=== PATIENT | female | born 1940 | race Caucasian/White ===

== ENCOUNTER → 2018-05-17 02:34 | Outpatient (CLI) | payer MEDICARE, SELFPAY ==
[2018-05-17 11:01] LABS: INR 2.2 (1.0-3.5)
== END ==
PROVIDERS: PCP Family Medicine; Visit Provider Family Medicine
DX: I48.91 Unspecified atrial fibrillation (principal); Z79.01 Long term (current) use of anticoagulants
CPT/HCPCS: 36415; 85610

== ENCOUNTER 2018-06-20 01:27 | Outpatient (CLI) | payer MEDICARE, SELFPAY ==
[2018-06-20 11:01] LABS: Prothrombin Time 44.8 sec (9.3-10.8)
[2018-06-20 11:32] LABS: INR 4.9 (1.0-3.5)
== END 2018-06-20 01:47 ==
PROVIDERS: PCP Family Medicine; Visit Provider Family Medicine
DX: I48.91 Unspecified atrial fibrillation (principal); Z79.01 Long term (current) use of anticoagulants
CPT/HCPCS: 36415; 85610

== ENCOUNTER 2018-06-27 01:03 | Outpatient (CLI) | payer MEDICARE, SELFPAY ==
[2018-06-27 10:54] LABS: INR 2.1 (1.0-3.5)
== END 2018-06-27 01:23 ==
PROVIDERS: PCP Family Medicine; Visit Provider Family Medicine
DX: I48.91 Unspecified atrial fibrillation (principal); Z79.01 Long term (current) use of anticoagulants
CPT/HCPCS: 36415; 85610

== ENCOUNTER 2018-07-04 02:22 | Outpatient (CLI) | payer MEDICARE, SELFPAY ==
[2018-07-04 11:02] LABS: INR 2.4 (1.0-3.5); Prothrombin Time 22.4 sec (9.3-10.8)
== END 2018-07-04 02:42 ==
PROVIDERS: PCP Family Medicine; Visit Provider Family Medicine
DX: I48.91 Unspecified atrial fibrillation (principal); Z79.01 Long term (current) use of anticoagulants
CPT/HCPCS: 36415; 85610

== ENCOUNTER 2018-07-18 01:39 | Outpatient (CLI) | payer MEDICARE, SELFPAY | END 2018-07-18 01:59 | PROVIDERS: PCP Family Medicine; Visit Provider Family Medicine | DX: I48.91 Unspecified atrial fibrillation (principal); Z79.01 Long term (current) use of anticoagulants | CPT/HCPCS: 36415; 85610 ==

== ENCOUNTER 2018-09-01 02:19 | Outpatient (CLI) | payer MEDICARE, SELFPAY ==
[2018-09-01 11:45] LABS: INR 2.7 (1.0-3.5); Prothrombin Time 25.4 sec (9.3-10.8)
== END 2018-09-01 02:39 ==
PROVIDERS: PCP Family Medicine; Visit Provider Family Medicine
DX: I48.91 Unspecified atrial fibrillation (principal); Z79.01 Long term (current) use of anticoagulants
CPT/HCPCS: 36415; 85610

== ENCOUNTER 2018-09-16 02:14 | Outpatient (CLI) | payer MEDICARE, SELFPAY ==
[2018-09-16 11:49] LABS: Anion Gap 7.9 mmol/L (3-11); BUN 15 mg/dL (7-18); CO2 28.1 mmol/L (21.0-32.0); CREATININE 1.13 mg/dL (0.55-1.02); Calcium 8.7 mg/dL (8.5-10.1); Chloride 107 mmol/L (98-107); Cholesterol 217 mg/dL (50-200); Estimated GFR 46.33 (mL/min/1.73m2); Glucose 99 mg/dL (70-100); HDL Cholesterol 81 mg/dL (40-60); LDL CHOLESTEROL 114 mg/dL (<100); Potassium 4.4 mmol/L (3.5-5.1); Sodium 143 mmol/L (136-145); TSH 3.07 uIU/mL (0.358-3.74); Triglyceride 107 mg/dL (30-150)
== END 2018-09-16 02:34 ==
PROVIDERS: PCP Family Medicine; Visit Provider Family Medicine
DX: E89.0 Postprocedural hypothyroidism (principal); I10 Essential (primary) hypertension; K58.9 Irritable bowel syndrome, unspecified
CPT/HCPCS: 36415; 80048; 80061; 83721; 84443

== ENCOUNTER 2018-09-21 00:40 | Outpatient (CLI) | payer MEDICARE, SELFPAY ==
--- NOTE | 2018-09-21 10:56 | DI.MAMMO_ITS ---
SYMPTOM/DIAGNOSIS: SCREENING FOR BREAST CANCER Z12.31 BILATERAL SCREENING MAMMOGRAMS: Mammograms were interpreted according to the usual protocol including computer analysis with CAD system, tomosynthesis and C view imaging. Comparison is made with exams from 2012 through 2016. The breasts are composed of scattered fibroglandular densities, breast density Category B. No suspicious masses or suspicious microcalcifications are seen. There has been no significant change. IMPRESSION: Category 1-B, negative mammogram. Yearly screening mammography is recommended. [facility] ASSESSMENT OF FINDINGS: Negative. Category 1. Patient will receive a letter notifying them of these results. BI-RADS category B. There are scattered areas of fibroglandular density.
== END 2018-09-21 01:00 ==
PROVIDERS: PCP Family Medicine; Visit Provider Family Medicine
DX: Z12.31 Encounter for screening mammogram for malignant neoplasm of breast (principal)
CPT/HCPCS: 77063; 77067

== ENCOUNTER 2018-10-03 02:16 | Outpatient (CLI) | payer MEDICARE, SELFPAY ==
[2018-10-03 13:25] LABS: INR 2.4 (1.0-3.5); Prothrombin Time 24.6 sec (9.3-11.0)
== END 2018-10-03 02:36 ==
PROVIDERS: PCP Family Medicine; Visit Provider Family Medicine
DX: I48.91 Unspecified atrial fibrillation (principal); Z79.01 Long term (current) use of anticoagulants
CPT/HCPCS: 36415; 85610

== ENCOUNTER 2018-11-07 02:20 | Outpatient (CLI) | payer MEDICARE, SELFPAY ==
[2018-11-07 11:22] LABS: INR 3.2 (0.9-1.1)
== END 2018-11-07 02:40 ==
PROVIDERS: PCP Family Medicine; Visit Provider Family Medicine
DX: I48.91 Unspecified atrial fibrillation (principal); Z79.01 Long term (current) use of anticoagulants
CPT/HCPCS: 36415; 85610

== ENCOUNTER 2018-12-07 02:48 | Outpatient (CLI) | payer MEDICARE, SELFPAY ==
[2018-12-07 12:58] LABS: INR 1.7 (0.9-1.1); Prothrombin Time 17.2 sec (9.3-11.0)
== END 2018-12-07 03:08 ==
PROVIDERS: PCP Family Medicine; Visit Provider Family Medicine
DX: I48.91 Unspecified atrial fibrillation (principal); Z79.01 Long term (current) use of anticoagulants
CPT/HCPCS: 36415; 85610

== ENCOUNTER 2018-12-21 02:40 | Outpatient (CLI) | payer MEDICARE, SELFPAY ==
[2018-12-21 11:14] LABS: INR 2.3 (0.9-1.1); Prothrombin Time 22.9 sec (9.3-11.0)
== END 2018-12-21 03:00 ==
PROVIDERS: PCP Family Medicine; Visit Provider Family Medicine
DX: I48.91 Unspecified atrial fibrillation (principal); Z79.01 Long term (current) use of anticoagulants
CPT/HCPCS: 36415; 85610

== ENCOUNTER 2019-01-06 02:55 | Outpatient (CLI) | payer MEDICARE, SELFPAY ==
[2019-01-06 13:10] LABS: INR 1.9 (0.9-1.1); Prothrombin Time 18.9 sec (9.3-11.0)
== END 2019-01-06 03:15 ==
PROVIDERS: PCP Family Medicine; Visit Provider Family Medicine
DX: I48.91 Unspecified atrial fibrillation (principal); Z79.01 Long term (current) use of anticoagulants
CPT/HCPCS: 36415; 85610

== ENCOUNTER 2019-02-02 01:31 | Outpatient (CLI) | payer MEDICARE, SELFPAY ==
[2019-02-02 11:18] LABS: Prothrombin Time 25.7 sec (9.3-11.0)
[2019-02-02 11:26] LABS: INR 2.5 (0.9-1.1)
== END 2019-02-02 01:51 ==
PROVIDERS: PCP Family Medicine; Visit Provider Family Medicine
DX: I48.91 Unspecified atrial fibrillation (principal); Z79.01 Long term (current) use of anticoagulants
CPT/HCPCS: 36415; 85610

== ENCOUNTER 2019-02-14 22:31 | Inpatient (IN) | payer MEDICARE, SELFPAY ==
[2019-02-14] VITALS (9 sets, daily range): BP systolic 183–192; BP diastolic 72–90; PULSE 69–77; RESP 12–20; TEMP 36.7; O2SAT 93–96
--- NOTE | 2019-02-14 22:39 | DI.RAD_ITS ---
SYMPTOM/DIAGNOSIS: CHEST PAIN PA AND LATERAL CHEST: The heart is normal in size. The lungs are clear. The mediastinal structures and pleura appear intact. CONCLUSION: Normal chest.
--- NOTE | 2019-02-14 22:53 | ED.GENADUL_ITS ---
Discharge Plan Disposition Patient Disposition: [facility] INPATIENT Condition: Improving Discharge Details Chief Complaint: Abd Prob Clinical Impression: Abdominal pain, Inflammation of small intestine Admit Date/Time: 02/15/19 00:59 Admit Provider: Phillip Cummins Attending Provider: Phillip Cummins Primary Care Provider: Alex Woods ED Provider: Sma Garcia Hospital Course Hospital Course: Juli Lindquist is an 78 year old female with a past medical history significant for atrial fibrillation anticoagulated with coumadin, CHF, previous history of diverticulitis, s/p appendectomy and hysterectomy who presented to the ED on 02/14/19 with reports of abdominal pain with nausea and diarrhea. She described the pain as coming in waves or spasms, in her epigastric region and periumbilical area. She had a CT abdomen in the ED which showed Findings suggestive of enteritis. No evidence of perforation. The initial read suggested possible small bowel obstruction vs enteritis. She had a normal chest x-ray. Her labs were significant for a slightly supratherapeutic INR at 3.2, Creatinine was mildly elevated at 1.05 in the setting of CKD (baseline cr around 1.3-1.4). She had no leukocytosis. She was admitted to the med/surg floor for further evaluation and monitoring. She was initially kept NPO and given IV fluids. The morning after her admission, she had an abdominal x-ray which showed her bowel gas pattern within normal limits except for a few mildly dilated loops of small bowel in the mid abdomen. Moderate amount of fecal material and gas in the colon. Her abdominal spasms resolved. She was able to tolerate advancement of her diet. Her INR normalized to 2.3, her magnesium was low on the day of discharge at 1.5, she received IV magnesium. Her creatinine was 1.15, which is below baseline for her. She had a normal bowel movement the evening prior to her discharge. She is no longer nauseated, no vomiting, and afebrile. She reports that her abdomen is sore but markedly better than when she presented to the hospital. She was monitored on telemetry and remained in NSR and sinus jackie in the 50- 60s. She is discharged home in improved condition. She will follow up with her PCP next week. She is advised to return to her usual diet slowly, as tolerated. She will take omeprazole for GERD after discharge. Follow up INR in 2 days. Discharge Instructions Instructions: Enteritis (DC) Additional Instructions: Resume your normal diet slowly. Resume your usual coumadin dose. INR in 2 days. Omeprazole daily for GERD/abdominal pain. Follow up with your PCP as scheduled. Take care! Forms: Nursing Discharge Form Referrals: Alex Woods MD [Primary Care Provider] - 02/21/19 4:00 pm Discharge Data Discharge Date/Time-TO BE ENTERED AT DEPARTURE: 02/15/19 01:47 Medical Decision Making <SHASHANK Beltran - Last Filed: 02/16/19 16:00> Patient is 78-year-old female, brought in by her , chief complaint of abdominal pain that began this afternoon after eating lunch. Reports the pain got worse throughout the course the day, particularly after eating dinner. She reports that for dinner she had mashed potatoes, spaghetti and squash. She denies any nausea vomiting. Is not had pain like this historically. Pain is primarily in epigastric and right upper quadrant with radiation up into the chest and neck. Denies any right shoulder pain. Denies any pain in her back or flank. No pain lower in the abdomen. States that the pain can come in spasms. Does not easily reproducible. Patient does have history of diverticulitis but reports typically this pain is in the left lower quadrant. No pain in this area today. Denies any fevers or chills. On exam, she appears uncomfortable. Abdomen is slightly distended tympanitic. Hypoactive bowel sounds. Patient is primarily tender in the epigastric and right upper quadrant with a positive Koenig sign. Cardiac exam is normal, lungs are clear. No reproducible pain with palpation of the chest. Considered possible ACS, cholecystitis, atypical presentation of her diverticulitis, pancreatitis versus other cardiac pulmonary or abdominal etiology. Plan obtain labs, EKG, chest x- ray and CT of abdomen. EKG was reviewed by Dr. Garcia. Patient does have T wave abnormalities but this is consistent compared to previous. We attempted to ultrasound the patient to look for gallbladder disease, secondary to bowel gas or having difficulty visualizing the Labs significant for INR 3.2, patient has not taken her coumadin today. Creatinine 1.05. No leukocytosis. At the end of my shift, imaging pending. Care transitioned to Dr. Garcia. <Sam Garcia MD - Last Filed: 02/15/19 00:35> 00:34 -- Care signed out by SHASHANK Romero - please see her documentation regarding initial presentation and course. Plan at signout was to follow-up CT and reassess patient. CT interpreted by radiology: IMPRESSION: Changes to some of the small bowel loops in the right lower quadrant could be early evidence of small bowel obstruction or enteritis. Colonic diverticulosis. Labs reviewed and nondiagnostic. Patient reassessed: initial morphine helped and then recurrent severe pain, receiving second dose of morphine. Abd soft and nondistended, focal TTP right mid and lower quadrant. Patient denies nausea/vomiting. Had loose stool earlier today. I called and spoke with Dr. Cummins who will admit the patient. Care transitioned to Dr. Cummins. HPI <SHASHANK Beltran - Last Filed: 02/16/19 16:00> General Mode of arrival: ambulatory . Date/Time Provider Initiated Documentation: 02/14/19 22:35 . Limitations to Documentation: no limitations . Information obtained by: patient, family (Accompanied by ) and RN notes reviewed . HPI Narrative: Patient is an 78 year old female presenting today with c/c of abdominal cramping that began this afternoon. Pain radiates into chest and up to neck. Denies SOB. Has history of HTN, diverticulitis, CHF, a fib. Patient anticoagulated on coumadin. Patient s/p appendectomy, cardiac ablation, hysterectomy. She reports that pain is similar to when she has had diverticulitis historically but more centrally located with pain that radiates upward. Denies nausea or vomiting. Has had loose stools today, no blood in stool. Related Data Home Medications Medication Instructions Recorded Confirmed calcium carbonate-vitamin D3 1 tab PO DAILY 01/31/13 02/15/19 [Caltrate with Vitamin D3] lisinopril 1 tab PO DAILY #90 tab 02/01/18 02/15/19 levothyroxine 88 mcg tablet 88 mcg PO DAILY@0730 #90 tab 08/10/18 02/15/19 gabapentin 600 mg tablet 300 mg PO BID #90 tab 09/15/18 02/15/19 metoprolol succinate ER 100 mg 100 mg PO QAM #90 tab 10/31/18 02/15/19 tablet,extended release 24 hr warfarin 5 mg tablet 5 mg PO DAILY 12/21/18 02/15/19 omeprazole 20 mg PO DAILY #14 cap 02/16/19 Previous Rx's Medication Instructions Recorded lisinopril 1 tab PO DAILY #90 tab 02/01/18 levothyroxine 88 mcg tablet 88 mcg PO DAILY@0730 #90 tab 08/10/18 gabapentin 600 mg tablet 300 mg PO BID #90 tab 09/15/18 metoprolol succinate ER 100 mg 100 mg PO QAM #90 tab 10/31/18 tablet,extended release 24 hr omeprazole 20 mg PO DAILY #14 cap 02/16/19 Allergies Allergy/AdvReac Type Severity Reaction Status Date / Time amoxicillin AdvReac Severe nausea/hot Verified 02/15/19 00:31 feeling sertraline AdvReac Intermediate TREMOR, Verified 02/15/19 00:31 DIAPHORESIS codeine phosphate AdvReac GI Verified 02/15/19 00:31 [From Tylenol-Codeine] General Stated Complaint: Abd Prob MATT: 3 Review of Systems <SHASHANK Beltran - Last Filed: 02/16/19 16:00> Constitutional Reports as per HPI, Denies chills, Denies fatigue, Denies fever(s), Denies headache(s), Denies lethargy and Reports poor appetite (diminished this evening) ENT Denies headache(s) Cardiovascular Reports as per HPI, Reports chest pain (radiates upward from abdomen with irregular spasms), Denies chest pain at rest, Denies chest pain with activity, Denies rapid heart rate, Denies irregular heart rhythm (hx of afib, s/p ablation), Denies leg edema, Reports radiating jaw, neck or arm pain (pain into neck), Denies dyspnea and Denies dyspnea on exertion Respiratory Reports as per HPI, Denies cough, Denies dyspnea, Denies dyspnea on exertion and Denies wheezing Gastrointestinal Reports as per HPI, Reports abdominal pain, Denies belching, Denies melena, Reports bloating, Denies change in stool character, Denies nausea and Denies vo miting Genitourinary Denies dysuria and Denies flank pain Musculoskeletal Reports as per HPI and Denies back pain Integumentary/Breasts Reports as per HPI and Denies rash Neurologic Reports as per HPI and Denies headache(s) Endocrine Denies fatigue Allergic/Immunologic Denies wheezing PFSH <SHASHANK Beltran - Last Filed: 02/16/19 16:00> Medical History Arthritis Atrial fibrillation Diverticula of colon Hypertension Hypothyroid Irritable colon Ovarian cysts remote history Raynaud phenomenon Surgical History Abdominal hysterectomy (~1967) Appendectomy Cardiac ablations Colonoscopy - IV Sedation EGD - MAC (10/16/14) Oophrectomy, Both Partial thyroidectomy Family History Mother Rheumatoid arthritis Osteoporosis Father Stroke Grandfather Neoplasm Grandfather Stroke Grandmother Stroke Grandmother No problems noted. Son No problems noted. Daughter No problems noted. Social History Smoking/Tobacco Use Status: Former Tobacco Use Drug use: Never Substance use type: does not use Do you feel safe at home: Yes Do you feel safe in your relationship?: Yes Exam <SHASHANK Beltran - Last Filed: 02/16/19 16:00> Const General: cooperative, healthy appearing, comfortable, well developed and acute distress mild (appears uncomfortable) Nutritional Appearance: average body habitus and well nourished Orientation: alert and awake HENIL Head: normal to inspection Mouth: moist mucous membranes Chest Chest: normal inspection of the chest and no localized rib tenderness Resp Effort & Inspection: normal respiratory effort, able to speak in complete sentences and no respiratory distress Auscultation: clear to auscultation bilaterally, no rales, no rhonchi and no wheezes Cardio Rate: regular rate Rhythm: regular rhythm Heart Sounds: S1 normal and S2 normal GI Inspection: no edema, distended, incision (well healed lower incision), no large pannus, no visible herniation and no visible pulsation Palpation: soft, no hepatosplenomegaly, not firm, guarding in the RUQ, no hepatosplenomegaly, no hernias, no masses, no pulsatile masses, not rigid, tender in the epigastrum, in the RUQ and Koenig's sign positive; not at McBurney's point, obturator sign negative and with no rebound tenderness and No ascites Percussion: tympanic to percussion Auscultation: hypoactive bowel sounds Back/Spine/Pelvis Back: no CVA tenderness Skin General skin exam: no rashes or lesions noted Trauma: no lacerations or abrasions Neuro General: alert and awake Cognition: normal cognition Speech: speech normal Gait: normal gait Extrem General: normal to inspection, normal capillary refill, no pedal edema, no calf tenderness and normal gait Psych Appearance: grossly normal and well kempt Mental Status: mental status grossly normal Speech and Movement: speech and movement normal Course <SHASHANK Beltran - Last Filed: 02/16/19 16:00> Vital Signs Temperature 36.7 C 02/14/19 22:36 Pulse 76 02/14/19 22:36 Respiratory Rate 20 02/14/19 22:36 Blood Pressure 192/90 H 02/14/19 22:36 Pulse Oximetry 95 02/14/19 22:36 Temperature 36.7 C 02/14/19 22:36 Temperature Source Tympanic 02/14/19 22:36 Pulse 76 02/14/19 22:36 Respiratory Rate 20 02/14/19 22:36 Blood Pressure 192/90 H 02/14/19 22:36 Blood Pressure Position Supine 02/14/19 22:36 Pulse Oximetry 95 02/14/19 22:36 Oxygen Delivery Method Room Air 02/14/19 22:36 Oxygen Flow Rate 0 02/14/19 22:36 Pain Level 7 02/14/19 22:36 Sign Out <SHASHANK Beltran - Last Filed: 02/16/19 16:00> Sign Out Data: Sign Out Comment: Care transitioned to Dr. Garcia with imaging pending. Last updated by Corine Romero PA at 02/15/19 00:19
[2019-02-14 23:08] LABS: Abs Immature Grans 0.02 k/cumm (0.0-0.09); Absolute Basophil Count 0.02 k/cumm (0.0-0.2); Absolute Eosinophil Count 0.16 k/cumm (0.0-0.7); Absolute Lymphocyte Count 1.31 k/cumm (1.2-3.4); Absolute Monocyte Count 0.53 k/cumm (0.11-0.7); Absolute Neutrophil Count 8.59 k/cumm (1.2-6.7); Basophils % 0.2; Eosinophils % 1.5; HCT 46.6 % (36.0-46.0); HGB 15.3 g/dL (12.0-15.5); Immature Grans % 0.2; Lymphocytes % 12.3; Mean Corp. HGB Concentration 32.8 g/dL (32.0-36.0); Mean Corpuscular Volume 85.3 fL (80-95); Neutrophils % 80.8; Platelet Count 194 x1000/uL (130-400); RBC 5.46 m/cumm (4.00-5.20); RBC Distribution Width 13.3 % (11.7-14.6); White Blood Cell Count 10.63 k/cumm (4.4-10.8)
[2019-02-14] MEDS: Normal Saline 1,000 ML 125 ML IV (23:09)
--- NOTE | 2019-02-14 23:16 | DI.CT_ITS ---
SYMPTOM/DIAGNOSIS: RUQ AND EPIGASTRIC PAIN ABDOMEN AND PELVIC CT: CT examination of the abdomen and pelvis was performed with a bolus infusion of 100 cc's of Omnipaque 350. Images obtained through the lung bases are unremarkable. Liver, spleen and pancreas appear normal. Gallbladder and bile ducts are CT normal. Adrenals and kidneys appear normal. Abdominal aorta is of normal diameter and no major vascular abnormality is seen. No significant abdominal wall hernia is seen. No significant abdominal or pelvic adenopathy is seen. There is a small quantity of free pelvic fluid. There is marked colonic diverticulosis without diverticulitis. Appendix is not specifically visualized but there is no evidence of appendicitis. Note is made of multiple loops of moderately dilated fluid filled small bowel with associated mesenteric edema at multiple sites. The findings are suggestive of enteritis. CONCLUSION: Findings suggestive of enteritis. No evidence of perforation.
[2019-02-14 23:28] LABS: ALT 19 U/L (12-78); AST 14 U/L (15-37); Albumin 3.6 g/dL (3.4-5.0); Alkaline Phosphatase 96 U/L (46-116); Anion Gap 9.4 mmol/L (3-11); BUN 13 mg/dL (7-18); Bilirubin, Total 0.4 mg/dL (0.2-1.0); CO2 27.6 mmol/L (21.0-32.0); CREATININE 1.05 mg/dL (0.55-1.02); Calcium 9.2 mg/dL (8.5-10.1); Chloride 104 mmol/L (98-107); Estimated GFR 50.43 (mL/min/1.73m2); Glucose 102 mg/dL (70-100); Lipase 144 U/L (73-393); Magnesium 1.9 mg/dL (1.8-2.4); NT-proBNP 620 pg/mL; Potassium 3.8 mmol/L (3.5-5.1); Sodium 141 mmol/L (136-145); Total Protein 7.5 g/dL (6.4-8.2); Troponin I 0.02 ng/mL (0.00-0.06)
[2019-02-14 23:45] LABS: INR 3.2 (0.9-1.1); Prothrombin Time 32.7 sec (9.3-11.0)
[2019-02-14] MEDS: Omnipaque 350 MG/ML 100 ML BTL IV (23:55)
[2019-02-15] VITALS (30 sets, daily range): BP systolic 137–189; BP diastolic 62–97; PULSE 54–74; RESP 13–25; TEMP 36.3–36.8; O2SAT 93–97
--- NOTE | 2019-02-15 00:10 | DI.VRAD_ITS ---
EXAM: XR Chest, 2 Views EXAM DATE/TIME: 02/14/2019 10:40 PM CLINICAL HISTORY: 78 years old, female; Signs and symptoms; Other: Cp; Prior surgery; Surgery date: 6+ months; Surgery type: Ablation TECHNIQUE: Imaging protocol: XR of the chest, 2 views. COMPARISON: No relevant prior studies available. FINDINGS: Lungs: Unremarkable. No consolidation. Pleural space: Unremarkable. No evidence of pneumothorax. Heart/Mediastinum: Unremarkable. Heart size within normal limits for technique. Bones/joints: Unremarkable. IMPRESSION: No acute findings. Dictated and Authenticated by: Jose Ribeiro MD. Ordering:STEFANY Pool MD
--- NOTE | 2019-02-15 00:13 | DI.VRAD_ITS ---
EXAM: CT Abdomen and Pelvis With Contrast EXAM DATE/TIME: 02/14/2019 11:17 PM CLINICAL HISTORY: 78 years old, female; Signs and symptoms; Other: Ruq and epigastric pain; Prior surgery; Surgery date: 6+ months; Surgery type: Appendectomy , hysterectomy TECHNIQUE: Imaging protocol: Axial computed tomography images of the abdomen and pelvis with intravenous contrast. Coronal and sagittal reformatted images were created and reviewed. Radiation optimization: All CT scans at this facility use at least one of these dose optimization techniques: automated exposure control; mA and/or kV adjustment per patient size (includes targeted exams where dose is matched to clinical indication); or iterative reconstruction. Contrast material: OMNIPAQUE 350; Contrast volume: 100 ml; Contrast route: IV; COMPARISON: CT ABD PELVIS WITH CONTRAST 10/19/2014 8:36 AM FINDINGS: ABDOMEN: Liver: No suspicious lesions. Gallbladder and bile ducts: No acute or concerning findings. Pancreas: Unremarkable. No ductal dilation. Spleen: No suspicious lesions. Adrenals: Unremarkalbe. No suspicious mass. Kidneys and ureters: Unremarkable. No hydro. No suspicious lesions. Stomach and bowel: Colonic diverticulosis. Right lower quadrant has some fluid filled small bowel loops which are normal in caliber and have no wall thickening but there is some adjacent mesenteric edema. Appendix: History of appendectomy. PELVIS: Bladder: Unremarkable as visualized. Reproductive: Unremarkable as visualized. ABDOMEN and PELVIS: Intraperitoneal space: No free air. No significant fluid collection. Bones/joints: No acute fracture. No dislocation. Soft tissues: Unremarkable. Vasculature: Unremarkable. No acute findings Lymph nodes: Unremarkable. IMPRESSION: Changes to some of the small bowel loops in the right lower quadrant could be early evidence of small bowel obstruction or enteritis. Colonic diverticulosis. Dictated and Authenticated by: Jose Ribeiro MD. Ordering:STEFANY Pool MD
[2019-02-15] MEDS: Normal Saline Flush 10 ML SYR IVP ×5 (00:14→17:29)
--- NOTE | 2019-02-15 00:58 | HPE_ITS ---
Date of service: 02/15/19 Time of Service: 00:47 Assessment and Plan (1) Abdominal pain: Current visit: Yes Status: Acute Abd pain, early obstruction versus enteritis. Will place NPO, IVF and repeat film in AM. Prn analgesics and anti-emetics. Slight supratherapeutic INR noted, will hold Coumadin and follow INR. Usual meds otherwise.. History of Present Illness Narrative: 78 year old female s/p appy and hysterectomy, prior diverticulitis, comes in with one day of intermittent RLQ/periumbilical pain. Non-radiating, comes in waves or spasms, some nausea. Had 5-6 bouts of loose stool earlier today, none since here in ER. CT demonstrates fluid filled loops small bowel in RLQ. Given MS 3 mg x2 with fairly good relief of pain. Admitted for further management. Denies travel or change in water source; no similar illness in fami ly. Review of Systems Review of Systems All systems reviewed & are unremarkable except as noted in HPI and below PFSH Medical History Arthritis Atrial fibrillation Diverticula of colon Hypertension Hypothyroid Irritable colon Ovarian cysts remote history Raynaud phenomenon Surgical History Abdominal hysterectomy (~1967) Appendectomy Cardiac ablations Colonoscopy - IV Sedation EGD - MAC (10/16/14) Oophrectomy, Both Partial thyroidectomy Family History Mother Rheumatoid arthritis Osteoporosis Father Stroke Grandfather Neoplasm Grandfather Stroke Grandmother Stroke Grandmother No problems noted. Son No problems noted. Daughter No problems noted. Social History Smoking/Tobacco Use Status: Former Tobacco Use Drug use: Never Substance use type: does not use Do you feel safe at home: Yes Do you feel safe in your relationship?: Yes Meds Home Medications Medication Instructions Recorded Confirmed Type calcium carbonate-vitamin D3 1 tab PO DAILY 01/31/13 02/15/19 History [Caltrate 600 + D Tablet] lisinopril 1 tab PO DAILY #90 tab 02/01/18 02/15/19 Rx levothyroxine 88 mcg tablet 88 mcg PO DAILY@0730 #90 tab 08/10/18 02/15/19 Rx gabapentin 600 mg tablet 300 mg PO BID #90 tab 09/15/18 02/15/19 Rx metoprolol succinate ER 100 mg 100 mg PO QAM #90 tab 10/31/18 02/15/19 Rx tablet,extended release 24 hr warfarin 5 mg tablet 5 mg PO DAILY 12/21/18 02/15/19 History Allergies Allergy/AdvReac Type Severity Reaction Status Date / Time amoxicillin AdvReac Severe nausea/hot Verified 02/15/19 00:31 feeling sertraline AdvReac Intermediate TREMOR, Verified 02/15/19 00:31 DIAPHORESIS codeine phosphate AdvReac GI Verified 02/15/19 00:31 [From Tylenol-Codeine] Exam Narrative Exam Narrative: 153/73, 68, 18, 36.3. HEENT unremarrkable. Neck ssupple; lungs clear; heart RRR w/o m/r/g; abdomen +BS, moderate RLQ tenderness with rebound, mild to moderate perriumbilical tenderness; extr no edema; neuro alert, non- focal Results CT as above: fluid filled loops small bowel, no free air, no AFL Labs : 02/14/19 22:55 02/14/19 22:55 Laboratory Results - last 24 hr 02/14/19 02/14/19 02/14/19 22:55 22:55 22:55 WBC 10.63 RBC 5.46 H Hgb 15.3 Hct 46.6 H MCV 85.3 MCH 28.0 MCHC 32.8 RDW 13.3 Plt Count 194 MPV 10.0 Immature Gran % 0.2 Neutrophils % 80.8 Lymphocytes % 12.3 Monocytes % 5.0 Eosinophils % 1.5 Basophils % 0.2 Absolute Neutrophils 8.59 H Absolute Lymphocytes 1.31 Absolute Monocytes 0.53 Absolute Eosinophils 0.16 Absolute Basophils 0.02 PT 32.7 H INR 3.2 H APTT 42.0 H Sodium 141 Potassium 3.8 Chloride 104 Carbon Dioxide 27.6 Anion Gap 9.4 BUN 13 Creatinine 1.05 H Estimated GFR/1.73 m2 50.43 Glucose 102 H Calcium 9.2 Magnesium 1.9 Total Bilirubin 0.4 AST 14 L ALT 19 Alkaline Phosphatase 96 Troponin I 0.02 NT-Pro-B Natriuret Pep 620 H Total Protein 7.5 Albumin 3.6 Lipase 144 Last Vital Signs Temp 36.3 C L 02/15/19 00:11 Pulse 69 02/15/19 00:15 Resp 17 02/15/19 00:20 BP 153/73 H 02/15/19 00:15 Pulse Ox 94 L 02/15/19 00:10
[2019-02-15] MEDS: Lactated Ringers 1,000 ML 150 ML IV (02:07)
--- NOTE | 2019-02-15 07:00 | DI.RAD_ITS ---
SYMPTOM/DIAGNOSIS: SMALL BOWEL OBSTRUCTION VERSUS ENTERITIS ABDOMEN AND UPRIGHT: Two views were obtained and show contrast material in the urinary tract post contrast enhanced CT. The bowel gas pattern is within normal limits except for a few mildly dilated loops of small bowel in the mid abdomen. Moderate amount of fecal material and gas in the colon. CONCLUSION: No evidence of acute process.
[2019-02-15 07:32] LABS: Prothrombin Time 30.2 sec (9.3-11.0)
[2019-02-15] MEDS: Ondansetron 4 MG/2 ML VIAL IVP ×2 (07:33→17:29)
--- NOTE | 2019-02-15 08:15 | PDOC.CMIN ---
- If Service Date Differs Date of service: 02/15/19 Time of Service: 08:16 Care Management Initial Assess REASON FOR HOSPITALIZATION:: Abdominal Pain PAST MEDICAL HISTORY/PAST SURGICAL HISTORY:: Medical History: Arthritis, Atrial fibrillation, Diverticula of colon, Hypertension, Hypothyroid. Irritable colon, Ovarian cysts remote history, Raynaud phenomenon. Surgical History: Abdominal hysterectomy (~1967). Appendectomy. Cardiac ablations. Colonoscopy - IV Sedation. EGD - MAC (10/16/14). Oophrectomy, Both. Partial thyroidectomy PREVIOUS FUNCTIONAL STATUS/SOCIAL/FAMILY SUPPORTS:: Juli lives with her Neda in a single family home in [facility]. They have 2 adult children and several grandchildren, all living out of state. Both Juli and her are retired. She is independent with all ADLs and continues to drive. CURRENT FUNCTIONAL STATUS:: Juli was sitting up in bed during CM visit stating she is very thirsty. She is currently NPO because of a possible SBO. She states that her abdominal pain and cramping were a 10/10 but after 4 doses of morphine, it is down to a 2/10. Juli was very open and engaged in the conversation. She hopes to be discharged today or tomorrow. ADVANCE DIRECTIVES:: On file at [facility]. DANIELLA Lindquist. [phone] Has patient been provided with information about the portal?: Yes Did the patient sign up for the portal?: Yes (previously) CODE STATUS:: Full Code INSURANCE COVERAGE / FINANCIAL ISSUES:: Medicare. [facility] CURRENT HOME/COMMUNITY SERVICES/EQUIPMENT:: none PRIMARY CARE PHYSICIAN:: Alex Woods POTENTIAL DISCHARGE NEEDS:: none identified PATIENT/FAMILY EDUCATION NEEDS:: Discharge plan, limitations, follow up plan of care, Ask Me Three. ANTICIPATED BARRIERS TO DISCHARGE:: none identified TRANSPORTATION:: Via private automobile with at time of discharge. PLAN:: Juli is receiving IV fluids and undergoing testing to determine the cause of her abdominal pain. Anticipate she will return home without services when ready. CM will continue to provide support to patient, family, care team and discharge plan of care.
[2019-02-15] MEDS: Metoprolol CR 100 MG TABCR PO (08:37)
[2019-02-15] MEDS: Gabapentin 600 MG TAB 300 MG PO ×2 (08:37→19:55)
[2019-02-15] MEDS: Levothyroxine 88 MCG TAB PO (08:37)
[2019-02-15] MEDS: Lisinopril 20 MG TAB 40 MG PO (08:37)
--- NOTE | 2019-02-15 09:23 | INITIAL_ITS ---
- If Service Date Differs Date of service: 02/15/19 Time of Service: 08:16 Care Management Initial Assess REASON FOR HOSPITALIZATION:: Abdominal Pain PAST MEDICAL HISTORY/PAST SURGICAL HISTORY:: Medical History: Arthritis, Atrial fibrillation, Diverticula of colon, Hypertension, Hypothyroid. Irritable colon, Ovarian cysts remote history, Raynaud phenomenon. Surgical History: Abdominal hysterectomy (~1967). Appendectomy. Cardiac ablations. Colonoscopy - IV Sedation. EGD - MAC (10/16/14). Oophrectomy, Both. Partial thyroidectomy PREVIOUS FUNCTIONAL STATUS/SOCIAL/FAMILY SUPPORTS:: Juli lives with her Neda in a single family home in [facility]. They have 2 adult children and several grandchildren, all living out of state. Both Juli and her are retired. She is independent with all ADLs and continues to drive. CURRENT FUNCTIONAL STATUS:: Juli was sitting up in bed during CM visit stating she is very thirsty. She is currently NPO because of a possible SBO. She states that her abdominal pain and cramping were a 10/10 but after 4 doses of morphine, it is down to a 2/10. Juli was very open and engaged in the conversation. She hopes to be discharged today or tomorrow. ADVANCE DIRECTIVES:: On file at [facility]. DANIELLA Lindquist. [phone] Has patient been provided with information about the portal?: Yes Did the patient sign up for the portal?: Yes (previously) CODE STATUS:: Full Code INSURANCE COVERAGE / FINANCIAL ISSUES:: Medicare. [facility] CURRENT HOME/COMMUNITY SERVICES/EQUIPMENT:: none PRIMARY CARE PHYSICIAN:: Alex Woods POTENTIAL DISCHARGE NEEDS:: none identified PATIENT/FAMILY EDUCATION NEEDS:: Discharge plan, limitations, follow up plan of care, Ask Me Three. ANTICIPATED BARRIERS TO DISCHARGE:: none identified TRANSPORTATION:: Via private automobile with at time of discharge. PLAN:: Juli is receiving IV fluids and undergoing testing to determine the cause of her abdominal pain. Anticipate she will return home without services when ready. CM will continue to provide support to patient, family, care team and discharge plan of care.
[2019-02-15] MEDS: Normal Saline 1,000 ML 75 ML IV ×2 (10:28→20:02)
--- NOTE | 2019-02-15 11:02 | PHARADMIT ---
Admission Pharmacy Clinical Review ABDOMINAL PAIN Code Status Full Code Current Weight 78.1 kg Renally Cleared and Narrow Therapeutic Index Meds CRCL ~38ML/MIN QTc Value / Action Taken 465 BP Control, Fever 189/72 AFEBRILE Electrolytes reviewed OK DVT Prophylaxis WARFARIN ON HOLD Opiate Usage / Scheduled Bowel Regimen Ordered PRN/NPO Plt/SCr for Heparin / Enoxaparin 194/1.05 INR for Warfarin 3.0 H/H stable, WBC/Bands 15.3/46.6 WBC 10.63 Antibiotic appropriateness NA Cultures and Sensitivities NA Surgical ABX d/c within 24 hr NA DM control / Insulin Dosing NA Heart Failure (Check EF%) (GIL's, B-Block, Diuretics) NO IV to PO Switch NPO Home Meds Reviewed OK Home Meds Not Ordered warfarin 5 mg tablet 5 mg PO DAILY Comments SBO VS ENTERITIS
[2019-02-15 11:39] LABS: Abs Immature Grans 0.01 k/cumm (0.0-0.09); Absolute Basophil Count 0.01 k/cumm (0.0-0.2); Absolute Eosinophil Count 0.04 k/cumm (0.0-0.7); Absolute Lymphocyte Count 1.18 k/cumm (1.2-3.4); Absolute Monocyte Count 0.37 k/cumm (0.11-0.7); Absolute Neutrophil Count 6.11 k/cumm (1.2-6.7); Basophils % 0.1; Eosinophils % 0.5; HCT 43.3 % (36.0-46.0); Immature Grans % 0.1; Lymphocytes % 15.3; Mean Corp. HGB Concentration 32.3 g/dL (32.0-36.0); Mean Corpuscular Hemoglobin 28.2 pg (27.0-33.0); Mean Corpuscular Volume 87.1 fL (80-95); Mean Platelet Volume 10.6 fL (8.0-11.0); Monocytes % 4.8; Neutrophils % 79.2; Platelet Count 170 x1000/uL (130-400); RBC 4.97 m/cumm (4.00-5.20); RBC Distribution Width 13.5 % (11.7-14.6); White Blood Cell Count 7.72 k/cumm (4.4-10.8)
[2019-02-15 11:52] LABS: Anion Gap 7.4 mmol/L (3-11); BUN 12 mg/dL (7-18); CO2 28.6 mmol/L (21.0-32.0); CREATININE 0.97 mg/dL (0.55-1.02); Chloride 105 mmol/L (98-107); Estimated GFR 55.26 (mL/min/1.73m2); Glucose 90 mg/dL (70-100); Potassium 4.6 mmol/L (3.5-5.1); Sodium 141 mmol/L (136-145)
--- NOTE | 2019-02-15 14:48 | CHAPLAIN ---
Juli told me that she was having pains, like having a baby yesterday and is waiting for tests results and to speak with the hospitalist about what's going on. She expects her to be in later to visit. Juli is a member of the [employer] and gave me permission to let her library attendant, Rev. Joseph Mcnamara, know she is here. 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
[2019-02-15] MEDS: Warfarin 5 MG TAB PO (19:55)
[2019-02-16 07:00] VITALS: PULSE 58
[2019-02-16 07:16] LABS: Absolute Basophil Count 0.01 k/cumm (0.0-0.2); Absolute Eosinophil Count 0.17 k/cumm (0.0-0.7); Absolute Lymphocyte Count 1.41 k/cumm (1.2-3.4); Absolute Monocyte Count 0.39 k/cumm (0.11-0.7); Absolute Neutrophil Count 2.98 k/cumm (1.2-6.7); Basophils % 0.2; Eosinophils % 3.4; HCT 40.1 % (36.0-46.0); HGB 12.7 g/dL (12.0-15.5); Lymphocytes % 28.4; Mean Corp. HGB Concentration 31.7 g/dL (32.0-36.0); Mean Corpuscular Hemoglobin 27.9 pg (27.0-33.0); Mean Corpuscular Volume 88.1 fL (80-95); Mean Platelet Volume 10.2 fL (8.0-11.0); Monocytes % 7.9; Neutrophils % 60.1; Platelet Count 160 x1000/uL (130-400); RBC 4.55 m/cumm (4.00-5.20); RBC Distribution Width 13.6 % (11.7-14.6); White Blood Cell Count 4.96 k/cumm (4.4-10.8)
[2019-02-16 07:37] LABS: INR 2.3 (0.9-1.1); Prothrombin Time 22.7 sec (9.3-11.0)
[2019-02-16 07:57] LABS: Anion Gap 5.8 mmol/L (3-11); BUN 7 mg/dL (7-18); CO2 28.2 mmol/L (21.0-32.0); CREATININE 1.15 mg/dL (0.55-1.02); Calcium 8.1 mg/dL (8.5-10.1); Chloride 108 mmol/L (98-107); Glucose 80 mg/dL (70-100); Magnesium 1.5 mg/dL (1.8-2.4); Potassium 3.9 mmol/L (3.5-5.1); Sodium 142 mmol/L (136-145)
[2019-02-16 08:21] VITALS: BP 137/70; PULSE 63; RESP 12; TEMP 36.8; O2SAT 96
[2019-02-16] MEDS: Gabapentin 600 MG TAB 300 MG PO (08:34)
[2019-02-16] MEDS: Metoprolol CR 100 MG TABCR PO (08:36)
[2019-02-16] MEDS: Levothyroxine 88 MCG TAB PO (08:37)
[2019-02-16] MEDS: MAGNESIUM SULFATE 2 GM/50 ML BAG IVPB (08:37)
[2019-02-16] MEDS: Lisinopril 20 MG TAB 40 MG PO (08:45)
[2019-02-16 08:47] VITALS: PULSE 65
[2019-02-16] MEDS: Normal Saline 1,000 ML 75 ML IV (08:48)
[2019-02-16] MEDS: Potassium Chloride 10 MEQ TABCR PO (11:10)
--- NOTE | 2019-02-16 11:55 | DSE_ITS ---
Date of service: 02/16/19 Time of Service: 11:50 DS: Diagnosis Discharge Diagnosis (1) Abdominal pain: Status: Acute Discharge Plan Disposition Patient Disposition: HOME Condition: Improving Discharge Details Reason For Visit: ABDOMINAL PAIN Admit Date/Time: 02/15/19 00:59 Admit Provider: Phillip Cummins Attending Provider: Phillip Cummins Primary Care Provider: Alex Woods Hospital Course Hospital Course: Juli Lindquist is an 78 year old female with a past medical history significant for atrial fibrillation anticoagulated with coumadin, CHF, previous history of diverticulitis, s/p appendectomy and hysterectomy who presented to the ED on 02/14/19 with reports of abdominal pain with nausea and diarrhea. She described the pain as coming in waves or spasms, in her epigastric region and periumbilical area. She had a CT abdomen in the ED which showed Findings suggestive of enteritis. No evidence of perforation. The initial read suggested possible small bowel obstruction vs enteritis. She had a normal chest x-ray. Her labs were significant for a slightly supratherapeutic INR at 3.2, Creatinine was mildly elevated at 1.05 in the setting of CKD (baseline cr around 1.3-1.4). She had no leukocytosis. She was admitted to the med/surg floor for further evaluation and monitoring. She was initially kept NPO and given IV fluids. The morning after her admission, she had an abdominal x-ray which showed her bowel gas pattern within normal limits except for a few mildly dilated loops of small bowel in the mid abdomen. Moderate amount of fecal material and gas in the colon. Her abdominal spasms resolved. She was able to tolerate advancement of her diet. Her INR normalized to 2.3, her magnesium was low on the day of discharge at 1.5, she received IV magnesium. Her creatinine was 1.15, which is below baseline for her. She had a normal bowel movement the evening prior to her discharge. She is no longer nauseated, no vomiting, and afebrile. She reports that her abdomen is sore but markedly better than when she presented to the hospital. She was monitored on telemetry and remained in NSR and sinus jackie in the 50- 60s. She is discharged home in improved condition. She will follow up with her PCP next week. She is advised to return to her usual diet slowly, as tolerated. She will take omeprazole for GERD after discharge. Follow up INR in 2 days. Home Meds and New Rx's Prescriptions: New omeprazole 20 mg capsule,delayed release(DR/EC) 20 mg PO DAILY Qty: 14 RF: 0 Continued gabapentin 600 mg tablet 300 mg PO BID Qty: 90 RF: 5 calcium carbonate-vitamin D3 [Caltrate with Vitamin D3] 1 EACH tablet 1 tab PO DAILY RF: 0 lisinopril 40 MG tablet 1 tab PO DAILY Qty: 90 RF: 4 levothyroxine [Synthroid] 88 mcg tablet 88 mcg PO DAILY@0730 Qty: 90 RF: 4 metoprolol succinate 100 mg tablet extended release 24 hr 100 mg PO QAM Qty: 90 RF: 4 warfarin 5 mg tablet 5 mg PO DAILY RF: 0 Discharge Instructions Instructions: Enteritis (DC) Additional Instructions: Resume your normal diet slowly. Resume your usual coumadin dose. INR in 2 days. Omeprazole daily for GERD/abdominal pain. Follow up with your PCP as scheduled. Take care! Stand Alone Forms: Nursing Discharge Form Referrals: Alex Woods MD [Primary Care Provider] - 02/21/19 4:00 pm Activity:: Activity as Tolerated Equipment/Supplies:: No Equipment Needed Diet:: As Tolerated Discharge Orders Discharge Orders: Discharge Order (Routine); Ordered 02/16/19 Ordered By: Monika Kat Exam Narrative Exam Narrative: General: awake and alert, pleasant and cooperative, sitting up in bed in NAD. HEENT: Nose with healing surgical wound s/p mohs procedure for basal cell carcinoma. Pupils equal and round, EOMI, mucous membranes moist. Neck: supple, no JVD. Respiratory: respirations even and unlabored, lung sounds clear bilaterally. Cardiovascular: heart has regular rate and rhythm, no murmur appreciated. GI: abdomen mildly tender on palpation diffusely, normoactive bowel sounds x4 quadrants, nondistended. Extremities: no clubbing, cyanosis or edema. DS: Data Vitals/I&O Vitals and I&O: Vital Signs Temperature 36.8 C 02/16/19 08:21 Temperature Source Tympanic 02/16/19 08:21 Pulse 65 02/16/19 08:47 Pulse Rhythm Regular 02/15/19 19:50 Pulse 60 02/15/19 01:20 Respiratory Rate 12 02/16/19 08:21 Respiratory Effort Non-Labored 02/15/19 19:50 Respiratory Depth Normal 02/15/19 19:50 Respiratory Pattern Normal 02/15/19 19:50 Blood Pressure 137/70 02/16/19 08:21 Blood Pressure Mean 83 02/15/19 01:16 Blood Pressure Position Supine 02/14/19 22:36 Pulse Oximetry 96 02/16/19 08:21 Oxygen Delivery Method Room Air 02/16/19 08:21 Oxygen Flow Rate 0 02/16/19 08:21 Pain Level 4 02/15/19 04:45 Intake & Output 02/15/19 02/15/19 02/16/19 11:59 23:59 11:59 Intake Total 1080 / 3587.5 2507.5 / 3587.5 1317.5 / 1317.5 Output Total 950 / 1150 200 / 1150 Balance 130 / 2437.5 2307.5 / 2437.5 1317.5 / 1317.5 Weight 78.1 kg Intake: IV 1000 / 2727.5 1727.5 / 2727.5 957.5 / 957.5 Oral 80 / 860 780 / 860 360 / 360 Output: Urine 950 / 1150 200 / 1150 Other: Urine Color Light Pina Yellow Urine Appearance Clear Clear Urine Odor Normal Normal Stool Size Moderate Stool Characteristics Soft Brown Voiding Methods Toilet Completed studies during hospitalization [Text1]: 02/14/19: PA AND LATERAL CHEST: The heart is normal in size. The lungs are clear. The mediastinal structures a nd pleura appear intact. CONCLUSION: Normal chest. EXAM: XR Chest, 2 Views EXAM DATE/TIME: 02/14/2019 10:40 PM CLINICAL HISTORY: 78 years old, female; Signs and symptoms; Other: Cp; Prior surgery; Surgery date: 6+ months; Surgery type: Ablation TECHNIQUE: Imaging protocol: XR of the chest, 2 views. COMPARISON: No relevant prior studies available. FINDINGS: Lungs: Unremarkable. No consolidation. Pleural space: Unremarkable. No evidence of pneumothorax. Heart/Mediastinum: Unremarkable. Heart size within normal limits for technique. Bones/joints: Unremarkable. IMPRESSION: No acute findings. ABDOMEN AND PELVIC CT: CT examination of the abdomen and pelvis was performed with a bolus infusion of 100 cc's of Omnipaque 350. Images obtained through the lung bases are unremarkable. Liver, spleen and pancreas appear normal. Gallbladder and bile ducts are CT normal. Adrenals and kidneys appear normal. Abdominal aorta is of normal diameter and no major vascular abnormality is seen. No significant abdominal wall hernia is seen. No significant abdominal or pelvic adenopathy is seen. There is a small quantity of free pelvic fluid. There is marked colonic diverticulosis without diverticulitis. Appendix is not specifically visualized but there is no evidence of appendicitis. Note is made of multiple loops of moderately dilated fluid filled small bowel with associated mesenteric edema at multiple sites. The findings are suggestive of enteritis. CONCLUSION: Findings suggestive of enteritis. No evidence of perforation. EXAM: CT Abdomen and Pelvis With Contrast EXAM DATE/TIME: 02/14/2019 11:17 PM CLINICAL HISTORY: 78 years old, female; Signs and symptoms; Other: Ruq and epigastric pain; Prior surgery; Surgery date: 6+ months; Surgery type: Appendectomy , hysterectomy TECHNIQUE: Imaging protocol: Axial computed tomography images of the abdomen and pelvis with intravenous contrast. Coronal and sagittal reformatted images were created and reviewed. Radiation optimization: All CT scans at this facility use at least one of these dose optimization techniques: automated exposure control; mA and/or kV adjustment per patient size (includes targeted exams where dose is matched to clinical indication); or iterative reconstruction. Contrast material: OMNIPAQUE 350; Contrast volume: 100 ml; Contrast route: IV; COMPARISON: CT ABD PELVIS WITH CONTRAST 10/19/2014 8:36 AM FINDINGS: ABDOMEN: Liver: No suspicious lesions. Gallbladder and bile ducts: No acute or concerning findings. Pancreas: Unremarkable. No ductal dilation. Spleen: No suspicious lesions. Adrenals: Unremarkalbe. No suspicious mass. Kidneys and ureters: Unremarkable. No hydro. No suspicious lesions. Stomach and bowel: Colonic diverticulosis. Right lower quadrant has some fluid filled small bowel loops which are normal in caliber and have no wall thickening but there is some adjacent mesenteric edema. Appendix: History of appendectomy. PELVIS: Bladder: Unremarkable as visualized. Reproductive: Unremarkable as visualized. ABDOMEN and PELVIS: Intraperitoneal space: No free air. No significant fluid collection. Bones/joints: No acute fracture. No dislocation. Soft tissues: Unremarkable. Vasculature: Unremarkable. No acute findings Lymph nodes: Unremarkable. IMPRESSION: Changes to some of the small bowel loops in the right lower quadrant could be early evidence of small bowel obstruction or enteritis. Colonic diverticulosis. 02/15/19: Exam(s) a RAD:XR abdomen flat & upright SYMPTOM/DIAGNOSIS: SMALL BOWEL OBSTRUCTION VERSUS ENTERITIS ABDOMEN AND UPRIGHT: Two views were obtained and show contrast material in the urinary tract post contrast enhanced CT. The bowel gas pattern is within normal limits except for a few mildly dilated loops of small bowel in the mid abdomen. Moderate amount of fecal material and gas in the colon. CONCLUSION: No evidence of acute process. Labs on day of discharge: Labs from last 24 hours 02/16/19 02/16/19 02/16/19 06:30 06:30 06:30 WBC 4.96 D RBC 4.55 Hgb 12.7 Hct 40.1 MCV 88.1 MCH 27.9 MCHC 31.7 L RDW 13.6 Plt Count 160 MPV 10.2 Immature Gran % 0.0 Neutrophils % 60.1 Lymphocytes % 28.4 Monocytes % 7.9 Eosinophils % 3.4 Basophils % 0.2 Absolute Neutrophils 2.98 Absolute Lymphocytes 1.41 Absolute Monocytes 0.39 Absolute Eosinophils 0.17 Absolute Basophils 0.01 PT 22.7 H D INR 2.3 H D Sodium 142 Potassium 3.9 Chloride 108 H Carbon Dioxide 28.2 Anion Gap 5.8 BUN 7 Creatinine 1.15 H Estimated GFR/1.73 m2 45.40 Glucose 80 Calcium 8.1 L Magnesium 1.5 L TSH 0.80 02/15/19 06:25 WBC RBC Hgb Hct MCV MCH MCHC RDW Plt Count MPV Immature Gran % Neutrophils % Lymphocytes % Monocytes % Eosinophils % Basophils % Absolute Neutrophils Absolute Lymphocytes Absolute Monocytes Absolute Eosinophils Absolute Basophils PT INR Sodium 141 Potassium 4.6 D Chloride 105 Carbon Dioxide 28.6 Anion Gap 7.4 BUN 12 Creatinine 0.97 Estimated GFR/1.73 m2 55.26 Glucose 90 Calcium 9.0 Magnesium 2.0 TSH [facility] Medical History Arthritis Atrial fibrillation Diverticula of colon Hypertension Hypothyroid Irritable colon Ovarian cysts remote history Raynaud phenomenon Surgical History Abdominal hysterectomy (~1967) Appendectomy Cardiac ablations Colonoscopy - IV Sedation EGD - MAC (10/16/14) Oophrectomy, Both Partial thyroidectomy Family History Mother Rheumatoid arthritis Osteoporosis Father Stroke Grandfather Neoplasm Grandfather Stroke Grandmother Stroke Grandmother No problems noted. Son No problems noted. Daughter No problems noted. Social History Smoking/Tobacco Use Status: Former Tobacco Use Drug use: Never Substance use type: does not use Do you feel safe at home: Yes Do you feel safe in your relationship?: Yes
--- NOTE | 2019-02-16 13:37 | PDOC.CMDIS ---
- If Service Date Differs Date of service: 02/16/19 Time of Service: 13:37 LACE Index Scoring Tool - Questions: Length of Stay (in days): 2 Acuity (Admit via E.D.?): Yes E.D. Visits: 1 - Answers: Total Score: 6 Risk of Readmission: Low Risk Care Management Discharge Reason for Hospitalization: Abdominal Pain Discharge Plan: Juli will return home without services this afternoon. Her will transport her via private automobile. Juli is to follow up with her PCP and plan of care as prescribed. She states she feels much better and looks forward to being home. Patient/Family Education Needs: Discharge plan, limitations, follow up plan of care, Ask Me Three
--- NOTE | 2019-02-16 16:33 | CHAPLAIN ---
I visited with Juli and her while she was waiting to be discharged. She told me about her outpaitient surgery on her nose take care of some skin cancer. Skin was removed from her cheek to use on her nose. She was impressed with how this was all done as an outpatient. 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 Her hand woven carpet and rug mender, Rev. Joseph Mcnamara visited her yesterday.
== END 2019-02-16 14:06 | disposition home or self-care (01) | DRG 392 ==
LOC: ER 02-15 01:11 → MS 02-15 01:49
PROVIDERS: Physician Assistant; Admitting Provider General Practice; Emergency Provider Student in an Organized Health Care Education/Training Program; PCP Family Medicine; Visit Provider Internal Medicine
DX: R10.823 Right lower quadrant rebound abdominal tenderness (principal); R11.2 Nausea with vomiting, unspecified; R19.7 Diarrhea, unspecified; K52.9 Noninfective gastroenteritis and colitis, unspecified; R00.1 Bradycardia, unspecified; R79.1 Abnormal coagulation profile; T45.515A Adverse effect of anticoagulants, initial encounter; E83.42 Hypomagnesemia; I48.91 Unspecified atrial fibrillation; Z79.01 Long term (current) use of anticoagulants; I50.9 Heart failure, unspecified; N18.9 Chronic kidney disease, unspecified
CPT/HCPCS: 36415; 80048; 80053; 83690; 93005; 96361; 96374; 96376; 99222; 99239; 99285; 71046; 74019; 74177; 83735; 83880; 84443; 84484; 85025; 85610; 85730; 93010; J2405; J3490

== ENCOUNTER 2019-03-07 02:01 | Outpatient (CLI) | payer MEDICARE, SELFPAY ==
[2019-03-07 11:16] LABS: Prothrombin Time 42.9 sec (9.3-11.0)
[2019-03-07 12:04] LABS: INR 4.2 (0.9-1.1)
== END 2019-03-07 02:21 ==
PROVIDERS: PCP Family Medicine; Visit Provider Family Medicine
DX: I48.91 Unspecified atrial fibrillation (principal); Z79.01 Long term (current) use of anticoagulants
CPT/HCPCS: 36415; 85610

== ENCOUNTER 2019-03-14 02:02 | Outpatient (CLI) | payer MEDICARE, SELFPAY ==
[2019-03-14 11:14] LABS: INR 3.2 (0.9-1.1); Prothrombin Time 32.7 sec (9.3-11.0)
== END 2019-03-14 02:22 ==
PROVIDERS: PCP Family Medicine; Visit Provider Family Medicine
DX: I48.91 Unspecified atrial fibrillation (principal); Z79.01 Long term (current) use of anticoagulants
CPT/HCPCS: 36415; 85610

== ENCOUNTER 2019-03-21 02:01 | Outpatient (CLI) | payer MEDICARE, SELFPAY ==
[2019-03-21 11:39] LABS: Prothrombin Time 20.1 sec (9.3-11.0)
== END 2019-03-21 02:21 ==
PROVIDERS: PCP Family Medicine; Visit Provider Family Medicine
DX: I48.91 Unspecified atrial fibrillation (principal); Z79.01 Long term (current) use of anticoagulants
CPT/HCPCS: 36415; 85610

== ENCOUNTER 2019-03-28 01:47 | Outpatient (CLI) | payer MEDICARE, SELFPAY ==
[2019-03-28 11:14] LABS: INR 1.5 (0.9-1.1); Prothrombin Time 15.5 sec (9.3-11.0)
== END 2019-03-28 02:07 ==
PROVIDERS: PCP Family Medicine; Visit Provider Family Medicine
DX: I48.91 Unspecified atrial fibrillation (principal); Z79.01 Long term (current) use of anticoagulants
CPT/HCPCS: 36415; 85610

== ENCOUNTER 2019-03-31 01:30 | Outpatient (CLI) | payer MEDICARE, SELFPAY ==
--- NOTE | 2019-03-31 08:55 | DI.RAD_ITS ---
SYMPTOM/DIAGNOSIS: RIGHT HIP PAIN M25.551 RIGHT HIP: 03/31 Two views were obtained. There is mild to moderate narrowing of the cartilaginous joint spaces of both hips superiorly. Mild acetabular spurring noted bilaterally. Mild to moderate femoral head marginal osteophyte formation noted on the right, left femoral head unremarkable in appearance. CONCLUSION: Bilateral hip DJD, right greater than left.
== END 2019-03-31 01:50 ==
PROVIDERS: PCP Family Medicine; Visit Provider Family Medicine
DX: M25.551 Pain in right hip (principal); M16.0 Bilateral primary osteoarthritis of hip
CPT/HCPCS: 73502

== ENCOUNTER 2019-04-05 01:22 | Outpatient (CLI) | payer MEDICARE, SELFPAY ==
[2019-04-05 12:12] LABS: INR 1.5 (0.9-1.1); Prothrombin Time 15.5 sec (9.3-11.0)
== END 2019-04-05 01:42 ==
PROVIDERS: PCP Family Medicine; Visit Provider Family Medicine
DX: I48.91 Unspecified atrial fibrillation (principal); Z79.01 Long term (current) use of anticoagulants
CPT/HCPCS: 36415; 85610

== ENCOUNTER 2019-04-12 01:48 | Outpatient (CLI) | payer MEDICARE, SELFPAY ==
[2019-04-12 13:46] LABS: INR 1.9 (0.9-1.1); Prothrombin Time 18.7 sec (9.3-11.0)
== END 2019-04-12 02:08 ==
PROVIDERS: PCP Family Medicine; Visit Provider Family Medicine
DX: I48.91 Unspecified atrial fibrillation (principal); Z79.01 Long term (current) use of anticoagulants
CPT/HCPCS: 36415; 85610

== ENCOUNTER 2019-04-26 01:43 | Outpatient (CLI) | payer MEDICARE, SELFPAY ==
[2019-04-26 11:25] LABS: INR 2.4 (0.9-1.1); Prothrombin Time 24.3 sec (9.3-11.0)
== END 2019-04-26 02:03 ==
PROVIDERS: PCP Family Medicine; Visit Provider Family Medicine
DX: I48.91 Unspecified atrial fibrillation (principal); Z79.01 Long term (current) use of anticoagulants
CPT/HCPCS: 36415; 85610

== ENCOUNTER 2019-05-11 02:19 | Outpatient (CLI) | payer MEDICARE, SELFPAY ==
[2019-05-11 10:43] LABS: INR 2.9 (0.9-1.1); Prothrombin Time 29.7 sec (9.3-11.0)
== END 2019-05-11 02:39 ==
PROVIDERS: PCP Family Medicine; Visit Provider Family Medicine
DX: I48.91 Unspecified atrial fibrillation (principal); Z79.01 Long term (current) use of anticoagulants
CPT/HCPCS: 36415; 85610

== ENCOUNTER 2019-05-19 09:34 | Emergency (ER) | payer MEDICARE, SELFPAY ==
[2019-05-19 09:41] VITALS: BP 143/80; PULSE 90; RESP 18; TEMP 36.8
--- NOTE | 2019-05-19 09:53 | W.ED.GENAD ---
Discharge Plan Disposition Patient Disposition: HOME Condition: Stable Discharge Details Chief Complaint: Abd Prob Clinical Impression: Ileitis Primary Care Provider: Alex Woods ED Provider: Aubrey Pinzon Home Meds and New Rx's Prescriptions: New levofloxacin 500 mg tablet 500 mg PO DAILY Qty: 5 RF: 0 oxycodone 5 mg tablet 5 mg PO Q6H PRN (Reason: pain) Qty: 12 RF: 0 prednisone 50 mg tablet 50 mg PO DAILY Qty: 5 RF: 0 Continued gabapentin 600 mg tablet 300 mg PO BID Qty: 90 RF: 5 calcium carbonate-vitamin D3 [Caltrate with Vitamin D3] 1 EACH tablet 1 tab PO DAILY RF: 0 levothyroxine [Synthroid] 88 mcg tablet 88 mcg PO DAILY@0730 Qty: 90 RF: 4 metoprolol succinate 100 mg tablet extended release 24 hr 100 mg PO QAM Qty: 90 RF: 4 warfarin 5 mg tablet 5 mg PO DAILY RF: 0 lisinopril 40 mg tablet 40 mg PO DAILY Qty: 90 RF: 4 omeprazole 20 mg capsule,delayed release(DR/EC) 20 mg PO DAILY Qty: 14 RF: 0 Discharge Instructions Instructions: Enteritis (ED) Additional Instructions: follow up with your primary care provider within 1 week and discuss if you should see a sap data analyst if you have severe worsening pain, feel more ill or have high fevers return to the emergency department Medical Decision Making 78 yo female with hx of htn, chf, afib on warfarin, who comes in with cc of abdominal spasms. she states since yesterday has intermittent periods of lower abdominal cramping and pain similar to when she was here in February. At that time her ct showed evidence of inflammation and possible early ileus/sbo. She was tx'd with bowel rest and morphine and improved over a day and d/c'd home, no abx. She states this feels exactly as it did during that time and that morphine helped significantly. She has had diarrhea, no vomit, no fevers. Has rlq pain without guarding or rebound. I suspect she has recurrent symptoms, she is interested in trying to go home if negative imaging/labs today so will see if po pain medications can control her symptoms and obtain ct imaging to eval for possible appendicitis vs sbo and other abnormalities. labs show wbc of 16, ct shows significant inflammation of terminal ileum. She states she has been tested for crohn's in the past. Her pain is controlled now and she feels comfortable with going home. Mild rlq pain without guarding on exam. Will start steroids, abx and also have her f/u with her pcp with return precautions Differential Diagnosis colitis, sbo, gastroenteritis Medical Records Medical records reviewed: Yes I reviewed the patient's medical records. Imaging Data Radiologic Study: Attestation: I personally reviewed and interpreted this imaging study as follows: Imaging: CT Scan Radiologist's impression: CONCLUSION: Findings consistent with enteritis involving the distal small bowel including the terminal ileum, the findings are nonspecific but the pattern of involvement would raise the possibility of Crohn's disease. Other inflammatory or infectious etiologies not excluded. Lab Data Lab results reviewed: Yes I reviewed the patient's lab results. HPI General Mode of arrival: ambulatory. Date/Time Provider Initiated Documentation: 05/19/19 09:38. Limitations to Documentation: no limitations. Information obtained by: patient. History of Present Illness 78 year old F presents to the emergency department with the chief complaint of abdominal pain, described as moderate, Quality is described as aching, Patient started experiencing this day(s) (1) and it has been intermittent. No relieving factors improve symptom(s), No exacerbating factors reported . Patient did receive the following treatments prior to arrival, none Related Data Home Medications Medication Instructions Recorded Confirmed calcium carbonate-vitamin D3 1 tab PO DAILY 01/31/13 05/19/19 [Caltrate with Vitamin D3] levothyroxine 88 mcg tablet 88 mcg PO DAILY@0730 #90 tab 08/10/18 05/19/19 gabapentin 600 mg tablet 300 mg PO BID #90 tab 09/15/18 05/19/19 metoprolol succinate 100 mg 100 mg PO QAM #90 tab 10/31/18 05/19/19 tablet,extended release 24 hr warfarin 5 mg tablet 5 mg PO DAILY 12/21/18 05/19/19 omeprazole 20 mg PO DAILY #14 cap 02/16/19 05/19/19 lisinopril 40 mg tablet 40 mg PO DAILY #90 tab 02/17/19 05/19/19 levofloxacin 500 mg PO DAILY #5 tab 05/19/19 oxycodone 5 mg PO Q6H PRN #12 tab 05/19/19 prednisone 50 mg PO DAILY #5 tab 05/19/19 Previous Rx's Medication Instructions Recorded levothyroxine 88 mcg tablet 88 mcg PO DAILY@0730 #90 tab 08/10/18 gabapentin 600 mg tablet 300 mg PO BID #90 tab 09/15/18 metoprolol succinate 100 mg 100 mg PO QAM #90 tab 10/31/18 tablet,extended release 24 hr omeprazole 20 mg PO DAILY #14 cap 02/16/19 lisinopril 40 mg tablet 40 mg PO DAILY #90 tab 02/17/19 levofloxacin 500 mg PO DAILY #5 tab 05/19/19 oxycodone 5 mg PO Q6H PRN #12 tab 05/19/19 prednisone 50 mg PO DAILY #5 tab 05/19/19 Allergies Allergy/AdvReac Type Severity Reaction Status Date / Time amoxicillin AdvReac Severe nausea/hot Verified 02/21/19 13:20 feeling sertraline AdvReac Intermediate TREMOR, Verified 02/21/19 13:20 DIAPHORESIS codeine phosphate AdvReac GI Verified 02/21/19 13:20 [From Tylenol-Codeine] General Stated Complaint: Abd Prob MATT: 3 Review of Systems Review of Systems All systems reviewed & are unremarkable except as noted in HPI and below Constitutional Denies chills, Denies fever(s) and Denies weakness Cardiovascular Denies chest pain and Denies dyspnea Respiratory Denies cough and Denies dyspnea Gastrointestinal Denies nausea and Denies vomiting Genitourinary Denies dysuria Musculoskeletal Denies joint swelling Integumentary/Breasts Denies rash Neurologic Denies weakness Endocrine Denies heat intolerance [facility] Medical History (Updated 03/30/19 @ 12:52 by Alex Woods MD) Arthritis Atrial fibrillation Cyst of breast (Resolved) Cyst of ovary (Resolved) Diverticula of colon History of tobacco use (Resolved) Hypertension Hypothyroid Irritable colon Ovarian cysts remote history Raynaud phenomenon Surgical History (Updated 03/30/19 @ 12:52 by Alex Woods MD) Abdominal hysterectomy (~1967) Appendectomy Cardiac ablations Colonoscopy - IV Sedation EGD - MAC (10/16/14) History of appendectomy (Resolved) History of bilateral oophorectomy (Resolved) History of esophagogastroduodenoscopy (Resolved) History of partial thyroidectomy (Resolved) Oophrectomy, Both Partial thyroidectomy Status post abdominal hysterectomy (Resolved) Social History Smoking/Tobacco Use Status: Former Tobacco Use Drug use: Never Substance use type: does not use Do you feel safe at home: Yes Do you feel safe in your relationship?: Yes Exam Const General: no acute distress Orientation: alert HENMT Head: normal to inspection Ears: external ears normal General nose exam: external nose normal Mouth: moist mucous membranes Eyes General: appearance normal, both eyes and all related structures Neck Neck: normal visual inspection Resp Effort & Inspection: normal respiratory effort and able to speak in complete sentences Cardio Rate: regular rate GI Palpation: soft Skin General skin exam: no rashes or lesions noted Neuro General: alert and oriented x3 Extrem General: normal to inspection Psych Mental Status: mental status grossly normal Course Vital Signs Temperature 36.8 C 05/19/19 09:41 Pulse 90 05/19/19 09:41 Respiratory Rate 18 05/19/19 09:41 Blood Pressure 143/80 H 05/19/19 09:41 Temperature 36.8 C 05/19/19 09:41 Temperature Source Temporal Artery Scan 05/19/19 09:41 Pulse 90 05/19/19 09:41 Respiratory Rate 18 05/19/19 09:41 Blood Pressure 143/80 H 05/19/19 09:41 Blood Pressure Position Sitting 05/19/19 09:41 Oxygen Delivery Method Room Air 05/19/19 09:41 Oxygen Flow Rate 0 05/19/19 09:41
--- NOTE | 2019-05-19 09:56 | DI.CT_ITS ---
SYMPTOM/DIAGNOSIS: RIGHT LOWER ABDOMINAL PAIN ABDOMINAL AND PELVIC CT: 05/19 CT examination of the abdomen and pelvis was performed with a bolus infusion of 100 cc Omnipaque 350 and ingestion of dilute Barium. Images obtained through the lung bases are unremarkable. Liver and spleen appear normal. Gallbladder and bile ducts are CT normal. Pancreas appears normal. Adrenals and kidneys are unremarkable. No urinary tract calcification or obstruction. No significant abdominal wall hernia. No abdominal or pelvic adenopathy. Abdominal aorta is of normal diameter. There is atheromatous narrowing of the celiac trunk at its origin but no other vascular lesion is seen. There is marked wall thickening of mid to distal ileum with very marked wall thickening of the terminal ileum and mild associated cecal wall thickening. There is colonic diverticulosis without direct evidence of diverticulitis. No evidence of obstruction. Examination is compared to previous examination of 02/14/19 and the pattern of small bowel abnormality has changed since the previous examination, being more severe and more distal in extent than on the current examination. CONCLUSION: Findings consistent with enteritis involving the distal small bowel including the terminal ileum, the findings are nonspecific but the pattern of involvement would raise the possibility of Crohn's disease. Other inflammatory or infectious etiologies not excluded. Ischemic process not excluded.
[2019-05-19] MEDS: oxyCODONE 10 MG TAB PO (10:00)
[2019-05-19] MEDS: Normal Saline 1,000 ML 1000 ML IV (10:00)
[2019-05-19 10:15] LABS: Abs Immature Grans 0.03 k/cumm (0.0-0.09); Absolute Basophil Count 0.01 k/cumm (0.0-0.2); Absolute Eosinophil Count 0.05 k/cumm (0.0-0.7); Absolute Lymphocyte Count 0.67 k/cumm (1.2-3.4); Absolute Monocyte Count 0.54 k/cumm (0.11-0.7); Absolute Neutrophil Count 11.58 k/cumm (1.2-6.7); Basophils % 0.1; Eosinophils % 0.4; HCT 52.7 % (36.0-46.0); HGB 16.9 g/dL (12.0-15.5); Immature Grans % 0.2; Lymphocytes % 5.2; Mean Corp. HGB Concentration 32.1 g/dL (32.0-36.0); Mean Corpuscular Hemoglobin 27.4 pg (27.0-33.0); Mean Corpuscular Volume 85.6 fL (80-95); Mean Platelet Volume 10.5 fL (8.0-11.0); Monocytes % 4.2; Neutrophils % 89.9; Platelet Count 213 x1000/uL (130-400); RBC 6.16 m/cumm (4.00-5.20); RBC Distribution Width 13.3 % (11.7-14.6); White Blood Cell Count 12.88 k/cumm (4.4-10.8)
[2019-05-19 10:32] LABS: INR 3.2 (0.9-1.1); PTT Activated 41.4 sec (21.0-31.4); Prothrombin Time 32.8 sec (9.3-11.0)
[2019-05-19 10:33] LABS: ALT 12 U/L (12-78); AST 11 U/L (15-37); Albumin 3.7 g/dL (3.4-5.0); Alkaline Phosphatase 99 U/L (46-116); Anion Gap 10.2 mmol/L (3-11); BUN 13 mg/dL (7-18); Bilirubin, Total 0.7 mg/dL (0.2-1.0); CO2 26.8 mmol/L (21.0-32.0); CREATININE 1.26 mg/dL (0.55-1.02); Calcium 9.3 mg/dL (8.5-10.1); Chloride 105 mmol/L (98-107); Estimated GFR 40.86 (mL/min/1.73m2); Glucose 122 mg/dL (70-100); Lipase 78 U/L (73-393); Magnesium 1.8 mg/dL (1.8-2.4); Sodium 142 mmol/L (136-145); Total Protein 7.9 g/dL (6.4-8.2)
--- NOTE | 2019-05-19 10:41 | NUR.NOTE ---
pt to ct Nursing Note:
[2019-05-19] MEDS: Omnipaque 350 MG/ML 100 ML BTL IJ (10:43)
--- NOTE | 2019-05-19 10:51 | NUR.NOTE ---
pt back from ultrasound Nursing Note:
[2019-05-19] MEDS: Ondansetron 4 MG/2 ML VIAL (11:00)
[2019-05-19 11:09] LABS: Bilirubin Negative (Negative); Blood Trace-lysed (Negative); Clarity Clear (Clear); Glucose Negative (Negative); Ketones Negative (Negative); Leukocyte Esterase Moderate (Negative); Nitrite Negative (Negative); Specific Gravity <= 1.005 (1.005-1.025); Urobilinogen 0.2 EU/dL (Up TO 0.2); pH 5.5 (5-8)
[2019-05-19 11:21] LABS: Bacteria Few HPF (Negative); Crystals Negative HPF (Negative); Epithelial Cells Many HPF (Negative); Mucus Trace (Negative); RBC Negative (0-2)
[2019-05-19 11:22] LABS: C & S Indicated? No/Sq. Contamination; Casts 0-2 Fine Granular LPF (Negative)
[2019-05-19] MEDS: methylPREDNISolone SUCC 125 MG VIAL (11:50)
--- NOTE | 2019-05-19 11:51 | NUR.NOTE ---
iv removed Nursing Note:
--- NOTE | 2019-05-19 11:53 | NUR.NOTE ---
Referral faxed to [facility] Dr. Woods.Nursing Note:
[2019-05-19 12:01] VITALS: BP 136/74; PULSE 85; RESP 16; TEMP 36.8; O2SAT 98
== END 2019-05-19 12:02 | disposition home or self-care (01) ==
PROVIDERS: Emergency Provider Emergency Medicine; PCP Family Medicine
DX: K52.9 Noninfective gastroenteritis and colitis, unspecified (principal); R10.31 Right lower quadrant pain; I10 Essential (primary) hypertension
CPT/HCPCS: 36415; 80053; 83690; 96361; 96374; 96375; 99285; 74177; 81003; 81015; 83735; 85025; 85610; 85730; J2405; J2930; J3490

== ENCOUNTER 2019-06-08 03:32 | Outpatient (CLI) | payer MEDICARE, SELFPAY ==
[2019-06-08 11:32] LABS: INR 2.8 (0.9-1.1); Prothrombin Time 28.4 sec (9.3-11.0)
== END 2019-06-08 03:52 ==
PROVIDERS: PCP Family Medicine; Visit Provider Family Medicine
DX: I48.91 Unspecified atrial fibrillation (principal); Z79.01 Long term (current) use of anticoagulants
CPT/HCPCS: 36415; 85610

== ENCOUNTER → 2019-07-05 12:55 | Outpatient (BNVA) | payer MEDICARE, SELFPAY | PROVIDERS: PCP Family Medicine; Referring Provider Family Medicine; Visit Provider Student in an Organized Health Care Education/Training Program | DX: M70.61 Trochanteric bursitis, right hip (principal); M16.11 Unilateral primary osteoarthritis, right hip | CPT/HCPCS: 20610; 99204; 99215; J1030 ==

== ENCOUNTER 2019-07-24 02:13 | Outpatient (CLI) | payer MEDICARE, SELFPAY ==
[2019-07-24 11:09] LABS: Prothrombin Time 23.1 sec (9.3-11.0)
[2019-07-24 11:13] LABS: INR 2.3 (0.9-1.1)
== END 2019-07-24 02:33 ==
PROVIDERS: PCP Family Medicine; Visit Provider Family Medicine
DX: I48.91 Unspecified atrial fibrillation (principal); Z79.01 Long term (current) use of anticoagulants
CPT/HCPCS: 36415; 85610

== ENCOUNTER 2019-08-21 02:06 | Outpatient (CLI) | payer MEDICARE, SELFPAY ==
[2019-08-21 13:00] LABS: INR 1.7 (0.9-1.1); Prothrombin Time 16.6 sec (9.3-11.0)
== END 2019-08-21 02:26 ==
PROVIDERS: PCP Family Medicine; Visit Provider Family Medicine
DX: I48.91 Unspecified atrial fibrillation (principal); Z79.01 Long term (current) use of anticoagulants
CPT/HCPCS: 36415; 85610

== ENCOUNTER 2019-08-28 03:17 | Outpatient (CLI) | payer MEDICARE, SELFPAY ==
[2019-08-28 13:33] LABS: Prothrombin Time 20.1 sec (9.3-11.0)
== END 2019-08-28 03:37 ==
PROVIDERS: PCP Family Medicine; Visit Provider Family Medicine
DX: I48.91 Unspecified atrial fibrillation (principal); Z79.01 Long term (current) use of anticoagulants
CPT/HCPCS: 36415; 85610

== ENCOUNTER → 2019-08-30 09:53 | Outpatient (BNVA) | payer MEDICARE, SELFPAY | PROVIDERS: PCP Family Medicine; Referring Provider Family Medicine; Visit Provider Student in an Organized Health Care Education/Training Program | DX: M70.61 Trochanteric bursitis, right hip (principal); M16.11 Unilateral primary osteoarthritis, right hip; Z98.890 Other specified postprocedural states; I10 Essential (primary) hypertension | CPT/HCPCS: 20610; 99214; J1040 ==

== ENCOUNTER 2019-09-25 01:36 | Outpatient (CLI) | payer MEDICARE, SELFPAY ==
[2019-09-25 12:18] LABS: INR 2.4 (0.9-1.1); Prothrombin Time 23.4 sec (9.3-11.0)
[2019-09-25 12:51] LABS: Anion Gap 5.4 mmol/L (3-11); BUN 12 mg/dL (7-18); CO2 31.6 mmol/L (21.0-32.0); CREATININE 0.96 mg/dL (0.55-1.02); Calcium 8.8 mg/dL (8.5-10.1); Chloride 108 mmol/L (98-107); Estimated GFR 55.78 (mL/min/1.73m2); Glucose 92 mg/dL (74-106); Potassium 4.1 mmol/L (3.5-5.1); Sodium 145 mmol/L (136-145)
== END 2019-09-25 01:56 ==
PROVIDERS: PCP Family Medicine; Visit Provider Family Medicine
DX: I10 Essential (primary) hypertension (principal); I48.91 Unspecified atrial fibrillation; Z79.01 Long term (current) use of anticoagulants
CPT/HCPCS: 36415; 80048; 85610

== ENCOUNTER 2019-10-09 03:06 | Outpatient (CLI) | payer MEDICARE, SELFPAY ==
[2019-10-09 13:02] LABS: INR 2.1 (0.9-1.1); Prothrombin Time 20.5 sec (9.3-11.0)
== END 2019-10-09 03:26 ==
PROVIDERS: PCP Family Medicine; Visit Provider Family Medicine
DX: I48.91 Unspecified atrial fibrillation (principal); Z79.01 Long term (current) use of anticoagulants
CPT/HCPCS: 36415; 85610

== ENCOUNTER → 2019-10-23 08:53 | Outpatient (BNVA) | payer MEDICARE, SELFPAY | PROVIDERS: PCP Family Medicine; Referring Provider Family Medicine; Visit Provider Student in an Organized Health Care Education/Training Program | DX: M70.61 Trochanteric bursitis, right hip (principal); M16.11 Unilateral primary osteoarthritis, right hip | CPT/HCPCS: 99213 ==

== ENCOUNTER 2019-10-25 01:29 | Outpatient (CLI) | payer MEDICARE, SELFPAY ==
--- NOTE | 2019-10-25 10:50 | DI.MAMMO_ITS ---
EXAM: MG MAMMO SCREENING CLINICAL HISTORY: SCREENING, Z12.39. TECHNIQUE: Bilateral full field digital CC and MLO mammographic images were obtained with 3D tomosyn thesis and utilizing computer aided detection (CAD). COMPARISON: Available for comparison. FINDINGS: Masses/Architectural Distortion: None seen. Microcalcifications: No suspicious pleomorphic-type are seen. Skin Thickening/Nipple Retraction: None. IMPRESSION: 1. No significant interval change with no specific features of malignancy noted. 2. Unless there is more urgent need, screening mammography is recommended, as per [employer] guidelines. ACR BI-RAD Category- 1 Negative Breast Density - Category B - Scattered areas of fibroglandular density A negative radiographic report should not delay biopsy if a dominant or clinically suspicious mass is present. Up to ten percent of cancers are not identified on mammography. A negative report may reinforce clinical impression. Adenosis and dense breasts may obscure an underlying neoplasm. False positive reports average 6 to 10%. Patient will receive a letter notifying them of these results.
== END 2019-10-25 01:49 ==
PROVIDERS: PCP Family Medicine; Visit Provider Family Medicine
DX: Z12.31 Encounter for screening mammogram for malignant neoplasm of breast (principal)
CPT/HCPCS: 77063; 77067

== ENCOUNTER 2019-10-25 23:13 | Inpatient (IN) | payer MEDICARE, SELFPAY ==
--- NOTE | 2019-10-25 00:26 | DI.RAD_ITS ---
EXAM: XR CHEST 2V PA LATERAL INDICATION: chest pain. COMPARISON: XR CHEST 2V PA LATERAL from 02/14/2019 TECHNIQUE: 2D digital imaging was performed. FINDINGS: Heart size and pulmonary vasculature are within normal limits. Incidental note is made of an azygos lobe. The lungs show no focal consolidating infiltrates. There is unchanged scarring in the left matteo ng base. No effusion or pneumothorax is identified. The bones are intact. IMPRESSION: No acute pulmonary process.
[2019-10-25 23:15] VITALS: BP 197/97; PULSE 91; RESP 15; TEMP 36.7; O2SAT 98
--- NOTE | 2019-10-25 23:24 | ED.GENADUL_ITS ---
Discharge Plan Disposition Patient Disposition: [facility] INPATIENT Condition: Good Discharge Details Chief Complaint: Chest Pain Clinical Impression: Chest pain Primary Care Provider: Alex Woods ED Provider: Mack Orantes Home Meds and New Rx's Prescriptions: No Action gabapentin 600 mg tablet 300 mg PO BID Qty: 90 RF: 5 levothyroxine [Synthroid] 88 mcg tablet 88 mcg PO DAILY@0730 Qty: 90 RF: 4 calcium carbonate-vitamin D3 [Caltrate with Vitamin D3] 1 EACH tablet 1 tab PO DAILY RF: 0 metoprolol succinate 100 mg tablet extended release 24 hr 100 mg PO QAM Qty: 90 RF: 4 lisinopril 40 mg tablet 40 mg PO DAILY Qty: 90 RF: 4 dicyclomine 10 mg capsule 10 mg PO QID PRN (Reason: abdominal pain) Qty: 120 RF: 4 warfarin 5 mg tablet 5 mg PO DAILY Qty: 90 RF: 8 famotidine 20 mg tablet 20 mg PO BID PRNRF: 0 Medical Decision Making Patient is not in A. fib currently. There are nonspecific ST changes on her EKG which are not new. There is no ischemic changes. She is maintained on Coumadin because of her history of atrial fibrillation. She is not describing pleuritic type pain. She is describing pressure, shortness of breath, lightheadedness/weakness. She is in no distress but does appear to be anxious. Do not suspect dissection or PE. Will give aspirin and 1 nitroglycerin to see if any change in her chest pressure. Chest x-ray and laboratory studies ordered. Will calculate a HEART score going forward. 00:40 - Patient's initial work up is fine. Laboratory studies are unremarkable. INR is a little low at 1.7. Initial troponin is negative. BNP is 796. Chest x-ray without acute disease. Nitroglycerin did not help her pressure. Ativan seemed to help her tremors and anxiety but did not really relieve her pressure. Her HEART score is a 4. Case discussed with hospitalist for observation admit and further evaluation and management in the morning. Medical Records Medical records reviewed: Yes I reviewed the patient's medical records. Lab Data Lab results reviewed: Yes I reviewed the patient's lab results. ECG Data Attestation: I personally reviewed and interpreted this ECG (s) as follows: Prior ECG tracings: available for review Interpretation: Sinus rhythm at 87. Normal axis and intervals. Nonspecific ST changes which are unchanged from EKG done in 2019. No acute ST elevation or depression. HPI General Mode of arrival: ambulatory . Date/Time Provider Initiated Documentation: 10/25/19 23:13 . Limitations to Documentation: no limitations . Information obtained by: patient, RN notes reviewed and old records reviewed . HPI Narrative: Patient presents to ED with complaint of chest pressure, shortness of breath, lightheadedness, weakness onset about 7:30 PM. She has a history of atrial fibrillation and congestive heart failure. She does not have a known history of coronary artery disease. She had ablation for her A. fib. She is maintained on metoprolol and Coumadin. She has not had issues for quite some time. Symptoms have persisted and she has become more and more anxious so she has come in for evaluation. She has not been ill. There is no radiation of the chest pressure. She will not describe it as pain. She has no nausea or GI symptoms other than her chronic irritable bowel symptoms. Related Data Home Medications Medication Instructions Recorded Confirmed calcium carbonate-vitamin D3 1 tab PO DAILY 01/31/13 10/25/19 [Caltrate with Vitamin D3] metoprolol succinate 100 mg 100 mg PO QAM #90 tab 10/31/18 10/25/19 tablet,extended release 24 hr lisinopril 40 mg tablet 40 mg PO DAILY #90 tab 02/17/19 10/25/19 levothyroxine 88 mcg tablet 88 mcg PO DAILY@0730 #90 tab 07/20/19 10/25/19 dicyclomine 10 mg capsule 10 mg PO QID PRN #120 cap 09/18/19 10/25/19 gabapentin 600 mg tablet 300 mg PO BID #90 tab 09/21/19 10/25/19 warfarin 5 mg tablet 5 mg PO DAILY #90 tab 09/26/19 10/25/19 famotidine 20 mg PO BID PRN 10/25/19 10/25/19 Previous Rx's Medication Instructions Recorded metoprolol succinate 100 mg 100 mg PO QAM #90 tab 10/31/18 tablet,extended release 24 hr lisinopril 40 mg tablet 40 mg PO DAILY #90 tab 02/17/19 levothyroxine 88 mcg tablet 88 mcg PO DAILY@0730 #90 tab 07/20/19 dicyclomine 10 mg capsule 10 mg PO QID PRN #120 cap 09/18/19 gabapentin 600 mg tablet 300 mg PO BID #90 tab 09/21/19 warfarin 5 mg tablet 5 mg PO DAILY #90 tab 09/26/19 Allergies Allergy/AdvReac Type Severity Reaction Status Date / Time amoxicillin AdvReac Severe nausea/hot Verified 10/25/19 23:24 feeling sertraline AdvReac Intermediate TREMOR, Verified 10/25/19 23:24 DIAPHORESIS codeine phosphate AdvReac GI Verified 10/25/19 23:24 [From Tylenol-Codeine] General Stated Complaint: Chest Pain MATT: 2 Review of Systems Narrative: 07/17 Review of Systems completed and is negative except as stated above in HPI (Systems reviewed: Const, Eyes, ENT, Resp, CV, GI, , MSK, Skin, Neuro) [facility] Medical History (Updated 10/25/19 @ 23:28 by Mack Orantes MD) Anticoagulated on warfarin (Chronic) A-fib INR goal 2-3 Arthritis Atrial fibrillation (Chronic) Essential hypertension (Chronic 09/18/13) History of tobacco use (Resolved) Irritable colon Postherpetic trigeminal neuralgia (Chronic) Raynauds disease (Chronic) Surgical History Cardiac ablations x 2 2011 History of appendectomy (Resolved) History of bilateral oophorectomy (Resolved) History of esophagogastroduodenoscopy (Resolved) History of partial thyroidectomy (Resolved) Status post abdominal hysterectomy (Resolved) Social History Smoking/Tobacco Use Status: Former Tobacco Use Second Hand Exposure: Yes Alcohol Intake: current Alcohol Intake frequency: holidays/special occasions only Alcohol type: wine Drug use: Never Substance use type: does not use Counseling given: No Counseling provided: none Caregiver/Support person: No Household members: spouse Housing: house Communication Needs: None Do you need help understanding health information?: Never Pets and animals: Yes Pets and animals: cat(s) Sexually active: No Current gender identity: female What is your relationship status?: How often do you talk on the phone with friends or family?: once per week How often do you get together with friends or relatives?: once per week How often do you attend gnosticism or latter-day services?: 4 or more times per year Do you belong to any clubs or organized social groups?: yes Panel score (0-1 are the most socially isolated patients): 3 Frequency: 3-4 times per week Ciara/Episcopal: No preference Special ciara needs: No Seatbelt use: always Drive intox or ride 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 Slightly elevated heart rate along with elevated blood pressure. Normal room air pulse oximetry. Const: WDWN female in NAD. HEENT: NC/AT. Normal facial exam. Eyes: Normal conjunctiva and sclera. Neck: Supple. Trachea midline. Lungs: Normal respiratory effort. Lungs are clear. Cor: RRR without murmur/gallop. Good radial pulses. GI: Soft. NT/ND. No guarding or rebound. Neuro: A+O x 3. Normal speech, gait, mentation. No gross motor or sensory deficits. Ext: No C/C/E. No calf tenderness. Skin: Warm and dry without rash. Course Vital Signs Vital signs: Vital Signs Temperature 98.1 F 10/25/19 23:15 Pulse 91 H 10/25/19 23:15 Respiratory Rate 15 10/25/19 23:15 Blood Pressure 197/97 H 10/25/19 23:15 Pulse Oximetry 98 10/25/19 23:15 Temperature 98.1 F 10/25/19 23:15 Temperature Source Skin 10/25/19 23:15 Pulse 91 H 10/25/19 23:15 Respiratory Rate 15 10/25/19 23:15 Respiratory Effort Non-Labored 10/25/19 23:21 Respiratory Depth Normal 10/25/19 23:21 Respiratory Pattern Normal 10/25/19 23:21 Blood Pressure 197/97 H 10/25/19 23:15 Blood Pressure Position Sitting 10/25/19 23:15 Pulse Oximetry 98 10/25/19 23:15 Oxygen Delivery Method Room Air 10/25/19 23:15 Oxygen Flow Rate 0 10/25/19 23:15 Pain Level 6 10/25/19 23:15
[2019-10-25] MEDS: Aspirin 81 MG CHEW 324 MG CH (23:46)
[2019-10-25 23:57] LABS: Abs Immature Grans 0.01 k/cumm (0.0-0.09); Absolute Basophil Count 0.03 k/cumm (0.0-0.2); Absolute Eosinophil Count 0.16 k/cumm (0.0-0.7); Absolute Lymphocyte Count 1.75 k/cumm (1.2-3.4); Absolute Monocyte Count 0.45 k/cumm (0.11-0.7); Absolute Neutrophil Count 3.93 k/cumm (1.2-6.7); Basophils % 0.5; Eosinophils % 2.5; HCT 47.2 % (36.0-46.0); HGB 15.2 g/dL (12.0-15.5); Immature Grans % 0.2 %; Lymphocytes % 27.6; Mean Corp. HGB Concentration 32.2 g/dL (32.0-36.0); Mean Corpuscular Volume 86.9 fL (80-95); Mean Platelet Volume 10.2 fL (8.0-11.0); Monocytes % 7.1; Neutrophils % 62.1; Platelet Count 189 x1000/uL (130-400); RBC 5.43 m/cumm (4.00-5.20); RBC Distribution Width 13.3 % (11.7-14.6); White Blood Cell Count 6.33 k/cumm (4.4-10.8)
[2019-10-26] VITALS (79 sets, daily range): BP systolic 103–168; BP diastolic 60–113; PULSE 50–73; RESP 10–24; TEMP 36.5–36.8; O2SAT 91–98
[2019-10-26] MEDS: LORazepam 2 MG/ML VIAL 0.5 MG IVP ×2 (00:04→01:42)
[2019-10-26 00:06] LABS: INR 1.7 (0.9-1.1)
[2019-10-26 00:16] LABS: ALT 15 U/L (14-59); AST 17 U/L (15-37); Albumin 3.5 g/dL (3.4-5.0); Alkaline Phosphatase 104 U/L (46-116); BUN 11 mg/dL (7-18); Bilirubin, Total 0.4 mg/dL (0.2-1.0); CREATININE 1.04 mg/dL (0.55-1.02); Calcium 8.4 mg/dL (8.5-10.1); Chloride 105 mmol/L (98-107); Estimated GFR 50.86 (mL/min/1.73m2); Glucose 102 mg/dL (74-106); Magnesium 1.8 mg/dL (1.8-2.4); NT-proBNP 796 pg/mL (<300); Potassium 3.5 mmol/L (3.5-5.1); Sodium 142 mmol/L (136-145); Total Protein 7.4 g/dL (6.4-8.2)
[2019-10-26 00:17] LABS: Troponin I < 0.05 ng/Ml (<0.06)
--- NOTE | 2019-10-26 00:28 | DI.VRAD_ITS ---
PROCEDURE INFORMATION: Exam: XR Chest, 2 Views Exam date and time: 10/25/2019 12:16 AM Age: 79 years old Clinical indication: Chest pain; Type not specified TECHNIQUE: Imaging protocol: XR of the chest Views: 2 views. COMPARISON: CR XR CHEST 2V PA LATERAL 02/14/2019 11:46 PM FINDINGS: Lungs: Chronic interstitial prominence is grossly stable. No consolidation. Pleural space: No pleural effusion. No pneumothorax. Heart/Mediastinum: Grossly stable Bones/joints: Grossly stable IMPRESSION: No acute findings. Dictated and Authenticated by: David Ward MD. Ordering:TIARA Giron MD
--- NOTE | 2019-10-26 00:59 | W.PM.HP.N ---
Date of service: 10/26/19 Time of Service: 00:59 Assessment and Plan Assessment and plan (1) Chest pain: Status: Acute Assessment and plan: CP, doubt ACS. I think anxiety is most likely diagnosis at this point, perhaps precipitated by paroxsym of AF? At any rate no evidence ACS at present, nor other specific etiology. Would trend troponins, and give GI cocktail and repeat Ativan. usual meds as is for now otherwise. Reviewed Advance Directives, requests DNR. History of Present Illness History of Present Illness Chief Complaint: CP Narrative: 79 female with h/o PAF, sudden onset heart pounding this evening, associated with tightness inn chest, SOB and shaking. In ER troponin 1 negative and EKG w/o change from prior. No help with NTG, but Ativan did help some. She states that she thinks t might be anxiety as she is worried about 's upcoming medical issues. Review of Systems All systems reviewed & are unremarkable except as noted in HPI and below PFSH Medical History Anticoagulated on warfarin (Chronic) A-fib INR goal 2-3 Arthritis Atrial fibrillation (Chronic) Essential hypertension (Chronic 09/18/13) History of tobacco use (Resolved) Irritable colon Postherpetic trigeminal neuralgia (Chronic) Raynauds disease (Chronic) Surgical History Cardiac ablations x 2 2011 History of appendectomy (Resolved) History of bilateral oophorectomy (Resolved) History of esophagogastroduodenoscopy (Resolved) History of partial thyroidectomy (Resolved) Status post abdominal hysterectomy (Resolved) Family History Mother , age 68 Rheumatoid arthritis Osteoporosis Father , age 83 Stroke Maternal Grandfather , age 53 Cancer Paternal Grandfather , in his 70s Stroke Maternal Grandmother , age 93 Stroke Paternal Grandmother No problems noted. Son Asthma Daughter No problems noted. Social History Smoking/Tobacco Use Status: Former Tobacco Use Second Hand Exposure: Yes Alcohol Intake: current Alcohol Intake frequency: holidays/special occasions only Alcohol type: wine Drug use: Never Substance use type: does not use Counseling given: No Counseling provided: none Caregiver/Support person: No Household members: spouse Housing: house Communication Needs: None Do you need help understanding health information?: Never Pets and animals: Yes Pets and animals: cat(s) Sexually active: No Current gender identity: female What is your relationship status?: How often do you talk on the phone with friends or family?: once per week How often do you get together with friends or relatives?: once per week How often do you attend muslim or congregation services?: 4 or more times per year Do you belong to any clubs or organized social groups?: yes Panel score (0-1 are the most socially isolated patients): 3 Frequency: 3-4 times per week Ciara/Cheondoism: No preference Special ciara needs: No Seatbelt use: always Drive intox or ride w/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 Do you feel safe at home: Yes Do you feel safe in your relationship?: Yes Meds Home Medications and Allergies Home Medications Medication Instructions Recorded Confirmed Type calcium carbonate-vitamin D3 1 tab PO DAILY 01/31/13 10/25/19 History [Caltrate with Vitamin D3] metoprolol succinate 100 mg 100 mg PO QAM #90 tab 10/31/18 10/25/19 Rx tablet,extended release 24 hr lisinopril 40 mg tablet 40 mg PO DAILY #90 tab 02/17/19 10/25/19 Rx levothyroxine 88 mcg tablet 88 mcg PO DAILY@0730 #90 tab 07/20/19 10/25/19 Rx dicyclomine 10 mg capsule 10 mg PO QID PRN #120 cap 09/18/19 10/25/19 Rx gabapentin 600 mg tablet 300 mg PO BID #90 tab 09/21/19 10/25/19 Rx warfarin 5 mg tablet 5 mg PO DAILY #90 tab 09/26/19 10/25/19 Rx famotidine 20 mg PO BID PRN 10/25/19 10/25/19 History Allergies Allergy/AdvReac Type Severity Reaction Status Date / Time amoxicillin AdvReac Severe nausea/hot Verified 10/25/19 23:24 feeling sertraline AdvReac Intermediate TREMOR, Verified 10/25/19 23:24 DIAPHORESIS codeine phosphate AdvReac GI Verified 10/25/19 23:24 [From Tylenol-Codeine] Exam Narrative Exam Narrative: 144/88, 69, 18, 36.7. HEENT unremarkable; neck supple w/o JVD; lungs clear; heart RRR w/o MRG; abdomen soft and NT; extremities w/o edema, pulses 2+/=; neuro Ox3, moves all 4s Results Labs Result diagrams: 10/25/19 23:28 10/25/19 23:28 Labs: Laboratory Results - last 24 hr 10/25/19 10/25/19 10/25/19 23:28 23:28 23:28 WBC 6.33 RBC 5.43 H Hgb 15.2 Hct 47.2 H MCV 86.9 MCH 28.0 MCHC 32.2 RDW 13.3 Plt Count 189 MPV 10.2 Immature Gran % 0.2 Neutrophils % 62.1 Lymphocytes % 27.6 Monocytes % 7.1 Eosinophils % 2.5 Basophils % 0.5 Absolute Neutrophils 3.93 Absolute Lymphocytes 1.75 Absolute Monocytes 0.45 Absolute Eosinophils 0.16 Absolute Basophils 0.03 PT 17.0 H INR 1.7 H Sodium 142 Potassium 3.5 Chloride 105 Carbon Dioxide 29.0 Anion Gap 8.0 BUN 11 Creatinine 1.04 H Estimated GFR/1.73 m2 50.86 Glucose 102 Calcium 8.4 L Magnesium 1.8 Total Bilirubin 0.4 AST 17 ALT 15 Alkaline Phosphatase 104 Troponin I < 0.05 NT-Pro-B Natriuret Pep 796 H Total Protein 7.4 Albumin 3.5 Last Vital Signs Temp 36.7 C 10/25/19 23:15 Pulse 69 10/26/19 00:27 Resp 18 10/26/19 00:27 BP 144/88 H 10/26/19 00:27 Pulse Ox 96 10/26/19 00:27
[2019-10-26] MEDS: Pantoprazole 40 MG VIAL IVP (01:39)
[2019-10-26] MEDS: Levothyroxine 88 MCG TAB PO (06:41)
[2019-10-26 06:49] LABS: INR 1.7 (0.9-1.1); Prothrombin Time 17.3 sec (9.3-11.0)
[2019-10-26 07:10] LABS: Troponin I 0.39 ng/Ml (<0.06)
[2019-10-26 07:59] LABS: Anion Gap 6.1 mmol/L (3-11); CO2 29.9 mmol/L (21.0-32.0); CREATININE 1.06 mg/dL (0.55-1.02); Calcium 8.4 mg/dL (8.5-10.1); Chloride 107 mmol/L (98-107); Estimated GFR 49.75 (mL/min/1.73m2); Glucose 104 mg/dL (74-106); Magnesium 1.9 mg/dL (1.8-2.4); Potassium 4.4 mmol/L (3.5-5.1); Sodium 143 mmol/L (136-145)
[2019-10-26] MEDS: Aspirin E.C. 81 MG TABEC PO (08:29)
[2019-10-26] MEDS: Lisinopril 20 MG TAB 40 MG PO (08:29)
[2019-10-26] MEDS: Gabapentin 600 MG TAB 300 MG PO (08:29)
[2019-10-26 08:30] LABS: BUN 10 mg/dL (7-18)
--- NOTE | 2019-10-26 08:47 | CCONE_ITS ---
Date of service: 10/26/19 Time of Service: 08:47 Assessment and Plan Assessment and plan (1) Chest pain: Status: Acute Assessment and plan: 1. Chest pain: The patient is ongoing chest pressure and a rising troponin. She also has deeper T wave inversions in her anterior leads and now extending out to V5 and V6 which is new for her. Given this I think this is likely a true non-STEMI and she should be treated as such. ?Loaded with Plavix and aspirin. ?Patient is on warfarin for atrial fibrillation. In ACS setting her INR should be 2-3. She should be started on heparin as her last INR was 1.7. ?Continue to trend troponins. ?Recommend transfer to [facility] for catheterization. ?Echocardiogram if possible prior to catheterization but if not they can complete that at [facility]. ?Please begin a high intensity statin as it does not appear she is on one. 2. Paroxysmal atrial fibrillation. ?Continue beta-janet ?Hold warfarin as patient will be on heparin. 3. Hypertension: ?Continue lisinopril and metoprolol. ?Would be cautious not to allow patient to become too hypertensive during this ACS episode. Please call cardiology with any future questions. History of Present Illness History of Present Illness Chief Complaint: chest pain Narrative: Ms. Lindquist is an 79-year-old female with past medical history significant for paroxysmal atrial fibrillation, hypertension who was admitted for chest tightness and shortness of breath. She states that last night she developed shakiness and a chest pressure. She felt like her heart was racing which was similar to previous episodes of anxiety. This time however she had a little bit of neck tightness and some left arm pain. She went to the emergency room where she received Ativan that calmed her down a little bit. Her chest pressure resolved somewhat but never went away entirely. Her initial troponin was negative but cardiology was consulted after her repeat troponin turned posit riana. Initial troponin showed baseline T wave inversions in V1 through V4. These T wave inversions became more pronounced on repeat EKG. the patient continues to feel chest pressure. She denies lightheadedness dizziness or significant shortness of breath. Review of Systems All systems reviewed & are unremarkable except as noted in HPI and below PFSH Medical History Anticoagulated on warfarin (Chronic) A-fib INR goal 2-3 Arthritis Atrial fibrillation (Chronic) Essential hypertension (Chronic 09/18/13) History of tobacco use (Resolved) Irritable colon Postherpetic trigeminal neuralgia (Chronic) Raynauds disease (Chronic) Surgical History Cardiac ablations x 2 2012 History of appendectomy (Resolved) History of bilateral oophorectomy (Resolved) History of esophagogastroduodenoscopy (Resolved) History of partial thyroidectomy (Resolved) Status post abdominal hysterectomy (Resolved) Family History Mother , age 68 Rheumatoid arthritis Osteoporosis Father , age 83 Stroke Maternal Grandfather , age 53 Cancer Paternal Grandfather , in his 70s Stroke Maternal Grandmother , age 93 Stroke Paternal Grandmother No problems noted. Son Asthma Daughter No problems noted. Social History Smoking/Tobacco Use Status: Former Tobacco Use Second Hand Exposure: Yes Alcohol Intake: current Alcohol Intake frequency: holidays/special occasions only Alcohol type: wine Drug use: Never Substance use type: does not use Counseling given: No Counseling provided: none Caregiver/Support person: No Household members: spouse Housing: house Communication Needs: None Do you need help understanding health information?: Never Pets and animals: Yes Pets and animals: cat(s) Sexually active: No Current gender identity: female What is your relationship status?: How often do you talk on the phone with friends or family?: once per week How often do you get together with friends or relatives?: once per week How often do you attend rastafarian or yazidi services?: 4 or more times per year Do you belong to any clubs or organized social groups?: yes Panel score (0-1 are the most socially isolated patients): 3 Frequency: 3-4 times per week Ciara/Roman Catholic: No preference Special ciara needs: No Seatbelt use: always Drive intox or ride w/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: No Do you feel safe at home: Yes Do you feel safe in your relationship?: Yes Exam Const General: comfortable and no acute distress HENMT Head: normocephalic and atraumatic Eyes General: appearance normal, both eyes and all related structures Resp Effort & Inspection: normal respiratory effort Auscultation: clear to auscultation bilaterally Cardio Jugular venous pressure: no JVD Palpation: normal PMI Rate: regular rate Rhythm: regular rhythm Heart Sounds: S1 normal and S2 normal (No Murmurs, Rubs or Gallops) GI Palpation: soft Auscultation: normoactive bowel sounds Skin General skin exam: no rashes or lesions noted Extrem General: normal to inspection and no clubbing, cyanosis or edema Psych Appearance: grossly normal Results Last Vital Signs Temp 36.7 C 10/26/19 07:14 Pulse 57 L 10/26/19 07:22 Resp 17 10/26/19 07:14 BP 134/75 10/26/19 07:14 Pulse Ox 97 10/26/19 07:14 Labs Result diagrams: 10/25/19 23:28 10/26/19 06:10 Labs: Laboratory Results - last 24 hr 10/25/19 10/25/19 10/25/19 23:28 23:28 23:28 WBC 6.33 RBC 5.43 H Hgb 15.2 Hct 47.2 H MCV 86.9 MCH 28.0 MCHC 32.2 RDW 13.3 Plt Count 189 MPV 10.2 Immature Gran % 0.2 Neutrophils % 62.1 Lymphocytes % 27.6 Monocytes % 7.1 Eosinophils % 2.5 Basophils % 0.5 Absolute Neutrophils 3.93 Absolute Lymphocytes 1.75 Absolute Monocytes 0.45 Absolute Eosinophils 0.16 Absolute Basophils 0.03 PT 17.0 H INR 1.7 H Sodium 142 Potassium 3.5 Chloride 105 Carbon Dioxide 29.0 Anion Gap 8.0 BUN 11 Creatinine 1.04 H Estimated GFR/1.73 m2 50.86 Glucose 102 Calcium 8.4 L Magnesium 1.8 Total Bilirubin 0.4 AST 17 ALT 15 Alkaline Phosphatase 104 Troponin I < 0.05 NT-Pro-B Natriuret Pep 796 H Total Protein 7.4 Albumin 3.5 10/26/19 10/26/19 10/26/19 02:40 06:10 06:10 WBC RBC Hgb Hct MCV MCH MCHC RDW Plt Count MPV Immature Gran % Neutrophils % Lymphocytes % Monocytes % Eosinophils % Basophils % Absolute Neutrophils Absolute Lymphocytes Absolute Monocytes Absolute Eosinophils Absolute Basophils PT 17.3 H INR 1.7 H Sodium 143 Potassium 4.4 D Chloride 107 Carbon Dioxide 29.9 Anion Gap 6.1 BUN 10 Creatinine 1.06 H Estimated GFR/1.73 m2 49.75 Glucose 104 Calcium 8.4 L Magnesium 1.9 Total Bilirubin AST ALT Alkaline Phosphatase Troponin I Cancelled 0.39 H* NT-Pro-B Natriuret Pep Total Protein Albumin
--- NOTE | 2019-10-26 09:00 | DI.US_ITS ---
APPROVED REPORT EXAM: Comprehensive 2D, Doppler, and color-flow Echocardiogram Patient Location: In-Patient Dental Mechanic: Sonam Moralez RDCS (AE) Rhythm: PAWEL NSR Indications: suspected NSTEMI/ACS Conclusion Left Ventricle : The left ventricle is normal size. Asymmetric septal thickening is noted. Left vent ricular systolic function is normal. The left ventricular diastolic function is normal. The basal in feroseptal wall is mildly hypokinetic. The basal inferior wall is mildly hypokinetic. The mid inferoseptal wall is mildly hypokinetic. The mid inferior wall is mildly hypokinetic. LVEF is estimated to be 55-60%. Right Ventricle : The right ventricle is normal size. The right ventricular systolic function appears normal. Atria : The left atrium size is normal. The right atrium size is normal. Aortic Valve : Aortic valve is trileaflet. Mild aortic regurgitation. There is no aortic valvular fco nosis. Mitral Valve : The mitral valve is normal in structure. Mild Mitral regurgitation No evidence of mitr al valve stenosis. Tricuspid Valve : The tricuspid valve is not well visualized. Mild to moderate tricuspid regurgitatio n. Great Vessels : IVC is normal in size and collapses >50% with inspiration. Estimated RVSP is 44-47 m mHg. There is no prior echocardiogram available for comparison. Wall motion Left Ventricle The left ventricle is normal size. Left ventricular systolic function is normal. Asymmetric septal th ickening is noted. The basal inferoseptal wall is mildly hypokinetic. The basal inferior wall is mild ly hypokinetic. The mid inferoseptal wall is mildly hypokinetic. The mid inferior wall is mildly hypo kinetic. The left ventricular diastolic function is normal. LVEF is estimated to be 55-60%. Right Ventricle The right ventricle is normal size. The right ventricular systolic function appears normal. Atria The left atrium size is normal. The right atrium size is normal. Aortic Valve Aortic valve is trileaflet. There is no aortic valvular stenosis. Mild aortic regurgitation. Mitral Valve The mitral valve is normal in structure. No evidence of mitral valve stenosis. Mild Mitral regurgitat ion Tricuspid Valve The tricuspid valve is not well visualized. Mild to moderate tricuspid regurgitation. Pulmonic Valve Mild pulmonic regurgitation. Great Vessels The aortic root is normal in size. The aortic root size is dilated. The ascending aorta size is dilat ed. IVC is normal in size and collapses >50% with inspiration. Estimated RVSP is 44-47 mmHg Pericardium There is no pericardial effusion. 2D Dimensions IVSd 1.40 cm F: 0.6-1.0 LV EDV A2C 57.1 mL PWd 0.75 cm F: 0.6 - 1.0 LV EDV A4C 32.8 mL LVDd 4.15 cm F: 3.8 - 5.2 LA Volume Index Biplane 26.1 mL/m2 LVDs 3.10 cm F: 2.2 - 3.5 LA Area A4C 17.58 cm2 Aortic Root 3.35 cm F: 2.7 - 3.3 LA Area A2C 16.58 cm2 RA Area A4C 10.65 cm2 EF AP4 61.0 % LVOT 1.85 cm (M/F) 1.5-2.5 EF AP2 56.6 % Ascending Aorta 3.30 cm F: 2.3 - 3.1 EF BP 60.9 % LVEF (Teich) 48.7 % IVC 1.49 cm LVEF (Salazar's) 60.94 % F: 54 - 74 TAPSE 1.93 cm (M/F) <1.7 LV Volume 36.43 mL F: 46 - 106 LV Volume Index 20.81 mL/m2 F: 29 - 61 FS 24.25 % LV Diastology MV E' medial 0.057 (>0.07 m/s) E/A Ratio 1.9 LV E/e MED 11.35 (<14) TR Peak Velocity 3.34 m/s MV E' lateral 0.078 (>0.1 m/s) LV E/e LAT 8.30 (<14) LA vol/ BSA A2C s A-L 21.6 mL/m2 LA vol/ BSA A4C s A-L 27.7 mL/m2 Aortic Valve LVOT Area 2.75 cm2 AoV Area Vmax 2.18 cm2 LVOT Vmax 0.86 m/s AoV Area/ BSA (Vmax) 1.25 cm2/m2 LVOT Mean Andrew. 0.61 m/s ELIANA Mean Andrew. 2.01 cm2 LVOT Peak Gr. 3.0 mmHg ELIANA Mean Andrew. Index 1.15 cm2/m2 LVOT Mean Gr. 1.7 mmHg LVOT VTI 0.219 m AoV Vmax 1.09 (0.5-1.3 m/s) AoV Mean Andrew. 0.84 m/s AoV Peak Grad 4.7 mmHg LVOT SV 60.34 mL AoV Mean Grad 3.0 (<5 mmHg) AoV VTI 0.270 (0.18-0.25 m) AoV Area VTI 2.24 (2.5-4.5 cm2) AoV Area/ BSA (VTI) 1.28 cm/m2 Mitral Valve MV E Max Andrew. 0.65 (0.4-1.3 m/s) MVA VTI 5.12 (4.0-6.0 cm2) MV A Velocity 0.35 (0.4-1.3 m/s) RVOT Peak Gr. 0.47 mmHg E/A Ratio 1.81 RVOT Mean Gr. 0.30 mmHg MV Decel. Time 435 (160-240 msec) MV PHT 126 msec MVA PHT 1.70 cm2 RVOT Peak Andrew. 0.34 m/s RVOT VTI 0.067 m Tricuspid Valve TR P. Gradient 44.6 mmHg TV Regurg Vmax 3.34 m/s RAP Estimate 3.00 mmHg RVSP 47.6 mmHg
[2019-10-26 09:43] LABS: Troponin I 0.46 ng/Ml (<0.06)
--- NOTE | 2019-10-26 09:56 | PHARADMIT ---
Admission Pharmacy Clinical Review CHEST PAIN Code Status Full Code Current Weight Wgt-68 kg Renally Cleared and Narrow Therapeutic Index Meds CrCl~ 37.4 mL/min Meds-OK QTc Value / Action Taken QTc-473 (Pepcid, BP Control, Fever BP- 134/75 Tmax- 36.7C Electrolytes reviewed Na-143 k+4.4 Mag-1.9 DVT Prophylaxis Heparin Drip, ASAec,Plavix Opiate Usage / Scheduled Bowel Regimen Ordered No No Plt/SCr for Heparin / Enoxaparin Plts- 189 SCr-1.06 INR for Warfarin INR-1.7 H/H stable, WBC/Bands H&H-15.2/47.2 WBC- 6.33 Antibiotic appropriateness none Cultures and Sensitivities none Surgical ABX d/c within 24 hr NA DM control / Insulin Dosing BG-104 Heart Failure (Check EF%) (GIL's, B-Block, Diuretics) Lisinopril, Toprol-XL, NTG IV to PO Switch No Home Meds Reviewed Yes Home Meds Not Ordered Imipramine, Warfarin Comments Troponins- 0.05 ^ 0.39 ^ 0.46
[2019-10-26] MEDS: Acetaminophen 325 MG TAB 650 MG PO ×2 (10:17→14:33)
[2019-10-26] MEDS: Clopidogrel 300 MG TAB PO (10:41)
--- NOTE | 2019-10-26 12:21 | W.PM.DS.N ---
Date of service: 10/26/19 Time of Service: 12:21 DS: Diagnosis Discharge Diagnosis (1) NSTEMI (non-ST elevated myocardial infarction): Status: Acute (2) Atrial fibrillation: Status: Chronic (3) Essential hypertension: Status: Chronic Discharge Plan Disposition Patient Disposition: [facility] Condition: Serious Discharge Details Chief Complaint: Chest Pain Clinical Impression: Chest pain Reason For Visit: CP Admit Date/Time: 10/26/19 10:30 Admit Provider: Phillip Cummins Attending Provider: Phillip Cummins Primary Care Provider: Alex Woods ED Provider: Mack Orantes [facility] Hospital Course: Ms Lindquist is an 79 year old female with PMHx of paroxysmal Afib, s/p ablation x2, on coumadin, hypertension, Raynaud's disease, who was admitted to [facility] hospitalist service on 10/26/2019 with chest pressure with rising troponins and lateral EKG changes, consistent with NSTEMI. Her troponin went from negative to 0.39 to 0.46. Her chest discomfort was finally relieved with nitroglycerin gtt upon transfer to the ICU. She was also initiated on aspirin, plavix, and heparin gtt. She was accepted in transfer to [facility] cardiology service by Dr Lovelace for an anticipated cardiac catheterization. No beds were available at [facility] until 48 hours from now. Echocardiogram was done, but results are still pending at the time of writing this discharge summary. The patient is medically stable for transfer, and benefits of transfer outweigh risks. Care for patient as well as arrangement of her transfer and completion of discharge summary took 1 hour and 30 minutes. Home Meds and New Rx's Prescriptions: New acetaminophen [Tylenol] 325 mg Tablet 650 mg PO Q4H PRN PRNQty: 0 RF: 0 clopidogrel [Plavix] 75 mg Tablet 75 mg PO DAILY Qty: 0 RF: 0 aspirin 81 mg Tablet,Delayed Release (Dr/Ec) 81 mg PO DAILY Qty: 0 RF: 0 nitroglycerin in 5 % dextrose 50 mg/250 mL (200 mcg/mL) Solution 50 mg IV INFUSION Qty: 0 RF: 0 heparin (porcine) in 5 % dex 25,000 unit/250 mL(100 unit/mL) Parenteral Solution 25,000 units IV INFUSION Qty: 0 RF: 0 Continued gabapentin 600 mg tablet 300 mg PO BID Qty: 90 RF: 5 levothyroxine [Synthroid] 88 mcg tablet 88 mcg PO DAILY@0730 Qty: 90 RF: 4 calcium carbonate-vitamin D3 [Caltrate with Vitamin D3] 1 EACH tablet 1 tab PO DAILY RF: 0 metoprolol succinate 100 mg tablet extended release 24 hr 100 mg PO QAM Qty: 90 RF: 4 lisinopril 40 mg tablet 40 mg PO DAILY Qty: 90 RF: 4 dicyclomine 10 mg capsule 10 mg PO QID PRN (Reason: abdominal pain) Qty: 120 RF: 4 famotidine 20 mg tablet 20 mg PO BID PRNRF: 0 Discontinued warfarin 5 mg tablet 5 mg PO DAILY Qty: 90 RF: 8 Discharge Instructions Activity:: bedrest with commode Equipment/Supplies:: No Equipment Needed Diet:: NPO Discharge Orders Discharge Orders: Discharge Order (Routine); Ordered 10/26/19 Ordered By: Isela Ashley DS: Summary Status at Discharge Functional status at discharge: independent ambulation Overall status at discharge: patient is not back to baseline Mental Status: mental status grossly normal Speech and Movement: speech and movement normal Mood: congruent mood Affect: normal affect Exam Narrative Exam Narrative: General: pleasant elderly female, looks younger than her stated age, comfortable in bed, A&Ox3 HEENT: EOMI, MMM Heart: RRR, no m/r/g0 Lungs: CTAB Abdomen: soft, nontender, nondistended Extremities: no e/c/c BLE's Psych Mental Status: mental status grossly normal Speech and Movement: speech and movement normal Mood: congruent mood Affect: normal affect DS: Data Vitals/I&O Vitals and I&O: Vital Signs Temperature 36.5 C 10/26/19 11:07 Temperature Source Temporal Artery Scan 10/26/19 11:07 Pulse 55 L 10/26/19 11:07 Pulse Rhythm Regular 10/26/19 07:25 Respiratory Rate 12 10/26/19 11:07 Respiratory Effort 10/26/19 11:07 Respiratory Depth Normal 10/26/19 11:07 Respiratory Pattern Normal 10/26/19 11:07 Blood Pressure 147/64 H 10/26/19 11:07 Blood Pressure Mean 91 10/26/19 11:07 Blood Pressure Position Sitting 10/25/19 23:15 Pulse Oximetry 97 10/26/19 11:07 Oxygen Delivery Method Room Air 10/26/19 11:07 Oxygen Flow Rate 0 10/26/19 11:07 Pain Level 3 10/26/19 11:07 Intake & Output 10/25/19 10/26/19 10/26/19 23:59 11:59 23:59 Intake Total 6.4 / 6.4 Output Total 650 / 650 Balance -643.6 / -643.6 Weight 68.039 kg 68.039 kg Intake: IV 6.4 / 6.4 Output: Urine 650 / 650 Other: Urine Color Yellow Urine Appearance Clear Urine Odor None Voiding Methods Toilet Data Completed and Pending Completed studies during hospitalization [Text1]: CXR: No acute pulmonary process. Pending studies at discharge: echo read Labs on day of discharge: Labs from last 24 hours 10/26/19 10/26/19 10/26/19 13:00 10:00 09:05 WBC RBC Hgb Hct MCV MCH MCHC RDW Plt Count MPV Immature Gran % Neutrophils % Lymphocytes % Monocytes % Eosinophils % Basophils % Absolute Neutrophils Absolute Lymphocytes Absolute Monocytes Absolute Eosinophils Absolute Basophils PT INR APTT Sodium Potassium Chloride Carbon Dioxide Anion Gap BUN Creatinine Estimated GFR/1.73 m2 Glucose Calcium Magnesium Total Bilirubin AST ALT Alkaline Phosphatase Troponin I Pending Cancelled 0.46 H* NT-Pro-B Natriuret Pep Total Protein Albumin 10/26/19 10/26/19 10/26/19 09:05 06:10 06:10 WBC RBC Hgb Hct MCV MCH MCHC RDW Plt Count MPV Immature Gran % Neutrophils % Lymphocytes % Monocytes % Eosinophils % Basophils % Absolute Neutrophils Absolute Lymphocytes Absolute Monocytes Absolute Eosinophils Absolute Basophils PT 17.3 H INR 1.7 H APTT 33.0 H Sodium 143 Potassium 4.4 D Chloride 107 Carbon Dioxide 29.9 Anion Gap 6.1 BUN 10 Creatinine 1.06 H Estimated GFR/1.73 m2 49.75 Glucose 104 Calcium 8.4 L Magnesium 1.9 Total Bilirubin AST ALT Alkaline Phosphatase Troponin I 0.39 H* NT-Pro-B Natriuret Pep Total Protein Albumin 10/26/19 10/25/19 10/25/19 02:40 23:28 23:28 WBC 6.33 RBC 5.43 H Hgb 15.2 Hct 47.2 H MCV 86.9 MCH 28.0 MCHC 32.2 RDW 13.3 Plt Count 189 MPV 10.2 Immature Gran % 0.2 Neutrophils % 62.1 Lymphocytes % 27.6 Monocytes % 7.1 Eosinophils % 2.5 Basophils % 0.5 Absolute Neutrophils 3.93 Absolute Lymphocytes 1.75 Absolute Monocytes 0.45 Absolute Eosinophils 0.16 Absolute Basophils 0.03 PT 17.0 H INR 1.7 H APTT Sodium Potassium Chloride Carbon Dioxide Anion Gap BUN Creatinine Estimated GFR/1.73 m2 Glucose Calcium Magnesium Total Bilirubin AST ALT Alkaline Phosphatase Troponin I Cancelled NT-Pro-B Natriuret Pep Total Protein Albumin 10/25/19 23:28 WBC RBC Hgb Hct MCV MCH MCHC RDW Plt Count MPV Immature Gran % Neutrophils % Lymphocytes % Monocytes % Eosinophils % Basophils % Absolute Neutrophils Absolute Lymphocytes Absolute Monocytes Absolute Eosinophils Absolute Basophils PT INR APTT Sodium 142 Potassium 3.5 Chloride 105 Carbon Dioxide 29.0 Anion Gap 8.0 BUN 11 Creatinine 1.04 H Estimated GFR/1.73 m2 50.86 Glucose 102 Calcium 8.4 L Magnesium 1.8 Total Bilirubin 0.4 AST 17 ALT 15 Alkaline Phosphatase 104 Troponin I < 0.05 NT-Pro-B Natriuret Pep 796 H Total Protein 7.4 Albumin 3.5 PFSH Medical History Anticoagulated on warfarin (Chronic) A-fib INR goal 2-3 Arthritis Atrial fibrillation (Chronic) Essential hypertension (Chronic 09/18/13) History of tobacco use (Resolved) Irritable colon Postherpetic trigeminal neuralgia (Chronic) Raynauds disease (Chronic) Surgical History Cardiac ablations x 2 2011 History of appendectomy (Resolved) History of bilateral oophorectomy (Resolved) History of esophagogastroduodenoscopy (Resolved) History of partial thyroidectomy (Resolved) Status post abdominal hysterectomy (Resolved) Family History Mother , age 68 Rheumatoid arthritis Osteoporosis Father , age 83 Stroke Maternal Grandfather , age 53 Cancer Paternal Grandfather , in his 70s Stroke Maternal Grandmother , age 93 Stroke Paternal Grandmother No problems noted. Son Asthma Daughter No problems noted. Social History Smoking/Tobacco Use Status: Former Tobacco Use Second Hand Exposure: Yes Alcohol Intake: current Alcohol Intake frequency: holidays/special occasions only Alcohol type: wine Drug use: Never Substance use type: does not use Counseling given: No Counseling provided: none Caregiver/Support person: No Household members: spouse Housing: house Communication Needs: None Do you need help understanding health information?: Never Pets and animals: Yes Pets and animals: cat(s) Sexually active: No Current gender identity: female What is your relationship status?: How often do you talk on the phone with friends or family?: once per week How often do you get together with friends or relatives?: once per week How often do you attend latter-day or lutheran services?: 4 or more times per year Do you belong to any clubs or organized social groups?: yes Panel score (0-1 are the most socially isolated patients): 3 Frequency: 3-4 times per week Ciara/Mormonism: No preference Special ciara needs: No Seatbelt use: always Drive intox or ride w/intox shag truck driver: No Do you feel safe at home: Yes Do you feel safe in your relationship?: Yes
--- NOTE | 2019-10-26 13:31 | CHAPLAIN ---
Juli asked if I would contact her mapping editor, Rev. Joseph Kate of the [facility]. Juli is being transferred to [facility] and her , Neda, is currently having a stress test at [facility] and is not aware that Juli was transferred to the ICU from Med/Surg. Juli is concerned about how Neda, who has his own health issues, will deal with the news that that she needs to go to [facility] for a possible cardiac procedure and was seeking the support of her mapping editor. I was able to reach Joseph and he came to [facility] to be with Juli and Neda. Before Rev. Kate arrived, I gave Juli a prayer shawl and prayed with her. Although she voiced concern primarily for her , she was also nervous about possibly needing a stent.
[2019-10-26 14:08] LABS: Troponin I 0.33 ng/Ml (<0.06)
[2019-10-26 17:11] LABS: PTT Activated > 155.0 sec (21.0-31.4)
== END 2019-10-26 16:12 | DRG 282 ==
LOC: ER 10-26 01:24 → MS 10-26 01:51 → ICU 10-26 10:10
PROVIDERS: Internal Medicine Cardiovascular Disease; Admitting Provider General Practice; Emergency Provider Emergency Medicine; PCP Family Medicine; Visit Provider Internal Medicine
DX: I21.4 Non-ST elevation (NSTEMI) myocardial infarction (principal); I10 Essential (primary) hypertension; I48.0 Paroxysmal atrial fibrillation; E03.9 Hypothyroidism, unspecified; Z79.01 Long term (current) use of anticoagulants; Z12.31 Encounter for screening mammogram for malignant neoplasm of breast
CPT/HCPCS: 36415; 77063; 77067; 80048; 80053; 93005; 93306; 96374; 99222; 99223; 99239; 99254; 99285; 71046; 83735; 83880; 84484; 85025; 85610; 85730; 93010; 99236; J2060

== ENCOUNTER 2019-11-06 02:39 | Outpatient (CLI) | payer MEDICARE, SELFPAY ==
[2019-11-06 13:06] LABS: INR 1.8 (0.9-1.1); Prothrombin Time 17.8 sec (9.3-11.0)
== END 2019-11-06 02:59 ==
PROVIDERS: PCP Family Medicine; Visit Provider Family Medicine
DX: I48.91 Unspecified atrial fibrillation (principal); Z79.01 Long term (current) use of anticoagulants
CPT/HCPCS: 36415; 85610

== ENCOUNTER 2019-11-09 02:41 | Outpatient (CLI) | payer MEDICARE, SELFPAY ==
[2019-11-09 11:57] LABS: INR 1.9 (0.9-1.1)
== END 2019-11-09 03:01 ==
PROVIDERS: PCP Family Medicine; Visit Provider Family Medicine
DX: I48.91 Unspecified atrial fibrillation (principal); Z79.01 Long term (current) use of anticoagulants
CPT/HCPCS: 36415; 85610

== ENCOUNTER 2019-11-16 03:14 | Outpatient (CLI) | payer MEDICARE, SELFPAY ==
[2019-11-16 11:58] LABS: INR 2.3 (0.9-1.1)
== END 2019-11-16 03:34 ==
PROVIDERS: PCP Family Medicine; Visit Provider Family Medicine
DX: I48.91 Unspecified atrial fibrillation (principal); Z79.01 Long term (current) use of anticoagulants
CPT/HCPCS: 36415; 85610

== ENCOUNTER 2019-11-23 19:31 | Inpatient (IN) | payer MEDICARE, SELFPAY ==
[2019-11-23] VITALS (48 sets, daily range): BP systolic 105–193; BP diastolic 51–95; PULSE 61–88; RESP 11–38; TEMP 36.8–37.1; O2SAT 91–98
[2019-11-23 19:59] LABS: INR 2.2 (0.9-1.1); Prothrombin Time 21.7 sec (9.3-11.0)
[2019-11-23 20:01] LABS: Abs Immature Grans 0.01 k/cumm (0.0-0.09); Absolute Basophil Count 0.02 k/cumm (0.0-0.2); Absolute Eosinophil Count 0.11 k/cumm (0.0-0.7); Absolute Lymphocyte Count 0.96 k/cumm (1.2-3.4); Absolute Monocyte Count 0.48 k/cumm (0.11-0.7); Absolute Neutrophil Count 5.32 k/cumm (1.2-6.7); Basophils % 0.3; Eosinophils % 1.6; HCT 42.3 % (36.0-46.0); HGB 13.8 g/dL (12.0-15.5); Immature Grans % 0.1 %; Lymphocytes % 13.9; Mean Corp. HGB Concentration 32.6 g/dL (32.0-36.0); Mean Platelet Volume 9.9 fL (8.0-11.0); Neutrophils % 77.1; Platelet Count 169 x1000/uL (130-400); RBC 4.92 m/cumm (4.00-5.20)
[2019-11-23] MEDS: LORazepam 2 MG/ML VIAL 0.5 MG IVP (20:04)
[2019-11-23 20:08] LABS: ALT 16 U/L (14-59); AST 17 U/L (15-37); Albumin 3.5 g/dL (3.4-5.0); Alkaline Phosphatase 106 U/L (46-116); BUN 12 mg/dL (7-18); Bilirubin, Total 0.5 mg/dL (0.2-1.0); CREATININE 1.04 mg/dL (0.55-1.02); Calcium 8.5 mg/dL (8.5-10.1); Chloride 107 mmol/L (98-107); Estimated GFR 50.86 (mL/min/1.73m2); Glucose 105 mg/dL (74-106); Magnesium 1.7 mg/dL (1.8-2.4); Potassium 3.7 mmol/L (3.5-5.1); Sodium 143 mmol/L (136-145); Total Protein 7.1 g/dL (6.4-8.2)
[2019-11-23 20:10] LABS: Troponin I 0.08 ng/Ml (<0.06)
[2019-11-23 20:11] LABS: NT-proBNP 810 pg/mL (<300)
--- NOTE | 2019-11-23 20:19 | W.ED.GENAD ---
Discharge Plan Discharge Details Chief Complaint: Chest Pain Admit Date/Time: 11/23/19 20:44 Admit Provider: Jose Boyer Attending Provider: Jose Boyer Primary Care Provider: Alex Woods ED Provider: Janette Garcia Medical Decision Making Juli Lindquist is an 79-year-old woman with a history of hyperlipidemia, hypertension, CHF, A. fib on Coumadin, recent and STEMI who presented to the emergency department with chest pressure, palpitations, diaphoresis beginning at approximately noon today. On exam patient is hypertensive SBP 190. She is very well and nontoxic-appearing. She does not appear to be in discomfort. Benign cardiopulmonary exam. Concern for ACS versus other. Exam/history is not consistent with pulmonary embolism, acute aortic process, sepsis at this time. Plan for EKG, chest x-ray, screening labs, nitroglycerin drip. Patient received sublingual nitroglycerin 0.4, 324 mg aspirin en route from EMS. EKG shows no STEMI. Troponin 0 0.08. I discussed patient presentation results with Dr. Wells of cardiology at [facility] who accepts patient for urgent transfer. No beds available at this time, they requested patient be admitted here with plan for transfer likely early tomorrow morning. Cardiology requests that no heparin be given as she is currently anticoagulated on Plavix, aspirin, Coumadin, requests nitroglycerin drip with goal SBP 120. No other recommendations at this time. Plan for admission. Clinical impression: NSTEMI Disposition: [facility] inpatient Medical Records Medical records reviewed: Yes I reviewed the patient's medical records. Imaging Data Radiologic Study: Attestation: I personally reviewed and interpreted this imaging study as follows: Radiologist's impression: Exam: XR Chest, 1 View Exam date and time: 11/23/2019 8:22 PM Age: 79 years old Clinical indication: Chest pain; Type not specified; Prior surgery; Surgery date: 1-6 months; Surgery type: Stents placed x1 month ago TECHNIQUE: Imaging protocol: XR of the chest Views: 1 view. COMPARISON: CR XR CHEST 2V PA LATERAL 10/26/2019 12:14 AM FINDINGS: Lungs: Lungs are hyperinflated with persistent chronic interstitial thickening. No focal consolidation or pulmonary edema. Linear opacity within the left lung base is consistent with chronic subsegmental atelectasis and/or scarring. Accessory azygos fissure again seen. Pleural space: No pneumothorax. No pleural effusion. Heart/Mediastinum: Cardiomediastinal contours within normal limits. Vasculature: Vascular calcifications of the aortic arch with mild tortuosity of the descending thoracic aorta. Bones/joints: No acute osseous finding. Soft tissues: No focal soft tissue abnormailty. IMPRESSION: No acute finding. Hyperinflation. Lab Data Lab results reviewed: Yes I reviewed the patient's lab results. ECG Data Attestation: I personally reviewed and interpreted this ECG (s) as follows: Interpretation: EKG shows sinus rhythm at 73, normal axis, nonspecific ST changes, no STEMI, nondiagnostic EKG HPI General Mode of arrival: EMS. Date/Time Provider Initiated Documentation: 11/23/19 19:43. Limitations to Documentation: no limitations. Information obtained by: patient, RN notes reviewed and old records reviewed. HPI Narrative: Juli Lindquist is an 79-year-old woman with a history of A. fib on Coumadin, CHF, hypothyroidism, hypertension, NSTEMI 1 month ago presenting to the emergency department with chest pressure. Patient reports that 1 month ago she presented to this emergency department with chest pressure, was admitted here, and then transferred to [facility] for NSTEMI where she had 3 stents placed. Patient reports that since discharge from [facility] she has been taking her Coumadin and Plavix daily as prescribed. Patient reports that she has been feeling well since discharge until today at noon. Patient reports that she was at rest when she developed a sensation of her heart racing, chest pressure, and sweating. Patient reports that chest pressure is less than what she experienced at her prior visit for N STEMI. She reports that pain seems worse with rest and better while walking. She reports that she continues to have sensation that her heart is racing intermittently, and feels as if she cannot quite catch her breath. She denies any other pain, I when asked to rate her pain on a scale of 1-10 she states I do not have any pain, just pressure. She reports pressure is mild, right chest, nonradiating. She denies fever, cough, vomiting, diarrhea, numbness, weakness, rash. Related Data Home Medications Medication Instructions Recorded Confirmed calcium carbonate-vitamin D3 1 tab PO DAILY 01/31/13 11/23/19 [Caltrate with Vitamin D3] metoprolol succinate 100 mg 100 mg PO QA #90 tab 10/31/18 11/23/19 tablet,extended release 24 hr lisinopril 40 mg tablet 40 mg PO DAILY #90 tab 02/17/19 11/23/19 levothyroxine 88 mcg tablet 88 mcg PO DAILY@0730 #90 tab 07/20/19 11/23/19 dicyclomine 10 mg capsule 10 mg PO QID PRN #120 cap 09/18/19 11/23/19 gabapentin 600 mg tablet 300 mg PO BID #90 tab 09/21/19 11/23/19 famotidine 20 mg PO BID PRN 10/25/19 11/23/19 acetaminophen [Tylenol] 650 mg PO Q4H PRN PRN #0 tab 10/26/19 clopidogrel [Plavix] 75 mg PO DAILY #0 tab 10/26/19 11/23/19 atorvastatin 40 mg tablet 40 mg PO DAILY 11/06/19 11/23/19 warfarin 5 mg tablet 5 mg PO DAILY 11/06/19 11/23/19 warfarin See Rx Instructions .ROUTE .COMPLEX 11/23/19 11/23/19 Previous Rx's Medication Instructions Recorded metoprolol succinate 100 mg 100 mg PO QAM #90 tab 10/31/18 tablet,extended release 24 hr lisinopril 40 mg tablet 40 mg PO DAILY #90 tab 02/17/19 levothyroxine 88 mcg tablet 88 mcg PO DAILY@0730 #90 tab 07/20/19 dicyclomine 10 mg capsule 10 mg PO QID PRN #120 cap 09/18/19 gabapentin 600 mg tablet 300 mg PO BID #90 tab 09/21/19 acetaminophen [Tylenol] 650 mg PO Q4H PRN PRN #0 tab 10/26/19 clopidogrel [Plavix] 75 mg PO DAILY #0 tab 10/26/19 Allergies Allergy/AdvReac Type Severity Reaction Status Date / Time amoxicillin AdvReac Severe nausea/hot Verified 11/23/19 20:33 feeling sertraline AdvReac Intermediate TREMOR, Verified 11/23/19 20:33 DIAPHORESIS codeine phosphate AdvReac GI Verified 11/23/19 20:33 [From Tylenol-Codeine] General Stated Complaint: Chest Pain MATT: 2 Review of Systems Narrative: Constitutional: denies fevers Eyes: denies eye pain ENT: denies ear pain, dental pain, sore throat Cardiovascular: denies chest pain, edema, reports chest pressure, palpitations Respiratory: denies cough, reports mild shortness of breath GI: denies abdominal pain, vomiting, diarrhea : denies flank pain MSK: denies back pain, neck pain, arthralgias, myalgias Skin: denies rash Neuro: denies headaches, numbness, weakness PFSH Medical History Anticoagulated on warfarin (Chronic) A-fib INR goal 2-3 Arthritis Atrial fibrillation (Chronic) Essential hypertension (Chronic 09/18/13) History of tobacco use (Resolved) Irritable colon Postherpetic trigeminal neuralgia (Chronic) Raynauds disease (Chronic) Social History Smoking/Tobacco Use Status: Former Tobacco Use Second Hand Exposure: Yes Alcohol Intake: current Alcohol Intake frequency: holidays/special occasions only Alcohol type: wine Drug use: Never Substance use type: does not use Counseling given: No Counseling provided: none Caregiver/Support person: No Household members: spouse Housing: house Communication Needs: None Do you need help understanding health information?: Never Pets and animals: Yes Pets and animals: cat(s) Sexually active: No Current gender identity: female What is your relationship status?: How often do you talk on the phone with friends or family?: once per week How often do you get together with friends or relatives?: once per week How often do you attend presybeterian or yazidi services?: 4 or more times per year Do you belong to any clubs or organized social groups?: yes Panel score (0-1 are the most socially isolated patients): 3 Frequency: 3-4 times per week Ciara/Mormonism: No preference Special ciara needs: No Seatbelt use: always 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 Do you feel safe at home: Yes Do you feel safe in your relationship?: Yes Exam Narrative Exam Narrative: Constitutional: well and [id number], pleasant, conversing normally HENT: head atraumatic/normocephalic/normal inspection, mucous membranes moist Eyes: conjunctiva normal, sclera normal, pupils 3mm b/l Neck: no stridor, normal ROM, trachea midline Chest: normal inspection Resp: normal work of breathing, LCTAB Cardio: normal rate, normal rhythm, no murmur appreciated GI: abdomen soft, non-tender, non-distended Back: normal inspection, no rash Skin: warm, dry, normal color, no rash Neuro: alert, not altered, grossly non-focal, normal tone Ext: no edema, no posterior calf tenderness to palpation Psych: normal mood, normal affect, normal behavior Course Vital Signs Vital signs: Vital Signs Temperature 37.1 C 11/23/19 19:31 Pulse 75 11/23/19 19:31 Respiratory Rate 12 11/23/19 19:31 Blood Pressure 193/95 H 11/23/19 19:31 Pulse Oximetry 97 11/23/19 19:31 Temperature 37.1 C 11/23/19 19:31 Temperature Source Skin 11/23/19 19:31 Pulse 72 11/23/19 20:08 Respiratory Rate 12 11/23/19 19:31 Respiratory Effort Non-Labored 11/23/19 19:50 Respiratory Depth Normal 11/23/19 19:50 Respiratory Pattern Normal 11/23/19 19:50 Blood Pressure 147/84 H 11/23/19 20:08 Pulse Oximetry 97 11/23/19 19:31 Oxygen Delivery Method Room Air 11/23/19 19:31 Oxygen Flow Rate 0 11/23/19 19:31 Pain Level 5 11/23/19 20:08 Lab/Test Results Lab/Test Results: Laboratory Tests Range/Units 11/23/19 11/23/19 11/23/19 19:40 19:40 19:40 WBC (4.4-10.8) k/cumm RBC (4.00-5.20) m/cumm Hgb (12.0-15.5) g/dL Hct (36.0-46.0) % MCV (80-95) fL MCH (27.0-33.0) pg MCHC (32.0-36.0) g/dL RDW (11.7-14.6) % Plt Count (130-400) x1000/uL MPV (8.0-11.0) fL Immature Gran % % Neutrophils % Lymphocytes % Monocytes % Eosinophils % Basophils % Absolute Neutrophils (1.2-6.7) k/cumm Absolute Lymphocytes (1.2-3.4) k/cumm Absolute Monocytes (0.11-0.7) k/cumm Absolute Eosinophils (0.0-0.7) k/cumm Absolute Basophils (0.0-0.2) k/cumm PT (9.3-11.0) sec 21.7 H INR (0.9-1.1) 2.2 H Sodium (136-145) mmol/L 143 Potassium (3.5-5.1) mmol/L 3.7 Chloride (98-107) mmol/L 107 Carbon Dioxide (21.0-32.0) mmol/L 28.0 Anion Gap (3-11) mmol/L 8.0 BUN (7-18) mg/dL 12 Creatinine (0.55-1.02) mg/dL 1.04 H Estimated GFR/1.73 m2 (mL/min/1.73m2) 50.86 Glucose (74-106) mg/dL 105 Calcium (8.5-10.1) mg/dL 8.5 Magnesium (1.8-2.4) mg/dL 1.7 L Total Bilirubin (0.2-1.0) mg/dL 0.5 AST (15-37) U/L 17 ALT (14-59) U/L 16 Alkaline Phosphatase (46-116) U/L 106 Troponin I (<0.06) ng/Ml 0.08 H* NT-Pro-B Natriuret Pep (<300) pg/mL 810 H Total Protein (6.4-8.2) g/dL 7.1 Albumin (3.4-5.0) g/dL 3.5 Range/Units 11/23/19 19:40 WBC (4.4-10.8) k/cumm 6.90 RBC (4.00-5.20) m/cumm 4.92 Hgb (12.0-15.5) g/dL 13.8 Hct (36.0-46.0) % 42.3 MCV (80-95) fL 86.0 MCH (27.0-33.0) pg 28.0 MCHC (32.0-36.0) g/dL 32.6 RDW (11.7-14.6) % 13.0 Plt Count (130-400) x1000/uL 169 MPV (8.0-11.0) fL 9.9 Immature Gran % % 0.1 Neutrophils % 77.1 Lymphocytes % 13.9 Monocytes % 7.0 Eosinophils % 1.6 Basophils % 0.3 Absolute Neutrophils (1.2-6.7) k/cumm 5.32 Absolute Lymphocytes (1.2-3.4) k/cumm 0.96 L Absolute Monocytes (0.11-0.7) k/cumm 0.48 Absolute Eosinophils (0.0-0.7) k/cumm 0.11 Absolute Basophils (0.0-0.2) k/cumm 0.02 PT (9.3-11.0) sec INR (0.9-1.1) Sodium (136-145) mmol/L Potassium (3.5-5.1) mmol/L Chloride (98-107) mmol/L Carbon Dioxide (21.0-32.0) mmol/L Anion Gap (3-11) mmol/L BUN (7-18) mg/dL Creatinine (0.55-1.02) mg/dL Estimated GFR/1.73 m2 (mL/min/1.73m2) Glucose (74-106) mg/dL Calcium (8.5-10.1) mg/dL Magnesium (1.8-2.4) mg/dL Total Bilirubin (0.2-1.0) mg/dL AST (15-37) U/L ALT (14-59) U/L Alkaline Phosphatase (46-116) U/L Troponin I (<0.06) ng/Ml NT-Pro-B Natriuret Pep (<300) pg/mL Total Protein (6.4-8.2) g/dL Albumin (3.4-5.0) g/dL
--- NOTE | 2019-11-23 20:30 | DI.RAD_ITS ---
EXAM: XR PORTABLE CHEST AP INDICATION: chest pain. COMPARISON: XR CHEST 2V PA LATERAL from 10/26/2019 TECHNIQUE: 2D digital imaging was performed. FINDINGS: Heart size is within normal limits. The aorta is tortuous, unchanged. Leads overlie the chest. The re are mild chronic interstitial changes. No superimposed acute infiltrate, effusion or pulmonary ed ge is seen. IMPRESSION: No acute abnormality. DATA REPOSITORY: RADIATION DOSE DELIVERED:
--- NOTE | 2019-11-23 20:51 | DI.VRAD_ITS ---
PROCEDURE INFORMATION: Exam: XR Chest, 1 View Exam date and time: 11/23/2019 8:22 PM Age: 79 years old Clinical indication: Chest pain; Type not specified; Prior surgery; Surgery date: 1-6 months; Surgery type: Stents placed x1 month ago TECHNIQUE: Imaging protocol: XR of the chest Views: 1 view. COMPARISON: CR XR CHEST 2V PA LATERAL 10/26/2019 12:14 AM FINDINGS: Lungs: Lungs are hyperinflated with persistent chronic interstitial thickening. No focal consolidation or pulmonary edema. Linear opacity within the left lung base is consistent with chronic subsegmental atelectasis and/or scarring. Accessory azygos fissure again seen. Pleural space: No pneumothorax. No pleural effusion. Heart/Mediastinum: Cardiomediastinal contours within normal limits. Vasculature: Vascular calcifications of the aortic arch with mild tortuosity of the descending thoracic aorta. Bones/joints: No acute osseous finding. Soft tissues: No focal soft tissue abnormailty. IMPRESSION: No acute finding. Hyperinflation. Dictated and Authenticated by: John Galvan MD. Ordering:CARLOS Savage MD
--- NOTE | 2019-11-23 21:34 | NUR.NOTE ---
attending admitting physican in to assess pt for past 20 mins, pt alert and speaking with physician
--- NOTE | 2019-11-23 21:49 | W.PM.HP.N ---
Date of service: 11/23/19 Time of Service: 21:49 Assessment and Plan Assessment and plan (1) Elevated troponin: Status: Acute Assessment and plan: Indeterminate troponin at this time. Symptoms certainly suggestive of angina. Unclear if she has sustained infarct at this time. We do not have a new baseline troponin for her following her non-ST elevation AZ from last month but I am presuming this is an acute coronary syndrome, the extent remains to be determined. It is possible she has an early in-stent restenosis. She has been accepted for transfer to [facility] for tomorrow. For tonight we will cycle troponins. Continue on nitroglycerin drip. Continue beta-janet and GIL inhibitor at current dosages. Try to clarify with pharmacy whether she is taking 40 or 80 mg of atorvastatin. Continue clopidogrel. I am holding warfarin tonight given her therapeutic INR and likely angiography tomorrow. If transfer is going to be delayed, consider repeat echocardiogram to assess for regional wall motion abnormalities, none of which were present on her echocardiogram from 1 month ago. (2) Coronary artery disease: Status: Chronic Assessment and plan: History of drug-eluting stents to the LAD and 2 to the RCA with preserved LV function on echocardiogram. Management as above. (3) Atrial fibrillation: Status: Chronic Assessment and plan: Presently in sinus rhythm. Monitor rhythm on telemetry. Warfarin will be held this evening. INR currently therapeutic. (4) Postherpetic trigeminal neuralgia: Status: Chronic Assessment and plan: Chronic pain of the face and forehead. Continue gabapentin at outpatient dose. (5) Essential hypertension: Status: Chronic Assessment and plan: Blood pressure elevated on presentation but much improved with IV nitroglycerin and lorazepam. Follow on outpatient meds and nitroglycerin drip. (6) Hypothyroidism: Status: Chronic Assessment and plan: She has been consistent in taking her thyroid replacement (in the morning with other medications). TSH has not been checked since last spring. Will do so with routine labs in the morning. History of Present Illness History of Present Illness Chief Complaint: Chest pressure Narrative: 79-year-old woman who had a non-ST elevation AZ a few days shy of 1 month ago, presenting here with somewhat atypical chest complaints, rising troponins with echocardiogram showing normal LV function and no regional wall motion abnormalities. She was transferred to [facility] for coronary angiography which showed two-vessel disease. She had drug-eluting stents placed to the LAD and 2 to the RCA and was discharged on aspirin and clopidogrel for 1 week overlap then clopidogrel alone in addition to her chronic warfarin for A. fib and atorvastatin. She was already on metoprolol and lisinopril for blood pressure management. She was doing well with no complications until the beginning of this week when stress level went up and dealing with her 's illness?hernia repair. 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 About midmorning today began to notice a heaviness in her chest that steadily progressed into the early evening and became associated with some shortness of breath, not necessarily nausea but a definite drop in appetite. She is also more aware of pounding and somewhat irregular heartbeats. Because of these symptoms and her 's inability to drive she called for an ambulance which transported her to the emergency room. On arrival she was hypertensive and a sinus rhythm with no acute changes on EKG. She was started on IV nitroglycerin. Her initial troponin was indeterminate at 0.08. [facility] was consulted, no bed available this evening. Due to her history and symptoms she is being admitted to assess for acute coronary syndrome, stabilize symptoms and plan for transfer to [facility] tomorrow for repeat coronary angiography. At the time of my interview with her, nitroglycerin is running at 30 mcg/min. She reports a definite improvement but not complete resolution of the pressure sensation in her chest, denies any trouble breathing or diaphoresis or lightheadedness. She has not missed any doses of her medications. She was tremulous in the emergency room and received 0.5 mg of lorazepam which further helped reduce her symptoms. Review of Systems Narrative: She has been feeling more fatigued this week with increased demands related to caring for her . No recent fevers. No vomiting or diarrhea. No bleeding. No bruising. No wheeze. No orthopnea or PND. No ankle swelling. She has chronic irritable bowel syndrome with no recent changes in the pattern of her bowel movement and no melanotic stool. She has some mild stress, less so urge urinary incontinence. She has chronic pain of the right face from postherpetic neuralgia. She has some chronic dyspepsia and is unconvinced that famotidine makes much difference but continues to take it. [facility] Medical History Anticoagulated on warfarin (Chronic) A-fib INR goal 2-3 Arthritis Atrial fibrillation (Chronic) Essential hypertension (Chronic 09/18/13) History of tobacco use (Resolved) Irritable colon Postherpetic trigeminal neuralgia (Chronic) Raynauds disease (Chronic) Social History Smoking/Tobacco Use Status: Former Tobacco Use Second Hand Exposure: Yes Alcohol Intake: current Alcohol Intake frequency: holidays/special occasions only Alcohol type: wine Drug use: Never Substance use type: does not use Counseling given: No Counseling provided: none Caregiver/Support person: No Household members: spouse Housing: house Communication Needs: None Do you need help understanding health information?: Never Pets and animals: Yes Pets and animals: cat(s) Sexually active: No Current gender identity: female What is your relationship status?: How often do you talk on the phone with friends or family?: once per week How often do you get together with friends or relatives?: once per week How often do you attend episcopal or rastafari services?: 4 or more times per year Do you belong to any clubs or organized social groups?: yes Panel score (0-1 are the most socially isolated patients): 3 Frequency: 3-4 times per week Ciara/Confucianism: No preference Special ciara needs: No Seatbelt use: always Drive intox or ride w/intox cmv driver: No Do you feel safe at home: Yes Do you feel safe in your relationship?: Yes Meds Home Medications and Allergies Home Medications Medication Instructions Recorded Confirmed Type calcium carbonate-vitamin D3 1 tab PO DAILY 01/31/13 11/23/19 History [Caltrate with Vitamin D3] metoprolol succinate 100 mg 100 mg PO QAM #90 tab 10/31/18 11/23/19 Rx tablet,extended release 24 hr lisinopril 40 mg tablet 40 mg PO DAILY #90 tab 02/17/19 11/23/19 Rx levothyroxine 88 mcg tablet 88 mcg PO DAILY@0730 #90 tab 07/20/19 11/23/19 Rx dicyclomine 10 mg capsule 10 mg PO QID PRN #120 cap 09/18/19 11/23/19 Rx gabapentin 600 mg tablet 300 mg PO BID #90 tab 09/21/19 11/23/19 Rx famotidine 20 mg PO BID PRN 10/25/19 11/23/19 History acetaminophen [Tylenol] 650 mg PO Q4H PRN PRN #0 tab 10/26/19 Rx clopidogrel [Plavix] 75 mg PO DAILY #0 tab 10/26/19 11/23/19 Rx atorvastatin 40 mg tablet 40 mg PO DAILY 11/06/19 11/23/19 History warfarin 5 mg tablet 5 mg PO DAILY 11/06/19 11/23/19 History warfarin See Rx Instructions .ROUTE .COMPLEX 11/23/19 11/23/19 History Allergies Allergy/AdvReac Type Severity Reaction Status Date / Time amoxicillin AdvReac Severe nausea/hot Verified 11/23/19 20:33 feeling sertraline AdvReac Intermediate TREMOR, Verified 11/23/19 20:33 DIAPHORESIS codeine phosphate AdvReac GI Verified 11/23/19 20:33 [From Tylenol-Codeine] Exam Narrative Exam Narrative: Loquacious woman appearing younger than her chronologic age no distress. Sinus rhythm on telemetry, blood pressure now 120s to 130s systolic. Pulse rate is in the 70s. SaO2 93% on room air. No facial asymmetry. Sclera clear. No obvious pigmented hypo-or hyper on forehead or face. Tongue midline. No JVD. Lungs clear. Regular heart rhythm with no S3-S4 or murmur. Abdomen with active bowel sounds nontender in the upper quadrants, some mild inconsistent discomfort to palpation in the lower quadrants left and right. No mass guarding or rebound. Extremities warm without edema. No petechiae or bruises on the lower extremities. Good distal pulses. Symmetric movement of all extremities. Antigravity power present throughout. Sits up unassisted. There is an occasional twitching of muscles on her upper chest. No rest tremor. Oriented x4. Results EKG sinus rhythm with nonspecific mid precordial ST-T changes. The T wave inversions noted on ECGs from last month have resolved. Chest x-ray without effusion or cardiomegaly, there are what appear to be chronic increased interstitial markings right lung field a bit more than left. Labs Result diagrams: 11/23/19 19:40 11/23/19 19:40 Labs: Laboratory Results - last 24 hr 11/23/19 11/23/1911/23/20 19:40 19:40 19:40 WBC RBC Hgb Hct MCV MCH MCHC RDW Plt Count MPV Immature Gran % Neutrophils % Lymphocytes % Monocytes % Eosinophils % Basophils % Absolute Neutrophils Absolute Lymphocytes Absolute Monocytes Absolute Eosinophils Absolute Basophils PT 21.7 H INR 2.2 H Sodium 143 Potassium 3.7 Chloride 107 Carbon Dioxide 28.0 Anion Gap 8.0 BUN 12 Creatinine 1.04 H Estimated GFR/1.73 m2 50.86 Glucose 105 Calcium 8.5 Magnesium 1.7 L Total Bilirubin 0.5 AST 17 ALT 16 Alkaline Phosphatase 106 Troponin I 0.08 H* NT-Pro-B Natriuret Pep 810 H Total Protein 7.1 Albumin 3.5 11/23/19 19:40 WBC 6.90 RBC 4.92 Hgb 13.8 Hct 42.3 MCV 86.0 MCH 28.0 MCHC 32.6 RDW 13.0 Plt Count 169 MPV 9.9 Immature Gran % 0.1 Neutrophils % 77.1 Lymphocytes % 13.9 Monocytes % 7.0 Eosinophils % 1.6 Basophils % 0.3 Absolute Neutrophils 5.32 Absolute Lymphocytes 0.96 L Absolute Monocytes 0.48 Absolute Eosinophils 0.11 Absolute Basophils 0.02 PT INR Sodium Potassium Chloride Carbon Dioxide Anion Gap BUN Creatinine Estimated GFR/1.73 m2 Glucose Calcium Magnesium Total Bilirubin AST ALT Alkaline Phosphatase Troponin I NT-Pro-B Natriuret Pep Total Protein Albumin Last Vital Signs Temp 37.1 C 11/23/19 19:31 Pulse 72 11/23/19 21:33 Resp 16 11/23/19 21:05 BP 124/72 11/23/19 21:33 Pulse Ox 93 L 11/23/19 21:05
[2019-11-23] MEDS: Acetaminophen 325 MG TAB 650 MG PO (22:41)
[2019-11-23 22:48] LABS: Troponin I 0.13 ng/Ml (<0.06)
[2019-11-24] VITALS (54 sets, daily range): BP systolic 76–145; BP diastolic 35–88; PULSE 54–77; RESP 11–22; TEMP 36.2–36.8; O2SAT 87–97
[2019-11-24] MEDS: LORazepam 0.5 MG TAB PO (01:24)
[2019-11-24 03:45] LABS: Troponin I 0.13 ng/Ml (<0.06)
[2019-11-24 06:44] LABS: INR 2.1 (0.9-1.1); Prothrombin Time 20.8 sec (9.3-11.0)
[2019-11-24 06:51] LABS: Anion Gap 9.2 mmol/L (3-11); BUN 11 mg/dL (7-18); CO2 28.8 mmol/L (21.0-32.0); CREATININE 1.07 mg/dL (0.55-1.02); Calcium 8.6 mg/dL (8.5-10.1); Chloride 109 mmol/L (98-107); Estimated GFR 49.22 (mL/min/1.73m2); Glucose 98 mg/dL (74-106); Potassium 3.8 mmol/L (3.5-5.1); Sodium 147 mmol/L (136-145)
[2019-11-24 06:57] LABS: TSH 1.24 uIU/mL (0.36-3.74)
--- NOTE | 2019-11-24 07:53 | PHARADMIT ---
Admission Pharmacy Clinical Review CHEST PAIN,INDETERMINANT TROPONIN Code Status Full Code Current Weight Wgt-71.6 kg Renally Cleared and Narrow Therapeutic Index Meds CrCl~37.1 mL/min Meds-OK QTc Value / Action Taken QTc-375 BP Control, Fever BP- 102 Electrolytes reviewed Na-147 K+3.8 Mag-1.7 DVT Prophylaxis Warfarin, Plavix Opiate Usage / Scheduled Bowel Regimen Ordered No Yes Plt/SCr for Heparin / Enoxaparin Pls-169 SCr-1.07 INR for Warfarin INR-2.1 H/H stable, WBC/Bands H&H- 13.8/42.8 WBC-6.90 Antibiotic appropriateness none Cultures and Sensitivities none Surgical ABX d/c within 24 hr na DM control / Insulin Dosing BG-98 Heart Failure (Check EF%) (GIL's, B-Block, Diuretics) Lisinopril, Toprol-XL NTG IV to PO Switch No Home Meds Reviewed Yes Home Meds Not Ordered Dicyclomine, Imipramine, Comments Troponin- 0.08 ^ 0.13 ^ 0.13
[2019-11-24] MEDS: Gabapentin 600 MG TAB 300 MG PO (08:36)
[2019-11-24] MEDS: Clopidogrel 75 MG TAB PO (08:36)
[2019-11-24] MEDS: Calcium 600mg/Vit D 200U TAB 1 TAB PO (08:36)
[2019-11-24] MEDS: Metoprolol CR 100 MG TABCR PO (08:37)
[2019-11-24] MEDS: Lisinopril 20 MG TAB 40 MG PO (08:37)
[2019-11-24] MEDS: Acetaminophen 325 MG TAB 650 MG PO ×2 (08:44→16:22)
[2019-11-24 08:50] LABS: Magnesium 1.9 mg/dL (1.8-2.4)
--- NOTE | 2019-11-24 09:41 | PDOC.CMIN ---
- If Service Date Differs Date of service: 11/24/19 Time of Service: 09:41 Care Management Initial Assess REASON FOR HOSPITALIZATION:: Chest pain and elevated troponin PAST MEDICAL HISTORY/PAST SURGICAL HISTORY:: Medical History . Anticoagulated on warfarin (Chronic). A-fib INR goal 2-3. Arthritis. Atrial fibrillation (Chronic). Essential hypertension (Chronic 09/18/13). History of tobacco use (Resolved). Irritable colon. Postherpetic trigeminal neuralgia (Chronic). Raynauds disease (Chronic) PREVIOUS FUNCTIONAL STATUS/SOCIAL/FAMILY SUPPORTS:: Juli lives in a single family home in [place] [facility] with her of 60 years. She has 2 adult children, a son in [place], [place] and a daughter in [place]. She also has several grandchildren. 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 Juli is independent at baseline and continues to drive and care for her . CURRENT FUNCTIONAL STATUS:: Juli was sitting up in a chair when CM met with her. She engaged readily in conversation, smiling and laughing often, sharing stories of her life and experiences. She is awaiting a bed at [facility]. Juli recently had cardiac stents placed at [facility] and is experiencing symptoms similar to those that brought her to the hospitaal last month. She hopes to be transferred later today otr tomorrow. Unfortunately her had hernia surgery earlier this week so timing is really poor she stated. ADVANCE DIRECTIVES:: On file. Marisa Lindquist [facility] Has patient been provided with information about the portal?: No Did the patient sign up for the portal?: No CODE STATUS:: Full Code INSURANCE COVERAGE / FINANCIAL ISSUES:: Medicare. AARP CURRENT HOME/COMMUNITY SERVICES/EQUIPMENT:: none PRIMARY CARE PHYSICIAN:: Alex Woods POTENTIAL DISCHARGE NEEDS:: Juli ill be transferred to [facility] when bed available PATIENT/FAMILY EDUCATION NEEDS:: Discharge plan, transfer date/time, follow up as determined by [facility] ANTICIPATED BARRIERS TO DISCHARGE:: bed availability TRANSPORTATION:: via ambulance coordinated through Nursing quality control microbiology supervisor PLAN:: Juli will be transferred to [facility] as soon as a bed becomes available. She remains in the ICU but is in stable condition. She will transport via ambulance arranged bu nursing supervision.
[2019-11-24] MEDS: Levothyroxine 88 MCG TAB PO (10:30)
[2019-11-24 12:34] LABS: Troponin I 0.13 ng/Ml (<0.06)
--- NOTE | 2019-11-24 12:52 | W.PM.DS.N ---
Date of service: 11/24/19 Time of Service: 12:52 DS: Diagnosis Discharge Diagnosis (1) NSTEMI (non-ST elevated myocardial infarction): Status: Acute (2) Coronary artery disease: Status: Chronic (3) Atrial fibrillation: Status: Chronic (4) Postherpetic trigeminal neuralgia: Status: Chronic (5) Essential hypertension: Status: Chronic (6) Hypothyroidism: Status: Chronic (7) Hypertensive urgency: Status: Resolved Discharge Plan Disposition Patient Disposition: [facility] Condition: Serious Discharge Details Chief Complaint: Chest Pain Reason For Visit: CHEST PAIN, INDETERMINANT TROPONIN Admit Date/Time: 11/23/19 20:44 Admit Provider: Jose Boyer Attending Provider: Jose Boeyr Primary Care Provider: Alex Woods ED Provider: Janette Garcia [facility] Course Hospital Course: Ms Lindquist is an 79 year old female with PMHx of CAD s/p recent NSTEMI/3 stents at [facility] (10/26/2019), who has been on plavix and coumadin since, as well as h/o paroxysmal Afib s/p 2 ablations, as well as both essential and pulmonary hypertension who was admitted to [facility] ICU under the hospitalist service while awaiting a bed at [facility] after presenting with chest pain and hypertensive crisis and ruling in for an NSTEMI. She was initiated on nitroglycerin gtt for symptom control and at this point remains on it, still being titrated up. The trend of her troponin I has been 0.08 -> 0.13 ->0.13->0.13. She was accepted in transfer by Dr Wells of cardiology at [facility] for an evaluation for a possible repeat cardiac catheterization. She remains hemodynamically stable and her chest pain is controlled with nitroglycerin infusion. She is maintained on her atorvastatin, metoprolol, lisinopril. The patient is agreeable to transfer. Care for patient as well as completion of her discharge summary took 40 minutes on day of transfer. Home Meds and New Rx's Prescriptions: No Action gabapentin 600 mg tablet 300 mg PO BID Qty: 90 RF: 5 levothyroxine [Synthroid] 88 mcg tablet 88 mcg PO DAILY@0730 Qty: 90 RF: 4 calcium carbonate-vitamin D3 [Caltrate with Vitamin D3] 1 EACH tablet 1 tab PO DAILY RF: 0 metoprolol succinate 100 mg tablet extended release 24 hr 100 mg PO QAM Qty: 90 RF: 4 lisinopril 40 mg tablet 40 mg PO DAILY Qty: 90 RF: 4 dicyclomine 10 mg capsule 10 mg PO QID PRN (Reason: abdominal pain) Qty: 120 RF: 4 atorvastatin 40 mg tablet 40 mg PO DAILY RF: 0 warfarin 5 mg tablet 5 mg PO DAILY RF: 0 famotidine 20 mg tablet 20 mg PO BID PRNRF: 0 acetaminophen [Tylenol] 325 mg Tablet 650 mg PO Q4H PRN PRNQty: 0 RF: 0 clopidogrel [Plavix] 75 mg Tablet 75 mg PO DAILY Qty: 0 RF: 0 warfarin 7.5 mg Tablet See Rx Instructions .ROUTE .COMPLEX RF: 0 Discharge Instructions Instructions: Myocardial Infarction (DC) Activity:: OOB to chair Equipment/Supplies:: No Equipment Needed Diet:: NPO Discharge Orders Discharge Orders: Discharge Order (Routine); Ordered 11/24/19 Ordered By: Isela Ashley DS: Summary Status at Discharge Functional status at discharge: independent ambulation Overall status at discharge: patient is not back to baseline Mental Status: mental status grossly normal Speech and Movement: speech and movement normal Mood: congruent mood Affect: anxious affect Exam Narrative Exam Narrative: General: Very pleasant elderly female who looks much younger than her stated age, A&Ox3, talkative, does not appear to be in acute distress HEENT: EOMI, MMM Heart: RRR, no m/r/g Lungs: CTAB Abdomen: soft, nontender, nondistended Extremities: no e/c/c BLE's Psych Mental Status: mental status grossly normal Speech and Movement: speech and movement normal Mood: congruent mood Affect: anxious affect DS: Data Vitals/I&O Vitals and I&O: Vital Signs Temperature 36.2 C L 11/24/19 08:17 Temperature Source Temporal Artery Scan 11/24/19 08:17 Pulse 54 L 11/24/19 11:01 Pulse 54 L 11/24/19 11:01 Respiratory Rate 18 11/24/19 11:01 Respiratory Effort Non-Labored 11/24/19 08:17 Respiratory Depth Normal 11/24/19 08:17 Respiratory Pattern Normal 11/24/19 08:17 Blood Pressure 121/54 L 11/24/19 11:01 Blood Pressure Mean 70 11/24/19 11:01 Blood Pressure Position Supine 11/24/19 08:17 Pulse Oximetry 97 11/24/19 08:17 Oxygen Delivery Method Room Air 11/24/19 08:17 Oxygen Flow Rate 0 11/24/19 08:17 Pain Level 2 11/24/19 09:44 Comment 11/23/19 21:05 Intake & Output 11/23/19 11/24/19 11/24/19 23:59 11:59 23:59 Intake Total 11.35 / 11.35 676.219 / 676.219 Output Total 100 / 100 50 / 50 Balance -88.65 / -88.65 626.219 / 626.219 Weight 77.6 kg 71.6 kg Intake: IV 11.35 / 11.35 76.219 / 76.219 Oral 600 / 600 Output: Urine 100 / 100 50 / 50 Other: Urine Color Yellow Dark Pina Urine Appearance Clear Urine Odor Normal Comment mixed with stool Voiding to commode. Stool Occult Blood Negative Stool Characteristics Soft Formed Voiding Methods Bedside Commode Data Completed and Pending Completed studies during hospitalization [Text1]: CXR: No acute abnormality. Labs on day of discharge: Labs from last 24 hours 11/24/19 11/24/19 11/24/19 12:00 06:05 06:05 WBC RBC Hgb Hct MCV MCH MCHC RDW Plt Count MPV Immature Gran % Neutrophils % Lymphocytes % Monocytes % Eosinophils % Basophils % Absolute Neutrophils Absolute Lymphocytes Absolute Monocytes Absolute Eosinophils Absolute Basophils PT INR Sodium 147 H Potassium 3.8 Chloride 109 H Carbon Dioxide 28.8 Anion Gap 9.2 BUN 11 Creatinine 1.07 H Estimated GFR/1.73 m2 49.22 Glucose 98 Calcium 8.6 Magnesium 1.9 Total Bilirubin AST ALT Alkaline Phosphatase Troponin I 0.13 H* NT-Pro-B Natriuret Pep Total Protein Albumin TSH 1.24 11/24/19 11/24/19 11/23/19 06:05 03:00 22:20 WBC RBC Hgb Hct MCV MCH MCHC RDW Plt Count MPV Immature Gran % Neutrophils % Lymphocytes % Monocytes % Eosinophils % Basophils % Absolute Neutrophils Absolute Lymphocytes Absolute Monocytes Absolute Eosinophils Absolute Basophils PT 20.8 H INR 2.1 H Sodium Potassium Chloride Carbon Dioxide Anion Gap BUN Creatinine Estimated GFR/1.73 m2 Glucose Calcium Magnesium Total Bilirubin AST ALT Alkaline Phosphatase Troponin I 0.13 H* 0.13 H* NT-Pro-B Natriuret Pep Total Protein Albumin TSH 11/23/19 11/23/19 11/23/19 19:40 19:40 19:40 WBC 6.90 RBC 4.92 Hgb 13.8 Hct 42.3 MCV 86.0 MCH 28.0 MCHC 32.6 RDW 13.0 Plt Count 169 MPV 9.9 Immature Gran % 0.1 Neutrophils % 77.1 Lymphocytes % 13.9 Monocytes % 7.0 Eosinophils % 1.6 Basophils % 0.3 Absolute Neutrophils 5.32 Absolute Lymphocytes 0.96 L Absolute Monocytes 0.48 Absolute Eosinophils 0.11 Absolute Basophils 0.02 PT 21.7 H INR 2.2 H Sodium 143 Potassium 3.7 Chloride 107 Carbon Dioxide 28.0 Anion Gap 8.0 BUN 12 Creatinine 1.04 H Estimated GFR/1.73 m2 50.86 Glucose 105 Calcium 8.5 Magnesium 1.7 L Total Bilirubin 0.5 AST 17 ALT 16 Alkaline Phosphatase 106 Troponin I 0.08 H* NT-Pro-B Natriuret Pep Total Protein 7.1 Albumin 3.5 TSH 11/23/19 19:40 WBC RBC Hgb Hct MCV MCH MCHC RDW Plt Count MPV Immature Gran % Neutrophils % Lymphocytes % Monocytes % Eosinophils % Basophils % Absolute Neutrophils Absolute Lymphocytes Absolute Monocytes Absolute Eosinophils Absolute Basophils PT INR Sodium Potassium Chloride Carbon Dioxide Anion Gap BUN Creatinine Estimated GFR/1.73 m2 Glucose Calcium Magnesium Total Bilirubin AST ALT Alkaline Phosphatase Troponin I NT-Pro-B Natriuret Pep 810 H Total Protein Albumin TSH [facility] Medical History Anticoagulated on warfarin (Chronic) A-fib INR goal 2-3 Arthritis Atrial fibrillation (Chronic) Essential hypertension (Chronic 09/18/13) History of tobacco use (Resolved) Irritable colon Postherpetic trigeminal neuralgia (Chronic) Raynauds disease (Chronic) Social History Smoking/Tobacco Use Status: Former Tobacco Use Second Hand Exposure: Yes Alcohol Intake: current Alcohol Intake frequency: holidays/special occasions only Alcohol type: wine Drug use: Never Substance use type: does not use Counseling given: No Counseling provided: none Caregiver/Support person: No Household members: spouse Housing: house Communication Needs: None Do you need help understanding health information?: Never Pets and animals: Yes Pets and animals: cat(s) Sexually active: No Current gender identity: female What is your relationship status?: How often do you talk on the phone with friends or family?: once per week How often do you get together with friends or relatives?: once per week How often do you attend congregation or mosque services?: 4 or more times per year Do you belong to any clubs or organized social groups?: yes Panel score (0-1 are the most socially isolated patients): 3 Frequency: 3-4 times per week Ciara/Denominational: No preference Special ciara needs: No Seatbelt use: always Drive intox or ride w/intox route driver coin machines: No Do you feel safe at home: Yes Do you feel safe in your relationship?: Yes
--- NOTE | 2019-11-24 13:37 | W.NUTCONSULT ---
Date of service: 11/24/19 Time of Service: 13:37 Nutritional Consult ASSESSMENT: 79 year old female admitted with elevated troponin. PMH: CAD, HTN. Following Heart Healthy Diet with adequate intake. BMI wnl for age. Serum sodium elevated but current fluid intake meeting needs at this time. Not considered at nutritional risk. MONITORING AND EVALUATION: weight, po intake, labs Time Spent in Nutritional Counseling and Treatment: 0 time spent face to face
== END 2019-11-24 17:10 | DRG 281 ==
LOC: ER 20:59 → ICU 21:16
PROVIDERS: Admitting Provider Internal Medicine; Emergency Provider Student in an Organized Health Care Education/Training Program; PCP Family Medicine; Visit Provider Internal Medicine
DX: I22.2 Subsequent non-ST elevation (NSTEMI) myocardial infarction; B02.29 Other postherpetic nervous system involvement; I21.4 Non-ST elevation (NSTEMI) myocardial infarction; I16.0 Hypertensive urgency; I25.10 Atherosclerotic heart disease of native coronary artery without angina pectoris; I48.91 Unspecified atrial fibrillation; I10 Essential (primary) hypertension; E03.9 Hypothyroidism, unspecified; I25.2 Old myocardial infarction; Z79.01 Long term (current) use of anticoagulants; Z79.02 Long term (current) use of antithrombotics/antiplatelets; I27.20 Pulmonary hypertension, unspecified
CPT/HCPCS: 36415; 80048; 80053; 93005; 96365; 96375; 99223; 99239; 99291; 71045; 83735; 83880; 84443; 84484; 85025; 85610; 93010; 93306; J2060

== ENCOUNTER 2019-11-24 11:50 | Outpatient (RCR) | payer MEDICARE, SELFPAY | END 2019-12-02 23:59 | disposition home or self-care (01) | LOC: CR 11:50 | PROVIDERS: PCP Family Medicine; Visit Provider Family Medicine | DX: Z51.89 Encounter for other specified aftercare (principal) ==

== ENCOUNTER 2019-12-01 01:59 | Outpatient (CLI) | payer MEDICARE, SELFPAY ==
[2019-12-01 12:41] LABS: INR 1.4 (0.9-1.1); Prothrombin Time 13.9 sec (9.3-11.0)
== END 2019-12-01 02:19 ==
PROVIDERS: PCP Family Medicine; Visit Provider Family Medicine
DX: I48.91 Unspecified atrial fibrillation (principal); Z79.01 Long term (current) use of anticoagulants
CPT/HCPCS: 36415; 85610

== ENCOUNTER 2019-12-11 10:37 | Outpatient (CLI) | payer MEDICARE, SELFPAY ==
[2019-12-11 13:32] LABS: INR 2.2 (0.9-1.1); Prothrombin Time 22.1 sec (9.3-11.0)
== END 2019-12-11 10:57 ==
PROVIDERS: PCP Family Medicine; Visit Provider Family Medicine
DX: I48.91 Unspecified atrial fibrillation (principal); Z79.01 Long term (current) use of anticoagulants
CPT/HCPCS: 36415; 85610

== ENCOUNTER 2019-12-12 10:56 | Outpatient (RCR) | payer MEDICARE, SELFPAY | END 2020-01-02 23:59 | disposition home or self-care (01) | LOC: CR 10:56 | PROVIDERS: PCP Family Medicine; Visit Provider Family Medicine | DX: Z51.89 Encounter for other specified aftercare (principal) ==

== ENCOUNTER 2020-01-29 00:48 | Outpatient (CLI) | payer MEDICARE, SELFPAY ==
[2020-01-29 11:56] LABS: INR 1.8 (0.9-1.1); Prothrombin Time 17.8 sec (9.3-11.0)
== END 2020-01-29 01:08 ==
PROVIDERS: PCP Family Medicine; Visit Provider Family Medicine
DX: I48.91 Unspecified atrial fibrillation (principal); Z79.01 Long term (current) use of anticoagulants
CPT/HCPCS: 36415; 85610

== ENCOUNTER 2020-03-14 10:30 | Outpatient (CLI) | payer MEDICARE, SELFPAY | END 2020-03-14 10:50 | PROVIDERS: PCP Family Medicine; Visit Provider Student in an Organized Health Care Education/Training Program | DX: M70.61 Trochanteric bursitis, right hip (principal); I10 Essential (primary) hypertension; Z98.890 Other specified postprocedural states | CPT/HCPCS: 20610; 99213; J1040 ==

== ENCOUNTER 2020-04-09 08:49 | Outpatient (CLI) | payer MEDICARE, SELFPAY ==
[2020-04-10 12:22] LABS: COVID-19 RT-PCR UVMMC Result Negative (Negative)
== END 2020-04-09 09:09 ==
PROVIDERS: PCP Family Medicine; Visit Provider Family Medicine
DX: Z03.818 Encounter for observation for suspected exposure to other biological agents ruled out (principal)
CPT/HCPCS: U0003

== ENCOUNTER 2020-04-10 08:01 | Outpatient (RCR) | payer MEDICARE, SELFPAY | END 2020-05-03 23:59 | disposition home or self-care (01) | LOC: CR 08:01 | PROVIDERS: PCP Family Medicine; Visit Provider Family Medicine | DX: R69 Illness, unspecified (principal) ==

== ENCOUNTER 2020-04-17 16:22 | Inpatient (IN) | payer MEDICARE, SELFPAY ==
[2020-04-17] VITALS (38 sets, daily range): BP systolic 106–200; BP diastolic 65–108; PULSE 51–91; RESP 12–23; TEMP 36.4–36.6; O2SAT 91–98
--- NOTE | 2020-04-17 16:25 | ED.GENADUL_ITS ---
Discharge Plan Disposition Patient Disposition: [facility] INPATIENT Condition: Poor Discharge Details Chief Complaint: GI Bleed Clinical Impression: Anticoagulated on warfarin, LGI bleed Admit Date/Time: 04/17/20 20:41 Admit Provider: Phillip Cummins Attending Provider: Phillip Cummins Primary Care Provider: Alex Woods ED Provider: Corine Romero Discharge Data Discharge Date/Time-TO BE ENTERED AT DEPARTURE: 04/17/20 21:50 Medical Decision Making Patient is a pleasant 79-year-old female with past medical history of CAD, and STEMI, rainouts, hypertension, atrial fibrillation, diverticulosis, hypothyroidism, CHF. She presents today with chief complaint of bright red blood per rectum. She states that she also has a history of IBS and frequently waffles between constipation and diarrhea. States that she has had fairly liquidy bowel movements for the past 2 days. States that yesterday she had 6 bowel movements. States that this was within her realm of normal. However, this afternoon she began noting bright red blood per rectum and reports to very bloody bowel movements prior to arrival. She denies any weakness. No fevers or chills. Denies any recent travel. No camping. No recent biotics. Patient is anticoagulated for atrial fibrillation and recent stent placement with warfarin and Plavix. She denies easy bleeding, no hematuria, bleeding when she brushes her teeth. She does report easy bruising but associates this with medication usage. She endorses some lower abdominal discomfort but states that this is fairly minimal. Past surgical history pertinent for appendectomy, hysterectomy On exam, patient is resting comfortably. She appears nontoxic. She is hypertensive with a blood pressure of 200/91. Heart rate is normal, afebrile. Lungs are clear, normal cardiac exam. Abdomen is significant for left lower quadrant pain. No CVA tenderness. Normal exam of bilateral lower extremities. Plan for laboratory evaluation and CT. I am concerned she may have developed diverticulitis in the setting of her chronic diverticulosis as well as her bleed. Patient had to 300 cc blood bowel movement. She continues to be hemodynamically stable, patient is actually hypertensive. Labs reviewed. H&H is stable. Potassium slightly elevated at 5.6. She has INR 2.6. Troponin stable. No other acute abnormalities noted. Will send patient for CT of abdomen pelvis. I am concerned for potential diverticulitis as patient is having pain with palpation of the left lower quadrant. CT reviewed by radiologist: FINDINGS: Liver: No mass. Gallbladder and bile ducts: No calcified stones. No ductal dilation. Pancreas: No ductal dilation. No masses. Spleen: No splenomegaly or focal lesions. Adrenals: No mass. Kidneys and ureters: No hydronephrosis. No renal masses. Stomach and bowel: Pancolonic diverticulosis is severe in the mid to sigmoid colon. No diverticulitis is seen. No focal pathology in the small bowel. No significant diverticular inflammation is seen. No colitis or obstruction. Appendix: No evidence of appendicitis. Intraperitoneal space: No free air. No significant fluid collection. Vasculature: No abdominal aortic aneurysm. Lymph nodes: No significantly enlarged lymph nodes. Bladder: Unremarkable as visualized. Reproductive: Hysterectomy. 2 cm cystic structure in the left pelvis probably associated with the adnexa, stable. Given stability probably benign however consider follow-up with ultrasound given postmenopausal age, or other institutional protocol. Bones/joints: Degenerative changes in the hips and spine. No acute fracture or subluxation. A mild degenerative appearing anterolisthesis L4 over L5. Soft tissues: Small fat-containing umbilical hernia. IMPRESSION: 1. Pancolonic diverticulosis is severe in the mid to sigmoid colon, a likely source of lower GI bleeding. 2. No diverticulitis is seen. 3. Additional findings as described. Discussed these findings with the patient. She continues to be hemodynamically stable at this time. I will consult with general surgery regarding her GI bleed in the setting of anticoagulation. Follow-up with Dr. Blum. At this point, she did advise a watch and wait approach. Do not feel the patient needed to be immediately reversed. Again, INR is within normal limits and H&H is stable. Patient is not hypotensive. Labs reviewed with general surgery and determined we do not have bed capacity for this patient. [facility]. Consulted with Dr. Uribe at [facility]. [facility] can be reached [phone] if patients status acutely changes. They advised giving patient FFP at this time but did not have bed availability. He states taht they would give FFP and monitor. Bed is not available at our institution. Consulted with hospitalist. He did agree with FFP and will order such. Patient continues to be stable. Has had one further bloody bowel movement. Is resting comfortably. I did give her IV acetaminophen to help with her abdominal discomfort. Discussed plan of admission with the patient is in agreement. She is on the waiting list at [facility] and will be able to be transferred there if her situation worsens or if she continues to need hospitalization over the next 48 hours. Critical be 48 hours until bed opens up at their institution. HPI General Mode of arrival: ambulatory . Date/Time Provider Initiated Documentation: 04/17/20 16:25 . Limitations to Documentation: no limitations . Information obtained by: patient and RN notes reviewed . History of Present Illness 79 year old F presents to the emergency department with the chief complaint of rectal bleeding, lower abdominal pain, described as moderate, with intensity rated at 5. Quality is described as aching, and is localized to the abdomen. Patient reports no radiation. Patient started experiencing this hour(s) and it has been intermittent. No relieving factors improve symptom(s), No exacerbating factors reported . Patient notes denies chest pain, diaphoresis, fever/chills, headaches, loss of appetite, nausea/vomiting, shortness of breath and weakness. Patient did receive the following treatments prior to arrival, none Related Data Home Medications Medication Instructions Recorded Confirmed calcium carbonate-vitamin D3 1 tab PO DAILY 01/31/13 04/17/20 [Caltrate with Vitamin D3] levothyroxine 88 mcg tablet 88 mcg PO DAILY@0730 #90 tab 07/20/19 04/17/20 dicyclomine 10 mg capsule 10 mg PO QID PRN #120 cap 09/18/19 04/17/20 gabapentin 600 mg tablet 300 mg PO BID #90 tab 09/21/19 04/17/20 famotidine 20 mg PO BID PRN 10/25/19 04/17/20 acetaminophen [Tylenol] 650 mg PO Q4H PRN PRN #0 tab 10/26/19 04/17/20 clopidogrel [Plavix] 75 mg PO DAILY #0 tab 10/26/19 04/17/20 atorvastatin 40 mg tablet 40 mg PO DAILY 11/06/19 04/17/20 warfarin See Rx Instructions .ROUTE .COMPLEX 11/23/19 04/17/20 warfarin 5 mg tablet 5 mg PO DAILY #100 tab 12/12/19 04/17/20 carvedilol 6.25 mg tablet 12.5 mg PO BID tab 12/19/19 04/17/20 lisinopril 40 mg tablet 40 mg PO DAILY #90 tab 02/22/20 04/17/20 furosemide 20 mg tablet 20 mg PO DAILY #7 tab 02/29/20 04/17/20 amlodipine 5 mg tablet 5 mg PO DAILY #90 tab-cap 03/14/20 04/17/20 Previous Rx's Medication Instructions Recorded levothyroxine 88 mcg tablet 88 mcg PO DAILY@0730 #90 tab 07/20/19 dicyclomine 10 mg capsule 10 mg PO QID PRN #120 cap 09/18/19 gabapentin 600 mg tablet 300 mg PO BID #90 tab 09/21/19 acetaminophen [Tylenol] 650 mg PO Q4H PRN PRN #0 tab 10/26/19 clopidogrel [Plavix] 75 mg PO DAILY #0 tab 10/26/19 warfarin 5 mg tablet 5 mg PO DAILY #100 tab 12/12/19 lisinopril 40 mg tablet 40 mg PO DAILY #90 tab 02/22/20 furosemide 20 mg tablet 20 mg PO DAILY #7 tab 02/29/20 amlodipine 5 mg tablet 5 mg PO DAILY #90 tab-cap 03/14/20 Allergies Allergy/AdvReac Type Severity Reaction Status Date / Time amoxicillin AdvReac Severe nausea/hot Verified 04/17/20 16:31 feeling sertraline AdvReac Intermediate TREMOR, Verified 04/17/20 16:31 DIAPHORESIS codeine phosphate AdvReac GI Verified 04/17/20 16:31 [From Tylenol-Codeine] General MATT: 2 Review of Systems Constitutional Constitutional: Reports as per HPI, Denies chills, Denies fatigue, Denies fever(s) and Denies headache(s) ENT Ears, Nose, Mouth, and Throat: Denies headache(s) Cardiovascular Cardiovascular: Reports as per HPI, Denies chest pain and Denies dyspnea Respiratory Respiratory: Reports as per HPI, Denies cough and Denies dyspnea Gastrointestinal Gastrointestinal: Reports as per HPI Musculoskeletal Musculoskeletal: Reports as per HPI and Denies back pain Integumentary/Breasts Skin/Breast: Reports as per HPI and Denies rash Neurologic Neurologic: Reports as per HPI and Denies headache(s) Endocrine Endocrine: Denies fatigue [facility] Medical History Anticoagulated on warfarin (Chronic) A-fib INR goal 2-3 Arthritis Atrial fibrillation (Chronic) Essential hypertension (Chronic 09/18/13) History of tobacco use (Resolved) Irritable colon Postherpetic trigeminal neuralgia (Chronic) Raynauds disease (Chronic) Surgical History Cardiac ablations x 2 2011 History of appendectomy (Resolved) History of bilateral oophorectomy (Resolved) History of esophagogastroduodenoscopy (Resolved) History of partial thyroidectomy (Resolved) Status post abdominal hysterectomy (Resolved) Family History Mother , age 68 Rheumatoid arthritis Osteoporosis Father , age 83 Stroke Maternal Grandfather , age 53 Cancer Paternal Grandfather , in his 70s Stroke Maternal Grandmother , age 93 Stroke Paternal Grandmother No problems noted. Son Asthma Daughter No problems noted. Social History Smoking/Tobacco Use Status: Former Tobacco Use Second Hand Exposure: Yes Alcohol Intake: current Alcohol Intake frequency: holidays/special occasions only Alcohol type: wine Drug use: Never Substance use type: does not use Counseling given: No Counseling provided: none Caregiver/Support person: No Household members: spouse Housing: house Communication Needs: None Do you need help understanding health information?: Never Pets and animals: Yes Pets and animals: cat(s) Sexually active: No Current gender identity: female What is your relationship status?: How often do you talk on the phone with friends or family?: once per week How often do you get together with friends or relatives?: once per week How often do you attend pentecostalism or pentecostal services?: 4 or more times per year Do you belong to any clubs or organized social groups?: yes Panel score (0-1 are the most socially isolated patients): 3 Frequency: 3-4 times per week Ciara/Caodaism: No preference Special ciara needs: No Seatbelt use: always Drive 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 Do you feel safe at home: Yes Do you feel safe in your relationship?: Yes Exam Const General: cooperative, healthy appearing, comfortable, no acute distress and well developed Nutritional Appearance: average body habitus and well nourished Orientation: alert and awake HENMT Head: normal to inspection Mouth: moist mucous membranes Resp Effort & Inspection: normal respiratory effort, able to speak in complete sentences and no respiratory distress Auscultation: clear to auscultation bilaterally, no rales, no rhonchi and no wheezes Cardio Rate: regular rate Rhythm: regular rhythm Heart Sounds: S1 normal and S2 normal GI Inspection: normal to inspection Palpation: soft, no hepatosplenomegaly, no guarding, no hernias, no pulsatile masses, tender in the LLQ; not at McBurney's point and with no rebound tenderness and No ascites Percussion: normal to percussion Auscultation: normal bowel sounds Back/Spine/Pelvis Back: no CVA tenderness Skin General skin exam: no rashes or lesions noted Trauma: no lacerations or abrasions Neuro General: patient alert and patient awake Cognition: normal cognition Speech: speech normal Gait: normal gait Extrem General: normal to inspection, capillary refill normal and normal gait Psych Appearance: grossly normal and well kempt Mental Status: mental status grossly normal Speech and Movement: speech and movement normal
--- NOTE | 2020-04-17 16:30 | RT.EKG_ITS ---
APPROVED REPORT Exam: Resting ECG Patient Location: E HR:57 bpm ECG Measurements Heart Rate 57 AXIS TX 148 P 13 QRSd 101 QRS 18 QT 508 T 126 QTc 487 <Conclusion> Sinus bradycardia...rate< 60 Atrial premature complexes...SV complexes w/ short R-R intvls Repol abnrm suggests ischemia, anterolateral...ST dep, T neg, I aVL V2-V6. Less than 1mm ST depression and T wave inversion in I and aVL. More pronounced T wave inversion in V2-6. No acute ST elevation.
[2020-04-17 16:54] LABS: Abs Immature Grans 0.01 k/cumm (0.0-0.09); Absolute Basophil Count 0.01 k/cumm (0.0-0.2); Absolute Eosinophil Count 0.11 k/cumm (0.0-0.7); Absolute Neutrophil Count 6.59 k/cumm (1.2-6.7); Basophils % 0.1; Eosinophils % 1.4; HCT 42.9 % (36.0-46.0); HGB 13.8 g/dL (12.0-15.5); Immature Grans % 0.1 %; Lymphocytes % 11.2; Mean Corp. HGB Concentration 32.2 g/dL (32.0-36.0); Mean Corpuscular Hemoglobin 27.5 pg (27.0-33.0); Mean Corpuscular Volume 85.5 fL (80-95); Mean Platelet Volume 9.7 fL (8.0-11.0); Neutrophils % 82.2; Platelet Count 167 x1000/uL (130-400); RBC 5.02 m/cumm (4.00-5.20); RBC Distribution Width 13.7 % (11.7-14.6); White Blood Cell Count 8.02 k/cumm (4.4-10.8)
[2020-04-17 17:12] LABS: INR 2.6 (0.9-1.1); Prothrombin Time 25.2 sec (9.3-11.0)
[2020-04-17 17:18] LABS: ALT 29 U/L (14-59); AST 33 U/L (15-37); Albumin 3.6 g/dL (3.4-5.0); Alkaline Phosphatase 138 U/L (46-116); Anion Gap 5.4 mmol/L (3-11); BUN 14 mg/dL (7-18); Bilirubin, Total 0.9 mg/dL (0.2-1.0); CO2 28.6 mmol/L (21.0-32.0); CREATININE 0.87 mg/dL (0.55-1.02); Chloride 106 mmol/L (98-107); Glucose 108 mg/dL (74-106); Magnesium 1.8 mg/dL (1.8-2.4); Sodium 140 mmol/L (136-145); Total Protein 7.5 g/dL (6.4-8.2); Troponin I < 0.05 ng/mL (<0.06)
[2020-04-17 17:19] LABS: Potassium 5.6 mmol/L (3.5-5.1)
[2020-04-17] MEDS: Normal Saline 1,000 ML 125 ML IV (17:33)
[2020-04-17] MEDS: Normal Saline 500 ML IV (17:33)
--- NOTE | 2020-04-17 17:44 | DI.CT_ITS ---
EXAM: CT ABDOMEN PELVIS W CLINICAL HISTORY: BRBPR, ? diverticulitis TECHNIQUE: COMPARISON: CT ABD PELVIS WITH CONTRAST from 02/16/2011 CT ABD PELVIS WITH CONTRAST from 10/19/[address] ABDOMEN PELVIS W from 02/14/[address] ABDOMEN PELVIS W from 05/19/2019 FINDINGS: CT examination of the abdomen pelvis was performed bolus infusion of 100 cc of 350. Images obtained through bases are. Liver and spleen appear normal as does the pancreas. Gallbladder and ducts are C T normal. Adrenals and kidneys are unremarkable except couple tiny left renal cysts. No urinary tra ct calcification or obstruction. Abdominal is of diameter and major visceral branches appear intact. Small fat containing umbilical hernia noted. No other significant abdominal wall hernia. No abdominal pelvic adenopathy. There is severe colonic diverticulosis. No definite focus of diverticulitis identified. No evidence of appendicitis. No bowel obstruction. 3 cm in diameter low-attenuation left pelvic lesion unchanged from May 2019, but increase in size from October 2014, when it measured 19 millimeters in diameter. Pelvic ultrasound correlation reques rosa to document that this is a simple cyst. Neoplastic disease not entirely excluded. IMPRESSION: Marked colonic diverticulosis without evidence of acute diverticulitis. Interval increase in size of low attenuation left adnexal lesion, pelvic ultrasound requested for fur ther evaluation to exclude neoplasm.
[2020-04-17] MEDS: Normal Saline Flush 10 ML SYR IVP (17:45)
[2020-04-17] MEDS: Omnipaque 350 MG/ML 100 ML BTL IV (18:11)
--- NOTE | 2020-04-17 18:52 | DI.VRAD_ITS ---
PROCEDURE INFORMATION: Exam: CT Abdomen And Pelvis With Contrast Exam date and time: 04/17/2020 18:33 Age: 79 years old Clinical indication: Other: Brbpr, ? diverticulitis TECHNIQUE: Imaging protocol: Computed tomography of the abdomen and pelvis with intravenous contrast. Contrast material: OMNIPAQUE 350; Contrast volume: 100 ml; Contrast route: INTRAVENOUS (IV); COMPARISON: CT ABDOMEN PELVIS W 05/19/2019 10:26 FINDINGS: Liver: No mass. Gallbladder and bile ducts: No calcified stones. No ductal dilation. Pancreas: No ductal dilation. No masses. Spleen: No splenomegaly or focal lesions. Adrenals: No mass. Kidneys and ureters: No hydronephrosis. No renal masses. Stomach and bowel: Pancolonic diverticulosis is severe in the mid to sigmoid colon. No diverticulitis is seen. No focal pathology in the small bowel. No significant diverticular inflammation is seen. No colitis or obstruction. Appendix: No evidence of appendicitis. Intraperitoneal space: No free air. No significant fluid collection. Vasculature: No abdominal aortic aneurysm. Lymph nodes: No significantly enlarged lymph nodes. Bladder: Unremarkable as visualized. Reproductive: Hysterectomy. 2 cm cystic structure in the left pelvis probably associated with the adnexa, stable. Given stability probably benign however consider follow-up with ultrasound given postmenopausal age, or other institutional protocol. Bones/joints: Degenerative changes in the hips and spine. No acute fracture or subluxation. A mild degenerative appearing anterolisthesis L4 over L5. Soft tissues: Small fat-containing umbilical hernia. IMPRESSION: 1. Pancolonic diverticulosis is severe in the mid to sigmoid colon, a likely source of lower GI bleeding. 2. No diverticulitis is seen. 3. Additional findings as described. Dictated and Authenticated by: Clarisa Stevens MD. Ordering:STEFANY Pool MD
[2020-04-17 18:56] LABS: Bilirubin Negative (Negative); Blood Moderate (Negative); Clarity Clear (Clear); Glucose Negative (Negative); Ketones Negative (Negative); Leukocyte Esterase Moderate (Negative); Nitrite Negative (Negative); Specific Gravity 1.015 (1.005-1.025); Urobilinogen 0.2 EU/dL (Up TO 0.2)
[2020-04-17 19:08] LABS: Bacteria Few HPF (Negative); C & S Indicated? Yes; Crystals Negative HPF (Negative); Epithelial Cells Few HPF (Negative); Mucus Negative (Negative); RBC 0-2 HPF (0-2)
--- NOTE | 2020-04-17 20:26 | W.PM.HP.N ---
Date of service: 04/17/20 Time of Service: 20:26 Assessment and Plan Assessment and plan (1) LGI bleed: Status: Acute Assessment and plan: LGI bleed, initially painless, diverticular bleed most likely; also consider post diarrheal. Doubt diverticulits. Certainly the pain is not typical for diverticular bleed, but could be secondary or perhaps element of known IBS. At any rate patient is hemodynamically stable. I would concur with FFP given persistent bleeding as well as presence of Plavix. I think this will be sufficient w/o actively reversing the Coumadin, but will hold that option in reserve for now. Will hold Amlodipine until clear that status remains stable, and leave NPO. Reviewed ADs, requests Full Code History of Present Illness History of Present Illness Chief Complaint: LGI bleed Narrative: 79 female with h/o IBS, diverticulosis, and also on Coumadin for PAF and Plavix for CAD. Has had few days of loose stool, more or less typical of her nIBS, but today had 2 episodes painless hematochezia at home. In ER has had two further eipsodes. And since arrival has begun to have some lower abd pain as well. W/U of note for BP 160s/sys, Hct 42, plt 167, INR 2.[address] showing severe diverticulosis but no signs diverticulitis. No fever and no leukocytosis. ER discussed case with both surgery -- observation advised -- and [facility] (suggested add FFP). Patient admitted for further eval and management. Review of Systems All systems reviewed & are unremarkable except as noted in HPI and below PFSH Medical History Anticoagulated on warfarin (Chronic) A-fib INR goal 2-3 Arthritis Atrial fibrillation (Chronic) Essential hypertension (Chronic 09/18/13) History of tobacco use (Resolved) Irritable colon Postherpetic trigeminal neuralgia (Chronic) Raynauds disease (Chronic) Surgical History Cardiac ablations x 2 2011 History of appendectomy (Resolved) History of bilateral oophorectomy (Resolved) History of esophagogastroduodenoscopy (Resolved) History of partial thyroidectomy (Resolved) Status post abdominal hysterectomy (Resolved) Family History Mother , age 68 Rheumatoid arthritis Osteoporosis Father , age 83 Stroke Maternal Grandfather , age 53 Cancer Paternal Grandfather , in his 70s Stroke Maternal Grandmother , age 93 Stroke Paternal Grandmother No problems noted. Son Asthma Daughter No problems noted. Social History Smoking/Tobacco Use Status: Former Tobacco Use Second Hand Exposure: Yes Alcohol Intake: current Alcohol Intake frequency: holidays/special occasions only Alcohol type: wine Drug use: Never Substance use type: does not use Counseling given: No Counseling provided: none Caregiver/Support person: No Household members: spouse Housing: house Communication Needs: None Do you need help understanding health information?: Never Pets and animals: Yes Pets and animals: cat(s) Sexually active: No Current gender identity: female What is your relationship status?: How often do you talk on the phone with friends or family?: once per week How often do you get together with friends or relatives?: once per week How often do you attend mandaeism or pentecostal services?: 4 or more times per year Do you belong to any clubs or organized social groups?: yes Panel score (0-1 are the most socially isolated patients): 3 Frequency: 3-4 times per week Ciara/Adventist: No preference Special ciara needs: No Seatbelt use: always Drive 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 Do you feel safe at home: Yes Do you feel safe in your relationship?: Yes Meds Home Medications and Allergies Home Medications Medication Instructions Recorded Confirmed Type calcium carbonate-vitamin D3 1 tab PO DAILY 01/31/13 04/17/20 History [Caltrate with Vitamin D3] levothyroxine 88 mcg tablet 88 mcg PO DAILY@0730 #90 tab 07/20/19 04/17/20 Rx dicyclomine 10 mg capsule 10 mg PO QID PRN #120 cap 09/18/19 04/17/20 Rx gabapentin 600 mg tablet 300 mg PO BID #90 tab 09/21/19 04/17/20 Rx famotidine 20 mg PO BID PRN 10/25/19 04/17/20 History acetaminophen [Tylenol] 650 mg PO Q4H PRN PRN #0 tab 10/26/19 04/17/20 Rx clopidogrel [Plavix] 75 mg PO DAILY #0 tab 10/26/19 04/17/20 Rx atorvastatin 40 mg tablet 40 mg PO DAILY 11/06/19 04/17/20 History warfarin See Rx Instructions .ROUTE .COMPLEX 11/23/19 04/17/20 History warfarin 5 mg tablet 5 mg PO DAILY #100 tab 12/12/19 04/17/20 Rx carvedilol 6.25 mg tablet 12.5 mg PO BID tab 12/19/19 04/17/20 History lisinopril 40 mg tablet 40 mg PO DAILY #90 tab 02/22/20 04/17/20 Rx furosemide 20 mg tablet 20 mg PO DAILY #7 tab 02/29/20 04/17/20 Rx amlodipine 5 mg tablet 5 mg PO DAILY #90 tab-cap 03/14/20 04/17/20 Rx Allergies Allergy/AdvReac Type Severity Reaction Status Date / Time amoxicillin AdvReac Severe nausea/hot Verified 04/17/20 16:31 feeling sertraline AdvReac Intermediate TREMOR, Verified 04/17/20 16:31 DIAPHORESIS codeine phosphate AdvReac GI Verified 04/17/20 16:31 [From Tylenol-Codeine] Exam Narrative Exam Narrative: 169/69, 55, 36.4, 14, 94% RA. HEENT unremarkable; neck supple; lungs clear; heart occ ectopic, w/o MRG; abdomen +BS, soft, mild LLQ tenderness w/o rebound; rectal deferred; extremities w/o edema; neuro Ox3 nonfocal Results Labs Result diagrams: 04/17/20 16:49 04/17/20 16:49 Labs: Laboratory Results - last 24 hr 04/17/20 04/17/20 04/17/20 16:49 16:49 16:49 WBC 8.02 RBC 5.02 Hgb 13.8 Hct 42.9 MCV 85.5 MCH 27.5 MCHC 32.2 RDW 13.7 Plt Count 167 MPV 9.7 Immature Gran % 0.1 Neutrophils % 82.2 Lymphocytes % 11.2 Monocytes % 5.0 Eosinophils % 1.4 Basophils % 0.1 Absolute Neutrophils 6.59 Absolute Lymphocytes 0.90 L Absolute Monocytes 0.40 Absolute Eosinophils 0.11 Absolute Basophils 0.01 PT 25.2 H INR 2.6 H APTT 33.0 H Sodium 140 Potassium 5.6 H Chloride 106 Carbon Dioxide 28.6 Anion Gap 5.4 BUN 14 Creatinine 0.87 Estimated GFR/1.73 m2 >= 60.00 Glucose 108 H Calcium 9.0 Magnesium 1.8 Total Bilirubin 0.9 AST 33 ALT 29 Alkaline Phosphatase 138 H Troponin I < 0.05 Total Protein 7.5 Albumin 3.6 Urine Color Urine Clarity Urine pH Ur Specific [place] Urine Protein Urine Ketones Urine Blood Urine Nitrite Urine Bilirubin Urine Urobilinogen Ur Leukocyte Esterase Urine RBC Urine WBC Ur Epithelial Cells Urine Crystals Urine Bacteria Urine Mucus Ur Culture Indicated? Urine Glucose Patient ABO/Rh Antibody Screen 04/17/20 04/17/20 17:00 18:25 WBC RBC Hgb Hct MCV MCH MCHC RDW Plt Count MPV Immature Gran % Neutrophils % Lymphocytes % Monocytes % Eosinophils % Basophils % Absolute Neutrophils Absolute Lymphocytes Absolute Monocytes Absolute Eosinophils Absolute Basophils PT INR APTT Sodium Potassium Chloride Carbon Dioxide Anion Gap BUN Creatinine Estimated GFR/1.73 m2 Glucose Calcium Magnesium Total Bilirubin AST ALT Alkaline Phosphatase Troponin I Total Protein Albumin Urine Color Yellow Urine Clarity Clear Urine pH 7.0 Ur Specific [place] 1.015 Urine Protein Negative Urine Ketones Negative Urine Blood Moderate H Urine Nitrite Negative Urine Bilirubin Negative Urine Urobilinogen 0.2 Ur Leukocyte Esterase Moderate H Urine RBC 0-2 Urine WBC 3-5 Ur Epithelial Cells Few Urine Crystals Negative Urine Bacteria Few Urine Mucus Negative Ur Culture Indicated? Yes Urine Glucose Negative Patient ABO/Rh O Positive Antibody Screen Negative Last Vital Signs Temp 36.4 C L 04/17/20 16:27 Pulse 55 L 04/17/20 20:02 Resp 14 04/17/20 20:02 BP 169/69 H 04/17/20 20:02 Pulse Ox 94 L 04/17/20 20:02 COVID-19 Screening Have you,or household,traveled outside [place] in last 14 days?: No Had IN PERSON contact w/suspected or confirmed C-19 person: No
[2020-04-17] MEDS: ACETAMINOPHEN 1,000 MG/100 ML BTL 400 MG IVPB (20:33)
[2020-04-17 21:37] LABS: HCT 37.8 % (36.0-46.0); HGB 12.1 g/dL (12.0-15.5)
[2020-04-17 21:56] LABS: Potassium 4.3 mmol/L (3.5-5.1)
[2020-04-17] MEDS: PHYTONADIONE 10 MG in Normal Saline 50 ML 200 MG IVPB (23:47)
[2020-04-18 01:08] VITALS: BP 130/79; PULSE 68; RESP 16; TEMP 36.7; O2SAT 97
[2020-04-18] MEDS: Dicyclomine 10 MG CAP PO (02:41)
[2020-04-18] MEDS: Levothyroxine 88 MCG TAB PO (05:10)
[2020-04-18] MEDS: Acetaminophen 325 MG TAB 650 MG PO ×2 (05:28→23:35)
[2020-04-18 06:35] LABS: HCT 35.2 % (36.0-46.0); HGB 11.1 g/dL (12.0-15.5)
[2020-04-18 06:48] LABS: Potassium 3.6 mmol/L (3.5-5.1)
[2020-04-18 06:54] LABS: INR 1.5 (0.9-1.1); Prothrombin Time 14.5 sec (9.3-11.0)
[2020-04-18 07:08] VITALS: BP 116/55; PULSE 76; RESP 17; TEMP 36.7; O2SAT 95
[2020-04-18] MEDS: Carvedilol 6.25 MG TAB 12.5 MG PO ×2 (08:55→17:47)
[2020-04-18] MEDS: Famotidine 20 MG TAB PO (08:55)
[2020-04-18] MEDS: Gabapentin 600 MG TAB 300 MG PO (08:55)
[2020-04-18] MEDS: Normal Saline 1,000 ML 100 ML IV ×2 (09:07→19:22)
--- NOTE | 2020-04-18 11:07 | SCONE_ITS ---
Date of service: 04/18/20 Time of Service: 11:08 Assessment and Plan Assessment and plan (1) Anticoagulated on warfarin: Status: Chronic (2) Coronary artery disease: Status: Chronic (3) Diverticula of colon: Status: Acute Assessment and plan: I did review her CT scan and her lab work. Neither of these show any indication of infection. However patient is having pretty significant pain so I am going to elect to treat her with antibiotics as if she does have most slight infection. She is currently off the Coumadin and Plavix she is not having any chest pain or shortness of breath. Her blood pressures well controlled. She is on telemetry. If she starts having any chest pain or PINZON cardiac changes obviously she needs to go see a behavioral health specialist. She is not a candidate for being scoped right now we will continue to follow her if she is bleeding should stop now that the anticoagulation is stopped. If it does not then she should go down for embolization with interventional radiology Clinically she is doing well Continue supportive care. We will continue to monitor for any signs of cardiac problems History of Present Illness Narrative: ED notes reviewed. pt had ROSALBA placed in 10/2019. She is back in the hospital in November 05 chest pain and transferred to [facility] for evaluation.020 They said it was a type II end STEMI secondary to her hypertensive crisis. They treated her hypertension and resumed anticoagulation. pt is currently on coumadin and plavix. She is high risk for PR and CVA. She should be w/ cardiology available. She is not a candidate for a scope at [facility] given her recent PR and CVA and frail cardiac status- I don't think she is a candidate for a scope at all. No ASA/NSAID's I would hold the coumadin and d/w cardiology regarding the plavix. -Patient denies again any trauma prior to the bleeding episode. She denies any pain prior to the episode. She denies any constipation or straining to go to the bathroom. She had gone out to eat. She is never had episodes of bleeding or diverticulitis in the past. She does note that she is been having pretty significant pain in the lower quadrant sometimes in the right side sometimes it is on the left side. She had a dark bloody stool again today. The pain is moderate. She does not seem to have any signs of peritonitis or ischemia. Although given her history this could certainly be a problem for her and we will continue to monitor this. She is not currently having any chest pain or shortness of breath. Her hgb have been trending down from 12-10. Patient Name: Argenis ALVAREZ #: [id number]: MS Ordering Provider: Corine Romero #: [id number]: ADM ASHLI Primary Care Provider: Alex Woods M.D.Date of Exam: 04/17/20ex: F : 8Age: 79 Exam(s) a CT:CT abdomen & pelvis w EXAM: CT ABDOMEN PELVIS W CLINICAL HISTORY: BRBPR, ? diverticulitis TECHNIQUE: COMPARISON: CT ABD PELVIS WITH CONTRAST from 02/16/2011 CT ABD PELVIS WITH CONTRAST from 10/19/[address] ABDOMEN PELVIS W from 02/14/[address] ABDOMEN PELVIS W from 05/19/2019 FINDINGS: CT examination of the abdomen pelvis was performed bolus infusion of 100 cc of 350. Images obtained through bases are. Liver and spleen appear normal as does the pancreas. Gallbladder and ducts are CT normal. Adrenals and kidneys are unremarkable except couple tiny left renal cysts. No urinary tract calcification or obstruction. Abdominal is of diameter and major visceral branches appear intact. Small fat containing umbilical hernia noted. No other significant abdominal wall hernia. No abdominal pelvic adenopathy. There is severe colonic diverticulosis. No definite focus of diverticulitis identified. No evidence of appendicitis. No bowel obstruction. 3 cm in diameter low-attenuation left pelvic lesion unchanged from May 2019, but increase in size from October 2014, when it measured 19 millimeters in diameter. Pelvic ultrasound correlation requested to document that this is a simple cyst. Neoplastic disease not entirely excluded. IMPRESSION: Marked colonic diverticulosis without evidence of acute diverticulitis. Interval increase in size of low attenuation left adnexal lesion, pelvic ultrasound requested for further evaluation to exclude neoplasm. [id number]: Total DLP = 0.00 mGy-cm Ordered By: Corine Romero CC: Dictated By: Dariel Kearney M.D. 04/18/20 0747 <Electronically signed by Dariel Kearney M.D. in OV> 04/18/2047 Consults Consult date: 04/18/20 Requesting physician: Corine Romero Review of Systems All systems reviewed & are unremarkable except as noted in HPI and below PFSH Medical History Anticoagulated on warfarin (Chronic) A-fib INR goal 2-3 Arthritis of right hip (Inactive) Atrial fibrillation (Chronic) Chronic congestive heart failure (Inactive 07/27/11) Diverticula of colon (Acute) Diverticulosis of colon without diverticulitis (Inactive 05/03/09) Elevated troponin (Inactive) Essential hypertension (Chronic 09/18/13) Greater trochanteric bursitis of right hip (Inactive) Depo-Medrol injection: 08/30/2019 (80 mg); 07/05/2019 (40 mg) History of tobacco use (Resolved) Hypertensive urgency (Resolved) Ileitis (Inactive) Irritable colon (Inactive) NSTEMI (non-ST elevated myocardial infarction) (Inactive) Polyp of colon, adenomatous (Inactive) Postherpetic trigeminal neuralgia (Inactive) Raynauds disease (Inactive) Total urinary incontinence (Inactive 07/27/11) Vaginal wall prolapse (Inactive 07/27/11) 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 Son Asthma Daughter No problems noted. Social History Smoking/Tobacco Use Status: Former Tobacco Use Second Hand Exposure: Yes Alcohol Intake: current Alcohol Intake frequency: holidays/special occasions only Alcohol type: wine Drug use: Never Substance use type: does not use Counseling given: No Counseling provided: none Caregiver/Support person: No Household members: spouse Housing: house Communication Needs: None Do you need help understanding health information?: Never Pets and animals: Yes Pets and animals: cat(s) Sexually active: No Current gender identity: female What is your relationship status?: How often do you talk on the phone with friends or family?: once per week How often do you get together with friends or relatives?: once per week How often do you attend congregation or congregational services?: 4 or more times per year Do you belong to any clubs or organized social groups?: yes Panel score (0-1 are the most socially isolated patients): 3 Frequency: 3-4 times per week Ciara/Temple: No preference Special ciara needs: No Seatbelt use: always Drive intox 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 She has never had diverticulitis or diverticular bleed in the past. Results Last Vital Signs Temp 36.7 C 04/18/20 07:08 Pulse 76 04/18/20 07:08 Resp 17 04/18/20 07:08 BP 116/55 L 04/18/20 07:08 Pulse Ox 95 04/18/20 07:08 Labs Result diagrams: 04/18/20 16:05 04/18/20 06:07 Labs: Laboratory Results - last 24 hr 04/17/20 04/17/20 04/17/20 16:49 16:49 16:49 WBC 8.02 RBC 5.02 Hgb 13.8 Hct 42.9 MCV 85.5 MCH 27.5 MCHC 32.2 RDW 13.7 Plt Count 167 MPV 9.7 Immature Gran % 0.1 Neutrophils % 82.2 Lymphocytes % 11.2 Monocytes % 5.0 Eosinophils % 1.4 Basophils % 0.1 Absolute Neutrophils 6.59 Absolute Lymphocytes 0.90 L Absolute Monocytes 0.40 Absolute Eosinophils 0.11 Absolute Basophils 0.01 PT 25.2 H INR 2.6 H APTT 33.0 H Sodium 140 Potassium 5.6 H Chloride 106 Carbon Dioxide 28.6 Anion Gap 5.4 BUN 14 Creatinine 0.87 Estimated GFR/1.73 m2 >= 60.00 Glucose 108 H Calcium 9.0 Magnesium 1.8 Total Bilirubin 0.9 AST 33 ALT 29 Alkaline Phosphatase 138 H Troponin I < 0.05 Total Protein 7.5 Albumin 3.6 Urine Color Urine Clarity Urine pH Ur Specific [place] Urine Protein Urine Ketones Urine Blood Urine Nitrite Urine Bilirubin Urine Urobilinogen Ur Leukocyte Esterase Urine RBC Urine WBC Ur Epithelial Cells Urine Crystals Urine Bacteria Urine Mucus Ur Culture Indicated? Urine Glucose Patient ABO/Rh Antibody Screen Reaction Clerical Check Clerical Work Check Pre-Trans Blood Type Pre-Trans Bld Appearanc Pre-Trans REGINA Post-Trans Blood Type Post-Trans Spec Appear Post-Trans REGINA Reaction Pathol Review 04/17/20 04/17/20 04/17/20 17:00 18:25 21:25 WBC RBC Hgb 12.1 Hct 37.8 MCV MCH MCHC RDW Plt Count MPV Immature Gran % Neutrophils % Lymphocytes % Monocytes % Eosinophils % Basophils % Absolute Neutrophils Absolute Lymphocytes Absolute Monocytes Absolute Eosinophils Absolute Basophils PT INR APTT Sodium Potassium Chloride Carbon Dioxide Anion Gap BUN Creatinine Estimated GFR/1.73 m2 Glucose Calcium Magnesium Total Bilirubin AST ALT Alkaline Phosphatase Troponin I Total Protein Albumin Urine Color Yellow Urine Clarity Clear Urine pH 7.0 Ur Specific [place] 1.015 Urine Protein Negative Urine Ketones Negative Urine Blood Moderate H Urine Nitrite Negative Urine Bilirubin Negative Urine Urobilinogen 0.2 Ur Leukocyte Esterase Moderate H Urine RBC 0-2 Urine WBC 3-5 Ur Epithelial Cells Few Urine Crystals Negative Urine Bacteria Few Urine Mucus Negative Ur Culture Indicated? Yes Urine Glucose Negative Patient ABO/Rh O Positive Antibody Screen Negative Reaction Clerical Check Clerical Work Check Pre-Trans Blood Type Pre-Trans Bld Appearanc Pre-Trans REGINA Post-Trans Blood Type Post-Trans Spec Appear Post-Trans REGINA Reaction Pathol Review 04/17/20 04/17/20 04/18/20 21:40 22:48 00:10 WBC RBC Hgb Hct MCV MCH MCHC RDW Plt Count MPV Immature Gran % Neutrophils % Lymphocytes % Monocytes % Eosinophils % Basophils % Absolute Neutrophils Absolute Lymphocytes Absolute Monocytes Absolute Eosinophils Absolute Basophils PT INR APTT Sodium Potassium 4.3 D Chloride Carbon Dioxide Anion Gap BUN Creatinine Estimated GFR/1.73 m2 Glucose Calcium Magnesium Total Bilirubin AST ALT Alkaline Phosphatase Troponin I Total Protein Albumin Urine Color Urine Clarity Urine pH Ur Specific [place] Urine Protein Urine Ketones Urine Blood Urine Nitrite Urine Bilirubin Urine Urobilinogen Ur Leukocyte Esterase Urine RBC Urine WBC Ur Epithelial Cells Urine Crystals Urine Bacteria Urine Mucus Ur Culture Indicated? Urine Glucose Patient ABO/Rh Antibody Screen Reaction Clerical Check Cancelled No clerical errors Clerical Work Check Cancelled None Pre-Trans Blood Type Cancelled O Positive Pre-Trans Bld Appearanc Cancelled No hemolysis Pre-Trans REGINA Cancelled Negative Post-Trans Blood Type Cancelled O Positive Post-Trans Spec Appear Cancelled No hemolysis Post-Trans REGINA Cancelled Negative Reaction Pathol Review Cancelled Negative-complete 04/18/20 04/18/20 04/18/20 06:07 06:07 06:07 WBC RBC Hgb 11.1 L Hct 35.2 L MCV MCH MCHC RDW Plt Count MPV Immature Gran % Neutrophils % Lymphocytes % Monocytes % Eosinophils % Basophils % Absolute Neutrophils Absolute Lymphocytes Absolute Monocytes Absolute Eosinophils Absolute Basophils PT 14.5 H D INR 1.5 H D APTT Sodium Potassium 3.6 Chloride Carbon Dioxide Anion Gap BUN Creatinine Estimated GFR/1.73 m2 Glucose Calcium Magnesium Total Bilirubin AST ALT Alkaline Phosphatase Troponin I Total Protein Albumin Urine Color Urine Clarity Urine pH Ur Specific [place] Urine Protein Urine Ketones Urine Blood Urine Nitrite Urine Bilirubin Urine Urobilinogen Ur Leukocyte Esterase Urine RBC Urine WBC Ur Epithelial Cells Urine Crystals Urine Bacteria Urine Mucus Ur Culture Indicated? Urine Glucose Patient ABO/Rh Antibody Screen Reaction Clerical Check Clerical Work Check Pre-Trans Blood Type Pre-Trans Bld Appearanc Pre-Trans REGINA Post-Trans Blood Type Post-Trans Spec Appear Post-Trans REGINA Reaction Pathol Review
[2020-04-18] MEDS: MORPHine 2 MG/ML SYR IVP (11:08)
[2020-04-18] MEDS: Normal Saline 50 ML 200 ML (11:09)
[2020-04-18 11:24] VITALS: BP 121/62; PULSE 67; RESP 18; TEMP 36.9; O2SAT 95
--- NOTE | 2020-04-18 11:42 | W.PM.PROGNOT ---
Date of Service Date of service: 04/18/20 Time of Service: 11:42 Assessment and Plan Assessment and plan (1) LGI bleed: Start date: 04/18/20 Start time: 11:59 Status: Acute Assessment and plan: LGI bleed, initially painless, diverticular bleed most likely; also consider post diarrheal. Stool studies pending, surgery consulted. Pt states bleeding improving, less at this time. C/o abd pain, morphine for pain Serial h/h PPI She does not want transfer at this time. She endorse EGD and colonscopy jun 2019, requesting records from [place] INR is 1.5. Will place on telemetry as CCB being held at this time. Will hold Amlodipine until clear that status remains stable, and leave NPO. Reviewed ADs, requests Full Code (2) Abdominal pain: Start date: 04/18/20 Start time: 12:06 Status: Acute Assessment and plan: This does not appear to be typical IBS pain per patient, it feels worse. Will give morphine IV for pain while NPO and monitor for worsening status or pain. (3) Coronary artery disease: Start date: 04/18/20 Start time: 12:02 Status: Chronic Assessment and plan: Hx of [place] with 3 vessel stent placement in Oct 2019, on coumadin for Afib. Held at this time. See above. (4) Atrial fibrillation: Start date: 04/18/20 Start time: 12:03 Status: Chronic Assessment and plan: Controlled rate. Telemetry, continue BB. (5) Anticoagulated on warfarin: Start date: 04/18/20 Start time: 12:05 Status: Chronic Assessment and plan: LGIB on coumadin. Will hold and given vitamin K (6) Hypothyroidism: Start date: 04/18/20 Start time: 12:07 Status: Chronic Assessment and plan: continue levothyroxine (7) Essential hypertension: Start date: 04/18/20 Start time: 12:07 Status: Chronic Assessment and plan: Soft blood pressures, likely from LGIB, will continue to monitor and put hold parameters on BB, hold CCB at this time. (8) DVT prophylaxis: Start date: 04/18/20 Start time: 12:08 Status: Acute Assessment and plan: Teds and SCDs Will likely be discharged home without services when medically stable Above case discussed with Dr. Willams who is in agreement. Subjective Subjective Patient reports: still having pain Interval history since last seen: Per patient rectal bleeding has improved. Less bleeding. Received call from [facility] that patient has been accepted for transfer, patient is refusing transfer at this time, she does not want to be far from her , he has poor health. She also c/o abd pain to periumbilicus and surrounding, not typical IBS pain, as well as lack of sleep. Surgery consulted. She denies CP, SOB, N/V/D. Exam Narrative Exam Narrative: Pleasant elderly female appears younger than stated age does appear pale. AAOx3. LSC, Abd soft with hyperactive bsx4. HR irregularrly irregular, controlled rate. no clubbing, edema, or cyanosis. Objective Objective Clinical Data: Abnormal lab results 04/17/20 04/17/20 04/17/20 Range/Units 16:49 16:49 16:49 Hgb (12.0-15.5) g/dL Hct (36.0-46.0) % Absolute Lymphocytes 0.90 L (1.2-3.4) k/cumm PT 25.2 H (9.3-11.0) sec INR 2.6 H (0.9-1.1) APTT 33.0 H (21.0-31.4) sec Potassium 5.6 H (3.5-5.1) mmol/L Glucose 108 H (74-106) mg/dL Alkaline Phosphatase 138 H (46-116) U/L Urine Blood (Negative) Ur Leukocyte Esterase (Negative) 04/17/20 04/18/20 04/18/20 Range/Units 18:25 06:07 06:07 Hgb 11.1 L (12.0-15.5) g/dL Hct 35.2 L (36.0-46.0) % Absolute Lymphocytes (1.2-3.4) k/cumm PT 14.5 H D (9.3-11.0) sec INR 1.5 H D (0.9-1.1) APTT (21.0-31.4) sec Potassium (3.5-5.1) mmol/L Glucose (74-106) mg/dL Alkaline Phosphatase (46-116) U/L Urine Blood Moderate H (Negative) Ur Leukocyte Esterase Moderate H (Negative) Vital Signs Temperature 36.9 C 04/18/20 11:24 Temperature Source Temporal Artery Scan 04/18/20 11:24 Pulse 67 04/18/20 11:24 Pulse Rhythm Irregular 04/18/20 09:00 Pulse 56 L 04/17/20 21:30 Respiratory Rate 18 04/18/20 11:24 Respiratory Effort Non-Labored 04/18/20 09:00 Respiratory Depth Normal 04/18/20 09:00 Respiratory Pattern Normal 04/18/20 09:00 Blood Pressure 121/62 04/18/20 11:24 Blood Pressure Mean 90 04/17/20 21:59 Blood Pressure Position Sitting 04/17/20 16:27 Pulse Oximetry 95 04/18/20 11:24 Oxygen Delivery Method Room Air 04/18/20 11:24 Oxygen Flow Rate 0 04/18/20 11:24 Pain Level 5 04/18/20 11:24 Intake & Output 04/17/20 04/17/20 04/18/20 11:59 23:59 11:59 Intake Total 617.167 / 617.167 Output Total 300 / 300 400 / 400 Balance 317.167 / 317.167 -400 / -400 Weight 68.039 kg Intake: IV 604.167 / 604.167 Blood Product Frozen Plasma Unit [id number] Output: Urine 400 / 400 Stool 300 / 300 Other: Comment Not measured mixed with GI bleed and stool. Urine mixed with GI bleed. Stool Occult Blood Positive Stool Size Small Stool Characteristics Soft Voiding Methods Toilet Toilet Laboratory Results WBC 8.02 k/cumm (4.4-10.8) 04/17/20 16:49 RBC 5.02 m/cumm (4.00-5.20) 04/17/20 16:49 Hgb 11.1 g/dL (12.0-15.5) L 04/18/20 06:07 Hct 35.2 % (36.0-46.0) L 04/18/20 06:07 MCV 85.5 fL (80-95) 04/17/20 16:49 MCH 27.5 pg (27.0-33.0) 04/17/20 16:49 MCHC 32.2 g/dL (32.0-36.0) 04/17/20 16:49 RDW 13.7 % (11.7-14.6) 04/17/20 16:49 Plt Count 167 x1000/uL (130-400) 04/17/20 16:49 MPV 9.7 fL (8.0-11.0) 04/17/20 16:49 Immature Gran % 0.1 % 04/17/20 16:49 Neutrophils % 82.2 04/17/20 16:49 Lymphocytes % 11.2 04/17/20 16:49 Monocytes % 5.0 04/17/20 16:49 Eosinophils % 1.4 04/17/20 16:49 Basophils % 0.1 04/17/20 16:49 Absolute Neutrophils 6.59 k/cumm (1.2-6.7) 04/17/20 16:49 Absolute Lymphocytes 0.90 k/cumm (1.2-3.4) L 04/17/20 16:49 Absolute Monocytes 0.40 k/cumm (0.11-0.7) 04/17/20 16:49 Absolute Eosinophils 0.11 k/cumm (0.0-0.7) 04/17/20 16:49 Absolute Basophils 0.01 k/cumm (0.0-0.2) 04/17/20 16:49 PT 14.5 sec (9.3-11.0) H D 04/18/20 06:07 INR 1.5 (0.9-1.1) H D 04/18/20 06:07 APTT 33.0 sec (21.0-31.4) H 04/17/20 16:49 Sodium 140 mmol/L (136-145) 04/17/20 16:49 Potassium 3.6 mmol/L (3.5-5.1) 04/18/20 06:07 Chloride 106 mmol/L (98-107) 04/17/20 16:49 Carbon Dioxide 28.6 mmol/L (21.0-32.0) 04/17/20 16:49 Anion Gap 5.4 mmol/L (3-11) 04/17/20 16:49 BUN 14 mg/dL (7-18) 04/17/20 16:49 Creatinine 0.87 mg/dL (0.55-1.02) 04/17/20 16:49 Estimated GFR/1.73 m2 >= 60.00 (mL/min/1.73m2) 04/17/20 16:49 Glucose 108 mg/dL (74-106) H 04/17/20 16:49 Calcium 9.0 mg/dL (8.5-10.1) 04/17/20 16:49 Magnesium 1.8 mg/dL (1.8-2.4) 04/17/20 16:49 Total Bilirubin 0.9 mg/dL (0.2-1.0) 04/17/20 16:49 AST 33 U/L (15-37) 04/17/20 16:49 ALT 29 U/L (14-59) 04/17/20 16:49 Alkaline Phosphatase 138 U/L (46-116) H 04/17/20 16:49 Troponin I < 0.05 ng/mL (<0.06) 04/17/20 16:49 Total Protein 7.5 g/dL (6.4-8.2) 04/17/20 16:49 Albumin 3.6 g/dL (3.4-5.0) 04/17/20 16:49 Urine Color Yellow (Yellow) 04/17/20 18:25 Urine Clarity Clear (Clear) 04/17/20 18:25 Urine pH 7.0 (5-8) 04/17/20 18:25 Ur Specific [place] 1.015 (1.005-1.025) 04/17/20 18:25 Urine Protein Negative mg/dL (Negative) 04/17/20 18:25 Urine Ketones Negative mg/dL (Negative) 04/17/20 18:25 Urine Blood Moderate (Negative) H 04/17/20 18:25 Urine Nitrite Negative (Negative) 04/17/20 18:25 Urine Bilirubin Negative (Negative) 04/17/20 18:25 Urine Urobilinogen 0.2 EU/dL (Up TO 0.2) 04/17/20 18:25 Ur Leukocyte Esterase Moderate (Negative) H 04/17/20 18:25 Urine RBC 0-2 HPF (0-2) 04/17/20 18:25 Urine WBC 3-5 HPF (0-5) 04/17/20 18:25 Ur Epithelial Cells Few HPF (Negative) 04/17/20 18:25 Urine Crystals Negative HPF (Negative) 04/17/20 18:25 Urine Bacteria Few HPF (Negative) 04/17/20 18:25 Urine Mucus Negative (Negative) 04/17/20 18:25 Ur Culture Indicated? Yes 04/17/20 18:25 Urine Glucose Negative mg/dL (Negative) 04/17/20 18:25 Patient ABO/Rh O Positive 04/17/20 17:00 Antibody Screen Negative 04/17/20 17:00 Reaction Clerical Check No clerical errors 04/18/20 00:10 Clerical Work Check None 04/18/20 00:10 Pre-Trans Blood Type O Positive 04/18/20 00:10 Pre-Trans Bld Appearanc No hemolysis 04/18/20 00:10 Pre-Trans REGINA Negative 04/18/20 00:10 Post-Trans Blood Type O Positive 04/18/20 00:10 Post-Trans Spec Appear No hemolysis 04/18/20 00:10 Post-Trans REGINA Negative 04/18/20 00:10 Reaction Pathol Review Negative-complete 04/18/20 00:10
--- NOTE | 2020-04-18 11:50 | INITIAL_ITS ---
- If Service Date Differs Date of service: 04/18/20 Time of Service: 11:50 Care Management Initial Assess REASON FOR HOSPITALIZATION:: Lower GI bleed PAST MEDICAL HISTORY/PAST SURGICAL HISTORY:: [place] status post stent 11/2019, Anticoagulated on warfarin (Chronic). A-fib INR goal 2-3. Arthritis. Atrial fibrillation (Chronic). Essential hypertension (Chronic 09/18/13). History of tobacco use (Resolved). Irritable colon. Postherpetic trigeminal neuralgia (Chronic). Raynauds disease Surgical hx: Cardiac ablations, appendectomy bilateral oophorectomy esophagogastroduodenoscopy, partial thyroidectomy. Status post abdominal hysterectomy PREVIOUS FUNCTIONAL STATUS/SOCIAL/FAMILY SUPPORTS:: Juli lives in a single family home in [facility] with her of 60 years. She has 2 adult children, a son in [place], [place] and a daughter in [place]. She also has several grandchildren. 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 Juli is independent at baseline and continues to drive and care for her . CURRENT FUNCTIONAL STATUS:: Juli, is alert and engaged with CM during assessment. She states that she is having some pain today she just received some pain medication. She was going to start cardiac rehab on Wednesday this week related to her [place] in [facility]. CM will notify of inpatient status. Juli will return home when she she is medically ready anticipate no additional services. She will need to be medically cleared by her provider before starting cardiac rehab. ADVANCE DIRECTIVES:: On file. Marisa Lindquist [facility] Has patient been provided with info about the portal/API?: Yes Did the patient sign up for the portal?: No (already enrolled ) CODE STATUS:: Full Code INSURANCE COVERAGE / FINANCIAL ISSUES:: Medicare. AARP CURRENT HOME/COMMUNITY SERVICES/EQUIPMENT:: No current equipment she does have a referral into cardiac rehab. PRIMARY CARE PHYSICIAN:: POTENTIAL DISCHARGE NEEDS:: Follow up with cirilo as directed. PATIENT/FAMILY EDUCATION NEEDS:: Discharge edcuation, limitations and follow up plan of care inclduing ask me three and self management. ANTICIPATED BARRIERS TO DISCHARGE:: None identified TRANSPORTATION:: Via private car with spouse at time of discharge. PLAN:: Juli was made inpatient today, she is receiving IV Morphine for pain and surgical consult for lower GI bleed. She is on tele and requiring close moniotring of vital signs. CM will continue to assess for discharge needs.
[2020-04-18 13:01] LABS: HCT 31.7 % (36.0-46.0); HGB 10.1 g/dL (12.0-15.5)
[2020-04-18] MEDS: Pantoprazole 40 MG VIAL IVP (13:03)
[2020-04-18] MEDS: Normal Saline Flush 10 ML SYR IVP (13:03)
[2020-04-18 13:56] LABS: COVID-19 RT-PCR UVMMC Result Negative (Negative)
--- NOTE | 2020-04-18 14:18 | CHAPLAIN ---
Juli was resting in bed when I visited. We remembered meeting each other when her had surgery here. Juli had an ID in November, and was transferred to [facility]. She is concerned about this new bleeding and hoping to get some answers today. 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 I attempted to call the jain to let her director of preclinical research, Rev. Joseph Kate know that she is here, but the answering machine was unable to accept any more messages. Juli said she will ask her to call Rev. Kate's cell phone.
[2020-04-18 15:10] VITALS: BP 118/73; PULSE 72; RESP 18; TEMP 36.3; O2SAT 96
[2020-04-18 16:22] LABS: HCT 31.3 % (36.0-46.0)
--- NOTE | 2020-04-18 16:39 | PHA.REVIEW ---
Pharmacy Admission Review - Admission Clinical Review (Last Updated 04/18/20 @ 11:54 by Gisela Lemus NP) DVT prophylaxis (Acute) LGI bleed (Acute) Abdominal pain (Acute) amoxicillin Adverse Reaction (Severe, Verified 04/17/20 16:31) nausea/hot feeling sertraline Adverse Reaction (Intermediate, Verified 04/17/20 16:31) TREMOR, DIAPHORESIS codeine phosphate [From Tylenol-Codeine] Adverse Reaction (Verified 04/17/20 16:31) GI Height 5 ft 5 in Weight 68.039 kg - Renal Dosing Renal Dosing: BUN 14 mg/dL (7-18) 04/17/20 16:49 Creatinine 0.87 mg/dL (0.55-1.02) 04/17/20 16:49 Medications needing adjustments: Reviewed (MEDS OK) - Anticoagulation Anticoagulation: Hgb 10.0 g/dL (12.0-15.5) L 04/18/20 16:05 Hct 31.3 % (36.0-46.0) L 04/18/20 16:05 Plt Count 167 x1000/uL (130-400) 04/17/20 16:49 INR 1.5 (0.9-1.1) H D 04/18/20 06:07 Creatinine 0.87 mg/dL (0.55-1.02) 04/17/20 16:49 DVT Prohphylaxis: N/A Therapeutic Anticoagulation: N/A - Opiate Usage Evaluate Pain Scale/Pains Meds: N/A - Relevant Labs Sodium 140 mmol/L (136-145) 04/17/20 16:49 Potassium 3.6 mmol/L (3.5-5.1) 04/18/20 06:07 Chloride 106 mmol/L (98-107) 04/17/20 16:49 Magnesium 1.8 mg/dL (1.8-2.4) 04/17/20 16:49 Electrolytes, C-Reactive P, ESR: Reviewed - DM Control DM Control: Glucose 108 mg/dL (74-106) H 04/17/20 16:49 Insulin Dosing: N/A - Heart Failure/IN Heart Failure/IN: Troponin I < 0.05 ng/mL (<0.06) 04/17/20 16:49 EF%, GIL's, B-Blockers, Diuretics: Reviewed - BP Control BP Control: Blood Pressure 118/73 Blood Pressure 121/62 Blood Pressure 116/55 If elevated: Reviewed - Qtc Review If Elevated: N/A - IV to PO Switch IV Medications: Reviewed - Home Meds Home Med List reviewed: Reviewed Relevent Home Meds Not ordered & why?: amlodipine, atorvastatin, calc/vitd, clopidogrel, furosemide, lisinopril, warfarin -- all hold in setting of lower GI bleed plus NPO - Current meds Current Medication Order Review: Reviewed - Comments Comments/Follow Ups: Had anaphylactic reaction to FFP, vitamin K was given as alternative
[2020-04-18] MEDS: FAMOTIDINE 20 MG/50 ML BAG 200 MG IVPB (18:52)
[2020-04-18] MEDS: Gabapentin 300 MG CAP PO (19:22)
[2020-04-18 20:15] VITALS: BP 142/101; PULSE 69; RESP 19; TEMP 36; O2SAT 94
[2020-04-18] MEDS: metroNIDAZOLE 1,000 MG/200 ML BAG 200 MG IVPB (20:35)
[2020-04-18] MEDS: CIPROFLOXACIN 400 MG/200 ML BAG 200 MG IVPB (22:24)
[2020-04-18 23:10] VITALS: BP 130/72; PULSE 76; RESP 17; TEMP 37; O2SAT 96
[2020-04-19] VITALS (8 sets, daily range): BP systolic 103–139; BP diastolic 59–71; PULSE 55–65; RESP 17–19; TEMP 35.8–36.8; O2SAT 93–98
[2020-04-19] MEDS: Acetaminophen 325 MG TAB 650 MG PO ×2 (04:24→15:22)
[2020-04-19] MEDS: metroNIDAZOLE 500 MG/100 ML BAG 100 MG IVPB ×3 (04:24→20:46)
[2020-04-19] MEDS: Levothyroxine 88 MCG TAB PO (06:42)
[2020-04-19] MEDS: FAMOTIDINE 20 MG/50 ML BAG 200 MG IVPB ×2 (06:43→17:07)
[2020-04-19 07:26] LABS: Abs Immature Grans 0.01 k/cumm (0.0-0.09); Absolute Basophil Count 0.01 k/cumm (0.0-0.2); Absolute Eosinophil Count 0.15 k/cumm (0.0-0.7); Absolute Lymphocyte Count 0.84 k/cumm (1.2-3.4); Absolute Monocyte Count 0.32 k/cumm (0.11-0.7); Basophils % 0.2; Eosinophils % 2.5; HCT 30.6 % (36.0-46.0); HGB 9.5 g/dL (12.0-15.5); Immature Grans % 0.2 %; Lymphocytes % 13.9; Mean Corpuscular Hemoglobin 27.2 pg (27.0-33.0); Mean Corpuscular Volume 87.7 fL (80-95); Mean Platelet Volume 10.6 fL (8.0-11.0); Monocytes % 5.3; Neutrophils % 77.9; Platelet Count 116 x1000/uL (130-400); RBC 3.49 m/cumm (4.00-5.20); RBC Distribution Width 13.5 % (11.7-14.6); White Blood Cell Count 6.03 k/cumm (4.4-10.8)
[2020-04-19 07:37] LABS: INR 1.1 (0.9-1.1); Prothrombin Time 11.3 sec (9.3-11.0)
[2020-04-19 07:39] LABS: Anion Gap 8.9 mmol/L (3-11); BUN 21 mg/dL (7-18); CO2 24.1 mmol/L (21.0-32.0); Chloride 110 mmol/L (98-107); Estimated GFR 53.21 (mL/min/1.73m2); Glucose 71 mg/dL (74-106); Magnesium 1.5 mg/dL (1.8-2.4); Potassium 3.9 mmol/L (3.5-5.1); Sodium 143 mmol/L (136-145)
[2020-04-19 08:05] LABS: Diff Comment RBC Morph Reviewed; Poikilocytes 1+
[2020-04-19] MEDS: Gabapentin 300 MG CAP PO ×2 (08:18→19:30)
[2020-04-19] MEDS: Carvedilol 6.25 MG TAB 12.5 MG PO ×2 (08:18→17:07)
[2020-04-19] MEDS: Normal Saline 1,000 ML 100 ML IV ×2 (08:19→22:00)
[2020-04-19] MEDS: CIPROFLOXACIN 400 MG/200 ML BAG 200 MG IVPB ×2 (08:19→19:30)
[2020-04-19] MEDS: Normal Saline Flush 10 ML SYR IVP ×4 (08:53→13:36)
[2020-04-19] MEDS: MORPHine 2 MG/ML SYR IVP (08:54)
--- NOTE | 2020-04-19 09:03 | CMPROGNOTE_ITS ---
- If Service Date Differs Date of service: 04/19/20 Time of Service: 09:03 Care Management Progress Note S/O: Juli remains inpatient today. She will be started on Eliquis. CM faxed the prescription and the free trail card to [facility] in [place] to verify coverage. CM will follow up with pharmacy. Juli will not need any additional services at time of discharge. She will need to follow up with primary care. She remains on IV abx for diverticulitis and ongoing surgical consult. Juli requires close monitoring of her HGB and HCT r/t Lower GI bleeding. A:Juli is a 79 year old female admitted with Lower GI bleed on anticoagulation. P:Juli will be discharged home when she is medically ready. Pending pharmacy confirmation that Eliquis is covered. She is on tele and requiring close monitoring of vital signs. CM will continue to assess for discharge needs.
--- NOTE | 2020-04-19 09:51 | PGE_ITS ---
Date of Service Date of service: 04/19/20 Time of Service: 09:53 Assessment and Plan Assessment and plan (1) LGI bleed: Start date: 04/19/20 Start time: 14:50 Status: Acute Assessment and plan: Spoke with [facility] Dr. Molina regarding patient Stent placement, with LGIB and coumadin/plavix recommendations. At this time because it has been 6 months stopping plavix and coumadin is reasonable, due to greater risk for bleeding. Recommends holding anticoagulation until all stools hem neg then starting on 81 mg ASA, if at risk for afib transition to DOAC on discharge, risk for stroke at this time is less than risk for bleeding. D/c telemetry Regular rate and rhythm no ectopic beats or signs of ST elevation Repeat H/H stable up from 9.5 to 9.8, bleeding minimized. Will check heme stools until negative then start on 81 mg asa. Continue current regimen. Started on antbx by surgery, treating like diverticuli bleed. Will hold Amlodipine until clear that status remains stable, and leave NPO. (2) Abdominal pain: Start date: 04/19/20 Start time: 14:52 Status: Acute Assessment and plan: Morphine appears to be helping with pain. NPO at this time. Zofran for nausea. (3) Coronary artery disease: Start date: 04/19/20 Start time: 14:53 Status: Chronic Assessment and plan: Hx of [place] with 3 vessel stent placement in Oct 2019, on coumadin for Afib. Held at this time. See above for Cardiology recommendations (4) Atrial fibrillation: Start date: 04/19/20 Start time: 14:53 Status: Chronic Assessment and plan: Regular rate and rhythm at this time. Continue BB. (5) Anticoagulated on warfarin: Start date: 04/19/20 Start time: 14:53 Status: Chronic Assessment and plan: Discontinued. Cardiology recommends apixaban if at r isk for afib on discharge. (6) Hypothyroidism: Start date: 04/19/20 Start time: 14:54 Status: Chronic Assessment and plan: continue levothyroxine (7) Essential hypertension: Start date: 04/19/20 Start time: 14:54 Status: Chronic Assessment and plan: Soft blood pressures, likely from LGIB, will continue to monitor and put hold parameters on BB, hold CCB at this time. (8) DVT prophylaxis: Start date: 04/19/20 Start time: 14:54 Status: Acute Assessment and plan: Teds and SCDs Will likely be discharged home without services when medically stable Above case discussed with Dr. Willams who is in agreement. Subjective Subjective Patient reports: still having pain Interval history since last seen: Still having pain, improved. Looks better today, sitting up in chair, spirits improved. Does not appear as pale. Denies CP, SOB, N/V/D. Exam Narrative Exam Narrative: Pleasant elderly female appears younger than stated age does appear pale. AAOx3. LSC, Abd soft with hyperactive bsx4. HR irregularrly irregular, controlled rate. no clubbing, edema, or cyanosis. Objective Objective Clinical Data: Abnormal lab results 04/18/20 04/18/20 04/19/20 Range/Units 12:50 16:05 06:15 RBC (4.00-5.20) m/cumm Hgb 10.1 L 10.0 L (12.0-15.5) g/dL Hct 31.7 L 31.3 L (36.0-46.0) % MCHC (32.0-36.0) g/dL Plt Count (130-400) x1000/uL Absolute Lymphocytes (1.2-3.4) k/cumm PT 11.3 H D (9.3-11.0) sec Chloride (98-107) mmol/L BUN (7-18) mg/dL Glucose (74-106) mg/dL Calcium (8.5-10.1) mg/dL Magnesium (1.8-2.4) mg/dL 04/19/20 04/19/20 Range/Units 06:15 06:15 RBC 3.49 L (4.00-5.20) m/cumm Hgb 9.5 L (12.0-15.5) g/dL Hct 30.6 L (36.0-46.0) % MCHC 31.0 L (32.0-36.0) g/dL Plt Count 116 L (130-400) x1000/uL Absolute Lymphocytes 0.84 L (1.2-3.4) k/cumm PT (9.3-11.0) sec Chloride 110 H (98-107) mmol/L BUN 21 H D (7-18) mg/dL Glucose 71 L (74-106) mg/dL Calcium 8.0 L (8.5-10.1) mg/dL Magnesium 1.5 L (1.8-2.4) mg/dL Vital Signs Temperature 36.8 C 04/19/20 07:19 Temperature Source Temporal Artery Scan 04/19/20 07:19 Pulse 63 04/19/20 07:19 Pulse Rhythm Irregular 04/19/20 04:20 Pulse 56 L 04/17/20 21:30 Respiratory Rate 19 04/19/20 07:19 Respiratory Effort 04/19/20 04:20 Respiratory Depth Normal 04/19/20 04:20 Respiratory Pattern Normal 04/19/20 04:20 Blood Pressure 134/71 04/19/20 07:19 Blood Pressure Mean 90 04/17/20 21:59 Blood Pressure Position Sitting 04/17/20 16:27 Pulse Oximetry 96 04/19/20 07:19 Oxygen Delivery Method Room Air 04/19/20 07:19 Oxygen Flow Rate 0 04/19/20 07:19 Pain Level 6 04/19/20 08:54 Intake & Output 04/18/20 04/18/20 04/19/20 11:59 23:59 11:59 Intake Total 1250 / 1250 1110 / 1110 Output Total 650 / 1000 350 / 1000 350 / 350 Balance -650 / 250 900 / 250 760 / 760 Intake: IV 1250 / 1250 1050 / 1050 Oral 60 / 60 Output: Urine 650 / 1000 350 / 1000 350 / 350 Other: Urine Color Brown Urine Appearance Clear Clear Urine Odor Foul Comment Reported to RN Abby Pt has GI bleed. Blood tinged urine. mixed with bm with obvious blood in stool/and urine mixture Stool Size Small Moderate Stool Characteristics Soft Soft Liquid Voiding Methods Bedside Commode Bedside Commode Toilet Laboratory Results WBC 6.03 k/cumm (4.4-10.8) 04/19/20 06:15 RBC 3.49 m/cumm (4.00-5.20) L 04/19/20 06:15 Hgb 9.5 g/dL (12.0-15.5) L 04/19/20 06:15 Hct 30.6 % (36.0-46.0) L 04/19/20 06:15 MCV 87.7 fL (80-95) 04/19/20 06:15 MCH 27.2 pg (27.0-33.0) 04/19/20 06:15 MCHC 31.0 g/dL (32.0-36.0) L 04/19/20 06:15 RDW 13.5 % (11.7-14.6) 04/19/20 06:15 Plt Count 116 x1000/uL (130-400) L 04/19/20 06:15 MPV 10.6 fL (8.0-11.0) 04/19/20 06:15 Immature Gran % 0.2 % 04/19/20 06:15 Neutrophils % 77.9 04/19/20 06:15 Lymphocytes % 13.9 04/19/20 06:15 Monocytes % 5.3 04/19/20 06:15 Eosinophils % 2.5 04/19/20 06:15 Basophils % 0.2 04/19/20 06:15 Absolute Neutrophils 4.70 k/cumm (1.2-6.7) 04/19/20 06:15 Absolute Lymphocytes 0.84 k/cumm (1.2-3.4) L 04/19/20 06:15 Absolute Monocytes 0.32 k/cumm (0.11-0.7) 04/19/20 06:15 Absolute Eosinophils 0.15 k/cumm (0.0-0.7) 04/19/20 06:15 Absolute Basophils 0.01 k/cumm (0.0-0.2) 04/19/20 06:15 Differential Comment Rbc morph reviewed 04/19/20 06:15 RBC Morphology See below 04/19/20 06:15 Poikilocytosis 1+ 04/19/20 06:15 PT 11.3 sec (9.3-11.0) H D 04/19/20 06:15 INR 1.1 (0.9-1.1) 04/19/20 06:15 APTT 33.0 sec (21.0-31.4) H 04/17/20 16:49 Sodium 143 mmol/L (136-145) 04/19/20 06:15 Potassium 3.9 mmol/L (3.5-5.1) 04/19/20 06:15 Chloride 110 mmol/L (98-107) H 04/19/20 06:15 Carbon Dioxide 24.1 mmol/L (21.0-32.0) 04/19/20 06:15 Anion Gap 8.9 mmol/L (3-11) 04/19/20 06:15 BUN 21 mg/dL (7-18) H D 04/19/20 06:15 Creatinine 1.00 mg/dL (0.55-1.02) 04/19/20 06:15 Estimated GFR/1.73 m2 53.21 (mL/min/1.73m2) 04/19/20 06:15 Glucose 71 mg/dL (74-106) L 04/19/20 06:15 Calcium 8.0 mg/dL (8.5-10.1) L 04/19/20 06:15 Magnesium 1.5 mg/dL (1.8-2.4) L 04/19/20 06:15 Total Bilirubin 0.9 mg/dL (0.2-1.0) 04/17/20 16:49 AST 33 U/L (15-37) 04/17/20 16:49 ALT 29 U/L (14-59) 04/17/20 16:49 Alkaline Phosphatase 138 U/L (46-116) H 04/17/20 16:49 Troponin I < 0.05 ng/mL (<0.06) 04/17/20 16:49 Total Protein 7.5 g/dL (6.4-8.2) 04/17/20 16:49 Albumin 3.6 g/dL (3.4-5.0) 04/17/20 16:49 Urine Color Yellow (Yellow) 04/17/20 18:25 Urine Clarity Clear (Clear) 04/17/20 18:25 Urine pH 7.0 (5-8) 04/17/20 18:25 Ur Specific [place] 1.015 (1.005-1.025) 04/17/20 18:25 Urine Protein Negative mg/dL (Negative) 04/17/20 18:25 Urine Ketones Negative mg/dL (Negative) 04/17/20 18:25 Urine Blood Moderate (Negative) H 04/17/20 18:25 Urine Nitrite Negative (Negative) 04/17/20 18:25 Urine Bilirubin Negative (Negative) 04/17/20 18:25 Urine Urobilinogen 0.2 EU/dL (Up TO 0.2) 04/17/20 18:25 Ur Leukocyte Esterase Moderate (Negative) H 04/17/20 18:25 Urine RBC 0-2 HPF (0-2) 04/17/20 18:25 Urine WBC 3-5 HPF (0-5) 04/17/20 18:25 Ur Epithelial Cells Few HPF (Negative) 04/17/20 18:25 Urine Crystals Negative HPF (Negative) 04/17/20 18:25 Urine Bacteria Few HPF (Negative) 04/17/20 18:25 Urine Mucus Negative (Negative) 04/17/20 18:25 Ur Culture Indicated? Yes 04/17/20 18:25 Urine Glucose Negative mg/dL (Negative) 04/17/20 18:25 Stool Calprotectin Cancelled 04/18/20 11:56 COVID-19 PCR Negative (Negative) 04/17/20 21:45 Nasopharyn COVID-19 PCR Not Applicable 04/17/20 21:45 Ref Test Perform Site [facility] lab 04/17/20 21:45 Patient ABO/Rh O Positive 04/17/20 17:00 Antibody Screen Negative 04/17/20 17:00 Reaction Clerical Check No clerical errors 04/18/20 00:10 Clerical Work Check None 04/18/20 00:10 Pre-Trans Blood Type O Positive 04/18/20 00:10 Pre-Trans Bld Appearanc No hemolysis 04/18/20 00:10 Pre-Trans REGINA Negative 04/18/20 00:10 Post-Trans Blood Type O Positive 04/18/20 00:10 Post-Trans Spec Appear No hemolysis 04/18/20 00:10 Post-Trans REGINA Negative 04/18/20 00:10 Reaction Pathol Review Negative-complete 04/18/20 00:10
[2020-04-19] MEDS: Clopidogrel 75 MG TAB PO (09:52)
[2020-04-19] MEDS: MAGNESIUM SULFATE 4 GM/100 ML BAG IVPB (09:52)
[2020-04-19] MEDS: Ondansetron 4 MG/2 ML VIAL IVP ×2 (09:58→20:46)
--- NOTE | 2020-04-19 10:16 | PGE_ITS ---
Date of Service Date of service: 04/19/20 Time of Service: 08:00 Assessment and Plan Assessment and plan (1) Diverticula of colon: Status: Acute (2) Diverticular hemorrhage: Status: Acute Assessment and plan: appears to be slowing down. no signs of cardiac dx cont supportive care ambulate (3) Coronary artery disease: Status: Chronic (4) Hypothyroidism: Status: Chronic (5) Essential hypertension: Status: Chronic (6) Anemia due to blood loss, acute: Status: Acute (7) Atrial fibrillation: Status: Chronic Subjective Subjective Interval history since last seen: pt seen and examined. no headaches. No CP or SOB. no productive cough. no dysuria. no leg pain or swelling. She thinks the pain is imroved. The bleeding is defn doing better. Last 3 hemoglobins are around 10. continue to follow. No sign of peritonitis or need for surgical intervention. D/w Dr. Willams. hosp will follow closely for possible cardiac issues. She is not javeng any s/s of cardiac problems that she had this winter- chest pr essure. Exam Chest Other: no pain or tightness Resp Effort & Inspection: normal respiratory effort and able to speak in complete sentences Auscultation: clear to auscultation bilaterally GI Inspection: normal to inspection Palpation: soft Auscultation: normal bowel sounds Other: no periotnitis. still having some rectal bleeding- but she thinks it is improving. Extrem General: no clubbing, cyanosis or edema Objective Objective Clinical Data: Abnormal lab results 04/18/20 04/18/20 04/19/20 Range/Units 12:50 16:05 06:15 RBC (4.00-5.20) m/cumm Hgb 10.1 L 10.0 L (12.0-15.5) g/dL Hct 31.7 L 31.3 L (36.0-46.0) % MCHC (32.0-36.0) g/dL Plt Count (130-400) x1000/uL Absolute Lymphocytes (1.2-3.4) k/cumm PT 11.3 H D (9.3-11.0) sec Chloride (98-107) mmol/L BUN (7-18) mg/dL Glucose (74-106) mg/dL Calcium (8.5-10.1) mg/dL Magnesium (1.8-2.4) mg/dL 04/19/20 04/19/20 Range/Units 06:15 06:15 RBC 3.49 L (4.00-5.20) m/cumm Hgb 9.5 L (12.0-15.5) g/dL Hct 30.6 L (36.0-46.0) % MCHC 31.0 L (32.0-36.0) g/dL Plt Count 116 L (130-400) x1000/uL Absolute Lymphocytes 0.84 L (1.2-3.4) k/cumm PT (9.3-11.0) sec Chloride 110 H (98-107) mmol/L BUN 21 H D (7-18) mg/dL Glucose 71 L (74-106) mg/dL Calcium 8.0 L (8.5-10.1) mg/dL Magnesium 1.5 L (1.8-2.4) mg/dL Vital Signs Temperature 36.8 C 04/19/20 07:19 Temperature Source Temporal Artery Scan 04/19/20 07:19 Pulse 63 04/19/20 07:19 Pulse Rhythm Irregular 04/19/20 04:20 Pulse 56 L 04/17/20 21:30 Respiratory Rate 19 04/19/20 07:19 Respiratory Effort 04/19/20 04:20 Respiratory Depth Normal 04/19/20 04:20 Respiratory Pattern Normal 04/19/20 04:20 Blood Pressure 134/71 04/19/20 07:19 Blood Pressure Mean 90 04/17/20 21:59 Blood Pressure Position Sitting 04/17/20 16:27 Pulse Oximetry 96 04/19/20 07:19 Oxygen Delivery Method Room Air 04/19/20 07:19 Oxygen Flow Rate 0 04/19/20 07:19 Pain Level 6 04/19/20 09:58 Intake & Output 04/18/20 04/18/20 04/19/20 11:59 23:59 11:59 Intake Total 1250 / 1250 1310 / 1310 Output Total 650 / 1000 350 / 1000 350 / 350 Balance -650 / 250 900 / 250 960 / 960 Intake: IV 1250 / 1250 1250 / 1250 Oral 60 / 60 Output: Urine 650 / 1000 350 / 1000 350 / 350 Other: Urine Color Brown Urine Appearance Clear Clear Urine Odor Foul Comment Reported to RN Abby Pt has GI bleed. Blood tinged urine. mixed with bm with obvious blood in stool/and urine mixture Stool Size Small Moderate Stool Characteristics Soft Soft Liquid Voiding Methods Bedside Commode Bedside Commode Toilet Laboratory Results WBC 6.03 k/cumm (4.4-10.8) 04/19/20 06:15 RBC 3.49 m/cumm (4.00-5.20) L 04/19/20 06:15 Hgb 9.5 g/dL (12.0-15.5) L 04/19/20 06:15 Hct 30.6 % (36.0-46.0) L 04/19/20 06:15 MCV 87.7 fL (80-95) 04/19/20 06:15 MCH 27.2 pg (27.0-33.0) 04/19/20 06:15 MCHC 31.0 g/dL (32.0-36.0) L 04/19/20 06:15 RDW 13.5 % (11.7-14.6) 04/19/20 06:15 Plt Count 116 x1000/uL (130-400) L 04/19/20 06:15 MPV 10.6 fL (8.0-11.0) 04/19/20 06:15 Immature Gran % 0.2 % 04/19/20 06:15 Neutrophils % 77.9 04/19/20 06:15 Lymphocytes % 13.9 04/19/20 06:15 Monocytes % 5.3 04/19/20 06:15 Eosinophils % 2.5 04/19/20 06:15 Basophils % 0.2 04/19/20 06:15 Absolute Neutrophils 4.70 k/cumm (1.2-6.7) 04/19/20 06:15 Absolute Lymphocytes 0.84 k/cumm (1.2-3.4) L 04/19/20 06:15 Absolute Monocytes 0.32 k/cumm (0.11-0.7) 04/19/20 06:15 Absolute Eosinophils 0.15 k/cumm (0.0-0.7) 04/19/20 06:15 Absolute Basophils 0.01 k/cumm (0.0-0.2) 04/19/20 06:15 Differential Comment Rbc morph reviewed 04/19/20 06:15 RBC Morphology See below 04/19/20 06:15 Poikilocytosis 1+ 04/19/20 06:15 PT 11.3 sec (9.3-11.0) H D 04/19/20 06:15 INR 1.1 (0.9-1.1) 04/19/20 06:15 APTT 33.0 sec (21.0-31.4) H 04/17/20 16:49 Sodium 143 mmol/L (136-145) 04/19/20 06:15 Potassium 3.9 mmol/L (3.5-5.1) 04/19/20 06:15 Chloride 110 mmol/L (98-107) H 04/19/20 06:15 Carbon Dioxide 24.1 mmol/L (21.0-32.0) 04/19/20 06:15 Anion Gap 8.9 mmol/L (3-11) 04/19/20 06:15 BUN 21 mg/dL (7-18) H D 04/19/20 06:15 Creatinine 1.00 mg/dL (0.55-1.02) 04/19/20 06:15 Estimated GFR/1.73 m2 53.21 (mL/min/1.73m2) 04/19/20 06:15 Glucose 71 mg/dL (74-106) L 04/19/20 06:15 Calcium 8.0 mg/dL (8.5-10.1) L 04/19/20 06:15 Magnesium 1.5 mg/dL (1.8-2.4) L 04/19/20 06:15 Total Bilirubin 0.9 mg/dL (0.2-1.0) 04/17/20 16:49 AST 33 U/L (15-37) 04/17/20 16:49 ALT 29 U/L (14-59) 04/17/20 16:49 Alkaline Phosphatase 138 U/L (46-116) H 04/17/20 16:49 Troponin I < 0.05 ng/mL (<0.06) 04/17/20 16:49 Total Protein 7.5 g/dL (6.4-8.2) 04/17/20 16:49 Albumin 3.6 g/dL (3.4-5.0) 04/17/20 16:49 Urine Color Yellow (Yellow) 04/17/20 18:25 Urine Clarity Clear (Clear) 04/17/20 18:25 Urine pH 7.0 (5-8) 04/17/20 18:25 Ur Specific [place] 1.015 (1.005-1.025) 04/17/20 18:25 Urine Protein Negative mg/dL (Negative) 04/17/20 18:25 Urine Ketones Negative mg/dL (Negative) 04/17/20 18:25 Urine Blood Moderate (Negative) H 04/17/20 18:25 Urine Nitrite Negative (Negative) 04/17/20 18:25 Urine Bilirubin Negative (Negative) 04/17/20 18:25 Urine Urobilinogen 0.2 EU/dL (Up TO 0.2) 04/17/20 18:25 Ur Leukocyte Esterase Moderate (Negative) H 04/17/20 18:25 Urine RBC 0-2 HPF (0-2) 04/17/20 18:25 Urine WBC 3-5 HPF (0-5) 04/17/20 18:25 Ur Epithelial Cells Few HPF (Negative) 04/17/20 18:25 Urine Crystals Negative HPF (Negative) 04/17/20 18:25 Urine Bacteria Few HPF (Negative) 04/17/20 18:25 Urine Mucus Negative (Negative) 04/17/20 18:25 Ur Culture Indicated? Yes 04/17/20 18:25 Urine Glucose Negative mg/dL (Negative) 04/17/20 18:25 Stool Calprotectin Cancelled 04/18/20 11:56 COVID-19 PCR Negative (Negative) 04/17/20 21:45 Nasopharyn COVID-19 PCR Not Applicable 04/17/20 21:45 Ref Test Perform Site [facility] lab 04/17/20 21:45 Patient ABO/Rh O Positive 04/17/20 17:00 Antibody Screen Negative 04/17/20 17:00 Reaction Clerical Check No clerical errors 04/18/20 00:10 Clerical Work Check None 04/18/20 00:10 Pre-Trans Blood Type O Positive 04/18/20 00:10 Pre-Trans Bld Appearanc No hemolysis 04/18/20 00:10 Pre-Trans REGINA Negative 04/18/20 00:10 Post-Trans Blood Type O Positive 04/18/20 00:10 Post-Trans Spec Appear No hemolysis 04/18/20 00:10 Post-Trans REGINA Negative 04/18/20 00:10 Reaction Pathol Review Negative-complete 04/18/20 00:10
[2020-04-19 11:33] LABS: HCT 30.7 % (36.0-46.0); HGB 9.8 g/dL (12.0-15.5)
[2020-04-19] MEDS: Pantoprazole 40 MG VIAL IVP (12:24)
[2020-04-19] MEDS: IRON SUCROSE COMPLEX 200 MG in Normal Saline 100 ML 400 MG IVPB (12:40)
--- NOTE | 2020-04-19 14:24 | W.NUTCONSULT ---
Date of service: 04/19/20 Time of Service: 14:25 Nutritional Consult ASSESSMENT: 79 year old female admitted with rectal bleeding, refusing transfer to [facility] as her is ill and in area. PMH: diverticula of colon, CAD, HTN. Receiving lactated ringers, iron infusion. NPO day 2. Previously on blood thinners. BMI 25, appears well nourished. Adequate dentition for regular texture diet, skin intact. Reports stable weight and good appetite prior to admission. Estimated Needs: 8087-9997 kcal, 60-70 g protein. Reasonably nourished prior to NPO status. Will have adequate nutrient stores for up to 5 days of being NPO. If NPO > 5 days, will need to consider nutrition support to maintain lean body mass and immune function. NUTRITIONAL DIAGNOSIS: Inadequate oral intake due to NPO status for rectal bleeding INTERVENTION: NPO MONITORING AND EVALUATION: will monitor labs, weight and diet progression and make recommendations as warranted. Time Spent in Nutritional Counseling and Treatment: 10 min face to face
--- NOTE | 2020-04-19 14:46 | CHAPLAIN ---
Juli was resting in bed this morning when we had a long conversation. She is worried about her internal bleeding, but said she trusts the medical staff is taking good care of her. 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 Juli is a member of the [employer] and her television writer, Rev. Joseph Sawyer has been in touch with her. Today Juli talked about her adult children and grandchildren. Her kids live in [place] and [place]. Because of the prevalence of the [place] virus in [place], she is worried about her daughter and granddaughter there.
[2020-04-20] VITALS (7 sets, daily range): BP systolic 114–135; BP diastolic 66–81; PULSE 52–63; RESP 17–18; TEMP 36.1–36.9; O2SAT 95–97
[2020-04-20] MEDS: Melatonin 3 MG TAB 6 MG PO (00:45)
[2020-04-20] MEDS: metroNIDAZOLE 500 MG/100 ML BAG 100 MG IVPB ×3 (04:52→20:06)
[2020-04-20] MEDS: Acetaminophen 325 MG TAB 650 MG PO (05:00)
[2020-04-20] MEDS: Levothyroxine 88 MCG TAB PO (06:26)
[2020-04-20] MEDS: FAMOTIDINE 20 MG/50 ML BAG 200 MG IVPB ×2 (06:26→17:39)
[2020-04-20] MEDS: Normal Saline 1,000 ML 100 ML IV ×2 (06:27→17:33)
[2020-04-20] MEDS: Pantoprazole 40 MG VIAL IVP (07:24)
[2020-04-20] MEDS: Normal Saline Flush 10 ML SYR IVP ×2 (07:24→20:07)
[2020-04-20] MEDS: CIPROFLOXACIN 400 MG/200 ML BAG 200 MG IVPB ×2 (07:24→20:07)
[2020-04-20 07:43] LABS: Abs Immature Grans 0.02 k/cumm (0.0-0.09); Absolute Basophil Count 0.01 k/cumm (0.0-0.2); Absolute Eosinophil Count 0.09 k/cumm (0.0-0.7); Absolute Lymphocyte Count 0.68 k/cumm (1.2-3.4); Absolute Neutrophil Count 4.39 k/cumm (1.2-6.7); Basophils % 0.2; Eosinophils % 1.6; HCT 29.5 % (36.0-46.0); HGB 9.3 g/dL (12.0-15.5); Immature Grans % 0.4 %; Lymphocytes % 12.2; Mean Corp. HGB Concentration 31.5 g/dL (32.0-36.0); Mean Corpuscular Hemoglobin 27.5 pg (27.0-33.0); Mean Corpuscular Volume 87.3 fL (80-95); Mean Platelet Volume 10.5 fL (8.0-11.0); Monocytes % 7.2; Neutrophils % 78.4; Platelet Count 121 x1000/uL (130-400); RBC 3.38 m/cumm (4.00-5.20); RBC Distribution Width 13.4 % (11.7-14.6); White Blood Cell Count 5.59 k/cumm (4.4-10.8)
[2020-04-20 07:53] LABS: Anion Gap 10.1 mmol/L (3-11); BUN 15 mg/dL (7-18); CO2 21.9 mmol/L (21.0-32.0); CREATININE 1.06 mg/dL (0.55-1.02); Calcium 7.9 mg/dL (8.5-10.1); Chloride 110 mmol/L (98-107); Estimated GFR 49.75 (mL/min/1.73m2); Glucose 83 mg/dL (74-106); Sodium 142 mmol/L (136-145)
[2020-04-20 07:58] LABS: INR 1.1 (0.9-1.1); Prothrombin Time 10.7 sec (9.3-11.0)
[2020-04-20] MEDS: Carvedilol 6.25 MG TAB 12.5 MG PO ×2 (08:42→17:39)
[2020-04-20] MEDS: Gabapentin 300 MG CAP PO ×2 (08:42→20:05)
--- NOTE | 2020-04-20 11:00 | PGE_ITS ---
Date of Service Date of service: 04/20/20 Time of Service: 11:01 Assessment and Plan Assessment and plan (1) LGI bleed: Start date: 04/20/20 Start time: 11:08 Status: Acute Assessment and plan: Spoke with [facility] Dr. Molina regarding patient Stent placement, with LGIB and coumadin/plavix recommendations. At this time because it has been 6 months stopping plavix and coumadin is reasonable, due to greater risk for bleeding. Recommends holding anticoagulation until all stools hem neg then starting on 81 mg ASA, if at risk for afib transition to DOAC on discharge, risk for stroke at this time is less than risk for bleeding. D/c telemetry Regular rate and rhythm no ectopic beats or signs of ST elevation Repeat H/H stable up from 9.5 to 9.8, bleeding minimized. Will check heme stools until negative then start on 81 mg asa. Continue current regimen. Continue antbx. Tolerating clears Will hold Amlodipine until clear that status remains stable, and leave NPO. (2) Abdominal pain: Start date: 04/20/20 Start time: 11:21 Status: Acute Assessment and plan: No pain at this time. Continue tylenol (3) Coronary artery disease: Start date: 04/20/20 Start time: 11:21 Status: Chronic Assessment and plan: Hx of NH with 3 vessel stent placement in Oct 2019, on coumadin for Afib. Held at this time. See above for Cardiology recommendations (4) Atrial fibrillation: Start date: 04/20/20 Start time: 11:23 Status: Chronic Assessment and plan: Regular rate and rhythm at this time. Continue BB. (5) Hypothyroidism: Start date: 04/20/20 Start time: 11:23 Status: Chronic Assessment and plan: continue levothyroxine (6) Essential hypertension: Start date: 04/20/20 Start time: 11:23 Status: Chronic Assessment and plan: Soft blood pressures, likely from LGIB, will continue to monitor and put hold parameters on BB, hold CCB at this time. (7) DVT prophylaxis: Start date: 04/20/20 Start time: 11:24 Status: Acute Assessment and plan: Teds and SCDs Will likely be discharged home without services when medically stable Above case discussed with Dr. Ashley who is in agreement. Subjective Subjective Patient reports: no new complaints Interval history since last seen: No pain. Tolerating clears this morning. Bleed ing is now darker in color per nursing, continues to have bleeding however improving. Denies CP, SOB, N/V/D. Plan for asa after negative hematest stools and at this time with cardiology recommendations would not start apixaban unless she has afib. Exam Narrative Exam Narrative: Pleasant elderly female appears younger than stated age does appear pale. AAOx3. LSC, Abd soft with hypoactive bsx4 minimal pain with palpation. HR RRR. no clubbing, edema, or cyanosis. Objective Objective Clinical Data: Abnormal lab results 04/19/20 04/20/20 04/20/20 Range/Units 11:18 07:00 07:00 RBC 3.38 L (4.00-5.20) m/cumm Hgb 9.8 L 9.3 L (12.0-15.5) g/dL Hct 30.7 L 29.5 L (36.0-46.0) % MCHC 31.5 L (32.0-36.0) g/dL Plt Count 121 L (130-400) x1000/uL Absolute Lymphocytes 0.68 L (1.2-3.4) k/cumm Chloride 110 H (98-107) mmol/L Creatinine 1.06 H (0.55-1.02) mg/dL Calcium 7.9 L (8.5-10.1) mg/dL Vital Signs Temperature 36.1 C L 04/20/20 07:29 Temperature Source Temporal Artery Scan 04/20/20 07:29 Pulse 60 04/20/20 07:29 Pulse Rhythm Regular 04/20/20 07:40 Pulse 56 L 04/17/20 21:30 Respiratory Rate 17 04/20/20 07:29 Respiratory Effort Non-Labored 04/20/20 07:40 Respiratory Depth Normal 04/20/20 07:40 Respiratory Pattern Normal 04/20/20 07:40 Blood Pressure 128/72 04/20/20 07:29 Blood Pressure Mean 90 04/17/20 21:59 Blood Pressure Position Sitting 04/17/20 16:27 Pulse Oximetry 96 04/20/20 07:29 Oxygen Delivery Method Room Air 04/20/20 07:29 Oxygen Flow Rate 0 04/20/20 07:29 Pain Level 4 04/20/20 07:29 Comment 04/20/20 04:56 Intake & Output 04/19/20 04/19/20 04/20/20 11:59 23:59 11:59 Intake Total 1410 / 3320 1910 / 3320 1245 / 1245 Output Total 350 / 1450 1100 / 1450 1300 / 1300 Balance 1060 / 1870 810 / 1870 -55 / -55 Intake: IV 1350 / 3010 1660 / 3010 945 / 945 Oral 60 / 310 250 / 310 300 / 300 Output: Urine 350 / 1450 1100 / 1450 1300 / 1300 Other: Urine Color Light Pina Yellow Urine Appearance Cloudy Clear Urine Odor Strong Comment mixed with bm with obvious blood in stool/and urine mixture Stool Size Moderate Smear Stool Characteristics Soft Bloody Liquid Voiding Methods Toilet Bedside Commode Toilet Laboratory Results WBC 5.59 k/cumm (4.4-10.8) 04/20/20 07:00 RBC 3.38 m/cumm (4.00-5.20) L 04/20/20 07:00 Hgb 9.3 g/dL (12.0-15.5) L 04/20/20 07:00 Hct 29.5 % (36.0-46.0) L 04/20/20 07:00 MCV 87.3 fL (80-95) 04/20/20 07:00 MCH 27.5 pg (27.0-33.0) 04/20/20 07:00 MCHC 31.5 g/dL (32.0-36.0) L 04/20/20 07:00 RDW 13.4 % (11.7-14.6) 04/20/20 07:00 Plt Count 121 x1000/uL (130-400) L 04/20/20 07:00 MPV 10.5 fL (8.0-11.0) 04/20/20 07:00 Immature Gran % 0.4 % 04/20/20 07:00 Neutrophils % 78.4 04/20/20 07:00 Lymphocytes % 12.2 04/20/20 07:00 Monocytes % 7.2 04/20/20 07:00 Eosinophils % 1.6 04/20/20 07:00 Basophils % 0.2 04/20/20 07:00 Absolute Neutrophils 4.39 k/cumm (1.2-6.7) 04/20/20 07:00 Absolute Lymphocytes 0.68 k/cumm (1.2-3.4) L 04/20/20 07:00 Absolute Monocytes 0.40 k/cumm (0.11-0.7) 04/20/20 07:00 Absolute Eosinophils 0.09 k/cumm (0.0-0.7) 04/20/20 07:00 Absolute Basophils 0.01 k/cumm (0.0-0.2) 04/20/20 07:00 Differential Comment Rbc morph reviewed 04/19/20 06:15 RBC Morphology See below 04/19/20 06:15 Poikilocytosis 1+ 04/19/20 06:15 PT 10.7 sec (9.3-11.0) 04/20/20 07:00 INR 1.1 (0.9-1.1) 04/20/20 07:00 APTT 33.0 sec (21.0-31.4) H 04/17/20 16:49 Sodium 142 mmol/L (136-145) 04/20/20 07:00 Potassium 4.0 mmol/L (3.5-5.1) 04/20/20 07:00 Chloride 110 mmol/L (98-107) H 04/20/20 07:00 Carbon Dioxide 21.9 mmol/L (21.0-32.0) 04/20/20 07:00 Anion Gap 10.1 mmol/L (3-11) 04/20/20 07:00 BUN 15 mg/dL (7-18) D 04/20/20 07:00 Creatinine 1.06 mg/dL (0.55-1.02) H 04/20/20 07:00 Estimated GFR/1.73 m2 49.75 (mL/min/1.73m2) 04/20/20 07:00 Glucose 83 mg/dL (74-106) 04/20/20 07:00 Calcium 7.9 mg/dL (8.5-10.1) L 04/20/20 07:00 Magnesium 1.5 mg/dL (1.8-2.4) L 04/19/20 06:15 Total Bilirubin 0.9 mg/dL (0.2-1.0) 04/17/20 16:49 AST 33 U/L (15-37) 04/17/20 16:49 ALT 29 U/L (14-59) 04/17/20 16:49 Alkaline Phosphatase 138 U/L (46-116) H 04/17/20 16:49 Troponin I < 0.05 ng/mL (<0.06) 04/17/20 16:49 Total Protein 7.5 g/dL (6.4-8.2) 04/17/20 16:49 Albumin 3.6 g/dL (3.4-5.0) 04/17/20 16:49 Urine Color Yellow (Yellow) 04/17/20 18:25 Urine Clarity Clear (Clear) 04/17/20 18:25 Urine pH 7.0 (5-8) 04/17/20 18:25 Ur Specific [place] 1.015 (1.005-1.025) 04/17/20 18:25 Urine Protein Negative mg/dL (Negative) 04/17/20 18:25 Urine Ketones Negative mg/dL (Negative) 04/17/20 18:25 Urine Blood Moderate (Negative) H 04/17/20 18:25 Urine Nitrite Negative (Negative) 04/17/20 18:25 Urine Bilirubin Negative (Negative) 04/17/20 18:25 Urine Urobilinogen 0.2 EU/dL (Up TO 0.2) 04/17/20 18:25 Ur Leukocyte Esterase Moderate (Negative) H 04/17/20 18:25 Urine RBC 0-2 HPF (0-2) 04/17/20 18:25 Urine WBC 3-5 HPF (0-5) 04/17/20 18:25 Ur Epithelial Cells Few HPF (Negative) 04/17/20 18:25 Urine Crystals Negative HPF (Negative) 04/17/20 18:25 Urine Bacteria Few HPF (Negative) 04/17/20 18:25 Urine Mucus Negative (Negative) 04/17/20 18:25 Ur Culture Indicated? Yes 04/17/20 18:25 Urine Glucose Negative mg/dL (Negative) 04/17/20 18:25 Stool Calprotectin Cancelled 04/18/20 11:56 COVID-19 PCR Negative (Negative) 04/17/20 21:45 Nasopharyn COVID-19 PCR Not Applicable 04/17/20 21:45 Ref Test Perform Site [place] [facility] lab 04/17/20 21:45 Patient ABO/Rh O Positive 04/17/20 17:00 Antibody Screen Negative 04/17/20 17:00 Reaction Clerical Check No clerical errors 04/18/20 00:10 Clerical Work Check None 04/18/20 00:10 Pre-Trans Blood Type O Positive 04/18/20 00:10 Pre-Trans Bld Appearanc No hemolysis 04/18/20 00:10 Pre-Trans REGINA Negative 04/18/20 00:10 Post-Trans Blood Type O Positive 04/18/20 00:10 Post-Trans Spec Appear No hemolysis 04/18/20 00:10 Post-Trans REGINA Negative 04/18/20 00:10 Reaction Pathol Review Negative-complete 04/18/20 00:10
[2020-04-20 11:44] LABS: Iron 171 ug/dL (50-170); Total Iron Binding Capacity 170 ug/dL (250-450); Transferrin Sat 101 % (15-50)
[2020-04-20 12:11] LABS: Ferritin 234 ng/mL (8-252); Folate 15.7 ng/mL (8.6-20.0); Vitamin B12 567 pg/mL (193-986)
[2020-04-20] MEDS: Dicyclomine 10 MG CAP PO ×3 (14:21→20:21)
--- NOTE | 2020-04-20 14:28 | PGE_ITS ---
Date of Service Date of service: 04/20/20 Time of Service: 14:28 Assessment and Plan Assessment and plan (1) Anemia due to blood loss, acute: Status: Acute (2) Diverticular hemorrhage: Status: Acute Assessment and plan: pt is doing better. Bleeding appears to be stopping. cont on clears at this point as she is still having pain adn bleeding. d/c home on baby asa cont to follow hgb no signs of requiring surgical intervention at this time (3) Diverticula of colon: Status: Acute (4) Atrial fibrillation: Status: Chronic (5) Essential hypertension: Status: Chronic (6) Coronary artery disease: Status: Chronic Subjective Subjective Interval history since last seen: pt tolerated clears w/ no n/v. She did have a mult lg liquid BM. They are dark blood. The blood was bright red when it orig started. She is still having some abdom pain. She thinks it is slt better today. I did d/w Gabi- cards said she does not need to be on any anticaogs, other than a baby asa. She has no fever/chills. no n/v. Hgb has overall been stable. She has no peritonitis. The bleeding is slowing done. no headaches. No CP or SOB. no productive cough. no dysuria. no leg pain or swelling. Exam Const General: cooperative, healthy appearing, comfortable, no acute distress, well developed and well groomed Nutritional Appearance: average body habitus and well nourished Orientation: alert, awake and oriented x3 HENMT Head: normal to inspection, normocephalic and atraumatic Ears: hearing grossly normal bilaterally and external ears normal General nose exam: external nose normal Face and sinus: normal facial exam and sinuses nontender Mouth: oral mucosae normal, lip normal, tongue normal and moist mucous membranes Teeth and gingiva: dentition normal Eyes General: appearance normal, both eyes and all related structures Conjunctivae: conjunctivae normal Sclera: sclerae normal Pupils: PERRL Neck Neck: normal visual inspection and full ROM Chest Chest: normal inspection of the chest Resp Effort & Inspection: normal respiratory effort, able to speak in complete sentences, no cough, no nasal flaring, not tachypneic and no use of accessory muscles Auscultation: clear to auscultation bilaterally, no rales, no rhonchi and no wheezes Cardio Jugular venous pressure: no JVD Rate: regular rate Rhythm: regular rhythm GI Inspection: normal to inspection, no edema and distended (minimal) Palpation: soft, no masses, tender (no rebound and guarding) in the LLQ and No ascites Auscultation: normal bowel sounds Skin General skin exam: no rashes or lesions noted Trauma: no lacerations or abrasions Neuro General: patient alert, patient oriented x3, oriented, gait normal, moves all extremities, no focal motor deficits and CN's II-XI intact bilaterally Cognition: normal cognition Speech: speech normal Gait: normal gait Motor: muscle tone normal throughout Extrem General: normal to inspection, full ROM and no clubbing, cyanosis or edema Psych Appearance: grossly normal and well kempt Mental Status: mental status grossly normal Speech and Movement: speech and movement normal Affect: normal affect Objective Objective Clinical Data: Abnormal lab results 04/20/20 04/20/20 04/20/20 Range/Units 07:00 07:00 07:00 RBC 3.38 L (4.00-5.20) m/cumm Hgb 9.3 L (12.0-15.5) g/dL Hct 29.5 L (36.0-46.0) % MCHC 31.5 L (32.0-36.0) g/dL Plt Count 121 L (130-400) x1000/uL Absolute Lymphocytes 0.68 L (1.2-3.4) k/cumm Chloride 110 H (98-107) mmol/L Creatinine 1.06 H (0.55-1.02) mg/dL Calcium 7.9 L (8.5-10.1) mg/dL Iron 171 H (50-170) ug/dL TIBC 170 L (250-450) ug/dL Transferrin % Sat 101 H (15-50) % Vital Signs Temperature 36.5 C 04/20/20 11:46 Temperature Source Tympanic 04/20/20 11:46 Pulse 55 L 04/20/20 11:46 Pulse Rhythm Regular 04/20/20 07:40 Pulse 56 L 04/17/20 21:30 Respiratory Rate 18 04/20/20 11:46 Respiratory Effort Non-Labored 04/20/20 07:40 Respiratory Depth Normal 04/20/20 07:40 Respiratory Pattern Normal 04/20/20 07:40 Blood Pressure 114/66 04/20/20 11:46 Blood Pressure Mean 90 04/17/20 21:59 Blood Pressure Position Sitting 04/17/20 16:27 Pulse Oximetry 95 04/20/20 11:46 Oxygen Delivery Method Room Air 04/20/20 11:46 Oxygen Flow Rate 0 04/20/20 11:46 Pain Level 0 04/20/20 11:46 Comment 04/20/20 04:56 Intake & Output 04/19/20 04/20/20 04/20/20 23:59 11:59 23:59 Intake Total 1910 / 3320 1495 / 1495 Output Total 1100 / 1450 1300 / 1300 Balance 810 / 1870 195 / 195 Intake: IV 1660 / 3010 945 / 945 Oral 250 / 310 550 / 550 Output: Urine 1100 / 1450 1300 / 1300 Other: Urine Color Light Pina Yellow Urine Appearance Cloudy Clear Urine Odor Strong Stool Size Smear Stool Characteristics Bloody Voiding Methods Bedside Commode Toilet Laboratory Results WBC 5.59 k/cumm (4.4-10.8) 04/20/20 07:00 RBC 3.38 m/cumm (4.00-5.20) L 04/20/20 07:00 Hgb 9.3 g/dL (12.0-15.5) L 04/20/20 07:00 Hct 29.5 % (36.0-46.0) L 04/20/20 07:00 MCV 87.3 fL (80-95) 04/20/20 07:00 MCH 27.5 pg (27.0-33.0) 04/20/20 07:00 MCHC 31.5 g/dL (32.0-36.0) L 04/20/20 07:00 RDW 13.4 % (11.7-14.6) 04/20/20 07:00 Plt Count 121 x1000/uL (130-400) L 04/20/20 07:00 MPV 10.5 fL (8.0-11.0) 04/20/20 07:00 Immature Gran % 0.4 % 04/20/20 07:00 Neutrophils % 78.4 04/20/20 07:00 Lymphocytes % 12.2 04/20/20 07:00 Monocytes % 7.2 04/20/20 07:00 Eosinophils % 1.6 04/20/20 07:00 Basophils % 0.2 04/20/20 07:00 Absolute Neutrophils 4.39 k/cumm (1.2-6.7) 04/20/20 07:00 Absolute Lymphocytes 0.68 k/cumm (1.2-3.4) L 04/20/20 07:00 Absolute Monocytes 0.40 k/cumm (0.11-0.7) 04/20/20 07:00 Absolute Eosinophils 0.09 k/cumm (0.0-0.7) 04/20/20 07:00 Absolute Basophils 0.01 k/cumm (0.0-0.2) 04/20/20 07:00 Differential Comment Rbc morph reviewed 04/19/20 06:15 RBC Morphology See below 04/19/20 06:15 Poikilocytosis 1+ 04/19/20 06:15 PT 10.7 sec (9.3-11.0) 04/20/20 07:00 INR 1.1 (0.9-1.1) 04/20/20 07:00 APTT 33.0 sec (21.0-31.4) H 04/17/20 16:49 Sodium 142 mmol/L (136-145) 04/20/20 07:00 Potassium 4.0 mmol/L (3.5-5.1) 04/20/20 07:00 Chloride 110 mmol/L (98-107) H 04/20/20 07:00 Carbon Dioxide 21.9 mmol/L (21.0-32.0) 04/20/20 07:00 Anion Gap 10.1 mmol/L (3-11) 04/20/20 07:00 BUN 15 mg/dL (7-18) D 04/20/20 07:00 Creatinine 1.06 mg/dL (0.55-1.02) H 04/20/20 07:00 Estimated GFR/1.73 m2 49.75 (mL/min/1.73m2) 04/20/20 07:00 Glucose 83 mg/dL (74-106) 04/20/20 07:00 Calcium 7.9 mg/dL (8.5-10.1) L 04/20/20 07:00 Magnesium 1.5 mg/dL (1.8-2.4) L 04/19/20 06:15 Iron 171 ug/dL (50-170) H 04/20/20 07:00 TIBC 170 ug/dL (250-450) L 04/20/20 07:00 Transferrin % Sat 101 % (15-50) H 04/20/20 07:00 Ferritin 234 ng/mL (8-252) 04/20/20 07:00 Total Bilirubin 0.9 mg/dL (0.2-1.0) 04/17/20 16:49 AST 33 U/L (15-37) 04/17/20 16:49 ALT 29 U/L (14-59) 04/17/20 16:49 Alkaline Phosphatase 138 U/L (46-116) H 04/17/20 16:49 Troponin I < 0.05 ng/mL (<0.06) 04/17/20 16:49 Total Protein 7.5 g/dL (6.4-8.2) 04/17/20 16:49 Albumin 3.6 g/dL (3.4-5.0) 04/17/20 16:49 Vitamin B12 567 pg/mL (193-986) 04/20/20 07:00 Folate 15.7 ng/mL (8.6-20.0) 04/20/20 07:00 Urine Color Yellow (Yellow) 04/17/20 18:25 Urine Clarity Clear (Clear) 04/17/20 18:25 Urine pH 7.0 (5-8) 04/17/20 18:25 Ur Specific [place] 1.015 (1.005-1.025) 04/17/20 18:25 Urine Protein Negative mg/dL (Negative) 04/17/20 18:25 Urine Ketones Negative mg/dL (Negative) 04/17/20 18:25 Urine Blood Moderate (Negative) H 04/17/20 18:25 Urine Nitrite Negative (Negative) 04/17/20 18:25 Urine Bilirubin Negative (Negative) 04/17/20 18:25 Urine Urobilinogen 0.2 EU/dL (Up TO 0.2) 04/17/20 18:25 Ur Leukocyte Esterase Moderate (Negative) H 04/17/20 18:25 Urine RBC 0-2 HPF (0-2) 04/17/20 18:25 Urine WBC 3-5 HPF (0-5) 04/17/20 18:25 Ur Epithelial Cells Few HPF (Negative) 04/17/20 18:25 Urine Crystals Negative HPF (Negative) 04/17/20 18:25 Urine Bacteria Few HPF (Negative) 04/17/20 18:25 Urine Mucus Negative (Negative) 04/17/20 18:25 Ur Culture Indicated? Yes 04/17/20 18:25 Urine Glucose Negative mg/dL (Negative) 04/17/20 18:25 Stool Calprotectin Cancelled 04/18/20 11:56 COVID-19 PCR Negative (Negative) 04/17/20 21:45 Nasopharyn COVID-19 PCR Not Applicable 04/17/20 21:45 Ref Test Perform Site [facility] lab 04/17/20 21:45 Patient ABO/Rh O Positive 04/17/20 17:00 Antibody Screen Negative 04/17/20 17:00 Reaction Clerical Check No clerical errors 04/18/20 00:10 Clerical Work Check None 04/18/20 00:10 Pre-Trans Blood Type O Positive 04/18/20 00:10 Pre-Trans Bld Appearanc No hemolysis 04/18/20 00:10 Pre-Trans REGINA Negative 04/18/20 00:10 Post-Trans Blood Type O Positive 04/18/20 00:10 Post-Trans Spec Appear No hemolysis 04/18/20 00:10 Post-Trans REGINA Negative 04/18/20 00:10 Reaction Pathol Review Negative-complete 04/18/20 00:10
[2020-04-20 17:34] LABS: HCT 28.9 % (36.0-46.0); HGB 9.3 g/dL (12.0-15.5)
--- NOTE | 2020-04-20 19:41 | CMPROGNOTE_ITS ---
- If Service Date Differs Date of service: 04/20/20 Time of Service: 19:41 Care Management Progress Note S/O: Juli remains inpatient today. She was sitting up in bed when CM met with her. She engaged readily and chatted about the course of her illness, the many friends who have called her and the concerns her children have about her and his risk of falling. Juli remains on IV abx for diverticulitis. Today she passed several dark bloody stools. After consultation with [facility], her an ticoagulants were discontinued and when her stools become heme negative, she will be started on 81mg ASA. She may start on a DOAC after discharge. A:Juli is a 79 year old female admitted with Lower GI bleed on anticoagulation. P:Juli will be discharged home when she is medically ready. Her Hgb and HCt are being closely monitored, as are her vital signs. CM will continue to assess for discharge needs.
[2020-04-20] MEDS: MORPHine 2 MG/ML SYR IVP (20:20)
[2020-04-20] MEDS: Ondansetron 4 MG/2 ML VIAL IVP (20:20)
[2020-04-21] MEDS: Normal Saline 1,000 ML 100 ML IV ×2 (03:19→23:32)
[2020-04-21] MEDS: metroNIDAZOLE 500 MG/100 ML BAG 100 MG IVPB ×3 (03:19→20:38)
[2020-04-21 03:40] VITALS: BP 120/73; PULSE 67; RESP 17; TEMP 36.6; O2SAT 97
[2020-04-21] MEDS: Acetaminophen 325 MG TAB 650 MG PO ×2 (05:01→16:45)
[2020-04-21] MEDS: Levothyroxine 88 MCG TAB PO (05:21)
[2020-04-21] MEDS: FAMOTIDINE 20 MG/50 ML BAG 200 MG IVPB ×2 (05:21→17:53)
[2020-04-21 07:24] VITALS: BP 154/75; PULSE 60; RESP 15; TEMP 36.6; O2SAT 93
[2020-04-21] MEDS: Normal Saline Flush 10 ML SYR IVP (07:29)
[2020-04-21] MEDS: Carvedilol 6.25 MG TAB 12.5 MG PO ×2 (07:29→16:45)
[2020-04-21] MEDS: Gabapentin 300 MG CAP PO ×2 (07:30→19:16)
[2020-04-21] MEDS: CIPROFLOXACIN 400 MG/200 ML BAG 200 MG IVPB ×2 (07:30→19:16)
[2020-04-21] MEDS: Pantoprazole 40 MG VIAL IVP (07:30)
[2020-04-21 07:41] LABS: Abs Immature Grans 0.04 k/cumm (0.0-0.09); Absolute Basophil Count 0.01 k/cumm (0.0-0.2); Absolute Eosinophil Count 0.13 k/cumm (0.0-0.7); Absolute Lymphocyte Count 0.78 k/cumm (1.2-3.4); Absolute Monocyte Count 0.42 k/cumm (0.11-0.7); Absolute Neutrophil Count 4.41 k/cumm (1.2-6.7); Basophils % 0.2; Eosinophils % 2.2; HGB 9.5 g/dL (12.0-15.5); Immature Grans % 0.7 %; Lymphocytes % 13.5; Mean Corp. HGB Concentration 31.7 g/dL (32.0-36.0); Mean Corpuscular Hemoglobin 27.6 pg (27.0-33.0); Mean Corpuscular Volume 87.2 fL (80-95); Mean Platelet Volume 10.8 fL (8.0-11.0); Monocytes % 7.3; Neutrophils % 76.1; Platelet Count 127 x1000/uL (130-400); RBC 3.44 m/cumm (4.00-5.20); RBC Distribution Width 13.6 % (11.7-14.6); White Blood Cell Count 5.79 k/cumm (4.4-10.8)
[2020-04-21 07:54] LABS: Anion Gap 7.3 mmol/L (3-11); BUN 11 mg/dL (7-18); CO2 24.7 mmol/L (21.0-32.0); CREATININE 1.11 mg/dL (0.55-1.02); Calcium 7.8 mg/dL (8.5-10.1); Chloride 113 mmol/L (98-107); Estimated GFR 47.18 (mL/min/1.73m2); Glucose 103 mg/dL (74-106); Magnesium 1.6 mg/dL (1.8-2.4); Potassium 3.6 mmol/L (3.5-5.1); Sodium 145 mmol/L (136-145)
[2020-04-21] MEDS: Ondansetron 4 MG/2 ML VIAL IVP (09:17)
--- NOTE | 2020-04-21 09:37 | PDOC.CMPRO ---
- If Service Date Differs Date of service: 04/21/20 Time of Service: 09:37 Care Management Progress Note S/O: Juli was seen ambulating in the halls. She was smiling and pleasant and indicated that she is feeling well. Her H&H has stabilized and she is tolerating her diet. No bloody stools today. A:Juli is a 79 year old female admitted with Lower GI bleed on anticoagulation. P:Juli will be discharged home when she is medically ready. Her Hgb and HCt are being closely monitored, as are her vital signs. CM will continue to assess for discharge needs.
[2020-04-21] MEDS: MAGNESIUM SULFATE 4 GM/100 ML BAG IVPB (10:19)
[2020-04-21 11:05] VITALS: BP 137/65; PULSE 56; RESP 16; TEMP 37; O2SAT 96
--- NOTE | 2020-04-21 11:47 | W.PM.PROGNOT ---
Date of Service Date of service: 04/21/20 Time of Service: 11:48 Assessment and Plan Assessment and plan (1) LGI bleed: Start date: 04/21/20 Start time: 11:49 Status: Acute Assessment and plan: Remains stable, states bleeding is gone. will start on 81 mg baby aspirin Increase diet. Possible discharge home tomorrow. (2) Abdominal pain: Start date: 04/21/20 Start time: 11:51 Status: Acute Assessment and plan: Continue tylenol (3) Coronary artery disease: Start date: 04/21/20 Start time: 11:51 Status: Chronic Assessment and plan: Will be discharged home on aspirin. (4) Atrial fibrillation: Start date: 04/21/20 Start time: 11:54 Status: Chronic Assessment and plan: Regular rate and rhythm at this time. Continue BB. (5) Hypothyroidism: Start date: 04/21/20 Start time: 11:55 Status: Chronic Assessment and plan: continue levothyroxine (6) Essential hypertension: Start date: 04/21/20 Start time: 11:55 Status: Chronic Assessment and plan: Soft blood pressures, likely from LGIB, will continue to monitor and put hold parameters on BB, hold CCB at this time. (7) DVT prophylaxis: Start date: 04/21/20 Start time: 11:55 Status: Acute Assessment and plan: Teds and SCDs Will likely be discharged home without services when medically stable Above case discussed with Dr. Ashley who is in agreement. Subjective Subjective Patient reports: no new complaints Interval history since last seen: Sitting up in chair. tolerating diet. Denies CP, SOB, N/V/D. Exam Narrative Exam Narrative: Pleasant elderly female appears younger than stated age color improving. Sitting up in chair. AAOx3. LSC, Abd soft with hypoactive bsx4 minimal pain with palpation. HR RRR. no clubbing, edema, or cyanosis. Objective Objective Clinical Data: Abnormal lab results 04/20/20 04/20/20 04/21/20 Range/Units 07:00 17:24 06:45 RBC (4.00-5.20) m/cumm Hgb 9.3 L (12.0-15.5) g/dL Hct 28.9 L (36.0-46.0) % MCHC (32.0-36.0) g/dL Plt Count (130-400) x1000/uL Absolute Lymphocytes (1.2-3.4) k/cumm Chloride 113 H (98-107) mmol/L Creatinine 1.11 H (0.55-1.02) mg/dL Calcium 7.8 L (8.5-10.1) mg/dL Magnesium 1.6 L (1.8-2.4) mg/dL Iron 171 H (50-170) ug/dL TIBC 170 L (250-450) ug/dL Transferrin % Sat 101 H (15-50) % 04/21/20 Range/Units 06:45 RBC 3.44 L (4.00-5.20) m/cumm Hgb 9.5 L (12.0-15.5) g/dL Hct 30.0 L (36.0-46.0) % MCHC 31.7 L (32.0-36.0) g/dL Plt Count 127 L (130-400) x1000/uL Absolute Lymphocytes 0.78 L (1.2-3.4) k/cumm Chloride (98-107) mmol/L Creatinine (0.55-1.02) mg/dL Calcium (8.5-10.1) mg/dL Magnesium (1.8-2.4) mg/dL Iron (50-170) ug/dL TIBC (250-450) ug/dL Transferrin % Sat (15-50) % Vital Signs Temperature 36.6 C 04/21/20 07:24 Temperature Source Tympanic 04/21/20 07:24 Pulse 60 04/21/20 07:24 Pulse Rhythm Regular 04/21/20 08:09 Pulse 56 L 04/17/20 21:30 Respiratory Rate 15 04/21/20 07:24 Respiratory Effort Non-Labored 04/21/20 08:09 Respiratory Depth Normal 04/21/20 08:09 Respiratory Pattern Normal 04/21/20 08:09 Blood Pressure 154/75 H 04/21/20 07:24 Blood Pressure Mean 90 04/17/20 21:59 Blood Pressure Position Sitting 04/17/20 16:27 Pulse Oximetry 93 L 04/21/20 07:24 Oxygen Delivery Method Room Air 04/21/20 07:24 Oxygen Flow Rate 0 04/21/20 07:24 Pain Level 3 04/21/20 07:24 Comment 04/20/20 04:56 Intake & Output 04/20/20 04/20/20 04/21/20 11:59 23:59 11:59 Intake Total 1745 / 3555 1810 / 3555 1126.667 / 1126.667 Output Total 1300 / 1800 500 / 1800 900 / 900 Balance 445 / 1755 1310 / 1755 226.667 / 226.667 Intake: IV 1195 / 2645 1450 / 2645 1126.667 / 1126.667 Oral 550 / 910 360 / 910 Output: Urine 1300 / 1800 500 / 1800 900 / 900 Other: Urine Color Yellow Yellow Dark Pina Urine Appearance Clear Clear Clear Urine Odor Normal None Stool Occult Blood Positive Stool Size Moderate Stool Characteristics Soft Brown Voiding Methods Toilet Toilet Toilet Laboratory Results WBC 5.79 k/cumm (4.4-10.8) 04/21/20 06:45 RBC 3.44 m/cumm (4.00-5.20) L 04/21/20 06:45 Hgb 9.5 g/dL (12.0-15.5) L 04/21/20 06:45 Hct 30.0 % (36.0-46.0) L 04/21/20 06:45 MCV 87.2 fL (80-95) 04/21/20 06:45 MCH 27.6 pg (27.0-33.0) 04/21/20 06:45 MCHC 31.7 g/dL (32.0-36.0) L 04/21/20 06:45 RDW 13.6 % (11.7-14.6) 04/21/20 06:45 Plt Count 127 x1000/uL (130-400) L 04/21/20 06:45 MPV 10.8 fL (8.0-11.0) 04/21/20 06:45 Immature Gran % 0.7 % 04/21/20 06:45 Neutrophils % 76.1 04/21/20 06:45 Lymphocytes % 13.5 04/21/20 06:45 Monocytes % 7.3 04/21/20 06:45 Eosinophils % 2.2 04/21/20 06:45 Basophils % 0.2 04/21/20 06:45 Absolute Neutrophils 4.41 k/cumm (1.2-6.7) 04/21/20 06:45 Absolute Lymphocytes 0.78 k/cumm (1.2-3.4) L 04/21/20 06:45 Absolute Monocytes 0.42 k/cumm (0.11-0.7) 04/21/20 06:45 Absolute Eosinophils 0.13 k/cumm (0.0-0.7) 04/21/20 06:45 Absolute Basophils 0.01 k/cumm (0.0-0.2) 04/21/20 06:45 Differential Comment Rbc morph reviewed 04/19/20 06:15 RBC Morphology See below 04/19/20 06:15 Poikilocytosis 1+ 04/19/20 06:15 PT 10.7 sec (9.3-11.0) 04/20/20 07:00 INR 1.1 (0.9-1.1) 04/20/20 07:00 APTT 33.0 sec (21.0-31.4) H 04/17/20 16:49 Sodium 145 mmol/L (136-145) 04/21/20 06:45 Potassium 3.6 mmol/L (3.5-5.1) 04/21/20 06:45 Chloride 113 mmol/L (98-107) H 04/21/20 06:45 Carbon Dioxide 24.7 mmol/L (21.0-32.0) 04/21/20 06:45 Anion Gap 7.3 mmol/L (3-11) 04/21/20 06:45 BUN 11 mg/dL (7-18) 04/21/20 06:45 Creatinine 1.11 mg/dL (0.55-1.02) H 04/21/20 06:45 Estimated GFR/1.73 m2 47.18 (mL/min/1.73m2) 04/21/20 06:45 Glucose 103 mg/dL (74-106) 04/21/20 06:45 Calcium 7.8 mg/dL (8.5-10.1) L 04/21/20 06:45 Magnesium 1.6 mg/dL (1.8-2.4) L 04/21/20 06:45 Iron 171 ug/dL (50-170) H 04/20/20 07:00 TIBC 170 ug/dL (250-450) L 04/20/20 07:00 Transferrin % Sat 101 % (15-50) H 04/20/20 07:00 Ferritin 234 ng/mL (8-252) 04/20/20 07:00 Total Bilirubin 0.9 mg/dL (0.2-1.0) 04/17/20 16:49 AST 33 U/L (15-37) 04/17/20 16:49 ALT 29 U/L (14-59) 04/17/20 16:49 Alkaline Phosphatase 138 U/L (46-116) H 04/17/20 16:49 Troponin I < 0.05 ng/mL (<0.06) 04/17/20 16:49 Total Protein 7.5 g/dL (6.4-8.2) 04/17/20 16:49 Albumin 3.6 g/dL (3.4-5.0) 04/17/20 16:49 Vitamin B12 567 pg/mL (193-986) 04/20/20 07:00 Folate 15.7 ng/mL (8.6-20.0) 04/20/20 07:00 Urine Color Yellow (Yellow) 04/17/20 18:25 Urine Clarity Clear (Clear) 04/17/20 18:25 Urine pH 7.0 (5-8) 04/17/20 18:25 Ur Specific [place] 1.015 (1.005-1.025) 04/17/20 18:25 Urine Protein Negative mg/dL (Negative) 04/17/20 18:25 Urine Ketones Negative mg/dL (Negative) 04/17/20 18:25 Urine Blood Moderate (Negative) H 04/17/20 18:25 Urine Nitrite Negative (Negative) 04/17/20 18:25 Urine Bilirubin Negative (Negative) 04/17/20 18:25 Urine Urobilinogen 0.2 EU/dL (Up TO 0.2) 04/17/20 18:25 Ur Leukocyte Esterase Moderate (Negative) H 04/17/20 18:25 Urine RBC 0-2 HPF (0-2) 04/17/20 18:25 Urine WBC 3-5 HPF (0-5) 04/17/20 18:25 Ur Epithelial Cells Few HPF (Negative) 04/17/20 18:25 Urine Crystals Negative HPF (Negative) 04/17/20 18:25 Urine Bacteria Few HPF (Negative) 04/17/20 18:25 Urine Mucus Negative (Negative) 04/17/20 18:25 Ur Culture Indicated? Yes 04/17/20 18:25 Urine Glucose Negative mg/dL (Negative) 04/17/20 18:25 Stool Calprotectin Cancelled 04/18/20 11:56 COVID-19 PCR Negative (Negative) 04/17/20 21:45 Nasopharyn COVID-19 PCR Not Applicable 04/17/20 21:45 Ref Test Perform Site Count includes the [facility] lab 04/17/20 21:45 Patient ABO/Rh O Positive 04/17/20 17:00 Antibody Screen Negative 04/17/20 17:00 Reaction Clerical Check No clerical errors 04/18/20 00:10 Clerical Work Check None 04/18/20 00:10 Pre-Trans Blood Type O Positive 04/18/20 00:10 Pre-Trans Bld Appearanc No hemolysis 04/18/20 00:10 Pre-Trans REGINA Negative 04/18/20 00:10 Post-Trans Blood Type O Positive 04/18/20 00:10 Post-Trans Spec Appear No hemolysis 04/18/20 00:10 Post-Trans REGINA Negative 04/18/20 00:10 Reaction Pathol Review Negative-complete 04/18/20 00:10
--- NOTE | 2020-04-21 12:06 | PGE_ITS ---
Date of Service Date of service: 04/21/20 Time of Service: 12:06 Assessment and Plan Assessment and plan (1) Anemia due to blood loss, acute: Status: Acute (2) Diverticular hemorrhage: Status: Acute Assessment and plan: no bleeding x 24 tolerating clears w/ no n/v. ADAT cont IV. none further after d/c start asa per cards recommendations and see how she does on this. cont supportive care Subjective Subjective Interval history since last seen: pt feeling better. Less pain today and has an appetite. She had a BM and no bleeding no headaches. No CP or SOB. no productive cough. no dysuria. no leg pain or swelling. Exam HENMT Other: no changes Resp Effort & Inspection: normal respiratory effort and able to speak in complete sentences Auscultation: clear to auscultation bilaterally GI Inspection: normal to inspection Palpation: soft Other: non tender no peritonits Extrem General: normal to inspection and no clubbing, cyanosis or edema Objective Objective Clinical Data: Abnormal lab results 04/20/20 04/21/20 04/21/20 Range/Units 17:24 06:45 06:45 RBC 3.44 L (4.00-5.20) m/cumm Hgb 9.3 L 9.5 L (12.0-15.5) g/dL Hct 28.9 L 30.0 L (36.0-46.0) % MCHC 31.7 L (32.0-36.0) g/dL Plt Count 127 L (130-400) x1000/uL Absolute Lymphocytes 0.78 L (1.2-3.4) k/cumm Chloride 113 H (98-107) mmol/L Creatinine 1.11 H (0.55-1.02) mg/dL Calcium 7.8 L (8.5-10.1) mg/dL Magnesium 1.6 L (1.8-2.4) mg/dL Vital Signs Temperature 37 C 04/21/20 11:05 Temperature Source Tympanic 04/21/20 11:05 Pulse 56 L 04/21/20 11:05 Pulse Rhythm Regular 04/21/20 08:09 Pulse 56 L 04/17/20 21:30 Respiratory Rate 16 04/21/20 11:05 Respiratory Effort Non-Labored 04/21/20 08:09 Respiratory Depth Normal 04/21/20 08:09 Respiratory Pattern Normal 04/21/20 08:09 Blood Pressure 137/65 04/21/20 11:05 Blood Pressure Mean 90 04/17/20 21:59 Blood Pressure Position Sitting 04/17/20 16:27 Pulse Oximetry 96 04/21/20 11:05 Oxygen Delivery Method Room Air 04/21/20 11:05 Oxygen Flow Rate 0 04/21/20 11:05 Pain Level 0 04/21/20 11:05 Comment 04/20/20 04:56 Intake & Output 04/20/20 04/21/20 04/21/20 23:59 11:59 23:59 Intake Total 1810 / 3555 1126.667 / 1126.667 Output Total 500 / 1800 900 / 900 Balance 1310 / 1755 226.667 / 226.667 Intake: IV 1450 / 2645 1126.667 / 1126.667 Oral 360 / 910 Output: Urine 500 / 1800 900 / 900 Other: Urine Color Yellow Dark Pina Urine Appearance Clear Clear Urine Odor Normal None Stool Occult Blood Positive Stool Size Moderate Stool Characteristics Soft Brown Voiding Methods Toilet Toilet Laboratory Results WBC 5.79 k/cumm (4.4-10.8) 04/21/20 06:45 RBC 3.44 m/cumm (4.00-5.20) L 04/21/20 06:45 Hgb 9.5 g/dL (12.0-15.5) L 04/21/20 06:45 Hct 30.0 % (36.0-46.0) L 04/21/20 06:45 MCV 87.2 fL (80-95) 04/21/20 06:45 MCH 27.6 pg (27.0-33.0) 04/21/20 06:45 MCHC 31.7 g/dL (32.0-36.0) L 04/21/20 06:45 RDW 13.6 % (11.7-14.6) 04/21/20 06:45 Plt Count 127 x1000/uL (130-400) L 04/21/20 06:45 MPV 10.8 fL (8.0-11.0) 04/21/20 06:45 Immature Gran % 0.7 % 04/21/20 06:45 Neutrophils % 76.1 04/21/20 06:45 Lymphocytes % 13.5 04/21/20 06:45 Monocytes % 7.3 04/21/20 06:45 Eosinophils % 2.2 04/21/20 06:45 Basophils % 0.2 04/21/20 06:45 Absolute Neutrophils 4.41 k/cumm (1.2-6.7) 04/21/20 06:45 Absolute Lymphocytes 0.78 k/cumm (1.2-3.4) L 04/21/20 06:45 Absolute Monocytes 0.42 k/cumm (0.11-0.7) 04/21/20 06:45 Absolute Eosinophils 0.13 k/cumm (0.0-0.7) 04/21/20 06:45 Absolute Basophils 0.01 k/cumm (0.0-0.2) 04/21/20 06:45 Differential Comment Rbc morph reviewed 04/19/20 06:15 RBC Morphology See below 04/19/20 06:15 Poikilocytosis 1+ 04/19/20 06:15 PT 10.7 sec (9.3-11.0) 04/20/20 07:00 INR 1.1 (0.9-1.1) 04/20/20 07:00 APTT 33.0 sec (21.0-31.4) H 04/17/20 16:49 Sodium 145 mmol/L (136-145) 04/21/20 06:45 Potassium 3.6 mmol/L (3.5-5.1) 04/21/20 06:45 Chloride 113 mmol/L (98-107) H 04/21/20 06:45 Carbon Dioxide 24.7 mmol/L (21.0-32.0) 04/21/20 06:45 Anion Gap 7.3 mmol/L (3-11) 04/21/20 06:45 BUN 11 mg/dL (7-18) 04/21/20 06:45 Creatinine 1.11 mg/dL (0.55-1.02) H 04/21/20 06:45 Estimated GFR/1.73 m2 47.18 (mL/min/1.73m2) 04/21/20 06:45 Glucose 103 mg/dL (74-106) 04/21/20 06:45 Calcium 7.8 mg/dL (8.5-10.1) L 04/21/20 06:45 Magnesium 1.6 mg/dL (1.8-2.4) L 04/21/20 06:45 Iron 171 ug/dL (50-170) H 04/20/20 07:00 TIBC 170 ug/dL (250-450) L 04/20/20 07:00 Transferrin % Sat 101 % (15-50) H 04/20/20 07:00 Ferritin 234 ng/mL (8-252) 04/20/20 07:00 Total Bilirubin 0.9 mg/dL (0.2-1.0) 04/17/20 16:49 AST 33 U/L (15-37) 04/17/20 16:49 ALT 29 U/L (14-59) 04/17/20 16:49 Alkaline Phosphatase 138 U/L (46-116) H 04/17/20 16:49 Troponin I < 0.05 ng/mL (<0.06) 04/17/20 16:49 Total Protein 7.5 g/dL (6.4-8.2) 04/17/20 16:49 Albumin 3.6 g/dL (3.4-5.0) 04/17/20 16:49 Vitamin B12 567 pg/mL (193-986) 04/20/20 07:00 Folate 15.7 ng/mL (8.6-20.0) 04/20/20 07:00 Urine Color Yellow (Yellow) 04/17/20 18:25 Urine Clarity Clear (Clear) 04/17/20 18:25 Urine pH 7.0 (5-8) 04/17/20 18:25 Ur Specific [place] 1.015 (1.005-1.025) 04/17/20 18:25 Urine Protein Negative mg/dL (Negative) 04/17/20 18:25 Urine Ketones Negative mg/dL (Negative) 04/17/20 18:25 Urine Blood Moderate (Negative) H 04/17/20 18:25 Urine Nitrite Negative (Negative) 04/17/20 18:25 Urine Bilirubin Negative (Negative) 04/17/20 18:25 Urine Urobilinogen 0.2 EU/dL (Up TO 0.2) 04/17/20 18:25 Ur Leukocyte Esterase Moderate (Negative) H 04/17/20 18:25 Urine RBC 0-2 HPF (0-2) 04/17/20 18:25 Urine WBC 3-5 HPF (0-5) 04/17/20 18:25 Ur Epithelial Cells Few HPF (Negative) 04/17/20 18:25 Urine Crystals Negative HPF (Negative) 04/17/20 18:25 Urine Bacteria Few HPF (Negative) 04/17/20 18:25 Urine Mucus Negative (Negative) 04/17/20 18:25 Ur Culture Indicated? Yes 04/17/20 18:25 Urine Glucose Negative mg/dL (Negative) 04/17/20 18:25 Stool Calprotectin Cancelled 04/18/20 11:56 COVID-19 PCR Negative (Negative) 04/17/20 21:45 Nasopharyn COVID-19 PCR Not Applicable 04/17/20 21:45 Ref Test Perform Site [facility] lab 04/17/20 21:45 Patient ABO/Rh O Positive 04/17/20 17:00 Antibody Screen Negative 04/17/20 17:00 Reaction Clerical Check No clerical errors 04/18/20 00:10 Clerical Work Check None 04/18/20 00:10 Pre-Trans Blood Type O Positive 04/18/20 00:10 Pre-Trans Bld Appearanc No hemolysis 04/18/20 00:10 Pre-Trans REGINA Negative 04/18/20 00:10 Post-Trans Blood Type O Positive 04/18/20 00:10 Post-Trans Spec Appear No hemolysis 04/18/20 00:10 Post-Trans REGINA Negative 04/18/20 00:10 Reaction Pathol Review Negative-complete 04/18/20 00:10
--- NOTE | 2020-04-21 14:56 | PHA.REVIEW ---
Pharmacy Admission Review - Admission Clinical Review (Last Updated 04/19/20 @ 21:38 by Jannet Aviles DO) Anemia due to blood loss, acute (Acute) Diverticular hemorrhage (Acute) Diverticula of colon (Acute) DVT prophylaxis (Acute) LGI bleed (Acute) Abdominal pain (Acute) amoxicillin Adverse Reaction (Severe, Verified 04/17/20 16:31) nausea/hot feeling sertraline Adverse Reaction (Intermediate, Verified 04/17/20 16:31) TREMOR, DIAPHORESIS codeine phosphate [From Tylenol-Codeine] Adverse Reaction (Verified 04/17/20 16:31) GI Height 5 ft 5 in Weight 68.039 kg - Renal Dosing Renal Dosing: BUN 11 mg/dL (7-18) 04/21/20 06:45 Creatinine 1.11 mg/dL (0.55-1.02) H 04/21/20 06:45 - Anticoagulation Anticoagulation: Hgb 9.5 g/dL (12.0-15.5) L 04/21/20 06:45 Hct 30.0 % (36.0-46.0) L 04/21/20 06:45 Plt Count 127 x1000/uL (130-400) L 04/21/20 06:45 INR 1.1 (0.9-1.1) 04/20/20 07:00 Creatinine 1.11 mg/dL (0.55-1.02) H 04/21/20 06:45 - Relevant Labs Sodium 145 mmol/L (136-145) 04/21/20 06:45 Potassium 3.6 mmol/L (3.5-5.1) 04/21/20 06:45 Chloride 113 mmol/L (98-107) H 04/21/20 06:45 Magnesium 1.6 mg/dL (1.8-2.4) L 04/21/20 06:45 - DM Control DM Control: Glucose 103 mg/dL (74-106) 04/21/20 06:45 - Heart Failure/CO Heart Failure/CO: Troponin I < 0.05 ng/mL (<0.06) 04/17/20 16:49 - BP Control BP Control: Blood Pressure 137/65 Blood Pressure 154/75 Blood Pressure 120/73 Antibiotic Activity - Pharmacy Antibiotic Review Pharmacy Antibiotic Activity: 48 hour review (possible discharge tomorrow per provider note)
[2020-04-21 15:10] VITALS: BP 144/92; PULSE 68; RESP 18; TEMP 35.9; O2SAT 97
[2020-04-21 20:05] VITALS: BP 165/75; PULSE 56; RESP 18; TEMP 36.8; O2SAT 91
[2020-04-21] MEDS: Dicyclomine 10 MG CAP PO (20:37)
[2020-04-21] MEDS: Melatonin 3 MG TAB 6 MG PO (20:37)
[2020-04-21 22:30] VITALS: BP 141/70; PULSE 71; RESP 17; TEMP 35.9; O2SAT 97
[2020-04-22 03:56] VITALS: BP 148/80; PULSE 69; RESP 19; TEMP 37; O2SAT 96
[2020-04-22] MEDS: metroNIDAZOLE 500 MG/100 ML BAG 100 MG IVPB (04:48)
[2020-04-22] MEDS: Levothyroxine 88 MCG TAB PO (05:25)
[2020-04-22] MEDS: FAMOTIDINE 20 MG/50 ML BAG 200 MG IVPB (06:12)
[2020-04-22 07:07] VITALS: BP 157/77; PULSE 67; RESP 20; TEMP 36.7; O2SAT 96
[2020-04-22] MEDS: Pantoprazole 40 MG VIAL IVP (07:09)
[2020-04-22] MEDS: Gabapentin 300 MG CAP PO (07:10)
[2020-04-22] MEDS: Carvedilol 6.25 MG TAB 12.5 MG PO (07:10)
[2020-04-22] MEDS: CIPROFLOXACIN 400 MG/200 ML BAG 200 MG IVPB (07:10)
[2020-04-22] MEDS: Aspirin 81 MG CHEW PO (07:38)
[2020-04-22 08:47] LABS: HCT 29.5 % (36.0-46.0); HGB 9.5 g/dL (12.0-15.5); Mean Corp. HGB Concentration 32.2 g/dL (32.0-36.0); Mean Platelet Volume 10.5 fL (8.0-11.0); Platelet Count 115 x1000/uL (130-400); RBC 3.39 m/cumm (4.00-5.20); RBC Distribution Width 13.7 % (11.7-14.6); White Blood Cell Count 5.42 k/cumm (4.4-10.8)
[2020-04-22 08:54] LABS: Anion Gap 7.8 mmol/L (3-11); BUN 6 mg/dL (7-18); CO2 22.2 mmol/L (21.0-32.0); CREATININE 0.92 mg/dL (0.55-1.02); Chloride 113 mmol/L (98-107); Estimated GFR 58.59 (mL/min/1.73m2); Glucose 116 mg/dL (74-106); Potassium 3.5 mmol/L (3.5-5.1); Sodium 143 mmol/L (136-145)
[2020-04-22 09:21] LABS: Transferrin 119 mg/dL (201-352)
[2020-04-22 09:26] LABS: CA 125 10 U/mL (<30)
--- NOTE | 2020-04-22 10:32 | W.PM.DS.N ---
Date of service: 04/22/20 Time of Service: 10:32 DS: Diagnosis Discharge Diagnosis (1) LGI bleed: Start date: 04/22/20 Start time: 10:37 Status: Acute Asessment and Plan: Likely due to diverticuli bleed anticoagulated on coumadin and plavix after stent placement in Oct 2019. HH stable. She did not require any blood transfusions. Spoke with Dr. Molina cardiology who agreed to d/c plavix and coumadin. Discharge home on 81 mg asa and no need to restart coumadin if patient is not in afib. Currently she is NSR> however in the future if she becomes in afib he recommended apixaban. She should follow up with PCP in 1 week. (2) Anemia due to blood loss, acute: Start date: 04/22/20 Start time: 10:41 Status: Acute Asessment and Plan: From above (3) Diverticular hemorrhage: Start date: 04/22/20 Start time: 10:42 Status: Acute Asessment and Plan: See above (4) Coronary artery disease: Start date: 04/22/20 Start time: 10:42 Status: Chronic Asessment and Plan: 81 mg asa Above case discussed with Dr. Ashley who is in agreement. 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 Prior to admission she was anticoagulated on plavix and coumadin, she was with her at an appt went to use bathroom and developed large amount of rectal bleeding with clots, she denied pain with the bleeding and n/v. CT in the ED did not reveal a diverticula bleed or diverticulitis, her coumadin and plavix were held, she was treated with vit k as she did not tolerate FFP and admitted for management. During course of hospital stay surgery was consulted. They agree this was likely due to diverticula bleed. Pain started to develop after admission she was treated with morphine, cipro and flagyl. Pain improved with antbiotics, she was able to start eating and today tolerating a bland diet. Hemoglobin stabilized after 2 days and she did not require transfusion. BM are brown without any blood. She is being discharged home on bland diet. Press Service Reader will speak to her about her diet, follow up with surgery as recommended. Finish a course of antibiotics and asa 81 mg. She states she does feel weak but this is to be expected. She was independent in the halls ambulating with nursing. She will need some time to heal, there is also an anxiety component about going home but she is happy to be going home to her . She denies CP, SOB, N/V/D. Home Meds and New Rx's Prescriptions: New aspirin 81 mg Tablet,Chewable 81 mg PO DAILY Qty: 30 RF: 0 ciprofloxacin HCl 500 mg tablet 500 mg PO BID Qty: 10 RF: 0 metronidazole 500 mg tablet 500 mg PO TID Qty: 15 RF: 0 Continued gabapentin 600 mg tablet 300 mg PO BID Qty: 90 RF: 5 levothyroxine [Synthroid] 88 mcg tablet 88 mcg PO DAILY@0730 Qty: 90 RF: 4 carvedilol 6.25 mg tablet 12.5 mg PO BID RF: 0 calcium carbonate-vitamin D3 [Caltrate with Vitamin D3] 1 EACH tablet 1 tab PO DAILY RF: 0 dicyclomine 10 mg capsule 10 mg PO QID PRN (Reason: abdominal pain) Qty: 120 RF: 4 atorvastatin 40 mg tablet 40 mg PO DAILY RF: 0 lisinopril 40 mg tablet 40 mg PO DAILY Qty: 90 RF: 4 furosemide 20 mg tablet 20 mg PO DAILY Qty: 7 RF: 0 amlodipine 5 mg tablet 5 mg PO DAILY Qty: 90 RF: 4 famotidine 20 mg tablet 20 mg PO BID PRNRF: 0 acetaminophen [Tylenol] 325 mg Tablet 650 mg PO Q4H PRN PRNQty: 0 RF: 0 Discontinued warfarin 5 mg tablet 5 mg PO DAILY Qty: 100 RF: 4 clopidogrel [Plavix] 75 mg Tablet 75 mg PO DAILY Qty: 0 RF: 0 warfarin 7.5 mg Tablet See Rx Instructions .ROUTE .COMPLEX RF: 0 Discharge Instructions Instructions: Rectal Bleeding (DC), Diverticulosis (DC), Diverticulosis Diet (GEN) Additional Instructions: Follow up with your PCP on 04/26/[address] Rojas Do not take plavix or coumadin. Take Aspirin 81 mg daily Follow up with Dr. Lima on May 18 as scheduled. Increase activity everyday Eat a bland diet. Take antibiotics as prescribed. Finish the entire course Follow up with Surgery as per recommendation You were found to have a simple pelvic cyst, will defer to PCP for any further management Referrals: Deni Rojas DO [ [facility] STAFF PHYSICIAN] - 04/26/20 2:00 pm Activity:: Activity as Tolerated Equipment/Supplies:: No Equipment Needed Diet:: bland diet Discharge Orders Discharge Orders: Discharge Order (Routine); Ordered 04/22/20 Ordered By: Gisela Lemus DS: Summary Status at Discharge Functional status at discharge: independent ambulation Overall status at discharge: patient is back to baseline Mental Status: mental status grossly normal Speech and Movement: speech and movement normal Mood: congruent mood Affect: normal affect Exam Narrative Exam Narrative: Pleasant elderly female appears younger than stated age color improving. Sitting up in chair. AAOx3. LSC, Abd soft with hypoactive bsx4 minimal pain with palpation. HR RRR. no clubbing, edema, or cyanosis. Psych Mental Status: mental status grossly normal Speech and Movement: speech and movement normal Mood: congruent mood Affect: normal affect DS: Data Vitals/I&O Vitals and I&O: Vital Signs Temperature 36.7 C 04/22/20 07:07 Temperature Source Tympanic 04/22/20 07:07 Pulse 67 04/22/20 07:07 Pulse Rhythm Regular 04/22/20 08:54 Pulse 56 L 04/17/20 21:30 Respiratory Rate 20 04/22/20 07:07 Respiratory Effort Non-Labored 04/22/20 08:54 Respiratory Depth Normal 04/22/20 08:54 Respiratory Pattern Normal 04/22/20 08:54 Blood Pressure 157/77 H 04/22/20 07:07 Blood Pressure Mean 90 04/17/20 21:59 Blood Pressure Position Sitting 04/17/20 16:27 Pulse Oximetry 96 04/22/20 07:07 Oxygen Delivery Method Room Air 04/22/20 07:07 Oxygen Flow Rate 0 04/22/20 07:07 Pain Level 4 04/22/20 07:07 Comment 04/20/20 04:56 Intake & Output 04/21/20 04/21/20 04/22/20 11:59 23:59 11:59 Intake Total 1576.667 / 3026.667 1450 / 3026.667 1288.333 / 1288.333 Output Total 1974 400 / 400 Balance 676.667 / 1051.667 775 / 1051.667 888.333 / 888.333 Intake: IV 1326.667 / 2776.667 1450 / 2776.667 1288.333 / 1288.333 Oral 250 / 250 Output: Urine 1974 400 / 400 Other: Urine Color Dark Pina Yellow Yellow Urine Appearance Clear Cloudy Clear Urine Odor None Normal Normal Comment mixed with stool Voiding Methods Toilet Toilet Toilet Data Completed and Pending Completed studies during hospitalization [Text1]: FINDINGS: Liver: No mass. Gallbladder and bile ducts: No calcified stones. No ductal dilation. Pancreas: No ductal dilation. No masses. Spleen: No splenomegaly or focal lesions. Adrenals: No mass. Kidneys and ureters: No hydronephrosis. No renal masses. Stomach and bowel: Pancolonic diverticulosis is severe in the mid to sigmoid colon. No diverticulitis is seen. No focal pathology in the small bowel. No significant diverticular inflammation is seen. No colitis or obstruction. Appendix: No evidence of appendicitis. Intraperitoneal space: No free air. No significant fluid collection. Vasculature: No abdominal aortic aneurysm. Lymph nodes: No significantly enlarged lymph nodes. Bladder: Unremarkable as visualized. Reproductive: Hysterectomy. 2 cm cystic structure in the left pelvis probably associated with the adnexa, stable. Given stability probably benign however consider follow-up with ultrasound given postmenopausal age, or other institutional protocol. Bones/joints: Degenerative changes in the hips and spine. No acute fracture or subluxation. A mild degenerative appearing anterolisthesis L4 over L5. Soft tissues: Small fat-containing umbilical hernia. IMPRESSION: 1. Pancolonic diverticulosis is severe in the mid to sigmoid colon, a likely source of lower GI bleeding. 2. No diverticulitis is seen. 3. Additional findings as described. FINDINGS: CT examination of the abdomen pelvis was performed bolus infusion of 100 cc of 350. Images obtained through bases are. Liver and spleen appear normal as does the pancreas. Gallbladder and ducts are CT normal. Adrenals and kidneys are unremarkable except couple tiny left renal cysts. No urinary tract calcification or obstruction. Abdominal is of diameter and major visceral branches appear intact. Small fat containing umbilical hernia noted. No other significant abdominal wall hernia. No abdominal pelvic adenopathy. There is severe colonic diverticulosis. No definite focus of diverticulitis identified. No evidence of appendicitis. No bowel obstruction. 3 cm in diameter low-attenuation left pelvic lesion unchanged from May 2019, but increase in size from October 2014, when it measured 19 millimeters in diameter. Pelvic ultrasound correlation requested to document that this is a simple cyst. Neoplastic disease not entirely excluded. IMPRESSION: Marked colonic diverticulosis without evidence of acute diverticulitis. Interval increase in size of low attenuation left adnexal lesion, pelvic ultrasound requested for further evaluation to exclude neoplasm. Labs on day of discharge: Labs from last 24 hours 04/22/20 04/22/20 08:30 08:30 WBC 5.42 RBC 3.39 L Hgb 9.5 L Hct 29.5 L MCV 87.0 MCH 28.0 MCHC 32.2 RDW 13.7 Plt Count 115 L MPV 10.5 Sodium 143 Potassium 3.5 Chloride 113 H Carbon Dioxide 22.2 Anion Gap 7.8 BUN 6 L Creatinine 0.92 Estimated GFR/1.73 m2 58.59 Glucose 116 H Calcium 8.0 L [facility] Medical History Anemia due to blood loss, acute (Acute) Anticoagulated on warfarin (Chronic) A-fib INR goal 2-3 Arthritis of right hip (Inactive) Atrial fibrillation (Chronic) Chronic congestive heart failure (Inactive 07/27/11) Diverticula of colon (Acute) Diverticular hemorrhage (Acute) Diverticulosis of colon without diverticulitis (Inactive 05/03/09) Elevated troponin (Inactive) Essential hypertension (Chronic 09/18/13) Greater trochanteric bursitis of right hip (Inactive) Depo-Medrol injection: 08/30/2019 (80 mg); 07/05/2019 (40 mg) History of tobacco use (Resolved) Hypertensive urgency (Resolved) Ileitis (Inactive) Irritable colon (Inactive) NSTEMI (non-ST elevated myocardial infarction) (Inactive) Polyp of colon, adenomatous (Inactive) Postherpetic trigeminal neuralgia (Inactive) Raynauds disease (Inactive) Total urinary incontinence (Inactive 07/27/11) Vaginal wall prolapse (Inactive 07/27/11) 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 Son Asthma Daughter No problems noted. Social History Smoking/Tobacco Use Status: Former Tobacco Use Second Hand Exposure: Yes Alcohol Intake: current Alcohol Intake frequency: holidays/special occasions only Alcohol type: wine Drug use: Never Substance use type: does not use Counseling given: No Counseling provided: none Caregiver/Support person: No Household members: spouse Housing: house Communication Needs: None Do you need help understanding health information?: Never Pets and animals: Yes Pets and animals: cat(s) Sexually active: No Current gender identity: female What is your relationship status?: How often do you talk on the phone with friends or family?: once per week How often do you get together with friends or relatives?: once per week How often do you attend zoroastrianism or temple services?: 4 or more times per year Do you belong to any clubs or organized social groups?: yes Panel score (0-1 are the most socially isolated patients): 3 Frequency: 3-4 times per week Ciara/Catholic: No preference Special ciara needs: No Seatbelt use: always Drive intox 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
--- NOTE | 2020-04-22 11:26 | W.PM.PROGNOT ---
Date of Service Date of service: 04/22/20 Time of Service: 11:26 Assessment and Plan Assessment and plan (1) Anemia due to blood loss, acute: Status: Acute (2) Diverticular hemorrhage: Status: Acute Assessment and plan: Patient was started on baby aspirin bleeding. She is stable at this time and can be safely discharged home on aspirin. She should stay on soft low fiber diet for 1 week's time. Then transition to high-fiber diet. She should probably start a fiber supplement to avoid constipation and straining. She does not need to go home on any further antibiotics. And follow-up with her primary care for. Posthospitalization follow-up (3) LGI bleed: Status: Acute (4) Coronary artery disease: Status: Chronic (5) Atrial fibrillation: Status: Chronic Subjective Subjective Interval history since last seen: Pt is doing well. no headaches. No CP or SOB. no productive cough. no dysuria. no leg pain or swelling. She is tolerating a soft diet. She has not had any more episodes of bleeding. She has not had any more episodes. Her stools were small and rabbit like pellets. She wonders if she should take something for her constipation. I did discuss the importance of avoiding cathartics and laxatives. After she gets off a soft diet about 5 days she should transition to a very high-fiber diet good start fiber product. She is going to go home just on aspirin and no longer needs the Coumadin and Plavix. She does not need to go home on any further antibiotics Exam GI Other: No nausea or vomiting. Abdomen is soft and nontender today no distention. Objective Objective Clinical Data: Abnormal lab results 04/20/20 04/22/20 04/22/20 Range/Units 07:00 08:30 08:30 RBC 3.39 L (4.00-5.20) m/cumm Hgb 9.5 L (12.0-15.5) g/dL Hct 29.5 L (36.0-46.0) % Plt Count 115 L (130-400) x1000/uL Chloride 113 H (98-107) mmol/L BUN 6 L (7-18) mg/dL Glucose 116 H (74-106) mg/dL Calcium 8.0 L (8.5-10.1) mg/dL Transferrin 119 L (201-352) mg/dL Vital Signs Temperature 36.7 C 04/22/20 07:07 Temperature Source Tympanic 04/22/20 07:07 Pulse 67 04/22/20 07:07 Pulse Rhythm Regular 04/22/20 08:54 Pulse 56 L 04/17/20 21:30 Respiratory Rate 20 04/22/20 07:07 Respiratory Effort Non-Labored 04/22/20 08:54 Respiratory Depth Normal 04/22/20 08:54 Respiratory Pattern Normal 04/22/20 08:54 Blood Pressure 157/77 H 04/22/20 07:07 Blood Pressure Mean 90 04/17/20 21:59 Blood Pressure Position Sitting 04/17/20 16:27 Pulse Oximetry 96 04/22/20 07:07 Oxygen Delivery Method Room Air 04/22/20 07:07 Oxygen Flow Rate 0 04/22/20 07:07 Pain Level 4 04/22/20 07:07 Comment 04/20/20 04:56 Intake & Output 04/21/20 04/21/20 04/22/20 11:59 23:59 11:59 Intake Total 1576.667 / 3026.667 1450 / 3026.667 1288.333 / 1288.333 Output Total 1974 400 / 400 Balance 676.667 / 1051.667 775 / 1051.667 888.333 / 888.333 Intake: IV 1326.667 / 2776.667 1450 / 2776.667 1288.333 / 1288.333 Oral 250 / 250 Output: Urine 1974 400 / 400 Other: Urine Color Dark Pina Yellow Yellow Urine Appearance Clear Cloudy Clear Urine Odor None Normal Normal Comment mixed with stool Voiding Methods Toilet Toilet Toilet Laboratory Results WBC 5.42 k/cumm (4.4-10.8) 04/22/20 08:30 RBC 3.39 m/cumm (4.00-5.20) L 04/22/20 08:30 Hgb 9.5 g/dL (12.0-15.5) L 04/22/20 08:30 Hct 29.5 % (36.0-46.0) L 04/22/20 08:30 MCV 87.0 fL (80-95) 04/22/20 08:30 MCH 28.0 pg (27.0-33.0) 04/22/20 08:30 MCHC 32.2 g/dL (32.0-36.0) 04/22/20 08:30 RDW 13.7 % (11.7-14.6) 04/22/20 08:30 Plt Count 115 x1000/uL (130-400) L 04/22/20 08:30 MPV 10.5 fL (8.0-11.0) 04/22/20 08:30 Immature Gran % 0.7 % 04/21/20 06:45 Neutrophils % 76.1 04/21/20 06:45 Lymphocytes % 13.5 04/21/20 06:45 Monocytes % 7.3 04/21/20 06:45 Eosinophils % 2.2 04/21/20 06:45 Basophils % 0.2 04/21/20 06:45 Absolute Neutrophils 4.41 k/cumm (1.2-6.7) 04/21/20 06:45 Absolute Lymphocytes 0.78 k/cumm (1.2-3.4) L 04/21/20 06:45 Absolute Monocytes 0.42 k/cumm (0.11-0.7) 04/21/20 06:45 Absolute Eosinophils 0.13 k/cumm (0.0-0.7) 04/21/20 06:45 Absolute Basophils 0.01 k/cumm (0.0-0.2) 04/21/20 06:45 Differential Comment Rbc morph reviewed 04/19/20 06:15 RBC Morphology See below 04/19/20 06:15 Poikilocytosis 1+ 04/19/20 06:15 PT 10.7 sec (9.3-11.0) 04/20/20 07:00 INR 1.1 (0.9-1.1) 04/20/20 07:00 APTT 33.0 sec (21.0-31.4) H 04/17/20 16:49 Sodium 143 mmol/L (136-145) 04/22/20 08:30 Potassium 3.5 mmol/L (3.5-5.1) 04/22/20 08:30 Chloride 113 mmol/L (98-107) H 04/22/20 08:30 Carbon Dioxide 22.2 mmol/L (21.0-32.0) 04/22/20 08:30 Anion Gap 7.8 mmol/L (3-11) 04/22/20 08:30 BUN 6 mg/dL (7-18) L 04/22/20 08:30 Creatinine 0.92 mg/dL (0.55-1.02) 04/22/20 08:30 Estimated GFR/1.73 m2 58.59 (mL/min/1.73m2) 04/22/20 08:30 Glucose 116 mg/dL (74-106) H 04/22/20 08:30 Calcium 8.0 mg/dL (8.5-10.1) L 04/22/20 08:30 Magnesium 1.6 mg/dL (1.8-2.4) L 04/21/20 06:45 Iron 171 ug/dL (50-170) H 04/20/20 07:00 TIBC 170 ug/dL (250-450) L 04/20/20 07:00 Transferrin 119 mg/dL (201-352) L 04/20/20 07:00 Transferrin % Sat 101 % (15-50) H 04/20/20 07:00 Ferritin 234 ng/mL (8-252) 04/20/20 07:00 Total Bilirubin 0.9 mg/dL (0.2-1.0) 04/17/20 16:49 AST 33 U/L (15-37) 04/17/20 16:49 ALT 29 U/L (14-59) 04/17/20 16:49 Alkaline Phosphatase 138 U/L (46-116) H 04/17/20 16:49 Troponin I < 0.05 ng/mL (<0.06) 04/17/20 16:49 Total Protein 7.5 g/dL (6.4-8.2) 04/17/20 16:49 Albumin 3.6 g/dL (3.4-5.0) 04/17/20 16:49 CA 125 Antigen 10 U/mL (<30) 04/19/20 06:15 Vitamin B12 567 pg/mL (193-986) 04/20/20 07:00 Folate 15.7 ng/mL (8.6-20.0) 04/20/20 07:00 Urine Color Yellow (Yellow) 04/17/20 18:25 Urine Clarity Clear (Clear) 04/17/20 18:25 Urine pH 7.0 (5-8) 04/17/20 18:25 Ur Specific [place] 1.015 (1.005-1.025) 04/17/20 18:25 Urine Protein Negative mg/dL (Negative) 04/17/20 18:25 Urine Ketones Negative mg/dL (Negative) 04/17/20 18:25 Urine Blood Moderate (Negative) H 04/17/20 18:25 Urine Nitrite Negative (Negative) 04/17/20 18:25 Urine Bilirubin Negative (Negative) 04/17/20 18:25 Urine Urobilinogen 0.2 EU/dL (Up TO 0.2) 04/17/20 18:25 Ur Leukocyte Esterase Moderate (Negative) H 04/17/20 18:25 Urine RBC 0-2 HPF (0-2) 04/17/20 18:25 Urine WBC 3-5 HPF (0-5) 04/17/20 18:25 Ur Epithelial Cells Few HPF (Negative) 04/17/20 18:25 Urine Crystals Negative HPF (Negative) 04/17/20 18:25 Urine Bacteria Few HPF (Negative) 04/17/20 18:25 Urine Mucus Negative (Negative) 04/17/20 18:25 Ur Culture Indicated? Yes 04/17/20 18:25 Urine Glucose Negative mg/dL (Negative) 04/17/20 18:25 Stool Calprotectin Cancelled 04/18/20 11:56 COVID-19 PCR Negative (Negative) 04/17/20 21:45 Nasopharyn COVID-19 PCR Not Applicable 04/17/20 21:45 Ref Test Perform Site Critical access hospital lab 04/17/20 21:45 Patient ABO/Rh O Positive 04/17/20 17:00 Antibody Screen Negative 04/17/20 17:00 Reaction Clerical Check No clerical errors 04/18/20 00:10 Clerical Work Check None 04/18/20 00:10 Pre-Trans Blood Type O Positive 04/18/20 00:10 Pre-Trans Bld Appearanc No hemolysis 04/18/20 00:10 Pre-Trans REGINA Negative 04/18/20 00:10 Post-Trans Blood Type O Positive 04/18/20 00:10 Post-Trans Spec Appear No hemolysis 04/18/20 00:10 Post-Trans REGINA Negative 04/18/20 00:10 Reaction Pathol Review Negative-complete 04/18/20 00:10
--- NOTE | 2020-04-22 13:22 | PDOC.CMDIS ---
- If Service Date Differs Date of service: 04/22/20 Time of Service: 13:22 LACE Index Scoring Tool - Questions: Length of Stay (in days): 4 - 6 Acuity (Admit via E.D.?): Yes E.D. Visits: 4 - Answers: Total Score: 11 Risk of Readmission: High Risk Care Management Discharge Reason for Hospitalization: Lower GI bleed Discharge Plan: Juli will be discharged home with no new services. She will follow up with her surgeon, PCP and Cardiology and transport via private vehicle with . Patient/Family Education Needs: Discharge plan, limitations, follow up plan and Ask Me Three
== END 2020-04-22 11:56 | disposition home or self-care (01) | DRG 378 ==
LOC: ER 21:13 → MS 22:10
PROVIDERS: Internal Medicine; Nurse Practitioner Family; Surgery; Admitting Provider General Practice; Emergency Provider Physician Assistant; PCP Family Medicine; Visit Provider General Practice
DX: K57.31 Diverticulosis of large intestine without perforation or abscess with bleeding (principal); B02.22 Postherpetic trigeminal neuralgia; I48.20 Chronic atrial fibrillation, unspecified; D62 Acute posthemorrhagic anemia; Z79.01 Long term (current) use of anticoagulants; I25.10 Atherosclerotic heart disease of native coronary artery without angina pectoris; I25.2 Old myocardial infarction; I73.00 Raynaud's syndrome without gangrene; E03.9 Hypothyroidism, unspecified; I50.9 Heart failure, unspecified; I11.0 Hypertensive heart disease with heart failure; K58.9 Irritable bowel syndrome, unspecified; T80.89XA Other complications following infusion, transfusion and therapeutic injection, initial encounter
CPT/HCPCS: 36415; 80048; 80053; 85027; 86304; 86850; 86900; 86901; 93005; 96361; 96374; 99222; 99231; 99232; 99233; 99239; 99253; 99285; U0003; 74177; 81003; 81015; 82607; 82728; 82746; 83540; 83550; 83735; 83993; 84132; 84466; 84484; 85014; 85018; 85025; 85610; 85730; 86880; 87086; 93010; G0378; J0131; J0744; J1756; J2270; J2405; J3430; J3475; J3490; P9059

== ENCOUNTER → 2020-05-17 09:46 | Outpatient (BNVA) | payer MEDICARE, SELFPAY | PROVIDERS: PCP Family Medicine; Referring Provider Family Medicine; Visit Provider Internal Medicine Cardiovascular Disease | DX: I25.10 Atherosclerotic heart disease of native coronary artery without angina pectoris (principal); I48.91 Unspecified atrial fibrillation; I10 Essential (primary) hypertension | CPT/HCPCS: 99204; 99215 ==

== ENCOUNTER 2020-05-24 01:21 | Outpatient (CLI) | payer MEDICARE, SELFPAY ==
[2020-05-24 11:14] LABS: HCT 38.1 % (36.0-46.0); HGB 12.2 g/dL (11.2-15.7)
[2020-05-24 12:41] LABS: Anion Gap 11.2 mmol/L (3-11); BUN 22 mg/dL (7-18); CO2 27.8 mmol/L (21.0-32.0); CREATININE 1.11 mg/dL (0.55-1.02); Calcium 8.9 mg/dL (8.5-10.1); Chloride 103 mmol/L (98-107); Estimated GFR 47.18 (mL/min/1.73m2); Glucose 84 mg/dL (74-106); Potassium 4.5 mmol/L (3.5-5.1); Sodium 142 mmol/L (136-145)
== END 2020-05-24 01:41 ==
PROVIDERS: Family Medicine; PCP Nurse Practitioner; Visit Provider Internal Medicine Cardiovascular Disease
DX: D62 Acute posthemorrhagic anemia (principal)
CPT/HCPCS: 36415; 80048; 85014; 85018

== ENCOUNTER 2020-06-03 10:00 | Outpatient (RCR) | payer MEDICARE, SELFPAY | END 2020-06-03 23:59 | disposition home or self-care (01) | LOC: CR 10:00 | PROVIDERS: PCP Family Medicine; Visit Provider Family Medicine | DX: I25.2 Old myocardial infarction (principal); Z51.89 Encounter for other specified aftercare | CPT/HCPCS: S9472 ==

== ENCOUNTER 2020-06-24 02:02 | Outpatient (CLI) | payer MEDICARE, SELFPAY ==
[2020-06-25 12:42] LABS: COVID-19 RT-PCR Result NEGATIVE (Negative)
== END 2020-06-24 02:22 ==
PROVIDERS: PCP Nurse Practitioner; Visit Provider Family Medicine
DX: Z11.59 Encounter for screening for other viral diseases (principal); Z01.818 Encounter for other preprocedural examination
CPT/HCPCS: U0003

== ENCOUNTER 2020-07-02 04:46 | Outpatient (CLI) | payer MEDICARE, SELFPAY ==
[2020-07-02 12:31] LABS: HCT 38.4 % (36.0-46.0); HGB 12.1 g/dL (11.2-15.7); MCH 27.7 pg (27.0-33.0); MCHC 31.5 % (32.0-36.0); MCV 87.9 fL (80-95); MPV 10.9 fL (8.0-11.0); Platelet Count 176 10^3/uL (130-400); RBC 4.37 10^6/uL (3.93-5.22); RDW 12.3 % (11.7-14.6); RDW-SD 39.6 fL; WBC 5.14 10^3/uL (4.4-10.8)
[2020-07-02 12:44] LABS: CREATININE 1.08 mg/dL (0.55-1.02); Estimated GFR 48.57 (mL/min/1.73m2); TSH 1.28 uIU/mL (0.36-3.74)
== END 2020-07-02 05:06 ==
PROVIDERS: PCP Nurse Practitioner; Visit Provider Nurse Practitioner
DX: I10 Essential (primary) hypertension (principal); E03.9 Hypothyroidism, unspecified; D62 Acute posthemorrhagic anemia
CPT/HCPCS: 36415; 85027; 82565; 84443

== ENCOUNTER 2020-07-03 13:14 | Outpatient (RCR) | payer MEDICARE, SELFPAY | END 2020-07-03 23:59 | disposition home or self-care (01) | LOC: CR 13:14 | PROVIDERS: PCP Nurse Practitioner; Visit Provider Family Medicine | DX: I25.2 Old myocardial infarction (principal); Z51.89 Encounter for other specified aftercare | CPT/HCPCS: S9472 ==

== ENCOUNTER 2020-07-22 09:00 | Outpatient (RCR) | payer MEDICARE, SELFPAY | END 2020-08-03 23:59 | disposition home or self-care (01) | LOC: CR 09:00 | PROVIDERS: PCP Nurse Practitioner; Visit Provider Family Medicine | DX: I25.2 Old myocardial infarction (principal); Z51.89 Encounter for other specified aftercare; Z95.5 Presence of coronary angioplasty implant and graft | CPT/HCPCS: S9472 ==

== ENCOUNTER → 2020-08-09 10:05 | Outpatient (BNVA) | payer MEDICARE, SELFPAY | PROVIDERS: PCP Nurse Practitioner; Referring Provider Family Medicine; Visit Provider Internal Medicine Cardiovascular Disease | DX: I25.10 Atherosclerotic heart disease of native coronary artery without angina pectoris (principal); I48.11 Longstanding persistent atrial fibrillation; I10 Essential (primary) hypertension | CPT/HCPCS: 99214 ==

== ENCOUNTER 2020-08-19 01:09 | Outpatient (CLI) | payer MEDICARE, SELFPAY ==
[2020-08-19 13:14] LABS: INR 2.4 (0.9-1.1); Prothrombin Time 23.8 sec (9.3-11.0)
== END 2020-08-19 01:29 ==
PROVIDERS: PCP Nurse Practitioner; Visit Provider Nurse Practitioner
DX: I48.91 Unspecified atrial fibrillation (principal); Z79.01 Long term (current) use of anticoagulants
CPT/HCPCS: 36415; 85610

== ENCOUNTER 2020-08-26 03:41 | Outpatient (CLI) | payer MEDICARE, SELFPAY ==
[2020-08-26 12:49] LABS: Prothrombin Time 29.8 sec (9.3-11.0)
== END 2020-08-26 04:01 ==
PROVIDERS: Family Medicine; PCP Nurse Practitioner; Visit Provider Nurse Practitioner
DX: I48.91 Unspecified atrial fibrillation (principal); Z79.01 Long term (current) use of anticoagulants
CPT/HCPCS: 36415; 85610

== ENCOUNTER 2020-09-03 02:51 | Outpatient (CLI) | payer MEDICARE, SELFPAY ==
[2020-09-03 12:47] LABS: INR 3.7 (0.9-1.1); Prothrombin Time 35.6 sec (9.3-11.0)
== END 2020-09-03 03:11 ==
PROVIDERS: PCP Nurse Practitioner; Visit Provider Nurse Practitioner
DX: I48.91 Unspecified atrial fibrillation (principal); Z79.01 Long term (current) use of anticoagulants
CPT/HCPCS: 36415; 85610

== ENCOUNTER 2020-09-11 03:05 | Outpatient (CLI) | payer MEDICARE, SELFPAY ==
[2020-09-11 13:14] LABS: INR 2.9 (0.9-1.1)
== END 2020-09-11 03:25 ==
PROVIDERS: Family Medicine; PCP Nurse Practitioner; Visit Provider Nurse Practitioner
DX: I48.91 Unspecified atrial fibrillation (principal); Z79.01 Long term (current) use of anticoagulants
CPT/HCPCS: 36415; 85610

== ENCOUNTER 2020-09-18 02:33 | Outpatient (CLI) | payer MEDICARE, SELFPAY ==
[2020-09-18 12:34] LABS: INR 1.9 (0.9-1.1); Prothrombin Time 18.8 sec (9.3-11.0)
== END 2020-09-18 02:53 ==
PROVIDERS: Family Medicine; PCP Nurse Practitioner; Visit Provider Nurse Practitioner
DX: I48.91 Unspecified atrial fibrillation (principal); Z79.01 Long term (current) use of anticoagulants
CPT/HCPCS: 36415; 85610

== ENCOUNTER 2020-09-25 03:10 | Outpatient (CLI) | payer MEDICARE, SELFPAY ==
[2020-09-25 12:47] LABS: INR 2.9 (0.9-1.1)
== END 2020-09-25 03:30 ==
PROVIDERS: PCP Nurse Practitioner; Visit Provider Nurse Practitioner
DX: I48.91 Unspecified atrial fibrillation (principal); Z79.01 Long term (current) use of anticoagulants
CPT/HCPCS: 36415; 85610

== ENCOUNTER 2020-10-02 02:29 | Outpatient (CLI) | payer MEDICARE, SELFPAY ==
[2020-10-02 12:48] LABS: INR 2.6 (0.9-1.1); Prothrombin Time 25.6 sec (9.3-11.0)
== END 2020-10-02 02:49 ==
PROVIDERS: PCP Nurse Practitioner; Visit Provider Nurse Practitioner
DX: I48.91 Unspecified atrial fibrillation (principal); Z79.01 Long term (current) use of anticoagulants
CPT/HCPCS: 36415; 85610

== ENCOUNTER 2020-10-09 04:17 | Outpatient (CLI) | payer MEDICARE, SELFPAY ==
[2020-10-09 13:03] LABS: INR 2.3 (0.9-1.1); Prothrombin Time 22.8 sec (9.3-11.0)
== END 2020-10-09 04:37 ==
PROVIDERS: PCP Nurse Practitioner; Visit Provider Nurse Practitioner
DX: I48.91 Unspecified atrial fibrillation (principal); Z79.01 Long term (current) use of anticoagulants
CPT/HCPCS: 36415; 85610

== ENCOUNTER 2020-10-16 04:32 | Outpatient (CLI) | payer MEDICARE, SELFPAY ==
[2020-10-16 12:33] LABS: INR 2.8 (0.9-1.1)
== END 2020-10-16 04:52 ==
PROVIDERS: PCP Nurse Practitioner; Visit Provider Nurse Practitioner
DX: I48.91 Unspecified atrial fibrillation (principal); Z79.01 Long term (current) use of anticoagulants
CPT/HCPCS: 36415; 85610

== ENCOUNTER 2020-10-23 04:10 | Outpatient (CLI) | payer MEDICARE, SELFPAY ==
[2020-10-23 09:20] LABS: Prothrombin Time 29.4 sec (9.3-11.0)
== END 2020-10-23 04:30 ==
PROVIDERS: PCP Nurse Practitioner; Visit Provider Nurse Practitioner
DX: I48.91 Unspecified atrial fibrillation (principal); Z79.01 Long term (current) use of anticoagulants
CPT/HCPCS: 36415; 85610

== ENCOUNTER 2020-10-28 02:16 | Outpatient (CLI) | payer MEDICARE, SELFPAY ==
--- NOTE | 2020-10-28 08:00 | DI.MAMMO_ITS ---
EXAM: MAMMO SCREENING CLINICAL HISTORY: screening,z12.39. TECHNIQUE: Bilateral full field digital CC and MLO mammographic images were obtained with 3D tomosyn thesis and utilizing computer aided detection (CAD). COMPARISON: Prior mammograms dating back to 2010, the most recent being October 2019. FINDINGS: There 2-possibly 3 new nodules in the right breast, all well-defined. The largest of these measures 4 millimeters and is located 5 centimetres in from the nipple, medial of center. Others are located more posteriorly in the right breast and also similar appearing oval well-defined nodules located pos teriorly in the opposite-left breast. Benign-appearing microcalcifications are evident in both breasts. There is no significant devops architect ural distortion nor skin thickening-retraction. IMPRESSION: Bilateral benign-appearing breast nodules, although increased in size and number from prior studies. Bilateral breast ultrasound recommended. BI-RADS Category 0 - Assessment Incomplete: Need additional imaging evaluation Breast Density - Category B - Scattered areas of fibroglandular density Breast density Category C or D implies that the patient has dense breast tissue. Dense breast tissue can make it harder to find cancer on a mammogram. Dense breast tissue is also associated with an incr eased risk of breast cancer. This information about the result of the mammogram report was provided to the patient to raise their awareness. Use this report when you speak with the patient about their risks for breast cancer, which includes their family history. At that time, you may recommend additional screening tests (Ultrasoun d or MRI) as these tests may add significant information. A negative radiographic report should not delay biopsy if a dominant or clinically suspicious mass is present. Up to ten percent of cancers are not identified on mammography. A negative report may reinforce clinical impression. Adenosis and dense breasts may obscure an underlying neoplasm. False positive reports average 6 to 10%. Patient will receive a letter notifying them of these results.
== END 2020-10-28 02:36 ==
PROVIDERS: PCP Nurse Practitioner; Visit Provider Nurse Practitioner
DX: Z12.31 Encounter for screening mammogram for malignant neoplasm of breast (principal); R92.8 Other abnormal and inconclusive findings on diagnostic imaging of breast
CPT/HCPCS: 77063; 77067

== ENCOUNTER 2020-11-01 02:55 | Outpatient (CLI) | payer MEDICARE, SELFPAY ==
--- NOTE | 2020-11-01 | DI.US_ITS ---
EXAM: US BREAST RT LIMITED CLINICAL HISTORY: F/U MAMMO, BILAT NODULES INCREASED IN SIZE. TECHNIQUE: Complete ultrasound of both breasts was performed including all 4 quadrants, the retroare olar regions, both axillary regions. COMPARISON: Prior mammograms were reviewed. Most recent mammogram of 10/28/2020 revealed bilateral n odules. FINDINGS: This is a combined report for both breasts. Left breast ultrasound reveals a 3 millimeter microcyst 11 o'clock position. Adjacent to this is a l arger 9 x 3 millimeter cyst. At the 12 o'clock position there is a 3 millimeter microcysts. Also at 12 o'clock position is a 2-3 millimeter microcysts. No solid lesions. No axillary adenopathy Right breast ultrasound reveals a 3 millimeter microcyst at the 4 o'clock position which corresponds to the nodule described on the recent mammogram. At the 6 o'clock position there is a 4 millimeter hemorrhagic microcyst. At the 11-12 o'clock position there is a 2 millimeter microcyst. No solid lesions. No axillary adenopathy IMPRESSION: Bilateral microcysts which correspond to findings on the recent mammogram. Most importantly, there are no concerning solid lesions seen in either breast. Appropriate follow-up is to keep this patient on a yearly breast imaging schedule, with earlier imagi ng if a self detected breast changes noted.. BI-RADS Category 2 - Benign Findings Breast Density - Category B - Scattered areas of fibroglandular density Breast density Category C or D implies that the patient has dense breast tissue. Dense breast tissue can make it harder to find cancer on a mammogram. Dense breast tissue is also associated with an incr eased risk of breast cancer. This information about the result of the mammogram report was provided to the patient to raise their awareness. Use this report when you speak with the patient about their risks for breast cancer, which includes their family history. At that time, you may recommend additional screening tests (Ultrasoun d or MRI) as these tests may add significant information. A negative radiographic report should not delay biopsy if a dominant or clinically suspicious mass is present. Up to ten percent of cancers are not identified on mammography. A negative report may reinforce clinical impression. Adenosis and dense breasts may obscure an underlying neoplasm. False positive reports average 6 to 10%. Patient will receive a letter notifying them of these results.
--- NOTE | 2020-11-01 | DI.US_ITS ---
EXAM: US BREAST LT LIMITED CLINICAL HISTORY: F/U MAMMO,INCREASE IN SIZE OF BILAT NODULES. TECHNIQUE: Ultrasound of the left breast was performed. COMPARISON: Prior mammograms were reviewed. FINDINGS: See combined report. IMPRESSION: BI-RADS Category 2 - Benign Findings Breast Density - Category B - Scattered areas of fibroglandular density Breast density Category C or D implies that the patient has dense breast tissue. Dense breast tissue can make it harder to find cancer on a mammogram. Dense breast tissue is also associated with an incr eased risk of breast cancer. This information about the result of the mammogram report was provided to the patient to raise their awareness. Use this report when you speak with the patient about their risks for breast cancer, which includes their family history. At that time, you may recommend additional screening tests (Ultrasoun d or MRI) as these tests may add significant information. A negative radiographic report should not delay biopsy if a dominant or clinically suspicious mass is present. Up to ten percent of cancers are not identified on mammography. A negative report may reinforce clinical impression. Adenosis and dense breasts may obscure an underlying neoplasm. False positive reports average 6 to 10%. Patient will receive a letter notifying them of these results.
== END 2020-11-01 03:15 ==
PROVIDERS: PCP Nurse Practitioner; Visit Provider Nurse Practitioner
DX: R92.8 Other abnormal and inconclusive findings on diagnostic imaging of breast (principal); N60.01 Solitary cyst of right breast; N60.02 Solitary cyst of left breast
CPT/HCPCS: 76642

== ENCOUNTER 2020-11-06 03:43 | Outpatient (CLI) | payer MEDICARE, SELFPAY ==
[2020-11-06 13:58] LABS: INR 1.9 (0.9-1.1); Prothrombin Time 18.4 sec (9.3-11.0)
== END 2020-11-06 03:44 | disposition home or self-care (01) ==
LOC: LOS 03:43
PROVIDERS: PCP Nurse Practitioner; Visit Provider Nurse Practitioner
DX: I48.91 Unspecified atrial fibrillation (principal); Z79.01 Long term (current) use of anticoagulants
CPT/HCPCS: 36415; 85610

== ENCOUNTER 2020-11-14 02:44 | Outpatient (CLI) | payer MEDICARE, SELFPAY ==
[2020-11-14 13:00] LABS: INR 2.6 (0.9-1.1); Prothrombin Time 25.8 sec (9.3-11.0)
== END 2020-11-14 02:45 | disposition home or self-care (01) ==
PROVIDERS: PCP Nurse Practitioner; Visit Provider Nurse Practitioner
DX: I48.91 Unspecified atrial fibrillation (principal); Z79.01 Long term (current) use of anticoagulants
CPT/HCPCS: 36415; 85610

== ENCOUNTER 2020-12-04 03:53 | Outpatient (CLI) | payer MEDICARE, SELFPAY ==
[2020-12-04 12:53] LABS: INR 2.2 (0.9-1.1); Prothrombin Time 21.7 sec (9.3-11.0)
== END 2020-12-04 03:54 | disposition home or self-care (01) ==
LOC: LOS 03:54
PROVIDERS: PCP Nurse Practitioner; Visit Provider Nurse Practitioner
DX: I48.91 Unspecified atrial fibrillation (principal); Z79.01 Long term (current) use of anticoagulants
CPT/HCPCS: 36415; 85610

== ENCOUNTER 2021-01-08 03:08 | Outpatient (CLI) | payer MEDICARE, SELFPAY ==
[2021-01-08 12:07] LABS: INR 3.2 (0.9-1.1); Prothrombin Time 31.2 sec (9.3-11.0)
== END 2021-01-08 03:09 | disposition home or self-care (01) ==
LOC: LOS 03:09
PROVIDERS: PCP Nurse Practitioner; Visit Provider Nurse Practitioner
DX: I48.91 Unspecified atrial fibrillation (principal); Z79.01 Long term (current) use of anticoagulants
CPT/HCPCS: 36415; 85610

== ENCOUNTER 2021-01-22 03:00 | Outpatient (CLI) | payer MEDICARE, SELFPAY ==
[2021-01-22 14:06] LABS: INR 2.5 (0.9-1.1); Prothrombin Time 24.3 sec (9.3-11.0)
== END 2021-01-22 03:01 | disposition home or self-care (01) ==
LOC: LOS 03:00
PROVIDERS: PCP Nurse Practitioner; Visit Provider Nurse Practitioner
DX: I48.91 Unspecified atrial fibrillation (principal); Z79.01 Long term (current) use of anticoagulants
CPT/HCPCS: 36415; 85610

== ENCOUNTER → 2021-02-14 09:33 | Outpatient (BNVA) | payer MEDICARE, SELFPAY | PROVIDERS: PCP Nurse Practitioner; Visit Provider Internal Medicine Cardiovascular Disease | DX: I25.10 Atherosclerotic heart disease of native coronary artery without angina pectoris (principal); I10 Essential (primary) hypertension; I25.2 Old myocardial infarction; Z95.5 Presence of coronary angioplasty implant and graft; I48.91 Unspecified atrial fibrillation; E03.9 Hypothyroidism, unspecified; K57.91 Diverticulosis of intestine, part unspecified, without perforation or abscess with bleeding | CPT/HCPCS: 99214; 99213 ==

== ENCOUNTER 2021-02-19 02:24 | Outpatient (CLI) | payer MEDICARE, SELFPAY ==
[2021-02-19 13:02] LABS: INR 2.1 (0.9-1.1); Prothrombin Time 20.7 sec (9.3-11.0)
== END 2021-02-19 02:25 | disposition home or self-care (01) ==
LOC: LOS 02:24
PROVIDERS: PCP Nurse Practitioner; Visit Provider Nurse Practitioner
DX: I48.91 Unspecified atrial fibrillation (principal); Z79.01 Long term (current) use of anticoagulants
CPT/HCPCS: 36415; 85610

== ENCOUNTER 2021-03-19 03:12 | Outpatient (CLI) | payer MEDICARE, SELFPAY ==
[2021-03-19 12:59] LABS: Prothrombin Time 29.6 sec (9.3-11.0)
== END 2021-03-19 03:13 | disposition home or self-care (01) ==
LOC: LOS 03:13
PROVIDERS: PCP Nurse Practitioner; Visit Provider Nurse Practitioner
DX: I48.91 Unspecified atrial fibrillation (principal); Z79.01 Long term (current) use of anticoagulants
CPT/HCPCS: 36415; 85610

== ENCOUNTER 2021-04-02 02:56 | Outpatient (CLI) | payer MEDICARE, SELFPAY ==
[2021-04-02 12:50] LABS: INR 2.4 (0.9-1.1); Prothrombin Time 23.2 sec (9.3-11.0)
== END 2021-04-02 02:57 | disposition home or self-care (01) ==
LOC: LOS 02:56
PROVIDERS: PCP Nurse Practitioner; Visit Provider Nurse Practitioner
DX: I48.91 Unspecified atrial fibrillation (principal); Z79.01 Long term (current) use of anticoagulants
CPT/HCPCS: 36415; 85610

== ENCOUNTER 2021-04-29 03:23 | Outpatient (CLI) | payer MEDICARE, SELFPAY ==
[2021-04-29 15:19] LABS: INR 3.2 (0.9-1.1); Prothrombin Time 30.9 sec (9.3-11.0)
== END 2021-04-29 03:24 | disposition home or self-care (01) ==
LOC: LOS 03:23
PROVIDERS: PCP Nurse Practitioner; Visit Provider Nurse Practitioner
DX: I48.91 Unspecified atrial fibrillation (principal); Z79.01 Long term (current) use of anticoagulants
CPT/HCPCS: 36415; 85610

== ENCOUNTER 2021-05-15 04:02 | Outpatient (CLI) | payer MEDICARE, SELFPAY ==
[2021-05-15 12:38] LABS: INR 3.6 (0.9-1.1); Prothrombin Time 35.2 sec (9.3-11.0)
== END 2021-05-15 04:03 | disposition home or self-care (01) ==
LOC: LOS 04:03
PROVIDERS: PCP Nurse Practitioner; Visit Provider Nurse Practitioner
DX: I48.91 Unspecified atrial fibrillation (principal); Z79.01 Long term (current) use of anticoagulants
CPT/HCPCS: 36415; 85610

== ENCOUNTER 2021-05-28 02:39 | Outpatient (CLI) | payer MEDICARE, SELFPAY ==
[2021-05-28 12:48] LABS: INR 2.6 (0.9-1.1); Prothrombin Time 25.2 sec (9.3-11.0)
== END 2021-05-28 02:40 | disposition home or self-care (01) ==
LOC: LOS 02:39
PROVIDERS: PCP Nurse Practitioner; Visit Provider Nurse Practitioner
DX: I48.91 Unspecified atrial fibrillation (principal); Z79.01 Long term (current) use of anticoagulants
CPT/HCPCS: 36415; 85610

== ENCOUNTER 2021-06-12 02:46 | Outpatient (CLI) | payer MEDICARE, SELFPAY ==
[2021-06-12 12:39] LABS: Prothrombin Time 29.2 sec (9.3-11.0)
== END 2021-06-12 02:47 | disposition home or self-care (01) ==
LOC: LOS 02:47
PROVIDERS: PCP Nurse Practitioner; Visit Provider Nurse Practitioner
DX: I48.91 Unspecified atrial fibrillation (principal); Z79.01 Long term (current) use of anticoagulants
CPT/HCPCS: 36415; 85610

== ENCOUNTER 2021-06-26 01:35 | Outpatient (CLI) | payer MEDICARE, SELFPAY ==
[2021-06-26 12:59] LABS: INR 2.4 (0.9-1.1); Prothrombin Time 23.3 sec (9.3-11.0)
== END 2021-06-26 01:36 | disposition home or self-care (01) ==
LOC: LOS 01:36
PROVIDERS: PCP Nurse Practitioner; Visit Provider Nurse Practitioner
DX: I48.91 Unspecified atrial fibrillation (principal); Z79.01 Long term (current) use of anticoagulants
CPT/HCPCS: 36415; 85610

== ENCOUNTER 2021-07-11 01:47 | Outpatient (CLI) | payer MEDICARE, SELFPAY ==
[2021-07-11 12:39] LABS: CREATININE 1.4 mg/dL (0.55-1.02); Calculated LDL 59 mg/dL (<100); Cholesterol 166 mg/dL (<200); Estimated GFR 35.91 (mL/min/1.73m2); HDL Cholesterol 86 mg/dL (40-60); Potassium 4.1 mmol/L (3.5-5.1); TSH 0.42 uIU/mL (0.36-3.74); Triglyceride 108 mg/dL (<150)
[2021-07-11 12:47] LABS: INR 2.9 (0.9-1.1); Prothrombin Time 28.6 sec (9.3-11.0)
== END 2021-07-11 01:48 | disposition home or self-care (01) ==
LOC: LOS 01:47
PROVIDERS: PCP Nurse Practitioner; Visit Provider Nurse Practitioner
DX: I10 Essential (primary) hypertension (principal); R73.09 Other abnormal glucose; I25.10 Atherosclerotic heart disease of native coronary artery without angina pectoris; I48.91 Unspecified atrial fibrillation; Z79.01 Long term (current) use of anticoagulants
CPT/HCPCS: 36415; 80061; 82565; 83036; 84132; 84443; 85610

== ENCOUNTER 2021-08-13 02:18 | Outpatient (CLI) | payer MEDICARE, SELFPAY ==
[2021-08-13 13:08] LABS: INR 3.1 (0.9-1.1); Prothrombin Time 30.3 sec (9.3-11.0)
== END 2021-08-13 02:19 | disposition home or self-care (01) ==
PROVIDERS: PCP Nurse Practitioner; Visit Provider Nurse Practitioner
DX: I48.91 Unspecified atrial fibrillation (principal); Z79.01 Long term (current) use of anticoagulants
CPT/HCPCS: 36415; 85610

== ENCOUNTER 2021-08-20 02:05 | Outpatient (CLI) | payer MEDICARE, SELFPAY ==
[2021-08-20 13:06] LABS: INR 2.7 (0.9-1.1); Prothrombin Time 26.5 sec (9.3-11.0)
== END 2021-08-20 02:06 | disposition home or self-care (01) ==
LOC: LOS 02:07
PROVIDERS: PCP Nurse Practitioner; Visit Provider Nurse Practitioner
DX: I48.91 Unspecified atrial fibrillation (principal); Z79.01 Long term (current) use of anticoagulants
CPT/HCPCS: 36415; 85610

== ENCOUNTER 2021-09-02 03:05 | Outpatient (CLI) | payer MEDICARE, SELFPAY ==
[2021-09-02 11:07] LABS: INR 2.3 (0.9-1.1); Prothrombin Time 22.2 sec (9.3-11.0)
== END 2021-09-02 03:06 | disposition home or self-care (01) ==
LOC: LBO 03:05
PROVIDERS: PCP Nurse Practitioner; Visit Provider Nurse Practitioner
DX: I48.91 Unspecified atrial fibrillation (principal)
CPT/HCPCS: 36415; 85610

== ENCOUNTER → 2021-09-05 11:31 | Outpatient (BNVA) | payer MEDICARE, SELFPAY | PROVIDERS: PCP Nurse Practitioner; Referring Provider Nurse Practitioner; Visit Provider Internal Medicine Cardiovascular Disease | DX: I48.11 Longstanding persistent atrial fibrillation (principal); I25.10 Atherosclerotic heart disease of native coronary artery without angina pectoris; I10 Essential (primary) hypertension; Z79.01 Long term (current) use of anticoagulants | CPT/HCPCS: 99214; 99213 ==

== ENCOUNTER 2021-10-10 03:47 | Outpatient (CLI) | payer MEDICARE, SELFPAY ==
[2021-10-10 12:21] LABS: INR 2.7 (0.9-1.1); Prothrombin Time 26.4 sec (9.3-11.0)
== END 2021-10-10 03:48 | disposition home or self-care (01) ==
LOC: LBO 03:47
PROVIDERS: PCP Nurse Practitioner; Visit Provider Nurse Practitioner
DX: I48.91 Unspecified atrial fibrillation (principal)
CPT/HCPCS: 36415; 85610

== ENCOUNTER 2021-11-21 00:42 | Outpatient (CLI) | payer MEDICARE, SELFPAY ==
--- NOTE | 2021-11-21 07:15 | DI.DEXA_ITS ---
Exam(s) XR DEXA BONE DENSITY W/WO MARI EXAM: XR DEXA BONE DENSITY W/WO MARI CLINICAL HISTORY: SCREENING FOR OSTEOPOROSIS IN POSTMENOPAUSAL WOMAN,Z78.0 TECHNIQUE: COMPARISON: Comparison examination is 08/08/2009. FINDINGS: Lateral Spine Image: Unremarkable. No compression deformities identified. Left hip: Total T-Score: -1.9. This compares to -1.4 on the prior examination. Total Z-Score: 0.4 T- and Z-scores: Findings are consistent with osteopenia. Lumbar Spine: Total T-Score: -1.1. This compares to -1.0 on the prior examination. Total Z-Score: 1.8 T- and Z-scores: Findings are consistent with osteopenia. IMPRESSION: No evidence of osteoporosis. 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
--- NOTE | 2021-11-21 07:15 | DI.MAMMO_ITS ---
Exam(s) MAMMO SCREENING EXAM: MAMMO SCREENING CLINICAL HISTORY: screening,Z12.39 TECHNIQUE: Bilateral full field digital CC and MLO mammographic images were obtained with 3D tomosyn thesis and utilizing computer aided detection (CAD). COMPARISON: Available for comparison. FINDINGS: Masses/Architectural Distortion: There are several bilateral pulmonary nodules present. No suspiciou s nodules are seen. Microcalcifications: No suspicious pleomorphic-type are seen. Skin Thickening/Nipple Retraction: None. IMPRESSION: 1. No significant interval change with no specific features of malignancy noted. 2. Unless there is more urgent need, screening mammography is recommended, as per [employer] guidelines. BI-RADS Category 2 - Benign Findings Breast Density - Category B - Scattered areas of fibroglandular density Breast density category C or D implies that the patient has dense breast tissue. Dense breast tissue is very common and is not abnormal but dense breast tissue can make it harder to find cancer on a ma mmogram. Also, dense breast tissue may increase their breast cancer risk. This information about the result of the mammogram report was provided to the patient to raise their awareness. Use this report when you speak with the patient about their risks for breast cancer, which includes their family hist ory. At that time, you may recommend for more screening tests (Ultrasound or MRI) as they might be us eful based on their risk. A negative radiographic report should not delay biopsy if a dominant or clinically suspicious mass is present. Up to ten percent of cancers are not identified on mammography. A negative report may reinforce clinical impression. Adenosis and dense breasts may obscure an underlying neoplasm. False positive reports average 6 to 10%. Patient will receive a letter notifying them of these results.
== END 2021-11-21 01:02 ==
PROVIDERS: PCP Nurse Practitioner; Visit Provider Nurse Practitioner
DX: Z12.31 Encounter for screening mammogram for malignant neoplasm of breast (principal); M85.88 Other specified disorders of bone density and structure, other site; Z78.0 Asymptomatic menopausal state
CPT/HCPCS: 77063; 77067; 77080

== ENCOUNTER 2021-11-21 03:53 | Outpatient (CLI) | payer MEDICARE, SELFPAY ==
[2021-11-21 10:00] LABS: INR 2.4 (0.9-1.1); Prothrombin Time 23.6 sec (9.3-11.0)
== END 2021-11-21 03:54 | disposition home or self-care (01) ==
LOC: LBO 03:53
PROVIDERS: PCP Nurse Practitioner; Visit Provider Nurse Practitioner
DX: I48.91 Unspecified atrial fibrillation (principal)
CPT/HCPCS: 36415; 85610

== ENCOUNTER 2022-01-01 04:17 | Outpatient (CLI) | payer MEDICARE, SELFPAY ==
[2022-01-01 14:59] LABS: INR 2.9 (0.9-1.1); Prothrombin Time 28.7 sec (9.3-11.0)
== END 2022-01-01 04:18 | disposition home or self-care (01) ==
LOC: LBO 04:17
PROVIDERS: PCP Nurse Practitioner; Visit Provider Nurse Practitioner
DX: I48.91 Unspecified atrial fibrillation (principal)
CPT/HCPCS: 36415; 85610

== ENCOUNTER → 2022-01-23 10:25 | Outpatient (BNVA) | payer MEDICARE, SELFPAY | PROVIDERS: PCP Nurse Practitioner; Referring Provider Nurse Practitioner; Visit Provider Physical Therapy Assistant | DX: Z12.11 Encounter for screening for malignant neoplasm of colon (principal); Z86.010 Personal history of colon polyps ==

== ENCOUNTER 2022-01-29 02:51 | Outpatient (CLI) | payer MEDICARE, SELFPAY ==
[2022-01-29 12:48] LABS: INR 2.3 (0.9-1.1); Prothrombin Time 22.5 sec (9.3-11.0)
== END 2022-01-29 02:52 | disposition home or self-care (01) ==
PROVIDERS: PCP Nurse Practitioner; Visit Provider Nurse Practitioner
DX: I48.91 Unspecified atrial fibrillation (principal); Z79.01 Long term (current) use of anticoagulants
CPT/HCPCS: 36415; 85610

== ENCOUNTER 2022-02-25 04:19 | Outpatient (CLI) | payer MEDICARE, SELFPAY ==
[2022-02-25 13:03] LABS: INR 2.4 (0.9-1.1); Prothrombin Time 23.8 sec (9.3-11.0)
== END 2022-02-25 04:20 | disposition home or self-care (01) ==
LOC: LOS 04:19
PROVIDERS: PCP Nurse Practitioner; Visit Provider Nurse Practitioner
DX: I48.91 Unspecified atrial fibrillation (principal); Z79.01 Long term (current) use of anticoagulants
CPT/HCPCS: 36415; 85610

== ENCOUNTER → 2022-03-06 13:00 | Outpatient (BNVA) | payer MEDICARE, SELFPAY | PROVIDERS: PCP Nurse Practitioner; Visit Provider Internal Medicine Cardiovascular Disease | DX: I48.11 Longstanding persistent atrial fibrillation (principal); I25.10 Atherosclerotic heart disease of native coronary artery without angina pectoris; I10 Essential (primary) hypertension | CPT/HCPCS: 99214; 99213 ==

== ENCOUNTER 2022-03-13 22:48 | Emergency (ER) | payer MEDICARE, SELFPAY ==
[2022-03-13 23:13] VITALS: PULSE 89; RESP 18; TEMP 36; O2SAT 97
--- NOTE | 2022-03-13 23:15 | DI.CT_ITS ---
Exam(s) CT ABDOMEN PELVIS WO EXAM: CT ABDOMEN PELVIS WO CLINICAL HISTORY: abdominal pain. TECHNIQUE: Imaging Protocol: Axial computed tomography images with coronal and sagittal reformatted images were created and reviewed. Oral: / no COMPARISON: CT CT ABDOMEN PELVIS W from 02/14/[address] ABDOMEN PELVIS W from 04/17/2020 FINDINGS: ABDOMEN: Lung Bases: Unremarkable.. Liver: Normal density. No measurable mass. Gallbladder and biliary tract: No radiodense calculus or dilation. Pancreas: Normal density, no abnormal calcifications or inflammatory process. Spleen: Normal. Kidneys: Normal size, contour and axis. No radiodense stones or obstructive uropathy. No masses seen. Adrenal glands: No masses seen. Lymph nodes: Within normal limits. Abdominal Aorta: Abdominal portion non-dilated. Minimal atherosclerotic changes. PELVIS: Bladder: Symmetric distention, no gross wall thickening. Bowel: Prominent diverticulosis seen throughout. No evidence of diverticulitis. No evidence of appe ndicitis. Abnormally dilated distal small bowel with wall thickening findings could be secondary to inflammatory changes versus obstruction. There are multiple multiple tiny air bubbles which appear t o be within multiple tiny small bowel diverticula. Abnormally dilated loops of small bowel.. [place] h and proximal small bowel unremarkable. Peritoneal cavity: Moderate quantity of fluid in the pelvis. Reproductive organs: Status post hysterectomy. Bones: Degenerative changes unremarkable for age. IMPRESSION: Abnormal wall thickening and distention with surrounding inflammation in the distal small bowel. Mod erate amount of pelvic fluid. Multiple tiny diverticula of the distal ileum. RADIATION DOSE DELIVERED: 829.13mGy.cm Total DLP DATA REPOSITORY: All CT scans at this facility are submitted to the National Radiology Data Registry (NRDR) Dose Index Registry (DIR) with the [employer] ([employer]). RADIATION OPTIMIZATION: All CT scans at this facility use at least one of these dose optimization te chniques: automated exposure control; mA and/or kV adjustment per patient size (includes targeted exa ms where dose is matched to clinical indication); or iterative reconstruction.
[2022-03-13 23:16] VITALS: RESP 18
--- NOTE | 2022-03-13 23:33 | W.ED.GENAD ---
Discharge Plan Disposition Patient Disposition: HOME Condition: Stable Discharge Details Clinical Impression: Enteritis, Acute dehydration, Perforated small intestine Primary Care Provider: Sari Balbuena ED Provider: Sam Garcia Home Meds and New Rx's Prescriptions: New levofloxacin 750 mg tablet 750 mg PO DAILY Qty: 7 0RF metronidazole 500 mg tablet 500 mg PO TID Qty: 21 0RF Continued meclizine 25 mg tablet 25 mg PO BID PRN (Reason: dizziness) Qty: 30 0RF bisacodyl [Dulcolax (bisacodyl)] 5 mg tablet,delayed release (DR/EC) 5 mg PO ONCE Qty: 4 0RF Rx Instructions: take per colonoscopy instructions cholecalciferol (vitamin D3) 25 mcg (1,000 unit) capsule 25 mcg PO DAILY polyethylene glycol 3350 17 gram/dose powder 238 g PO ONCE Qty: 238 0RF Rx Instructions: take per colonoscopy instructions calcium carbonate-vitamin D3 [Caltrate with Vitamin D3] 1 EACH tablet 1 tab PO DAILY dicyclomine 10 mg capsule 10 mg PO QID PRN (Reason: abdominal pain) Qty: 120 4RF lisinopril 40 mg tablet 40 mg PO DAILY Qty: 90 4RF carvedilol 6.25 mg tablet 12.5 mg PO BID Qty: 180 3RF Label Comments: Pt states she is currently only taking Daily not BID. Pt will verify with provider what she should be doing. 03/17/22 Rx Instructions: must administer with a meal/food rx by [facility] . [facility] hydrochlorothiazide 12.5 mg tablet 12.5 mg PO DAILY Qty: 90 3RF No Action amoxicillin-pot clavulanate 875-125 mg tablet 1 tab PO BID Qty: 14 0RF metoclopramide HCl [Reglan] 5 mg tablet 5 mg PO Q6H PRN (Reason: nausea and vomiting) Qty: 12 0RF Rx Instructions: administer 30 minutes before meals hydrocodone-acetaminophen 5-325 mg tablet 1 tab PO Q6H PRNQty: 7 0RF Label Comments: Pt has not taken any yet 03/17/22 aspirin 81 mg Tablet,Delayed Release (Dr/Ec) 81 mg PO DAILY atorvastatin 40 mg tablet 40 mg PO HS gabapentin 600 mg tablet 300 mg PO BID PRN Label Comments: Takes for permanent pain in face/eye from shingles only uses for when uncomfortable. 03/17/22 levothyroxine [Synthroid] 88 mcg tablet 88 mcg PO DAILY Label Comments: Pt takes with other AM meds consistently ay 1000 warfarin 5 mg tablet 5 mg PO HS Protocol: Dose Management Condition: Wednesday Dose/Route: 5 mg Instruction: 1 x 5 mg tablet Condition: Wednesday Dose/Route: 5 mg Instruction: 1 x 5 mg tablet Condition: Wednesday Dose/Route: 5 mg Instruction: 1 x 5 mg tablet Condition: Wednesday Dose/Route: 5 mg Instruction: 1 x 5 mg tablet Condition: Dose/Route: 5 mg Instruction: 1 x 5 mg tablet Condition: Wednesday Dose/Route: 5 mg Instruction: 1 x 5 mg tablet Condition: Wednesday Dose/Route: 5 mg Instruction: 1 x 5 mg tablet Protocol Text: Adjustment Start Date: Wednesday02/25/22 INR Value: 2.4 INR Date: 02/25/22 Recheck Date: 03/27/22 Discharge Instructions Instructions: Oxycodone, Rapid Release (By mouth), Dehydration (ED) Additional Instructions: CT imaging showed inflammatory changes of your small intestine with microperforation. Maintain a clear liquid diet today. Advance diet slowly to bland foods tomorrow. Please be sure to drink adequate fluids over the next few days. Please take full course of antibiotics as prescribed. These antibiotics may interact with your Coumadin and increase INR level. You may need to decrease your Coumadin. You should have repeat testing performed on Wednesday. Return stool specimen for culture. Please contact general surgery to arrange follow-up. Call first thing Wednesday morning to arrange follow-up. Return to the ER immediately for any worsening or new concerning symptoms. Referrals: [facility] [Provider Group] Sari Balbuena NP [Primary Care Provider] - Discharge Data Discharge Date/Time-TO BE ENTERED AT DEPARTURE: 03/14/22 04:50 Medical Decision Making [id number] --81-year-old female here with severe abdominal cramping with associated frequent loose stools over the 2 days. Patient has diffuse tenderness. She has had similar episodes every few years that seem to respond to IV fluids and opioid analgesics. Concern for acute surgical pathology including bowel obstruction versus other. Patient is hypovolemic. Plan to give IV fluid bolus and morphine IV. I will obtain CT of the abdomen pelvis using hospital protocol. Patient has had some dysuria today which I suspect is secondary to dehydration and concentrated urine but consider urinary tract infection. 140 --CT of the abdomen pelvis was interpreted by radiology: IMPRESSION: 1. Distal small bowel inflammatory changes, likely with areas of microperforation. 2. Sigmoid diverticulosis without evidence of acute diverticulitis. Plan to initiate treatment with Flagyl 500 mg IV and Levaquin 750 IV. I called and consulted on-call general surgeon, Dr. Pretty, I discussed ED presentation and course including diagnostics. Dr. Pretty recommends discharge with close outpatient follow-up on Wednesday in clinic. 349 --patient received initial IV antibiotic dosing. She was reassessed and noted improvement in pain. Patient be discharged with plan to follow-up on Wednesday with surgical clinic. I stressed to her the need to monitor INR and that she should have this rechecked on Wednesday given likely need for reduced dosing with Flagyl and Levaquin. Lab Data Lab results reviewed: Yes I reviewed the patient's lab results. Labs: Laboratory Tests Range/Units 03/13/22 03/13/22 03/13/22 23:40 23:40 23:40 WBC (4.4-10.8) 10^3/uL RBC (3.93-5.22) 10^6/uL Hgb (11.2-15.7) g/dL Hct (36.0-46.0) % MCV (80-95) fL MCH (27.0-33.0) pg MCHC (32.0-36.0) % RDW (11.7-14.6) % Plt Count (130-400) 10^3/uL MPV (8.0-11.0) fL Immature Gran % Neutrophils % Lymphocytes % Monocytes % Eosinophils % Basophils % Nucleated RBC % (0.0-0.3) % Absolute Neutrophils (1.2-6.7) 10^3/uL Absolute Lymphocytes (1.2-3.4) 10^3/uL Absolute Monocytes (0.1-0.8) 10^3/uL Absolute Eosinophils (0.0-0.7) 10^3/uL Absolute Basophils (0.0-0.2) 10^3/uL VBG Lactate (0.6-1.4) mmol/L 0.8 Sodium (136-145) mmol/L 138 Potassium (3.5-5.1) mmol/L 4.1 Chloride (98-107) mmol/L 104 Carbon Dioxide (21.0-32.0) mmol/L 25.7 Anion Gap (3-11) mmol/L 8.3 BUN (7-18) mg/dL 19 H Creatinine (0.55-1.02) mg/dL 1.5 H Estimated GFR/1.73 m2 (mL/min/1.73m2) 33.16 Glucose (74-106) mg/dL 121 H Calcium (8.5-10.1) mg/dL 9.0 Total Bilirubin (0.2-1.0) mg/dL 1.1 H AST (15-37) U/L 21 ALT (14-59) U/L 22 Alkaline Phosphatase (46-116) U/L 134 H Total Protein (6.4-8.2) g/dL 7.0 Albumin (3.4-5.0) g/dL 3.4 Lipase (73-393) U/L 66 Range/Units 03/13/22 23:40 WBC (4.4-10.8) 10^3/uL 11.79 H RBC (3.93-5.22) 10^6/uL 4.94 Hgb (11.2-15.7) g/dL 13.7 Hct (36.0-46.0) % 42.2 MCV (80-95) fL 85 MCH (27.0-33.0) pg 27.7 MCHC (32.0-36.0) % 32.5 RDW (11.7-14.6) % 12.6 Plt Count (130-400) 10^3/uL 197 MPV (8.0-11.0) fL 10.3 Immature Gran % 0.4 Neutrophils % 82.7 Lymphocytes % 9.4 Monocytes % 6.2 Eosinophils % 1.1 Basophils % 0.2 Nucleated RBC % (0.0-0.3) % 0.2 Absolute Neutrophils (1.2-6.7) 10^3/uL 9.75 H Absolute Lymphocytes (1.2-3.4) 10^3/uL 1.11 L Absolute Monocytes (0.1-0.8) 10^3/uL 0.73 Absolute Eosinophils (0.0-0.7) 10^3/uL 0.13 Absolute Basophils (0.0-0.2) 10^3/uL 0.02 VBG Lactate (0.6-1.4) mmol/L Sodium (136-145) mmol/L Potassium (3.5-5.1) mmol/L Chloride (98-107) mmol/L Carbon Dioxide (21.0-32.0) mmol/L Anion Gap (3-11) mmol/L BUN (7-18) mg/dL Creatinine (0.55-1.02) mg/dL Estimated GFR/1.73 m2 (mL/min/1.73m2) Glucose (74-106) mg/dL Calcium (8.5-10.1) mg/dL Total Bilirubin (0.2-1.0) mg/dL AST (15-37) U/L ALT (14-59) U/L Alkaline Phosphatase (46-116) U/L Total Protein (6.4-8.2) g/dL Albumin (3.4-5.0) g/dL Lipase (73-393) U/L HPI General Mode of arrival: ambulatory. Date/Time Provider Initiated Documentation: 03/13/22 23:29. Limitations to Documentation: no limitations. Information obtained by: patient. HPI Narrative: 81-year-old female with history of A. fib, coronary artery disease, hypertension, hypothyroidism, presents with chief complaint of abdominal pain. Patient notes 2 days of diffuse abdominal pain described as intermittent, severe cramping. She has been taking dicyclomine and is not sure if this is helping. Pain is localized to upper abdomen. She has associated loose stool over the past 2 days as well. Decreased appetite. No nausea vomiting patient notes she has chronic diarrhea intermittently. Patient has had similar illness in the past and she states that every few years she has an episode of severe cramping and diarrhea that requires IV fluid. Related Data Home Medications Medication Instructions Recorded Confirmed calcium carbonate 600 mg-vitamin 1 tab PO DAILY 01/31/13 03/17/22 D3 20 mcg (800 unit) tablet (Caltrate with Vitamin D3) dicyclomine 10 mg capsule 10 mg PO QID PRN abdominal pain 10/29/20 03/17/22 #120 caps lisinopril 40 mg tablet 40 mg PO DAILY #90 tabs 03/18/21 03/17/22 carvedilol 6.25 mg tablet 12.5 mg PO BID #180 tabs 04/22/21 03/17/22 meclizine 25 mg tablet 25 mg PO BID PRN dizziness #30 tabs 10/17/21 03/17/22 hydrochlorothiazide 12.5 mg tablet 12.5 mg PO DAILY #90 tabs 01/05/22 03/17/22 bisacodyl 5 mg tablet,delayed 5 mg PO ONCE colonscopy bowel prep 01/23/22 03/17/22 release (Dulcolax (bisacodyl)) #4 tabs cholecalciferol (vitamin D3) 25 25 mcg PO DAILY 01/23/22 03/17/22 mcg (1,000 unit) capsule polyethylene glycol 3350 17 238 g PO ONCE colonoscopy prep 01/23/22 03/17/22 gram/dose oral powder #238 grams levofloxacin 750 mg tablet 750 mg PO DAILY #7 tabs 03/14/22 03/17/22 metronidazole 500 mg tablet 500 mg PO TID #21 tabs 03/14/22 03/17/22 amoxicillin 875 mg-potassium 1 tab PO BID #14 tabs 03/16/22 03/17/22 clavulanate 125 mg tablet hydrocodone 5 mg-acetaminophen 325 1 tab PO Q6H PRN #7 tabs 03/16/22 03/17/22 mg tablet metoclopramide HCl 5 mg tablet 5 mg PO Q6H PRN nausea and 03/16/22 03/17/22 (Reglan) vomiting #12 tabs aspirin 81 mg tablet,delayed 81 mg PO DAILY 03/17/22 03/17/22 release atorvastatin 40 mg tablet 40 mg PO HS 03/17/22 03/17/22 gabapentin 600 mg tablet 300 mg PO BID PRN 03/17/22 03/17/22 levothyroxine 88 mcg tablet 88 mcg PO DAILY 03/17/22 03/17/22 (Synthroid) warfarin 5 mg tablet 5 mg PO HS 03/17/22 03/17/22 Previous Rx's Medication Instructions Recorded dicyclomine 10 mg capsule 10 mg PO QID PRN abdominal pain 10/29/20 #120 caps lisinopril 40 mg tablet 40 mg PO DAILY #90 tabs 06/15/21 carvedilol 6.25 mg tablet 12.5 mg PO BID #180 tabs 04/22/21 meclizine 25 mg tablet 25 mg PO BID PRN dizziness #30 tabs 10/17/21 hydrochlorothiazide 12.5 mg tablet 12.5 mg PO DAILY #90 tabs 01/05/22 bisacodyl 5 mg tablet,delayed 5 mg PO ONCE colonscopy bowel prep 01/23/22 release (Dulcolax (bisacodyl)) #4 tabs polyethylene glycol 3350 17 238 g PO ONCE colonoscopy prep 01/23/22 gram/dose oral powder #238 grams levofloxacin 750 mg tablet 750 mg PO DAILY #7 tabs 03/14/22 metronidazole 500 mg tablet 500 mg PO TID #21 tabs 03/14/22 amoxicillin 875 mg-potassium 1 tab PO BID #14 tabs 03/16/22 clavulanate 125 mg tablet hydrocodone 5 mg-acetaminophen 325 1 tab PO Q6H PRN #7 tabs 03/16/22 mg tablet metoclopramide HCl 5 mg tablet 5 mg PO Q6H PRN nausea and 03/16/22 (Reglan) vomiting #12 tabs Allergies Allergy/AdvReac Type Severity Reaction Status Date / Time amoxicillin AdvReac Severe nausea/hot Verified 03/17/22 10:47 feeling sertraline AdvReac Intermediate TREMOR, Verified 03/17/22 10:47 DIAPHORESIS codeine phosphate AdvReac GI Verified 03/17/22 10:47 [From Tylenol-Codeine] flagyl AdvReac Intermediate Nausea and Uncoded 03/17/22 20:15 vomiting General Stated Complaint: GenMedical MATT: 3 Review of Systems All systems reviewed & are unremarkable except as noted in HPI and below Constitutional Constitutional: Denies fever(s) Cardiovascular Cardiovascular: Denies chest pain Gastrointestinal Gastrointestinal: Reports as per HPI Genitourinary Genitourinary: Denies hematuria, Reports dysuria (today burning) and Denies urinary urgency PFSH All Active Problems (Updated 03/17/22 @ 16:06 by Jannet Aviles DO) Perforated diverticulum of ileum (Acute) Acute dehydration (Acute) Enteritis (Acute) Perforated small intestine (Acute) MANUELITO (acute kidney injury) (Acute) BPV (benign positional vertigo) (Acute) Pre-diabetes (Acute) Arthritis (Acute) Tinnitus, bilateral (Acute) Sensorineural hearing loss of both ears (Acute) Afib (Chronic) ablated x 2, ongoing, coumadin 2020- cardiology suggesting a watchman, she declined Coronary artery disease (Chronic) NSTEMI 01/2020 Proximal LAD, mid RCA Essential hypertension (Chronic 09/18/13) Hypothyroidism (Chronic 07/27/11) Medical History Arthritis of right hip Chronic congestive heart failure (07/27/11) Diverticula of colon Diverticular hemorrhage Elevated troponin Greater trochanteric bursitis of right hip Depo-Medrol injection: 08/30/2019 (80 mg); 07/05/2019 (40 mg) History of tobacco use Irritable colon NSTEMI (non-ST elevated myocardial infarction) Polyp of colon, adenomatous Postherpetic trigeminal neuralgia Raynauds disease Vaginal wall prolapse (07/27/11) 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 Son Asthma Daughter No problems noted. Social History Smoking/Tobacco Use Status: Former Tobacco Use Tobacco: How many years used: 30 Second Hand Exposure: Yes (as a child) Smoking risk assessment performed?: Yes Alcohol Intake: never Drug use: Never Substance use type: does not use Counseling given: No Counseling provided: none Caregiver/Support person: No Household members: spouse Housing: house Communication Needs: None Do you need help understanding health information?: Never Pets and animals: Yes Pets and animals: cat(s) Sexually active: No Do you think of yourself as: straight/heterosexual Current gender identity: female What is your relationship status?: How often do you talk on the phone with friends or family?: twice per week How often do you get together with friends or relatives?: never How often do you attend orthodoxy or gnosticist services?: 4 or more times per year Do you belong to any clubs or organized social groups?: yes Panel score (0-1 are the most socially isolated patients): 3 Ciara/Buddhism: No preference Seatbelt use: always Drive intox or ride w/intox tow bar driver: No Do you feel safe at home: Yes Do you feel safe in your relationship?: Yes Exam Const General: cooperative HENMT Mouth: mucous membranes dry Eyes Conjunctivae: normal conjunctivae Sclera: normal sclerae Resp Auscultation: clear to auscultation bilaterally, no rales, no rhonchi and no wheezes Cardio Rate: regular rate and not tachycardic Rhythm: regular rhythm Heart Sounds: no murmurs GI Palpation: soft, not firm, no guarding, no masses, not rigid and tender other (diffuse) Auscultation: hyperactive bowel sounds Skin General skin exam: no rashes or lesions noted Neuro General: patient alert, patient awake and tone normal Extrem General: no edema Psych Appearance: grossly normal Mental Status: mental status grossly normal Speech and Movement: speech and movement normal Course Vital Signs Vital signs: Vital Signs Temperature 36.0 C L 03/13/22 23:13 Pulse 89 03/13/22 23:13 Respiratory Rate 18 03/13/22 23:13 Pulse Oximetry 97 03/13/22 23:13 Temperature 36.0 C L 03/13/22 23:13 Temperature Source Tympanic 03/13/22 23:13 Pulse 89 03/13/22 23:13 Respiratory Rate 18 03/13/22 23:16 Respiratory Effort 03/13/22 23:16 Respiratory Depth Normal 03/13/22 23:16 Respiratory Pattern Normal 03/13/22 23:16 Blood Pressure Position Sitting 03/13/22 23:13 Pulse Oximetry 97 03/13/22 23:13 Oxygen Delivery Method Room Air 03/13/22 23:13 Oxygen Flow Rate 0 03/13/22 23:13 Pain Level 7 03/13/22 23:13
[2022-03-13 23:45] LABS: Abs Immature Grans 0.05 10^3/uL (0.0-0.06); Absolute Basophil Count 0.02 10^3/uL (0.0-0.2); Absolute Eosinophil Count 0.13 10^3/uL (0.0-0.7); Absolute Lymphocyte Count 1.11 10^3/uL (1.2-3.4); Absolute Monocyte Count 0.73 10^3/uL (0.1-0.8); Absolute Neutrophil Count 9.75 10^3/uL (1.2-6.7); Basophils % 0.2; Eosinophils % 1.1; HCT 42.2 % (36.0-46.0); HGB 13.7 g/dL (11.2-15.7); Immature Grans % 0.4; Lactate 0.8 mmol/L (0.6-1.4); Lymphocytes % 9.4; MCH 27.7 pg (27.0-33.0); MCHC 32.5 % (32.0-36.0); MCV 85 fL (80-95); MPV 10.3 fL (8.0-11.0); Monocytes % 6.2; Neutrophils % 82.7; Nucleated RBC 0.2 % (0.0-0.3); Platelet Count 197 10^3/uL (130-400); RBC 4.94 10^6/uL (3.93-5.22); RDW 12.6 % (11.7-14.6); RDW-SD 38.8 fL; WBC 11.79 10^3/uL (4.4-10.8)
[2022-03-13] MEDS: Lactated Ringers 1,000 ML 1000 ML IV (23:48)
[2022-03-13] MEDS: MORPHine 4 MG/ML SYR IVP (23:48)
[2022-03-14 00:02] LABS: Lipase 66 U/L (73-393)
[2022-03-14 00:03] LABS: ALT 22 U/L (14-59); AST 21 U/L (15-37); Albumin 3.4 g/dL (3.4-5.0); Alkaline Phosphatase 134 U/L (46-116); Anion Gap 8.3 mmol/L (3-11); BUN 19 mg/dL (7-18); Bilirubin, Total 1.1 mg/dL (0.2-1.0); CO2 25.7 mmol/L (21.0-32.0); CREATININE 1.5 mg/dL (0.55-1.02); Chloride 104 mmol/L (98-107); Estimated GFR 33.16 (mL/min/1.73m2); Glucose 121 mg/dL (74-106); Potassium 4.1 mmol/L (3.5-5.1); Sodium 138 mmol/L (136-145)
--- NOTE | 2022-03-14 00:53 | DI.VRAD_ITS ---
Addendum created by Phillip Last MD on 03/14/2022 1:00:44 AM EDT: Discussed the possibility of ischemic, infectious, or inflammatory etiologies. THIS REPORT CONTAINS FINDINGS THAT MAY BE CRITICAL TO PATIENT CARE. The findings were verbally communicated via telephone conference with MASSIEL STANLEY at 1:00 AM EST on 03/14/2022. The findings were acknowledged and understood. Initial report created on 03/14/2022 12:53:02 AM EDT: PROCEDURE INFORMATION: Exam: CT Abdomen And Pelvis Without Contrast Exam date and time: 03/14/2022 12:24 AM Age: 81 years old Clinical indication: Abdominal pain; Localized; Lower; Additional info: Acute abd pain TECHNIQUE: Imaging protocol: Computed tomography of the abdomen and pelvis without contrast. Radiation optimization: All CT scans at this facility use at least one of these dose optimization techniques: automated exposure control; mA and/or kV adjustment per patient size (includes targeted exams where dose is matched to clinical indication); or iterative reconstruction. COMPARISON: CT ABDOMEN PELVIS W 04/17/2020 6:14 PM FINDINGS: Lungs: Mild scarring in the lung bases. Heart: Right coronary artery stent. Liver: Normal. No mass. Gallbladder and bile ducts: Normal. No calcified stones. No ductal dilation. Pancreas: Normal. No ductal dilation. Spleen: Normal. No splenomegaly. Adrenal glands: Normal. No mass. Kidneys and ureters: Normal. No hydronephrosis. Stomach and bowel: Colonic diverticulosis. Mild mural thickening and adjacent fat stranding of distal small bowel. Several tiny gas bubbles on the mesenteric margin appear to be extraluminal. Appendix: No evidence of appendicitis. Intraperitoneal space: Mild pelvic free fluid. No intraperitoneal free air. Vasculature: Unremarkable. No abdominal aortic aneurysm. Lymph nodes: Unremarkable. No enlarged lymph nodes. Urinary bladder: Unremarkable as visualized. Reproductive: Unremarkable as visualized. Bones/joints: Moderate L1-L2 degenerative disc disease. Soft tissues: Unremarkable. IMPRESSION: 1. Distal small bowel inflammatory changes, likely with areas of microperforation. 2. Sigmoid diverticulosis without evidence of acute diverticulitis. Dictated and Authenticated by: Phillip Last MD. Ordering:CANDACE Vargas MD
[2022-03-14] MEDS: metroNIDAZOLE 500 MG/100 ML BAG 100 MG IVPB (01:37)
[2022-03-14] MEDS: MORPHine 4 MG/ML SYR IVP (01:37)
[2022-03-14 01:50] LABS: Bilirubin Negative (Negative); Blood Trace-intact (Negative); Clarity Sl Cloudy (Clear); Glucose Negative (Negative); INR 2.4 (0.9-1.1); Ketones Negative (Negative); Leukocyte Esterase Small (Negative); Nitrite Negative (Negative); Prothrombin Time 22.9 sec (9.3-11.0); Urobilinogen 0.2 EU/dL (Up TO 0.2); pH 5.5 (5-8)
[2022-03-14 01:51] LABS: Bacteria Many HPF (Negative); C & S Indicated? No/Sq. Contamination; Casts Negative LPF (Negative); Crystals Negative HPF (Negative); Epithelial Cells Many HPF (Negative); Mucus Negative (Negative); WBC >50 HPF (0-5)
[2022-03-14] MEDS: levoFLOXacin 750 MG/150 ML BAG 100 MG IVPB (02:35)
[2022-03-14 04:00] VITALS: BP 121/50; PULSE 72; RESP 16
--- NOTE | 2022-03-14 11:06 | NUR.NOTE ---
Nursing Note: Loren @ [facility] called asking if Dr Garcia had gone over the warfarin dosing due to medications prescribed to patient. Looking at the provider note Dr Garcia has a protocol for the warfarin there. It was given to Loren and she is going to talk to patient when she comes in to pear picker the prescription. Destiny Saeed
== END 2022-03-14 04:50 | disposition home or self-care (01) ==
PROVIDERS: Emergency Provider Student in an Organized Health Care Education/Training Program; PCP Nurse Practitioner
DX: K52.89 Other specified noninfective gastroenteritis and colitis (principal); E86.0 Dehydration; K63.1 Perforation of intestine (nontraumatic)
CPT/HCPCS: 80053; 83690; 96361; 96365; 96367; 96375; 99284; 74176; 81003; 81015; 83605; 85025; 85610; J1956; J2270

== ENCOUNTER 2022-03-16 10:16 | Emergency (ER) | payer MEDICARE, SELFPAY ==
[2022-03-16] VITALS (20 sets, daily range): BP systolic 126–161; BP diastolic 52–100; PULSE 66–107; RESP 14–17; TEMP 36.8; O2SAT 94–98
--- NOTE | 2022-03-16 10:45 | RT.EKG_ITS ---
APPROVED REPORT Exam: Resting ECG Reason for Exam: abdominal pain Patient Location: E HR:82 bpm ECG Measurements Heart Rate 82 AXIS KS 144 P -8 QRSd 99 QRS 22 QT 446 T 118 QTc 520 Conclusion Sinus rhythm...normal P axis, V-rate 60- 99 Prolonged QT interval...QTc >500mS TWI seen on prior 04/17/20, no STEMI, non-diagnostic EKG
--- NOTE | 2022-03-16 10:46 | DI.CT_ITS ---
Exam(s) CT ABDOMEN PELVIS WO EXAM: CT ABDOMEN PELVIS WO CLINICAL HISTORY: abdominal pain, recent microperf, peritonitis. TECHNIQUE: Imaging Protocol: Axial computed tomography images with coronal and sagittal reformatted images were created and reviewed. Oral: yes / no COMPARISON: CT CT ABDOMEN PELVIS W from 04/17/[address] ABDOMEN PELVIS WO from 03/14/2022 FINDINGS: ABDOMEN: Lung Bases: Mild left basilar atelectasis. Liver: Normal density. No measurable mass. Gallbladder and biliary tract: No radiodense calculus or dilation. Pancreas: Normal density, no abnormal calcifications or inflammatory process. Spleen: Normal. Kidneys: Normal size, contour and axis. No radiodense stones or obstructive uropathy. No masses seen. Adrenal glands: No masses seen. Lymph nodes: Within normal limits. Abdominal Aorta: Abdominal portion non-dilated. PELVIS: Bladder: Symmetric distention, no gross wall thickening. Bowel: Marked improvement in previously noted small bowel dilatation. Please see noted wall thickeni ng has resolved. Severe diverticulosis is noted throughout the colon, greatest in the sigmoid. Mult iple tiny distal small bowel diverticula are also seen. No obstruction or bowel wall thickening. Peritoneal cavity: No free air. Clearing of previously noted pelvic fluid. no ascites, collection or mesenteric inflammatory response. Reproductive organs: Status post hysterectomy. Stable cystic lesion left anterolateral lower pelvis. Bones: Degenerative changes, unremarkable for age. IMPRESSION: Interval improvement in distal small bowel dilatation, wall thickening and pelvic fluid. Extensive d iverticulosis is again noted. No diverticulitis. RADIATION DOSE DELIVERED: 864.66mGy.cm Total DLP DATA REPOSITORY: All CT scans at this facility are submitted to the National Radiology Data Registry (NRDR) Dose Index Registry (DIR) with the [employer] (A[employer]). RADIATION OPTIMIZATION: All CT scans at this facility use at least one of these dose optimization te chniques: automated exposure control; mA and/or kV adjustment per patient size (includes targeted exa ms where dose is matched to clinical indication); or iterative reconstruction.
[2022-03-16] MEDS: Normal Saline 50 ML (11:03)
[2022-03-16] MEDS: Lactated Ringers 1,000 ML 1000 ML IV (11:18)
[2022-03-16 11:19] LABS: Abs Immature Grans 0.01 10^3/uL (0.0-0.06); Absolute Basophil Count 0.02 10^3/uL (0.0-0.2); Absolute Eosinophil Count 0.06 10^3/uL (0.0-0.7); Absolute Neutrophil Count 5.59 10^3/uL (1.2-6.7); Basophils % 0.3; Eosinophils % 0.9; HGB 12.1 g/dL (11.2-15.7); Immature Grans % 0.1; Lymphocytes % 8.8; MCH 28.3 pg (27.0-33.0); MCHC 33.6 % (32.0-36.0); MCV 84 fL (80-95); MPV 10.3 fL (8.0-11.0); Monocytes % 7.4; Neutrophils % 82.5; Platelet Count 160 10^3/uL (130-400); RBC 4.27 10^6/uL (3.93-5.22); RDW 12.4 % (11.7-14.6); RDW-SD 37.4 fL; WBC 6.78 10^3/uL (4.4-10.8)
[2022-03-16] MEDS: fentaNYL 100 MCG/2 ML VIAL 50 MCG IVP (11:21)
[2022-03-16] MEDS: Metoclopramide 10 MG/2 ML VIAL 5 MG IVP (11:22)
[2022-03-16 11:42] LABS: ALT 20 U/L (14-59); AST 29 U/L (15-37); Albumin 3.3 g/dL (3.4-5.0); Alkaline Phosphatase 108 U/L (46-116); Anion Gap 9.7 mmol/L (3-11); BUN 20 mg/dL (7-18); Bilirubin, Total 0.8 mg/dL (0.2-1.0); CO2 24.3 mmol/L (21.0-32.0); CREATININE 1.7 mg/dL (0.55-1.02); Calcium 9.1 mg/dL (8.5-10.1); Chloride 101 mmol/L (98-107); Glucose 88 mg/dL (74-106); Lipase 58 U/L (73-393); Potassium 4.1 mmol/L (3.5-5.1); Sodium 135 mmol/L (136-145); Total Protein 6.8 g/dL (6.4-8.2)
[2022-03-16 12:02] LABS: Bilirubin Negative (Negative); Blood Negative (Negative); Clarity Clear (Clear); Glucose Negative (Negative); Ketones Trace mg/dL (Negative); Leukocyte Esterase Trace (Negative); Nitrite Negative (Negative); Specific Gravity 1.025 (1.005-1.025); Urobilinogen 0.2 EU/dL (Up TO 0.2); pH 5.5 (5-8)
[2022-03-16 12:16] LABS: Bacteria Rare HPF (Negative); C & S Indicated? No/Sq. Contamination; Casts Negative LPF (Negative); Crystals Negative HPF (Negative); Epithelial Cells Moderate HPF (Negative); Mucus Negative (Negative); RBC Negative HPF (0-2); WBC 0-2 HPF (0-5)
--- NOTE | 2022-03-16 12:32 | W.ED.GENAD ---
Discharge Plan Disposition Patient Disposition: HOME Condition: Stable Discharge Details Clinical Impression: Perforated small intestine, Enteritis, Acute dehydration Primary Care Provider: Sari Balbuena ED Provider: Evelina Kc Home Meds and New Rx's Prescriptions: New amoxicillin-pot clavulanate 875-125 mg tablet 1 tab PO BID Qty: 14 0RF metoclopramide HCl [Reglan] 5 mg tablet 5 mg PO Q6H PRN (Reason: nausea and vomiting) Qty: 12 0RF Rx Instructions: administer 30 minutes before meals hydrocodone-acetaminophen 5-325 mg tablet 1 tab PO Q6H PRNQty: 7 0RF Continued gabapentin 600 mg tablet 300 mg PO BID Qty: 90 5RF meclizine 25 mg tablet 25 mg PO BID PRN (Reason: dizziness) Qty: 30 0RF atorvastatin 40 mg tablet 40 mg PO QPM Qty: 90 4RF warfarin 5 mg tablet 5 mg PO DAILY Qty: 100 3RF Protocol: Dose Management Condition: Wednesday Dose/Route: 5 mg Instruction: 1 x 5 mg tablet Condition: Wednesday Dose/Route: 5 mg Instruction: 1 x 5 mg tablet Condition: Wednesday Dose/Route: 5 mg Instruction: 1 x 5 mg tablet Condition: Wednesday Dose/Route: 5 mg Instruction: 1 x 5 mg tablet Condition: Dose/Route: 5 mg Instruction: 1 x 5 mg tablet Condition: Wednesday Dose/Route: 5 mg Instruction: 1 x 5 mg tablet Condition: Wednesday Dose/Route: 5 mg Instruction: 1 x 5 mg tablet Protocol Text: Adjustment Start Date: Wednesday02/25/22 INR Value: 2.4 INR Date: 02/25/22 Recheck Date: 03/27/22 bisacodyl [Dulcolax (bisacodyl)] 5 mg tablet,delayed release (DR/EC) 5 mg PO ONCE Qty: 4 0RF Rx Instructions: take per colonoscopy instructions cholecalciferol (vitamin D3) 25 mcg (1,000 unit) capsule 25 mcg PO DAILY polyethylene glycol 3350 17 gram/dose powder 238 g PO ONCE Qty: 238 0RF Rx Instructions: take per colonoscopy instructions calcium carbonate-vitamin D3 [Caltrate with Vitamin D3] 1 EACH tablet 1 tab PO DAILY dicyclomine 10 mg capsule 10 mg PO QID PRN (Reason: abdominal pain) Qty: 120 4RF lisinopril 40 mg tablet 40 mg PO DAILY Qty: 90 4RF carvedilol 6.25 mg tablet 12.5 mg PO BID Qty: 180 3RF Rx Instructions: must administer with a meal/food rx by [employer] . jeanne levothyroxine [Synthroid] 88 mcg tablet 88 mcg PO DAILY@0730 Qty: 90 1RF hydrochlorothiazide 12.5 mg tablet 12.5 mg PO DAILY Qty: 90 3RF aspirin 81 mg Tablet,Chewable 81 mg PO DAILY Qty: 30 0RF levofloxacin 750 mg tablet 750 mg PO DAILY Qty: 7 0RF metronidazole 500 mg tablet 500 mg PO TID Qty: 21 0RF Discharge Instructions Instructions: Dehydration (ED) Additional Instructions: Take Reglan 30 minutes prior to taking her pain medication Discontinue your Levaquin and Flagyl Take a yogurt pill, acidophilus daily or have at least 1 yogurt with live active cultures and Start the new antibiotic, take your next dose before you go to bed this evening, you received a dose in the emergency department today Follow-up with your primary care physician in 48 hours for reassessment Return earlier should you have new or worsening complaint Have your chemistry rechecked by your doctor this week and have repeat EKG in the outpatient setting Should you have worsening pain, uncontrolled nausea and vomiting, fever, chills, please return immediately to the emergency department for reassessment Referrals: Sari Balbuena, [facility] NURSE [Primary Care Provider] - Discharge Data Discharge Date/Time-TO BE ENTERED AT DEPARTURE: 03/16/22 14:22 Medical Decision Making Patient appears well, her labs are improved from her prior assessments and her Pain is also improved of her abdomen and pelvis, this was discussed with the radiologist, Dr. Malloy Patient is feeling improved and feels comfortable discharge home at this time I will switch her antibiotic for several reasons 1 she has prolongation of her QT the and I suspect the Levaquin contributing to that, she will discontinue this medication The Flagyl is likely making her nausea, we will discontinue this medication and start amoxicillin clavulanate, she was able to tolerate 1 tablet in the emergency department She is also able to tolerate p.o., she was given Reglan and feels improvement with her nausea She is evidence of dehydration, her creatinine is mildly elevated going from 1.5-1.7, she will increase her fluid hydration and take the antiemetics with recheck of her chemistry and EKG within the 24 to 48 hours, she was placed on list for follow-up with her PCP within the next 24 to 48 hours She feels comfortable discharge home at this time She will need close outpatient follow-up and she is discharged home in stable condition with stable vitals Medical Records Medical records reviewed: Yes I reviewed the patient's medical records. Lab Data Lab results reviewed: Yes I reviewed the patient's lab results. HPI General Date/Time Provider Initiated Documentation: 03/16/22 10:36. HPI Narrative: This 81-year-old female presents with reported history of microperforation urine testing on Flagyl and Levaquin with persistent and worsening pain, nausea and vomiting that have been present for the past 3 days. She is taking antibiotic as prescribed reportedly. She denies any fever or chills. She states she is unable to sleep secondary to nausea and discomfort. Pain is worsened with walking and movement. She denies any blood in her stool or diarrhea. She describes the pain as sharp and cramping. Denies any urinary complaints. Denies any chest pain or shortness of breath. Related Data Home Medications Medication Instructions Recorded Confirmed calcium carbonate 600 mg-vitamin 1 tab PO DAILY 01/31/13 03/16/22 D3 20 mcg (800 unit) tablet (Caltrate with Vitamin D3) aspirin 81 mg chewable tablet 81 mg PO DAILY #30 tabs 04/22/20 03/16/22 dicyclomine 10 mg capsule 10 mg PO QID PRN abdominal pain 10/29/20 03/16/22 #120 caps lisinopril 40 mg tablet 40 mg PO DAILY #90 tabs 03/18/21 03/16/22 carvedilol 6.25 mg tablet 12.5 mg PO BID #180 tabs 04/22/21 03/16/22 atorvastatin 40 mg tablet 40 mg PO QPM #90 tabs 10/17/21 03/16/22 gabapentin 600 mg tablet 300 mg PO BID #90 tabs 10/17/21 03/16/22 meclizine 25 mg tablet 25 mg PO BID PRN dizziness #30 tabs 10/17/21 03/16/22 warfarin 5 mg tablet 5 mg PO DAILY #100 tabs 10/17/21 03/16/22 hydrochlorothiazide 12.5 mg tablet 12.5 mg PO DAILY #90 tabs 01/05/22 03/16/22 levothyroxine 88 mcg tablet 88 mcg PO DAILY@0730 #90 tabs 01/05/22 03/16/22 (Synthroid) bisacodyl 5 mg tablet,delayed 5 mg PO ONCE colonscopy bowel prep 01/23/22 03/16/22 release (Dulcolax (bisacodyl)) #4 tabs cholecalciferol (vitamin D3) 25 25 mcg PO DAILY 01/23/22 03/16/22 mcg (1,000 unit) capsule polyethylene glycol 3350 17 238 g PO ONCE colonoscopy prep 01/23/22 03/16/22 gram/dose oral powder #238 grams levofloxacin 750 mg tablet 750 mg PO DAILY #7 tabs 03/14/22 03/16/22 metronidazole 500 mg tablet 500 mg PO TID #21 tabs 03/14/22 03/16/22 amoxicillin 875 mg-potassium 1 tab PO BID #14 tabs 03/16/22 clavulanate 125 mg tablet hydrocodone 5 mg-acetaminophen 325 1 tab PO Q6H PRN #7 tabs 03/16/22 mg tablet metoclopramide HCl 5 mg tablet 5 mg PO Q6H PRN nausea and 03/16/22 (Reglan) vomiting #12 tabs Previous Rx's Medication Instructions Recorded aspirin 81 mg chewable tablet 81 mg PO DAILY #30 tabs 04/22/20 dicyclomine 10 mg capsule 10 mg PO QID PRN abdominal pain 10/29/20 #120 caps lisinopril 40 mg tablet 40 mg PO DAILY #90 tabs 03/18/21 carvedilol 6.25 mg tablet 12.5 mg PO BID #180 tabs 04/22/21 atorvastatin 40 mg tablet 40 mg PO QPM #90 tabs 10/17/21 gabapentin 600 mg tablet 300 mg PO BID #90 tabs 10/17/21 meclizine 25 mg tablet 25 mg PO BID PRN dizziness #30 tabs 10/17/21 warfarin 5 mg tablet 5 mg PO DAILY #100 tabs 10/17/21 hydrochlorothiazide 12.5 mg tablet 12.5 mg PO DAILY #90 tabs 01/05/22 levothyroxine 88 mcg tablet 88 mcg PO DAILY@0730 #90 tabs 01/05/22 (Synthroid) bisacodyl 5 mg tablet,delayed 5 mg PO ONCE colonscopy bowel prep 01/23/22 release (Dulcolax (bisacodyl)) #4 tabs polyethylene glycol 3350 17 238 g PO ONCE colonoscopy prep 01/23/22 gram/dose oral powder #238 grams levofloxacin 750 mg tablet 750 mg PO DAILY #7 tabs 03/14/22 metronidazole 500 mg tablet 500 mg PO TID #21 tabs 03/14/22 amoxicillin 875 mg-potassium 1 tab PO BID #14 tabs 03/16/22 clavulanate 125 mg tablet hydrocodone 5 mg-acetaminophen 325 1 tab PO Q6H PRN #7 tabs 03/16/22 mg tablet metoclopramide HCl 5 mg tablet 5 mg PO Q6H PRN nausea and 03/16/22 (Reglan) vomiting #12 tabs Allergies Allergy/AdvReac Type Severity Reaction Status Date / Time amoxicillin AdvReac Severe nausea/hot Verified 03/16/22 11:24 feeling sertraline AdvReac Intermediate TREMOR, Verified 03/16/22 11:24 DIAPHORESIS codeine phosphate AdvReac GI Verified 03/16/22 11:24 [From Tylenol-Codeine] General Stated Complaint: Abd Prob MATT: 3 Review of Systems All systems reviewed & are unremarkable except as noted in HPI and below PFSH All Active Problems (Updated 03/16/22 @ 13:54 by SHASHANK Barrera) Acute dehydration (Acute) Enteritis (Acute) Perforated small intestine (Acute) BPV (benign positional vertigo) (Acute) Pre-diabetes (Acute) Arthritis (Acute) Tinnitus, bilateral (Acute) Sensorineural hearing loss of both ears (Acute) Afib (Chronic) ablated x 2, ongoing, coumadin 2020- cardiology suggesting a watchman, she declined Coronary artery disease (Chronic) NSTEMI 01/2020 Proximal LAD, mid RCA Essential hypertension (Chronic 09/18/13) Hypothyroidism (Chronic 07/27/11) Medical History Arthritis of right hip Chronic congestive heart failure (07/27/11) Diverticula of colon Diverticular hemorrhage Elevated troponin Greater trochanteric bursitis of right hip Depo-Medrol injection: 08/30/2019 (80 mg); 07/05/2019 (40 mg) History of tobacco use Irritable colon NSTEMI (non-ST elevated myocardial infarction) Polyp of colon, adenomatous Postherpetic trigeminal neuralgia Raynauds disease Vaginal wall prolapse (07/27/11) 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 Son Asthma Daughter No problems noted. Social History Smoking/Tobacco Use Status: Former Tobacco Use Tobacco: How many years used: 30 Second Hand Exposure: Yes (as a child) Smoking risk assessment performed?: Yes Alcohol Intake: never Drug use: Never Substance use type: does not use Counseling given: No Counseling provided: none Caregiver/Support person: No Household members: spouse Housing: house Communication Needs: None Do you need help understanding health information?: Never Pets and animals: Yes Pets and animals: cat(s) Sexually active: No Do you think of yourself as: straight/heterosexual Current gender identity: female What is your relationship status?: How often do you talk on the phone with friends or family?: twice per week How often do you get together with friends or relatives?: never How often do you attend taoism or voodoo services?: 4 or more times per year Do you belong to any clubs or organized social groups?: yes Panel score (0-1 are the most socially isolated patients): 3 Ciaar/Druze: No preference Seatbelt use: always Drive intox or ride w/intox route sales driver: No Do you feel safe at home: Yes Do you feel safe in your relationship?: Yes Exam Const General: cooperative, comfortable and no acute distress Eyes Sclera: sclerae normal Resp Effort & Inspection: normal respiratory effort Cardio Rate: regular rate Rhythm: regular rhythm GI Other: Mild diffuse tenderness, no guarding No CVA tenderness Skin General skin exam: no rashes or lesions noted Neuro General: patient alert and patient oriented x3 Extrem Other: Distal pulses intact Course Vital Signs Vital signs: Vital Signs Temperature 36.8 C 03/16/22 10:23 Pulse 107 H 03/16/22 10:23 Respiratory Rate 17 03/16/22 10:23 Blood Pressure 161/100 H 03/16/22 10:23 Pulse Oximetry 98 03/16/22 10:23 Temperature 36.8 C 03/16/22 10:23 Temperature Source Temporal Artery Scan 03/16/22 10:23 Pulse 66 03/16/22 12:28 Respiratory Rate 14 03/16/22 12:28 Respiratory Effort Non-Labored 03/16/22 10:26 Blood Pressure 142/58 H 03/16/22 12:28 Blood Pressure Position Sitting 03/16/22 10:23 Pulse Oximetry 97 03/16/22 12:28 Oxygen Delivery Method Room Air 03/16/22 12:28 Oxygen Flow Rate 0 03/16/22 12:28 Pain Level 4 03/16/22 12:28 Lab/Test Results Lab/Test Results: 03/16/22 11:12 Blood Blood Culture - Pending 03/16/22 10:46 Blood Blood Culture - Pending Laboratory Tests Range/Units 03/16/22 03/16/22 03/16/22 11:12 11:12 11:12 WBC (4.4-10.8) 10^3/uL 6.78 RBC (3.93-5.22) 10^6/uL 4.27 Hgb (11.2-15.7) g/dL 12.1 Hct (36.0-46.0) % 36.0 MCV (80-95) fL 84 MCH (27.0-33.0) pg 28.3 MCHC (32.0-36.0) % 33.6 D RDW (11.7-14.6) % 12.4 Plt Count (130-400) 10^3/uL 160 MPV (8.0-11.0) fL 10.3 Immature Gran % 0.1 Neutrophils % 82.5 Lymphocytes % 8.8 Monocytes % 7.4 Eosinophils % 0.9 Basophils % 0.3 Nucleated RBC % (0.0-0.3) % 0.0 Absolute Neutrophils (1.2-6.7) 10^3/uL 5.59 Absolute Lymphocytes (1.2-3.4) 10^3/uL 0.60 L Absolute Monocytes (0.1-0.8) 10^3/uL 0.50 Absolute Eosinophils (0.0-0.7) 10^3/uL 0.06 Absolute Basophils (0.0-0.2) 10^3/uL 0.02 VBG Lactate (0.6-1.4) mmol/L 1.0 Sodium (136-145) mmol/L 135 L Potassium (3.5-5.1) mmol/L 4.1 Chloride (98-107) mmol/L 101 Carbon Dioxide (21.0-32.0) mmol/L 24.3 Anion Gap (3-11) mmol/L 9.7 BUN (7-18) mg/dL 20 H Creatinine (0.55-1.02) mg/dL 1.7 H Estimated GFR/1.73 m2 (mL/min/1.73m2) 28.70 Glucose (74-106) mg/dL 88 Calcium (8.5-10.1) mg/dL 9.1 Total Bilirubin (0.2-1.0) mg/dL 0.8 AST (15-37) U/L 29 ALT (14-59) U/L 20 Alkaline Phosphatase (46-116) U/L 108 Total Protein (6.4-8.2) g/dL 6.8 Albumin (3.4-5.0) g/dL 3.3 L Lipase (73-393) U/L 58 Urine Color (Yellow) Urine Clarity (Clear) Urine pH (5-8) Ur Specific [place] (1.005-1.025) Urine Protein (Negative) mg/dL Urine Ketones (Negative) mg/dL Urine Blood (Negative) Urine Nitrite (Negative) Urine Bilirubin (Negative) Urine Urobilinogen (Up TO 0.2) EU/dL Ur Leukocyte Esterase (Negative) Urine RBC (0-2) HPF Urine WBC (0-5) HPF Ur Epithelial Cells (Negative) HPF Urine Crystals (Negative) HPF Urine Bacteria (Negative) HPF Urine Casts (Negative) LPF Urine Mucus (Negative) Ur Culture Indicated? Urine Glucose (Negative) mg/dL Range/Units 03/16/22 03/16/22 11:12 11:50 WBC (4.4-10.8) 10^3/uL RBC (3.93-5.22) 10^6/uL Hgb (11.2-15.7) g/dL Hct (36.0-46.0) % MCV (80-95) fL MCH (27.0-33.0) pg MCHC (32.0-36.0) % RDW (11.7-14.6) % Plt Count (130-400) 10^3/uL MPV (8.0-11.0) fL Immature Gran % Neutrophils % Lymphocytes % Monocytes % Eosinophils % Basophils % Nucleated RBC % (0.0-0.3) % Absolute Neutrophils (1.2-6.7) 10^3/uL Absolute Lymphocytes (1.2-3.4) 10^3/uL Absolute Monocytes (0.1-0.8) 10^3/uL Absolute Eosinophils (0.0-0.7) 10^3/uL Absolute Basophils (0.0-0.2) 10^3/uL VBG Lactate (0.6-1.4) mmol/L Sodium (136-145) mmol/L Potassium (3.5-5.1) mmol/L Chloride (98-107) mmol/L Carbon Dioxide (21.0-32.0) mmol/L Anion Gap (3-11) mmol/L BUN (7-18) mg/dL Creatinine (0.55-1.02) mg/dL Estimated GFR/1.73 m2 (mL/min/1.73m2) Glucose (74-106) mg/dL Calcium (8.5-10.1) mg/dL Total Bilirubin (0.2-1.0) mg/dL AST (15-37) U/L ALT (14-59) U/L Alkaline Phosphatase (46-116) U/L Total Protein (6.4-8.2) g/dL Albumin (3.4-5.0) g/dL Lipase (73-393) U/L Cancelled Urine Color (Yellow) Yellow Urine Clarity (Clear) Clear Urine pH (5-8) 5.5 Ur Specific [place] (1.005-1.025) 1.025 Urine Protein (Negative) mg/dL Negative Urine Ketones (Negative) mg/dL Trace H Urine Blood (Negative) Negative Urine Nitrite (Negative) Negative Urine Bilirubin (Negative) Negative Urine Urobilinogen (Up TO 0.2) EU/dL 0.2 Ur Leukocyte Esterase (Negative) Trace H Urine RBC (0-2) HPF Negative Urine WBC (0-5) HPF 0-2 Ur Epithelial Cells (Negative) HPF Moderate Urine Crystals (Negative) HPF Negative Urine Bacteria (Negative) HPF Rare Urine Casts (Negative) LPF Negative Urine Mucus (Negative) Negative Ur Culture Indicated? No/Sq. Contamination Urine Glucose (Negative) mg/dL Negative
[2022-03-16] MEDS: Amoxicillin 875/Clav. 125 TAB PO (13:07)
[2022-03-16] MEDS: HYDROcodone 5/Acetaminophen 325 TAB PO (13:07)
[2022-03-16 13:12] LABS: INR 2.1 (0.9-1.1); Prothrombin Time 20.2 sec (9.3-11.0)
--- NOTE | 2022-03-16 14:45 | NUR.NOTE ---
I agree with Wero Sheehan's treatment and documentation:
--- NOTE | 2022-03-16 15:00 | NUR.NOTE ---
Nursing Note:Referral faxed to PCP for diverticulitis in the next 48 hrs. Destiny Saeed
== END 2022-03-16 14:22 | disposition home or self-care (01) ==
PROVIDERS: Emergency Provider Physician Assistant; PCP Nurse Practitioner
DX: K63.1 Perforation of intestine (nontraumatic) (principal); E86.0 Dehydration; K52.89 Other specified noninfective gastroenteritis and colitis; I48.91 Unspecified atrial fibrillation
CPT/HCPCS: 36415; 80053; 83690; 87040; 93005; 96361; 96365; 96375; 99284; 74176; 81003; 81015; 83605; 85025; 85610; 93010; J0131; J2765; J3010

== ENCOUNTER 2022-03-17 10:39 | Observation (INO) | payer MEDICARE, SELFPAY ==
[2022-03-17 10:43] VITALS: BP 142/79; PULSE 98; RESP 16; TEMP 36.4; O2SAT 95
--- NOTE | 2022-03-17 10:45 | RT.EKG_ITS ---
APPROVED REPORT Exam: Resting ECG Reason for Exam: nausea Patient Location: I HR:76 bpm ECG Measurements Heart Rate 76 AXIS WV 150 P -14 QRSd 100 QRS 28 QT 409 T 105 QTc 460 Conclusion Sinus rhythm...normal P axis, V-rate 60- 99 Abnormal T, consider ischemia, lateral leads...T <-0.20mV, I aVL V5 V6. Sinus. TWI seen in previous EKGs and no signficant change. No STEMI. I have reviewed and interpreted ECG and agree with software generated interpretation.
[2022-03-17 11:18] LABS: Abs Immature Grans 0.03 10^3/uL (0.0-0.06); Absolute Basophil Count 0.01 10^3/uL (0.0-0.2); Absolute Eosinophil Count 0.11 10^3/uL (0.0-0.7); Absolute Lymphocyte Count 0.57 10^3/uL (1.2-3.4); Absolute Neutrophil Count 6.02 10^3/uL (1.2-6.7); Basophils % 0.1; Eosinophils % 1.5; HGB 12.1 g/dL (11.2-15.7); Immature Grans % 0.4; Lymphocytes % 7.9; MCH 27.8 pg (27.0-33.0); MCHC 32.7 % (32.0-36.0); MCV 85 fL (80-95); MPV 10.2 fL (8.0-11.0); Monocytes % 6.9; Neutrophils % 83.2; Platelet Count 167 10^3/uL (130-400); RBC 4.35 10^6/uL (3.93-5.22); RDW 12.5 % (11.7-14.6); RDW-SD 38.4 fL; WBC 7.24 10^3/uL (4.4-10.8)
[2022-03-17] MEDS: Lactated Ringers 1,000 ML 1000 ML IV (11:18)
[2022-03-17 11:28] LABS: INR 2.7 (0.9-1.1); Prothrombin Time 25.5 sec (9.3-11.0)
[2022-03-17 11:33] LABS: ALT 21 U/L (14-59); AST 28 U/L (15-37); Albumin 3.3 g/dL (3.4-5.0); Alkaline Phosphatase 103 U/L (46-116); Anion Gap 7.9 mmol/L (3-11); BUN 17 mg/dL (7-18); Bilirubin, Total 0.6 mg/dL (0.2-1.0); CO2 27.1 mmol/L (21.0-32.0); CREATININE 1.7 mg/dL (0.55-1.02); Chloride 102 mmol/L (98-107); Glucose 104 mg/dL (74-106); Lipase 65 U/L (73-393); Potassium 3.7 mmol/L (3.5-5.1); Sodium 137 mmol/L (136-145); Total Protein 6.7 g/dL (6.4-8.2)
[2022-03-17 12:57] LABS: Source Nasal/Nares
[2022-03-17] MEDS: Metoclopramide 10 MG/2 ML VIAL 5 MG IVP (13:03)
[2022-03-17] MEDS: PIPERACILLIN/TAZO 3.375 GM in Normal Saline 50 ML IVPB (13:04)
--- NOTE | 2022-03-17 13:12 | ED.GENADUL_ITS ---
Discharge Plan Disposition Patient Disposition: [facility] INPATIENT Condition: Stable Discharge Details Clinical Impression: Perforated small intestine, Acute dehydration, MANUELITO (acute kidney injury) Primary Care Provider: Sari Balbuena ED Provider: Evelina Kc Home Meds and New Rx's Prescriptions: No Action meclizine 25 mg tablet 25 mg PO BID PRN (Reason: dizziness) Qty: 30 0RF bisacodyl [Dulcolax (bisacodyl)] 5 mg tablet,delayed release (DR/EC) 5 mg PO ONCE Qty: 4 0RF Rx Instructions: take per colonoscopy instructions cholecalciferol (vitamin D3) 25 mcg (1,000 unit) capsule 25 mcg PO DAILY polyethylene glycol 3350 17 gram/dose powder 238 g PO ONCE Qty: 238 0RF Rx Instructions: take per colonoscopy instructions calcium carbonate-vitamin D3 [Caltrate with Vitamin D3] 1 EACH tablet 1 tab PO DAILY dicyclomine 10 mg capsule 10 mg PO QID PRN (Reason: abdominal pain) Qty: 120 4RF lisinopril 40 mg tablet 40 mg PO DAILY Qty: 90 4RF carvedilol 6.25 mg tablet 12.5 mg PO BID Qty: 180 3RF Label Comments: Pt states she is currently only taking Daily not BID. Pt will verify with provider what she should be doing. 03/17/22 Rx Instructions: must administer with a meal/food rx by [facility] . md hydrochlorothiazide 12.5 mg tablet 12.5 mg PO DAILY Qty: 90 3RF levofloxacin 750 mg tablet 750 mg PO DAILY Qty: 7 0RF metronidazole 500 mg tablet 500 mg PO TID Qty: 21 0RF amoxicillin-pot clavulanate 875-125 mg tablet 1 tab PO BID Qty: 14 0RF metoclopramide HCl [Reglan] 5 mg tablet 5 mg PO Q6H PRN (Reason: nausea and vomiting) Qty: 12 0RF Rx Instructions: administer 30 minutes before meals hydrocodone-acetaminophen 5-325 mg tablet 1 tab PO Q6H PRNQty: 7 0RF Label Comments: Pt has not taken any yet 03/17/22 aspirin 81 mg Tablet,Delayed Release (Dr/Ec) 81 mg PO DAILY atorvastatin 40 mg tablet 40 mg PO HS gabapentin 600 mg tablet 300 mg PO BID PRN Label Comments: Takes for permanent pain in face/eye from shingles only uses for when uncomfortable. 03/17/22 levothyroxine [Synthroid] 88 mcg tablet 88 mcg PO DAILY Label Comments: Pt takes with other AM meds consistently ay 1000 warfarin 5 mg tablet 5 mg PO HS Protocol: Dose Management Condition: Wednesday Dose/Route: 5 mg Instruction: 1 x 5 mg tablet Condition: Wednesday Dose/Route: 5 mg Instruction: 1 x 5 mg tablet Condition: Wednesday Dose/Route: 5 mg Instruction: 1 x 5 mg tablet Condition: Wednesday Dose/Route: 5 mg Instruction: 1 x 5 mg tablet Condition: Dose/Route: 5 mg Instruction: 1 x 5 mg tablet Condition: Wednesday Dose/Route: 5 mg Instruction: 1 x 5 mg tablet Condition: Wednesday Dose/Route: 5 mg Instruction: 1 x 5 mg tablet Protocol Text: Adjustment Start Date: Wednesday02/25/22 INR Value: 2.4 INR Date: 02/25/22 Recheck Date: 03/27/22 Medical Decision Making Patient appears well although she is unable to tolerate her oral antibiotics and this is her third visit to this emergency department At this time I think she should be admitted for IV antibiotics I did discuss the case with on-call surgery, Dr. Aviles who recommends IV antibiotics and admission Creatinine is mildly elevated at 1.7, will we will treat with likely prerenal MANUELITO Will give Mio and Malcomlan Reviewed safety from yesterday which shows improvement of microperforation per radiology interpretation INR of 2.7, mildly increased from yesterday but still within normal limits for anticoagulated patient Medical Records Medical records reviewed: Yes I reviewed the patient's medical records. Lab Data Lab results reviewed: Yes I reviewed the patient's lab results. HPI General Date/Time Provider Initiated Documentation: 03/17/22 10:48 . HPI Narrative: This 81-year-old female presents with past medical history of hypertension, atrial fibrillation, hypothyroidism, prediabetes with reports of abdominal pain, persistent nausea and vomiting. Of note, this was patient's third visit to this facility for nausea and vomiting but does have improving abdominal disc omfort. States that she was transition to Augmentin last evening and has been unable to tolerate secondary to vomiting. She states she is attempted the antiemetic she was prescribed without relief. She states the abdominal pain is actually improved and denies any chest pain or shortness of breath. She denies any blood in vomitus. She denies any diarrhea. She denies any fever or chills. She denies any change in your ability to urinate. Related Data Home Medications Medication Instructions Recorded Confirmed calcium carbonate 600 mg-vitamin 1 tab PO DAILY 01/31/13 03/17/22 D3 20 mcg (800 unit) tablet (Caltrate with Vitamin D3) dicyclomine 10 mg capsule 10 mg PO QID PRN abdominal pain 10/29/20 03/17/22 #120 caps lisinopril 40 mg tablet 40 mg PO DAILY #90 tabs 03/18/21 03/17/22 carvedilol 6.25 mg tablet 12.5 mg PO BID #180 tabs 04/22/21 03/17/22 meclizine 25 mg tablet 25 mg PO BID PRN dizziness #30 tabs 10/17/21 03/17/22 hydrochlorothiazide 12.5 mg tablet 12.5 mg PO DAILY #90 tabs 01/05/22 03/17/22 bisacodyl 5 mg tablet,delayed 5 mg PO ONCE colonscopy bowel prep 01/23/22 03/17/22 release (Dulcolax (bisacodyl)) #4 tabs cholecalciferol (vitamin D3) 25 25 mcg PO DAILY 01/23/22 03/17/22 mcg (1,000 unit) capsule polyethylene glycol 3350 17 238 g PO ONCE colonoscopy prep 01/23/22 03/17/22 gram/dose oral powder #238 grams levofloxacin 750 mg tablet 750 mg PO DAILY #7 tabs 03/14/22 03/17/22 metronidazole 500 mg tablet 500 mg PO TID #21 tabs 03/14/22 03/17/22 amoxicillin 875 mg-potassium 1 tab PO BID #14 tabs 03/16/22 03/17/22 clavulanate 125 mg tablet hydrocodone 5 mg-acetaminophen 325 1 tab PO Q6H PRN #7 tabs 03/16/22 03/17/22 mg tablet metoclopramide HCl 5 mg tablet 5 mg PO Q6H PRN nausea and 03/16/22 03/17/22 (Reglan) vomiting #12 tabs aspirin 81 mg tablet,delayed 81 mg PO DAILY 06/14/22 06/14/22 release atorvastatin 40 mg tablet 40 mg PO HS 03/17/22 03/17/22 gabapentin 600 mg tablet 300 mg PO BID PRN 03/17/22 03/17/22 levothyroxine 88 mcg tablet 88 mcg PO DAILY 03/17/22 03/17/22 (Synthroid) warfarin 5 mg tablet 5 mg PO HS 03/17/22 03/17/22 Previous Rx's Medication Instructions Recorded dicyclomine 10 mg capsule 10 mg PO QID PRN abdominal pain 10/29/20 #120 caps lisinopril 40 mg tablet 40 mg PO DAILY #90 tabs 03/18/21 carvedilol 6.25 mg tablet 12.5 mg PO BID #180 tabs 04/22/21 meclizine 25 mg tablet 25 mg PO BID PRN dizziness #30 tabs 10/17/21 hydrochlorothiazide 12.5 mg tablet 12.5 mg PO DAILY #90 tabs 01/05/22 bisacodyl 5 mg tablet,delayed 5 mg PO ONCE colonscopy bowel prep 01/23/22 release (Dulcolax (bisacodyl)) #4 tabs polyethylene glycol 3350 17 238 g PO ONCE colonoscopy prep 01/23/22 gram/dose oral powder #238 grams levofloxacin 750 mg tablet 750 mg PO DAILY #7 tabs 03/14/22 metronidazole 500 mg tablet 500 mg PO TID #21 tabs 03/14/22 amoxicillin 875 mg-potassium 1 tab PO BID #14 tabs 03/16/22 clavulanate 125 mg tablet hydrocodone 5 mg-acetaminophen 325 1 tab PO Q6H PRN #7 tabs 03/16/22 mg tablet metoclopramide HCl 5 mg tablet 5 mg PO Q6H PRN nausea and 03/16/22 (Reglan) vomiting #12 tabs Allergies Allergy/AdvReac Type Severity Reaction Status Date / Time amoxicillin AdvReac Severe nausea/hot Verified 03/17/22 10:47 feeling sertraline AdvReac Intermediate TREMOR, Verified 03/17/22 10:47 DIAPHORESIS codeine phosphate AdvReac GI Verified 03/17/22 10:47 [From Tylenol-Codeine] General Stated Complaint: GenMedical MATT: 3 Review of Systems All systems reviewed & are unremarkable except as noted in HPI and below PFSH All Active Problems (Updated 03/17/22 @ 13:19 by SHASHANK Barrera) Acute dehydration (Acute) Enteritis (Acute) Perforated small intestine (Acute) MANUELITO (acute kidney injury) (Acute) BPV (benign positional vertigo) (Acute) Pre-diabetes (Acute) Arthritis (Acute) Tinnitus, bilateral (Acute) Sensorineural hearing loss of both ears (Acute) Afib (Chronic) ablated x 2, ongoing, coumadin 2020- cardiology suggesting a watchman, she declined Coronary artery disease (Chronic) NSTEMI 01/2020 Proximal LAD, mid RCA Essential hypertension (Chronic 09/18/13) Hypothyroidism (Chronic 07/27/11) Medical History Arthritis of right hip Chronic congestive heart failure (07/27/11) Diverticula of colon Diverticular hemorrhage Elevated troponin Greater trochanteric bursitis of right hip Depo-Medrol injection: 08/30/2019 (80 mg); 07/05/2019 (40 mg) History of tobacco use Irritable colon NSTEMI (non-ST elevated myocardial infarction) Polyp of colon, adenomatous Postherpetic trigeminal neuralgia Raynauds disease Vaginal wall prolapse (07/27/11) 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 History of esophagogastroduodenoscopy History of partial thyroidectomy Status post abdominal hysterectomy Family History Mother , age 68 Rheumatoid arthritis Osteoporosis Father , age 83 Stroke Maternal Grandfather , age 53 Cancer Paternal Grandfather , in his 70s Stroke Maternal Grandmother , age 93 Stroke Paternal Grandmother No problems noted. Son Asthma Daughter No problems noted. Social History Smoking/Tobacco Use Status: Former Tobacco Use Tobacco: How many years used: 30 Second Hand Exposure: Yes (as a child) Smoking risk assessment performed?: Yes Alcohol Intake: never Drug use: Never Substance use type: does not use Counseling given: No Counseling provided: none Caregiver/Support person: No Household members: spouse Housing: house Communication Needs: None Do you need help understanding health information?: Never Pets and animals: Yes Pets and animals: cat(s) Sexually active: No Do you think of yourself as: straight/heterosexual Current gender identity: female What is your relationship status?: How often do you talk on the phone with friends or family?: twice per week How often do you get together with friends or relatives?: never How often do you attend evangelical or denominational services?: 4 or more times per year Do you belong to any clubs or organized social groups?: yes Panel score (0-1 are the most socially isolated patients): 3 Ciara/Taoist: No preference Seatbelt use: always Drive intox 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 Do you feel safe at home: Yes Do you feel safe in your relationship?: Yes Exam Const General: cooperative, comfortable and no acute distress HENMT Other: Moist mucous membrane Eyes Sclera: sclerae normal Resp Effort & Inspection: normal respiratory effort Cardio Rate: regular rate GI Other: mild abdominal tenderness without rebound or guarding Skin General skin exam: pallor Neuro General: patient alert and patient oriented x3 Extrem Other: Distal pulses intact Course Vital Signs Vital signs: Vital Signs Temperature 36.4 C L 03/17/22 10:43 Pulse 98 H 03/17/22 10:43 Respiratory Rate 16 03/17/22 10:43 Blood Pressure 142/79 H 03/17/22 10:43 Pulse Oximetry 95 03/17/22 10:43 Temperature 36.4 C L 03/17/22 10:43 Temperature Source Temporal Artery Scan 03/17/22 10:43 Pulse 98 H 03/17/22 10:43 Respiratory Rate 16 03/17/22 10:43 Respiratory Effort Non-Labored 03/17/22 11:49 Respiratory Depth Normal 03/17/22 11:49 Respiratory Pattern Normal 03/17/22 11:49 Blood Pressure 142/79 H 03/17/22 10:43 Blood Pressure Position Sitting 03/17/22 10:43 Pulse Oximetry 95 03/17/22 10:43 Oxygen Delivery Method Room Air 03/17/22 10:43 Oxygen Flow Rate 0 03/17/22 10:43 Pain Level 4 03/17/22 10:43 Lab/Test Results Lab/Test Results: Laboratory Tests Range/Units 03/17/22 03/17/22 03/17/22 11:05 11:05 11:05 WBC (4.4-10.8) 10^3/uL 7.24 RBC (3.93-5.22) 10^6/uL 4.35 Hgb (11.2-15.7) g/dL 12.1 Hct (36.0-46.0) % 37.0 MCV (80-95) fL 85 MCH (27.0-33.0) pg 27.8 MCHC (32.0-36.0) % 32.7 D RDW (11.7-14.6) % 12.5 Plt Count (130-400) 10^3/uL 167 MPV (8.0-11.0) fL 10.2 Immature Gran % 0.4 Neutrophils % 83.2 Lymphocytes % 7.9 Monocytes % 6.9 Eosinophils % 1.5 Basophils % 0.1 Nucleated RBC % (0.0-0.3) % 0.0 Absolute Neutrophils (1.2-6.7) 10^3/uL 6.02 Absolute Lymphocytes (1.2-3.4) 10^3/uL 0.57 L Absolute Monocytes (0.1-0.8) 10^3/uL 0.50 Absolute Eosinophils (0.0-0.7) 10^3/uL 0.11 Absolute Basophils (0.0-0.2) 10^3/uL 0.01 PT (9.3-11.0) sec 25.5 H INR (0.9-1.1) 2.7 H Sodium (136-145) mmol/L 137 Potassium (3.5-5.1) mmol/L 3.7 Chloride (98-107) mmol/L 102 Carbon Dioxide (21.0-32.0) mmol/L 27.1 Anion Gap (3-11) mmol/L 7.9 BUN (7-18) mg/dL 17 Creatinine (0.55-1.02) mg/dL 1.7 H Estimated GFR/1.73 m2 (mL/min/1.73m2) 28.70 Glucose (74-106) mg/dL 104 Calcium (8.5-10.1) mg/dL 9.0 Total Bilirubin (0.2-1.0) mg/dL 0.6 AST (15-37) U/L 28 ALT (14-59) U/L 21 Alkaline Phosphatase (46-116) U/L 103 Total Protein (6.4-8.2) g/dL 6.7 Albumin (3.4-5.0) g/dL 3.3 L Lipase (73-393) U/L 65 COVID-19 Source Range/Units 03/17/22 12:55 WBC (4.4-10.8) 10^3/uL RBC (3.93-5.22) 10^6/uL Hgb (11.2-15.7) g/dL Hct (36.0-46.0) % MCV (80-95) fL MCH (27.0-33.0) pg MCHC (32.0-36.0) % RDW (11.7-14.6) % Plt Count (130-400) 10^3/uL MPV (8.0-11.0) fL Immature Gran % Neutrophils % Lymphocytes % Monocytes % Eosinophils % Basophils % Nucleated RBC % (0.0-0.3) % Absolute Neutrophils (1.2-6.7) 10^3/uL Absolute Lymphocytes (1.2-3.4) 10^3/uL Absolute Monocytes (0.1-0.8) 10^3/uL Absolute Eosinophils (0.0-0.7) 10^3/uL Absolute Basophils (0.0-0.2) 10^3/uL PT (9.3-11.0) sec INR (0.9-1.1) Sodium (136-145) mmol/L Potassium (3.5-5.1) mmol/L Chloride (98-107) mmol/L Carbon Dioxide (21.0-32.0) mmol/L Anion Gap (3-11) mmol/L BUN (7-18) mg/dL Creatinine (0.55-1.02) mg/dL Estimated GFR/1.73 m2 (mL/min/1.73m2) Glucose (74-106) mg/dL Calcium (8.5-10.1) mg/dL Total Bilirubin (0.2-1.0) mg/dL AST (15-37) U/L ALT (14-59) U/L Alkaline Phosphatase (46-116) U/L Total Protein (6.4-8.2) g/dL Albumin (3.4-5.0) g/dL Lipase (73-393) U/L COVID-19 Source Nasal/Nares
[2022-03-17 13:13] VITALS: BP 136/62; PULSE 59; TEMP 36.9; O2SAT 96
[2022-03-17 14:02] LABS: COVID-19 PCR Negative (Negative)
[2022-03-17 14:15] VITALS: BP 136/62; PULSE 59; TEMP 36.9; O2SAT 96
[2022-03-17 14:28] VITALS: BP 128/71; PULSE 69; RESP 15; TEMP 36.5; O2SAT 93
[2022-03-17] MEDS: Lactated Ringers 1,000 ML 125 ML IV ×2 (16:04→23:46)
--- NOTE | 2022-03-17 16:05 | SCONE_ITS ---
Date of service: 03/17/22 Time of Service: 16:05 Assessment and Plan Assessment and plan (1) Perforated diverticulum of ileum: Status: Acute Assessment and plan: IV zosyn -I did review her CT scans from 03/13 and 03/16. There does appear to be interval improvement. We will continue with conservative medical management at this time and see how she progresses. -Supportive care. -Patient is on Coumadin for A. fib. She also has had an NSTEMI in the past with cardiac stents is replaced at [facility]. I did discuss with Dr. Ashley. I do think we should hold her Coumadin at this time in case she does require surgical intervention. -She has a history of intermittent chronic enteritis. She was worked up for Crohn's disease many years ago. She has not had an attack recently. 60 minutes spent with the patient today in follow-up. I did discuss the case with Dr. Ashley. I did review all the notes from the ER and her CT scans. I did review my notes from her when she was admitted for bleeding in 2018. I also did recently review the notes from SHASHANK Smith regarding a colonoscopy as well. I do not think that she is clinically stable for colonoscopy in the near future. History of Present Illness Narrative: Patient originally came into the ER on 03/13 with abdominal pain. She has a history of diverticula and diverticular bleed. The CT done on 03/13 shows actually a perforated ileal diver particular. She was placed on Levaquin and Flagyl and treated as outpatient. She came in on 03/14 with nausea and vomiting and her medications were readjusted and she was sent home. He came in on 03/16 with nausea and vomiting and her medications were readjusted and sent back home. She came back again today on 03/17 with intractable vomiting. I think this is most likely from the Flagyl. She complains of severe vomiting and a metallic taste in her mouth as well as abdominal pain. She is having crampy abdominal pain that is kind of just all over and she feels very bloated. She was able to eat a yogurt yesterday. I think nausea vomiting is most likely related to the antibiotics. She has not had any rectal bleeding. She gives a history of intermittent type enteritis. She states at one point they thought she had Crohn's disease. She has a chronic prescription for dicyclomine and was taking this at home and when this did not help with the pain, she came into the ER. On 03/13 she initially had a white count of 12. Her white count is normal today. I did review her last CT on 03/16 which does show improvement. She has mild crampy pain, distention and nausea today. She does not have diffuse peritonitis. She has not been having fever or chills. She is clinically dehydrated. CT: 03/13 Bladder: Symmetric distention, no gross wall thickening. Bowel: Prominent diverticulosis seen throughout.? No evidence of diverticulitis.? No evidence of appendicitis.? Abnormally dilated distal small b owel with wall thickening findings could be secondary to inflammatory changes versus obstruction.? There are multiple multiple tiny air bubbles which appear to be within multiple tiny small bowel diverticula.? Abnormally dilated loops of small bowel..? Stomach and proximal small bowel unremarkable. Peritoneal cavity: Moderate quantity of fluid in the pelvis. Reproductive organs: Status post hysterectomy. Bones: Degenerative changes unremarkable for age. IMPRESSION: Abnormal wall thickening and distention with surrounding inflammation in the distal small bowel.? Moderate amount of pelvic fluid.? Multiple tiny diverticula of the distal ileum. Review of Systems All systems reviewed & are unremarkable except as noted in HPI and below PFSH All Active Problems (Updated 03/17/22 @ 16:06 by Jannet Aviles DO) Perforated diverticulum of ileum (Acute) Acute dehydration (Acute) Enteritis (Acute) Perforated small intestine (Acute) MANUELITO (acute kidney injury) (Acute) BPV (benign positional vertigo) (Acute) Pre-diabetes (Acute) Arthritis (Acute) Tinnitus, bilateral (Acute) Sensorineural hearing loss of both ears (Acute) Afib (Chronic) ablated x 2, ongoing, coumadin 2020- cardiology suggesting a watchman, she declined Coronary artery disease (Chronic) NSTEMI 01/2020 Proximal LAD, mid RCA Essential hypertension (Chronic 09/18/13) Hypothyroidism (Chronic 07/27/11) Medical History Arthritis of right hip Chronic congestive heart failure (07/27/11) Diverticula of colon Diverticular hemorrhage Elevated troponin Greater trochanteric bursitis of right hip Depo-Medrol injection: 08/30/2019 (80 mg); 07/05/2019 (40 mg) History of tobacco use Irritable colon NSTEMI (non-ST elevated myocardial infarction) Polyp of colon, adenomatous Postherpetic trigeminal neuralgia Raynauds disease Vaginal wall prolapse (07/27/11) 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 Son Asthma Daughter No problems noted. Social History Smoking/Tobacco Use Status: Former Tobacco Use Tobacco: How many years used: 30 Second Hand Exposure: Yes (as a child) Smoking risk assessment performed?: Yes Alcohol Intake: never Drug use: Never Substance use type: does not use Counseling given: No Counseling provided: none Caregiver/Support person: No Household members: spouse Housing: house Communication Needs: None Do you need help understanding health information?: Never Pets and animals: Yes Pets and animals: cat(s) Sexually active: No Do you think of yourself as: straight/heterosexual Current gender identity: female What is your relationship status?: How often do you talk on the phone with friends or family?: twice per week How often do you get together with friends or relatives?: never How often do you attend buddhism or quaker services?: 4 or more times per year Do you belong to any clubs or organized social groups?: yes Panel score (0-1 are the most socially isolated patients): 3 Ciara/Latter-Day: No preference Seatbelt use: always Drive intox 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 fib with rate control GI Other: Mild abdominal distention she does have bowel sounds present. She does not appear to have peritonitis. Skin General skin exam: decreased turgor Results Last Vital Signs Temp 36.5 C 03/17/22 14:28 Pulse 69 03/17/22 14:28 Resp 15 03/17/22 14:28 BP 128/71 03/17/22 14:28 Pulse Ox 93 03/17/22 14:28 Labs Result diagrams: 03/17/22 11:05 03/17/22 11:05 Labs: Laboratory Results - last 24 hr 03/17/22 03/17/22 03/17/22 11:05 11:05 11:05 WBC 7.24 RBC 4.35 Hgb 12.1 Hct 37.0 MCV 85 MCH 27.8 MCHC 32.7 D RDW 12.5 Plt Count 167 MPV 10.2 Immature Gran % 0.4 Neutrophils % 83.2 Lymphocytes % 7.9 Monocytes % 6.9 Eosinophils % 1.5 Basophils % 0.1 Nucleated RBC % 0.0 Absolute Neutrophils 6.02 Absolute Lymphocytes 0.57 L Absolute Monocytes 0.50 Absolute Eosinophils 0.11 Absolute Basophils 0.01 PT 25.5 H INR 2.7 H Sodium 137 Potassium 3.7 Chloride 102 Carbon Dioxide 27.1 Anion Gap 7.9 BUN 17 Creatinine 1.7 H Estimated GFR/1.73 m2 28.70 Glucose 104 Calcium 9.0 Magnesium Total Bilirubin 0.6 AST 28 ALT 21 Alkaline Phosphatase 103 Troponin I Total Protein 6.7 Albumin 3.3 L Lipase 65 COVID-19 Source SARS-CoV-2 (PCR) 03/17/22 03/17/22 03/17/22 12:55 13:00 16:00 WBC RBC Hgb Hct MCV MCH MCHC RDW Plt Count MPV Immature Gran % Neutrophils % Lymphocytes % Monocytes % Eosinophils % Basophils % Nucleated RBC % Absolute Neutrophils Absolute Lymphocytes Absolute Monocytes Absolute Eosinophils Absolute Basophils PT INR Sodium Cancelled Potassium Cancelled Chloride Cancelled Carbon Dioxide Cancelled Anion Gap Cancelled BUN Cancelled Creatinine Cancelled Estimated GFR/1.73 m2 Cancelled Glucose Cancelled Calcium Cancelled Magnesium Cancelled Total Bilirubin Cancelled AST Cancelled ALT Cancelled Alkaline Phosphatase Cancelled Troponin I Cancelled Cancelled Total Protein Cancelled Albumin Cancelled Lipase COVID-19 Source Nasal/Nares SARS-CoV-2 (PCR) Negative
--- NOTE | 2022-03-17 19:28 | W.PM.HP.N ---
Date of service: 03/17/22 Time of Service: 19:28 Assessment and Plan Assessment and plan (1) Perforated diverticulum of ileum: Status: Acute Assessment and plan: Consult GI NPO IV abx (2) Acute dehydration: Status: Acute Assessment and plan: Hydrate Anti-emetics (3) MANUELITO (acute kidney injury): Status: Acute Assessment and plan: Assess labs; hydration (4) Afib: Status: Chronic Assessment and plan: chronic - monitor; continue home meds when taking po Qualifiers: Atrial fibrillation type: longstanding persistent Qualified Code(s): I48.11 - Longstanding persistent atrial fibrillation (5) Essential hypertension: Status: Chronic Assessment and plan: chronic - monitor; continue home med when taking po discussed with Dr Galo History of Present Illness History of Present Illness Chief Complaint: Nausea, vomiting, abd pain Narrative: This 81-year-old female presents with reported history distal small bowel inflammatory changes and microperforations, on Flagyl and Levaquin with persistent and worsening pain, nausea and vomiting. She is taking antibiotic as prescribed reportedly.? She denies any fever or chills.? She states she is unable to sleep secondary to nausea and discomfort.? Pain is worsened with walking and movement.? She denies any blood in her stool or diarrhea.? She describes the pain as sharp and cramping.? Denies any urinary complaints.? Denies any chest pain or shortness of breath. She comes back secondary to inability to tolerate the abx and is vomiting. Third time today - she is admitted for abx and anti-emetics. Review of Systems All systems reviewed & are unremarkable except as noted in HPI and below PFSH All Active Problems (Updated 03/17/22 @ 16:06 by Jannet Aviles DO) Perforated diverticulum of ileum (Acute) Acute dehydration (Acute) Enteritis (Acute) Perforated small intestine (Acute) MANUELITO (acute kidney injury) (Acute) BPV (benign positional vertigo) (Acute) Pre-diabetes (Acute) Arthritis (Acute) Tinnitus, bilateral (Acute) Sensorineural hearing loss of both ears (Acute) Afib (Chronic) ablated x 2, ongoing, coumadin 2020- cardiology suggesting a watchman, she declined Coronary artery disease (Chronic) NSTEMI 01/2020 Proximal LAD, mid RCA Essential hypertension (Chronic 09/18/13) Hypothyroidism (Chronic 07/27/11) Medical History Arthritis of right hip Chronic congestive heart failure (07/27/11) Diverticula of colon Diverticular hemorrhage Elevated troponin Greater trochanteric bursitis of right hip Depo-Medrol injection: 08/30/2019 (80 mg); 07/05/2019 (40 mg) History of tobacco use Irritable colon NSTEMI (non-ST elevated myocardial infarction) Polyp of colon, adenomatous Postherpetic trigeminal neuralgia Raynauds disease Vaginal wall prolapse (07/27/11) 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 History of esophagogastroduodenoscopy History of partial thyroidectomy Status post abdominal hysterectomy Family History Mother , age 68 Rheumatoid arthritis Osteoporosis Father , age 83 Stroke Maternal Grandfather , age 53 Cancer Paternal Grandfather , in his 70s Stroke Maternal Grandmother , age 93 Stroke Paternal Grandmother No problems noted. Son Asthma Daughter No problems noted. Social History Smoking/Tobacco Use Status: Former Tobacco Use Tobacco: How many years used: 30 Second Hand Exposure: Yes (as a child) Smoking risk assessment performed?: Yes Alcohol Intake: never Drug use: Never Substance use type: does not use Counseling given: No Counseling provided: none Caregiver/Support person: No Household members: spouse Housing: house Communication Needs: None Do you need help understanding health information?: Never Pets and animals: Yes Pets and animals: cat(s) Sexually active: No Do you think of yourself as: straight/heterosexual Current gender identity: female What is your relationship status?: How often do you talk on the phone with friends or family?: twice per week How often do you get together with friends or relatives?: never How often do you attend congregation or latter day services?: 4 or more times per year Do you belong to any clubs or organized social groups?: yes Panel score (0-1 are the most socially isolated patients): 3 Ciara/Congregation: No preference Seatbelt use: always Drive 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 Do you feel safe at home: Yes Do you feel safe in your relationship?: Yes Meds Allergies and Home Medications Allergies Allergy/AdvReac Type Severity Reaction Status Date / Time amoxicillin AdvReac Severe nausea/hot Verified 03/17/22 10:47 feeling sertraline AdvReac Intermediate TREMOR, Verified 03/17/22 10:47 DIAPHORESIS codeine phosphate AdvReac GI Verified 03/17/22 10:47 [From Tylenol-Codeine] flagyl AdvReac Intermediate Nausea and Uncoded 03/17/22 20:15 vomiting Home Medications Medication Instructions Recorded Confirmed Type calcium carbonate 600 mg-vitamin 1 tab PO DAILY 01/31/13 03/17/22 History D3 20 mcg (800 unit) tablet (Caltrate with Vitamin D3) dicyclomine 10 mg capsule 10 mg PO QID PRN abdominal pain 10/29/20 03/17/22 Rx #120 caps lisinopril 40 mg tablet 40 mg PO DAILY #90 tabs 03/18/21 03/17/22 Rx carvedilol 6.25 mg tablet 12.5 mg PO BID #180 tabs 04/22/21 03/17/22 Rx meclizine 25 mg tablet 25 mg PO BID PRN dizziness #30 tabs 10/17/21 03/17/22 Rx hydrochlorothiazide 12.5 mg tablet 12.5 mg PO DAILY #90 tabs 01/05/22 03/17/22 Rx bisacodyl 5 mg tablet,delayed 5 mg PO ONCE colonscopy bowel prep 01/23/22 03/17/22 Rx release (Dulcolax (bisacodyl)) #4 tabs cholecalciferol (vitamin D3) 25 25 mcg PO DAILY 01/23/22 03/17/22 History mcg (1,000 unit) capsule polyethylene glycol 3350 17 238 g PO ONCE colonoscopy prep 01/23/22 03/17/22 Rx gram/dose oral powder #238 grams levofloxacin 750 mg tablet 750 mg PO DAILY #7 tabs 03/14/22 03/17/22 Rx metronidazole 500 mg tablet 500 mg PO TID #21 tabs 03/14/22 03/17/22 Rx amoxicillin 875 mg-potassium 1 tab PO BID #14 tabs 03/16/22 03/17/22 Rx clavulanate 125 mg tablet hydrocodone 5 mg-acetaminophen 325 1 tab PO Q6H PRN #7 tabs 03/16/22 03/17/22 Rx mg tablet metoclopramide HCl 5 mg tablet 5 mg PO Q6H PRN nausea and 03/16/22 03/17/22 Rx (Reglan) vomiting #12 tabs aspirin 81 mg tablet,delayed 81 mg PO DAILY 03/17/22 03/17/22 History release atorvastatin 40 mg tablet 40 mg PO HS 03/17/22 03/17/22 History gabapentin 600 mg tablet 300 mg PO BID PRN 03/17/22 03/17/22 History levothyroxine 88 mcg tablet 88 mcg PO DAILY 03/17/22 03/17/22 History (Synthroid) warfarin 5 mg tablet 5 mg PO HS 03/17/22 03/17/22 History Exam Const General: cooperative, comfortable and no acute distress HENMT Other: Moist mucous membrane Eyes Sclera: sclerae normal Resp Effort & Inspection: normal respiratory effort Cardio Rate: regular rate GI Other: mild abdominal tenderness without rebound or guarding Skin General skin exam: pallor Neuro General: patient alert and patient oriented x3 Extrem Other: Distal pulses intact Results Labs Result diagrams: 03/18/22 06:45 03/18/22 06:45 Labs: Laboratory Results - last 24 hr 03/17/22 03/17/22 03/17/22 11:05 11:05 11:05 WBC 7.24 RBC 4.35 Hgb 12.1 Hct 37.0 MCV 85 MCH 27.8 MCHC 32.7 D RDW 12.5 Plt Count 167 MPV 10.2 Immature Gran % 0.4 Neutrophils % 83.2 Lymphocytes % 7.9 Monocytes % 6.9 Eosinophils % 1.5 Basophils % 0.1 Nucleated RBC % 0.0 Absolute Neutrophils 6.02 Absolute Lymphocytes 0.57 L Absolute Monocytes 0.50 Absolute Eosinophils 0.11 Absolute Basophils 0.01 PT 25.5 H INR 2.7 H Sodium 137 Potassium 3.7 Chloride 102 Carbon Dioxide 27.1 Anion Gap 7.9 BUN 17 Creatinine 1.7 H Estimated GFR/1.73 m2 28.70 Glucose 104 Calcium 9.0 Magnesium Total Bilirubin 0.6 AST 28 ALT 21 Alkaline Phosphatase 103 Troponin I Total Protein 6.7 Albumin 3.3 L Lipase 65 COVID-19 Source SARS-CoV-2 (PCR) 03/17/22 03/17/22 03/17/22 12:55 13:00 16:00 WBC RBC Hgb Hct MCV MCH MCHC RDW Plt Count MPV Immature Gran % Neutrophils % Lymphocytes % Monocytes % Eosinophils % Basophils % Nucleated RBC % Absolute Neutrophils Absolute Lymphocytes Absolute Monocytes Absolute Eosinophils Absolute Basophils PT INR Sodium Cancelled Potassium Cancelled Chloride Cancelled Carbon Dioxide Cancelled Anion Gap Cancelled BUN Cancelled Creatinine Cancelled Estimated GFR/1.73 m2 Cancelled Glucose Cancelled Calcium Cancelled Magnesium Cancelled Total Bilirubin Cancelled AST Cancelled ALT Cancelled Alkaline Phosphatase Cancelled Troponin I Cancelled Cancelled Total Protein Cancelled Albumin Cancelled Lipase COVID-19 Source Nasal/Nares SARS-CoV-2 (PCR) Negative Last Vital Signs Temp 36.5 C 03/17/22 14:28 Pulse 69 03/17/22 14:28 Resp 15 03/17/22 14:28 BP 128/71 03/17/22 14:28 Pulse Ox 93 03/17/22 14:28
[2022-03-17 20:27] VITALS: BP 150/81; PULSE 72; RESP 20; TEMP 36.2; O2SAT 93
[2022-03-17] MEDS: Famotidine 20 MG/2 ML VIAL IVP (20:30)
[2022-03-17] MEDS: Carvedilol 12.5 MG TAB PO (20:30)
[2022-03-17] MEDS: Hyoscyamine 0.125 MG SL/ORAL/CHEW SL (22:51)
[2022-03-17 23:57] VITALS: BP 148/80; PULSE 72; RESP 20; TEMP 36.8; O2SAT 98
[2022-03-18] MEDS: HYDROmorphone 2 MG/ML SYR 0.5 MG IVP (02:17)
[2022-03-18 03:07] VITALS: BP 150/80; PULSE 72; RESP 20; TEMP 36.7; O2SAT 93
[2022-03-18] MEDS: Levothyroxine 88 MCG TAB PO (05:14)
[2022-03-18 07:00] VITALS: BP 135/80; PULSE 84; RESP 21; TEMP 36.2; O2SAT 96
[2022-03-18 07:15] LABS: Abs Immature Grans 0.03 10^3/uL (0.0-0.06); Absolute Basophil Count 0.03 10^3/uL (0.0-0.2); Absolute Eosinophil Count 0.25 10^3/uL (0.0-0.7); Absolute Lymphocyte Count 1.07 10^3/uL (1.2-3.4); Absolute Monocyte Count 0.47 10^3/uL (0.1-0.8); Absolute Neutrophil Count 3.98 10^3/uL (1.2-6.7); Basophils % 0.5; Eosinophils % 4.3; HGB 10.6 g/dL (11.2-15.7); Immature Grans % 0.5; Lymphocytes % 18.4; MCH 27.5 pg (27.0-33.0); MCHC 32.1 % (32.0-36.0); MCV 86 fL (80-95); MPV 10.6 fL (8.0-11.0); Monocytes % 8.1; Neutrophils % 68.2; Platelet Count 142 10^3/uL (130-400); RBC 3.85 10^6/uL (3.93-5.22); RDW 12.5 % (11.7-14.6); WBC 5.83 10^3/uL (4.4-10.8)
[2022-03-18 07:28] LABS: INR 3.2 (0.9-1.1)
[2022-03-18 07:36] LABS: ALT 12 U/L (14-59); AST 10 U/L (15-37); Albumin 2.8 g/dL (3.4-5.0); Alkaline Phosphatase 86 U/L (46-116); Anion Gap 5.3 mmol/L (3-11); BUN 16 mg/dL (7-18); Bilirubin, Total 0.5 mg/dL (0.2-1.0); CO2 29.7 mmol/L (21.0-32.0); CREATININE 1.5 mg/dL (0.55-1.02); Calcium 8.3 mg/dL (8.5-10.1); Chloride 105 mmol/L (98-107); Estimated GFR 33.16 (mL/min/1.73m2); Glucose 92 mg/dL (74-106); Potassium 3.7 mmol/L (3.5-5.1); Sodium 140 mmol/L (136-145); Total Protein 5.7 g/dL (6.4-8.2)
[2022-03-18 07:38] LABS: NT-proBNP 2891 pg/mL (<300)
[2022-03-18 07:51] LABS: Procalcitonin < 0.1 ng/mL
[2022-03-18 08:00] LABS: C-Reactive Protein 0.68 mg/dL (0.0-0.3)
[2022-03-18] MEDS: Lactated Ringers 1,000 ML 125 ML IV (08:29)
[2022-03-18] MEDS: Carvedilol 12.5 MG TAB PO ×2 (08:29→19:33)
[2022-03-18] MEDS: Hyoscyamine 0.125 MG SL/ORAL/CHEW SL (08:29)
--- NOTE | 2022-03-18 09:17 | INITIAL_ITS ---
- If Service Date Differs Date of service: 03/18/22 Time of Service: 09:17 Care Management Initial Assess REASON FOR HOSPITALIZATION:: Perforated diverticulum of ileum PAST MEDICAL HISTORY/PAST SURGICAL HISTORY:: All Active Problems (Updated 03/17/22 @ 16:06 by Jannet Aviles DO). Perforated diverticulum of ileum (Acute). Acute dehydration (Acute). Enteritis (Acute). Perforated small intestine (Acute). MANUELITO (acute kidney injury) (Acute). BPV (benign positional vertigo) (Acute). Pre-diabetes (Acute). Arthritis (Acute). Tinnitus, bilateral (Acute). Sensorineural hearing loss of both ears (Acute). Afib (Chronic). ablated x 2, ongoing, coumadin. 2020- cardiology suggesting a watchman, she declined. Coronary artery disease (Chronic). NSTEMI 01/2020 Proximal LAD, mid RCA. Essential hypertension (Chronic 09/18/13). Hypothyroidism (Chronic 07/27/11). Medical History . Arthritis of right hip. Chronic congestive heart failure (07/27/11). Diverticula of colon. Diverticular hemorrhage. Elevated troponin. Greater trochanteric bursitis of right hip. Depo-Medrol injection: 08/30/2019 (80 mg); 07/05/2019 (40 mg). History of tobacco use. Irritable colon. NSTEMI (non-ST elevated myocardial infarction). Polyp of colon, adenomatous. Postherpetic trigeminal neuralgia. Raynauds disease. Vaginal wall prolapse (07/27/11). 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 Surgical History . Cardiac ablations. x 2 2011. History of appendectomy. History of bilateral oophorectomy. History of cardiac radiofrequency ablation. History of colonoscopy with polypectomy (~07/03/19). [facility]. History of esophagogastroduodenoscopy. History of partial thyroidectomy. Status post abdominal hysterectomy PREVIOUS FUNCTIONAL STATUS/SOCIAL/FAMILY SUPPORTS:: Juli lives in [place] with her Neda. 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 She is independent at baseline and drives. She has 2 adult children that live out of the area. CURRENT FUNCTIONAL STATUS:: Juli was lying in bed reading a book when CM met with her. She is alert, oriented and easy to engage in conversation. She has no questions or concerns at this time. ADVANCE DIRECTIVES:: On file, [facility] is Kavita Lindquist Has patient been provided with info about the portal/API?: Yes Did the patient sign up for the portal?: Yes (Prior to admission) CODE STATUS:: Full Code INSURANCE COVERAGE / FINANCIAL ISSUES:: AARP. Medicare CURRENT HOME/COMMUNITY SERVICES/EQUIPMENT:: None PRIMARY CARE PHYSICIAN:: [facility] POTENTIAL DISCHARGE NEEDS:: Follow up appointment PATIENT/FAMILY EDUCATION NEEDS:: Review discharge instructions, limitations, medications and plan to follow up with community providers. ask me three. TRANSPORTATION:: Via private vehicle with family. PLAN:: Anticipate, Juli will discharge home via private vehicle with family when medically ready. She will follow up with community providers and discharge plan of care as prescribed. No new [facility] services are indicated at this time.
--- NOTE | 2022-03-18 09:49 | W.PM.PROGNOT ---
Date of Service Date of service: 03/18/22 Time of Service: 09:49 Assessment and Plan Assessment and plan (1) Perforated diverticulum of ileum: Status: Acute Assessment and plan: Continue IV Zosyn Start Clear liquid diet Pain is well controlled Encouraged ambulation and activity OOB Will need to PO antibiotics at d/c Subjective Subjective Interval history since last seen: Arrived with the patient resting comfortably in bed. She states that her nausea and vomiting have resolved. She also states that her abdominal pain has significantly improved and is now feeling only tender like bloating. Patient states that she did get some sleep last night and is eager to know when she is will be able to return home. Exam Const General: cooperative, healthy appearing and comfortable Orientation: alert and oriented x3 Resp Effort & Inspection: normal respiratory effort, no audible wheezes and no cough GI Inspection: normal to inspection Palpation: soft, no guarding and tender Objective Last Vital Signs Temp 36.2 C L 03/18/22 07:00 Pulse 84 03/18/22 07:00 Resp 21 03/18/22 07:00 BP 135/80 03/18/22 07:00 Pulse Ox 96 03/18/22 07:00 Laboratory Results - last 24 hr 03/17/22 03/17/22 03/17/22 11:05 11:05 11:05 WBC 7.24 RBC 4.35 Hgb 12.1 Hct 37.0 MCV 85 MCH 27.8 MCHC 32.7 D RDW 12.5 Plt Count 167 MPV 10.2 Immature Gran % 0.4 Neutrophils % 83.2 Lymphocytes % 7.9 Monocytes % 6.9 Eosinophils % 1.5 Basophils % 0.1 Nucleated RBC % 0.0 Absolute Neutrophils 6.02 Absolute Lymphocytes 0.57 L Absolute Monocytes 0.50 Absolute Eosinophils 0.11 Absolute Basophils 0.01 PT 25.5 H INR 2.7 H Sodium 137 Potassium 3.7 Chloride 102 Carbon Dioxide 27.1 Anion Gap 7.9 BUN 17 Creatinine 1.7 H Estimated GFR/1.73 m2 28.70 Glucose 104 Calcium 9.0 Magnesium Total Bilirubin 0.6 AST 28 ALT 21 Alkaline Phosphatase 103 Troponin I C-Reactive Protein NT-Pro-B Natriuret Pep Total Protein 6.7 Albumin 3.3 L Lipase 65 Procalcitonin COVID-19 Source SARS-CoV-2 (PCR) 06/03/17/22 03/17/22 12:55 13:00 16:00 WBC RBC Hgb Hct MCV MCH MCHC RDW Plt Count MPV Immature Gran % Neutrophils % Lymphocytes % Monocytes % Eosinophils % Basophils % Nucleated RBC % Absolute Neutrophils Absolute Lymphocytes Absolute Monocytes Absolute Eosinophils Absolute Basophils PT INR Sodium Cancelled Potassium Cancelled Chloride Cancelled Carbon Dioxide Cancelled Anion Gap Cancelled BUN Cancelled Creatinine Cancelled Estimated GFR/1.73 m2 Cancelled Glucose Cancelled Calcium Cancelled Magnesium Cancelled Total Bilirubin Cancelled AST Cancelled ALT Cancelled Alkaline Phosphatase Cancelled Troponin I Cancelled Cancelled C-Reactive Protein NT-Pro-B Natriuret Pep Total Protein Cancelled Albumin Cancelled Lipase Procalcitonin COVID-19 Source Nasal/Nares SARS-CoV-2 (PCR) Negative 03/18/22 03/18/22 03/18/22 06:45 06:45 06:45 WBC 5.83 RBC 3.85 L Hgb 10.6 L Hct 33.0 L MCV 86 MCH 27.5 MCHC 32.1 RDW 12.5 Plt Count 142 MPV 10.6 Immature Gran % 0.5 Neutrophils % 68.2 Lymphocytes % 18.4 Monocytes % 8.1 Eosinophils % 4.3 Basophils % 0.5 Nucleated RBC % 0.0 Absolute Neutrophils 3.98 Absolute Lymphocytes 1.07 L Absolute Monocytes 0.47 Absolute Eosinophils 0.25 Absolute Basophils 0.03 PT INR Sodium Cancelled Potassium Cancelled Chloride Cancelled Carbon Dioxide Cancelled Anion Gap Cancelled BUN Cancelled Creatinine Cancelled Estimated GFR/1.73 m2 Cancelled Glucose Cancelled Calcium Cancelled Magnesium Total Bilirubin AST ALT Alkaline Phosphatase Troponin I C-Reactive Protein 0.68 H NT-Pro-B Natriuret Pep 2891 H Total Protein Albumin Lipase Procalcitonin COVID-19 Source SARS-CoV-2 (PCR) 03/18/22 03/18/22 03/18/22 06:45 06:45 06:45 WBC RBC Hgb Hct MCV MCH MCHC RDW Plt Count MPV Immature Gran % Neutrophils % Lymphocytes % Monocytes % Eosinophils % Basophils % Nucleated RBC % Absolute Neutrophils Absolute Lymphocytes Absolute Monocytes Absolute Eosinophils Absolute Basophils PT 30.0 H INR 3.2 H Sodium 140 Potassium 3.7 Chloride 105 Carbon Dioxide 29.7 Anion Gap 5.3 BUN 16 Creatinine 1.5 H Estimated GFR/1.73 m2 33.16 Glucose 92 Calcium 8.3 L Magnesium Total Bilirubin 0.5 AST 10 L ALT 12 L Alkaline Phosphatase 86 Troponin I C-Reactive Protein NT-Pro-B Natriuret Pep Total Protein 5.7 L Albumin 2.8 L Lipase Procalcitonin < 0.1 COVID-19 Source SARS-CoV-2 (PCR)
[2022-03-18 11:56] VITALS: BP 148/79; PULSE 61; RESP 18; TEMP 36.6; O2SAT 95
[2022-03-18] MEDS: PIPERACILLIN/TAZO 3.375 GM in Normal Saline 50 ML IVPB ×2 (12:43→17:31)
[2022-03-18 15:20] VITALS: BP 132/75; PULSE 62; RESP 16; TEMP 36.8; O2SAT 94
[2022-03-18] MEDS: Atorvastatin 40 MG TAB PO (19:33)
[2022-03-18 19:34] VITALS: BP 131/71; PULSE 62; RESP 18; TEMP 36.2; O2SAT 96
[2022-03-18 23:51] VITALS: BP 138/76; PULSE 70; RESP 16; TEMP 36.4; O2SAT 97
[2022-03-19] MEDS: Ondansetron 4 MG/2 ML VIAL IVP (00:08)
[2022-03-19] MEDS: PIPERACILLIN/TAZO 3.375 GM in Normal Saline 50 ML IVPB ×2 (00:09→05:47)
[2022-03-19 00:10] VITALS: O2SAT 97
[2022-03-19 03:05] VITALS: BP 118/64; PULSE 65; RESP 16; TEMP 36.4; O2SAT 96
[2022-03-19] MEDS: Levothyroxine 88 MCG TAB PO (05:47)
[2022-03-19 07:05] LABS: INR 3.1 (0.9-1.1); Prothrombin Time 28.8 sec (9.3-11.0)
[2022-03-19 07:43] VITALS: PULSE 75; RESP 18; TEMP 36.9; O2SAT 95
--- NOTE | 2022-03-19 07:48 | W.PM.PROGNOT ---
Date of Service Date of service: 03/19/22 Time of Service: 07:48 Assessment and Plan Assessment and plan (1) Perforated diverticulum of ileum: Status: Acute Assessment and plan: Will switch Antibiotics to PO Augmentin, to observe tolerance prior to d/c home Tolerating low residual diet no nausea or vomiting (+) BMs, continues to have diarrhea this morning Abdominal pain well controlled No fevers, chills or night sweats. Possible d/c home later today. Patient is tolerating p.o.'s. She tolerated moxifloxacin with no abdominal pain or nausea. She will be discharged home on this medication. She will follow-up in surgical clinic next week. Yogurt daily while on antibiotics monitor for any nausea or vomiting. Any fever chills/nausea vomiting/severe abdominal pain or more than 3 stools a day return to ER. Subjective Subjective Interval history since last seen: Patient states that she woke up this morning and had had diarrhea in the night. She did not realize this. She states that she just finished getting cleaned up. She denies any nausea or vomiting. She states her abdominal pain has significantly improved and is mild. She is eager to be discharged home. Exam Const General: cooperative, healthy appearing and comfortable Orientation: alert and oriented x3 Resp Effort & Inspection: normal respiratory effort, no audible wheezes and no cough GI Inspection: normal to inspection Palpation: soft, no guarding and tender Objective Last Vital Signs Temp 36.9 C 03/19/22 07:43 Pulse 75 03/19/22 07:43 Resp 18 03/19/22 07:43 BP 118/64 03/19/22 03:05 Pulse Ox 95 03/19/22 07:43 Laboratory Results - last 24 hr 03/18/22 03/18/22 03/19/22 06:45 06:45 06:45 PT 28.8 H INR 3.1 H C-Reactive Protein 0.68 H Procalcitonin < 0.1
--- NOTE | 2022-03-19 08:27 | PDOC.CMPRO ---
- If Service Date Differs Date of service: 03/19/22 Time of Service: 08:27 Care Management Progress Note S/O: A: 81 year old female admitted to [facility] on 03/17/22 for Perforated diverticulum of ileum P:Anticipate, Juli will discharge home via private vehicle with family when medically ready. She will follow up with community providers and discharge plan of care as prescribed. No new [facility] services are indicated at this time.
[2022-03-19] MEDS: Carvedilol 12.5 MG TAB PO (09:25)
[2022-03-19 11:43] VITALS: BP 145/81; PULSE 61; RESP 16; TEMP 36.3; O2SAT 96
[2022-03-19] MEDS: Ondansetron O.D.T. 4 MG TABEF PO (12:19)
[2022-03-19] MEDS: Loperamide 2 MG CAP PO (14:09)
--- NOTE | 2022-03-19 14:59 | DSE_ITS ---
Date of service: 03/19/22 Time of Service: 14:59 DS: Diagnosis Discharge Diagnosis (1) Perforated diverticulum of ileum: Status: Acute (2) Acute dehydration: Status: Resolved (3) MANUELITO (acute kidney injury): Status: Resolved (4) Afib: Status: Chronic (5) Essential hypertension: Status: Chronic Discharge Plan Disposition Patient Disposition: HOME Condition: Stable Discharge Details Reason For Visit: Diverticulitis,Vomiting Admit Date/Time: 03/17/22 12:49 Admit Provider: Brody Galo Attending Provider: Brody Galo Primary Care Provider: [facility] Course Hospital Course: This 81-year-old female presented to the emergency department complaining of severe abdominal cramping and diarrhea.. Her pain was diffuse. She reports having had something similar to this a few years ago. She wsas found to be hypovolemic in the ED and given IV fluids. She was given morphine for pain with good results. She was given antibiotics and pain medicine and discharged to home. She returned not being able to tolerate the antibiotics - nausea, vomiting. The antibiotics were changed and she was discharged home. The next day she returned to the ED again unable to tolerate the antibiotics. She was admitted for IV antibiotics and pain control. Surgery was consulted. She improved, however continued to have diarrhea. We did get a stool for c-diff (d oubt, she did have a formed stool yesterday and it is not malodorous) - we started her on imodium. She was able to keep down oral antibiotics today given 30 minutes after zofran ODT. She was anxious to go home to care for her . She was discharged home with antibiotics, anti-emetics, anti-diarrheals and probiotics. Discussed with Dr Galo Home Meds and New Rx's Prescriptions: New moxifloxacin 400 mg Tablet 400 mg PO Q24H Qty: 4 0RF loperamide 2 mg Capsule 2 mg PO QLOOSE PRNQty: 0 0RF famotidine 20 mg Tablet 20 mg PO Q48H Qty: 0 0RF L. Acidophilus,Casei,Rhamnosus [Bio-K Plus] 1 cap PO DAILY Qty: 0 0RF moxifloxacin 400 mg tablet 400 mg PO DAILY 5 Days Qty: 5 0RF moxifloxacin 400 mg tablet 400 mg PO DAILY Qty: 4 0RF ondansetron 4 mg tablet,disintegrating 4 mg PO Q8H PRNQty: 10 0RF Rx Instructions: Take 30 min before antibiotic and every 8 hours as needed Continued meclizine 25 mg tablet 25 mg PO BID PRN (Reason: dizziness) Qty: 30 0RF cholecalciferol (vitamin D3) 25 mcg (1,000 unit) capsule 25 mcg PO DAILY calcium carbonate-vitamin D3 [Caltrate with Vitamin D3] 1 EACH tablet 1 tab PO DAILY lisinopril 40 mg tablet 40 mg PO DAILY Qty: 90 4RF carvedilol 6.25 mg tablet 12.5 mg PO BID Qty: 180 3RF Label Comments: Pt states she is currently only taking Daily not BID. Pt will verify with provider what she should be doing. 03/17/22 Rx Instructions: must administer with a meal/food rx by [facility] . [facility] hydrochlorothiazide 12.5 mg tablet 12.5 mg PO DAILY Qty: 90 3RF metoclopramide HCl [Reglan] 5 mg tablet 5 mg PO Q6H PRN (Reason: nausea and vomiting) Qty: 12 0RF Rx Instructions: administer 30 minutes before meals hydrocodone-acetaminophen 5-325 mg tablet 1 tab PO Q6H PRNQty: 7 0RF Label Comments: Pt has not taken any yet 03/17/22 aspirin 81 mg Tablet,Delayed Release (Dr/Ec) 81 mg PO DAILY atorvastatin 40 mg tablet 40 mg PO HS gabapentin 600 mg tablet 300 mg PO BID PRN Label Comments: Takes for permanent pain in face/eye from shingles only uses for when uncomfortable. 03/17/22 levothyroxine [Synthroid] 88 mcg tablet 88 mcg PO DAILY Label Comments: Pt takes with other AM meds consistently ay 1000 warfarin 5 mg tablet 5 mg PO HS Protocol: Dose Management Condition: Wednesday Dose/Route: 5 mg Instruction: 1 x 5 mg tablet Condition: Wednesday Dose/Route: 5 mg Instruction: 1 x 5 mg tablet Condition: Wednesday Dose/Route: 5 mg Instruction: 1 x 5 mg tablet Condition: Wednesday Dose/Route: 5 mg Instruction: 1 x 5 mg tablet Condition: Dose/Route: 5 mg Instruction: 1 x 5 mg tablet Condition: Wednesday Dose/Route: 5 mg Instruction: 1 x 5 mg tablet Condition: Wednesday Dose/Route: 5 mg Instruction: 1 x 5 mg tablet Protocol Text: Adjustment Start Date: Wednesday02/25/22 INR Value: 2.4 INR Date: 02/25/22 Recheck Date: 03/27/22 Discontinued bisacodyl [Dulcolax (bisacodyl)] 5 mg tablet,delayed release (DR/EC) 5 mg PO ONCE Qty: 4 0RF Rx Instructions: take per colonoscopy instructions polyethylene glycol 3350 17 gram/dose powder 238 g PO ONCE Qty: 238 0RF Rx Instructions: take per colonoscopy instructions dicyclomine 10 mg capsule 10 mg PO QID PRN (Reason: abdominal pain) Qty: 120 4RF levofloxacin 750 mg tablet 750 mg PO DAILY Qty: 7 0RF metronidazole 500 mg tablet 500 mg PO TID Qty: 21 0RF amoxicillin-pot clavulanate 875-125 mg tablet 1 tab PO BID Qty: 14 0RF Discharge Instructions Instructions: Famotidine (By mouth), Loperamide (By mouth), Ondansetron (By mouth), Moxifloxacin (By mouth), Diverticulitis (DC), Acute Nausea and Vomiting (DC) Additional Instructions: Continue antibiotics for 4 days. Take ondansetron at least 30 minutes before taking antibiotic in the morning. Eat small, frequent, bland meals. Drink plenty of fluids. Increase fiber. If you develop one or more of the following signs or symptoms, you should seek immediate medical attention: ?Temperature >100.1?F (38?C) ?Worsening or severe abdominal pain ?Inability to tolerate fluids Food Serving Grams of fiber Fruits Apple (with skin) 1 medium apple 4.4 Banana 1 medium banana 3.1 Oranges 1 orange 3.1 Prunes 1 cup, pitted 12.4 Juices Apple, unsweetened, with added ascorbic acid 1 cup 0.5 Grapefruit, white, canned, sweetened 1 cup 0.2 Grape, unsweetened, with added ascorbic acid 1 cup 0.5 [place] 1 cup 0.7 Vegetables Cooked * Green beans 1 cup 4.0 * Carrots 1/2 cup sliced 2.3 * Peas 1 cup 8.8 * Potato (baked, with skin) 1 medium potato 3.8 Raw * Etta (with peel) 1 cucumber 1.5 * Lettuce 1 cup shredded 0.5 * Tomato 1 medium tomato 1.5 * Spinach 1 cup 0.7 Legumes * Baked beans, canned, no salt added 1 cup 13.9 * Kidney beans, canned 1 cup 13.6 * Braden beans, canned 1 cup 11.6 * Lentils, boiled 1 cup 15.6 Breads, pastas, flours Bran muffins 1 medium muffin 5.2 Oatmeal, cooked 1 cup 4.0 White bread 1 slice 0.6 Whole-wheat bread 1 slice 1.9 Pasta and rice, cooked * Macaroni 1 cup 2.5 * Rice, brown 1 cup 3.5 * Rice, white 1 cup 0.6 * Spaghetti (regular) 1 cup 2.5 To learn how much fiber and other nutrients are in different foods, visit the [place] Department of [employer] ([employer]) [employer] website. Data from: [employer]. Available at:? https://custodial.Simple.TV.usda.gov/ ?(Accessed on July 14, 2019). Graphic 75533 Version 6.0 ? 2021 [employer] and/or its affiliates. All Rights Reserved. Stand Alone Forms: Nursing Discharge Form Referrals: Tammi Vallejo MD [ [facility] STAFF PHYSICIAN] - (Office will call you with appointment.) Sari Balbuena NP [Primary Care Provider] - 04/03/22 3:40 pm (follow up in 1-2 weeks) Activity:: Activity as Tolerated Equipment/Supplies:: No Equipment Needed Diet:: Low Sodium Discharge Orders Discharge Orders: Discharge Order (Routine); Ordered 03/19/22 Ordered By: Juli Mcduffie Discharge Data Discharge Date/Time-TO BE ENTERED AT DEPARTURE: 03/19/22 16:26 DS: Summary Time Spent with Patient providing and/or coordinating discharge services: Greater than 30 minutes Status at Discharge Functional status at discharge: independent ambulation Overall status at discharge: patient is progressing back to baseline Mental Status: mental status grossly normal Speech and Movement: speech and movement normal Mood: congruent mood Affect: normal affect Exam Psych Mental Status: mental status grossly normal Speech and Movement: speech and movement normal Mood: congruent mood Affect: normal affect DS: Data Vitals/I&O Vitals and I&O: Vital Signs Temperature 36.3 C L 03/19/22 11:43 Temperature Source Tympanic 03/19/22 11:43 Pulse 61 03/19/22 11:43 Pulse Rhythm Regular 03/19/22 00:10 Respiratory Rate 16 03/19/22 11:43 Respiratory Effort Non-Labored 03/19/22 00:10 Respiratory Depth Normal 03/19/22 00:10 Respiratory Pattern Normal 03/19/22 00:10 Blood Pressure 145/81 H 03/19/22 11:43 Blood Pressure Position Sitting 03/17/22 10:43 Pulse Oximetry 96 03/19/22 11:43 Oxygen Delivery Method Room Air 03/19/22 11:43 Oxygen Flow Rate 0 03/19/22 11:43 Pain Level 0 03/19/22 11:43 Intake & Output 03/18/22 03/19/22 03/19/22 23:59 11:59 23:59 Intake Total 1580 / 2830 350 / 590 240 / 590 Balance 1580 / 1230 350 / 590 240 / 590 Weight 74 kg Intake: IV 1100 / 2110 110 / 110 Oral 480 / 720 240 / 480 240 / 480 Other: Urine Color Yellow Urine Appearance Clear Comment Could not measure void. voids independently Patient urine output was not measured. Stool Occult Blood Negative Stool Size Moderate Moderate Stool Characteristics Liquid Soft Liquid Brown Liquid Voiding Methods Toilet Toilet Data Completed and Pending Labs on day of discharge: Labs from last 24 hours 03/19/22 06:45 PT 28.8 H INR 3.1 H PFSH All Active Problems Perforated diverticulum of ileum (Acute) Enteritis (Acute) Perforated small intestine (Acute) BPV (benign positional vertigo) (Acute) Pre-diabetes (Acute) Arthritis (Acute) Tinnitus, bilateral (Acute) Sensorineural hearing loss of both ears (Acute) Afib (Chronic) ablated x 2, ongoing, coumadin 2020- cardiology suggesting a watchman, she declined Coronary artery disease (Chronic) NSTEMI 01/2020 Proximal LAD, mid RCA Essential hypertension (Chronic 09/18/13) Hypothyroidism (Chronic 07/27/11) Medical History Arthritis of right hip Chronic congestive heart failure (10/24/11) Diverticula of colon Diverticular hemorrhage Elevated troponin Greater trochanteric bursitis of right hip Depo-Medrol injection: 08/30/2019 (80 mg); 07/05/2019 (40 mg) History of tobacco use Irritable colon NSTEMI (non-ST elevated myocardial infarction) Polyp of colon, adenomatous Postherpetic trigeminal neuralgia Raynauds disease Vaginal wall prolapse (07/27/11) 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 Son Asthma Daughter No problems noted. Social History Smoking/Tobacco Use Status: Former Tobacco Use Tobacco: How many years used: 30 Second Hand Exposure: Yes (as a child) Smoking risk assessment performed?: Yes Alcohol Intake: never Drug use: Never Substance use type: does not use Counseling given: No Counseling provided: none Caregiver/Support person: No Household members: spouse Housing: house Communication Needs: None Do you need help understanding health information?: Never Pets and animals: Yes Pets and animals: cat(s) Sexually active: No Do you think of yourself as: straight/heterosexual Current gender identity: female What is your relationship status?: How often do you talk on the phone with friends or family?: twice per week How often do you get together with friends or relatives?: never How often do you attend anabaptism or mormonism services?: 4 or more times per year Do you belong to any clubs or organized social groups?: yes Panel score (0-1 are the most socially isolated patients): 3 Ciara/Christianity: No preference Seatbelt use: always Drive intox or ride w/intox courtesy bus driver: No Do you feel safe at home: Yes Do you feel safe in your relationship?: Yes
--- NOTE | 2022-03-19 15:33 | PDOC.CMDIS ---
- If Service Date Differs Date of service: 03/19/22 Time of Service: 15:33 LACE Index Scoring Tool - Questions: Length of Stay (in days): 2 Acuity (Admit via E.D.?): Yes E.D. Visits: 2 - Answers: Total Score: 7 Risk of Readmission: Low Risk Care Management Discharge Reason for Hospitalization: Perforated diverticulum of ileum Discharge Plan: Juli is discharged home via private vehicle with . Dr. Vallejo's office will call Juli with an appointment. Juli will follow up with her PCP 04/03/22 as scheduled. Patient/Family Education Needs: Review discharge instructions, limitations, medications and plan to follow up with community providers. ask me three.
== END 2022-03-19 16:26 | disposition home or self-care (01) ==
LOC: ER 13:19 → MS 03-18 07:25
PROVIDERS: Nurse Practitioner Family; Surgery; Admitting Provider Family Medicine; Emergency Provider Physician Assistant; PCP Nurse Practitioner; Visit Provider Family Medicine
DX: K57.00 Diverticulitis of small intestine with perforation and abscess without bleeding (principal); N17.9 Acute kidney failure, unspecified; R11.2 Nausea with vomiting, unspecified; E86.0 Dehydration; R19.7 Diarrhea, unspecified; I48.11 Longstanding persistent atrial fibrillation; Z79.01 Long term (current) use of anticoagulants; R73.03 Prediabetes; H90.3 Sensorineural hearing loss, bilateral; I25.10 Atherosclerotic heart disease of native coronary artery without angina pectoris; I25.2 Old myocardial infarction; E03.9 Hypothyroidism, unspecified; Z87.891 Personal history of nicotine dependence; I73.00 Raynaud's syndrome without gangrene; I50.9 Heart failure, unspecified; I11.0 Hypertensive heart disease with heart failure; M16.11 Unilateral primary osteoarthritis, right hip; Z20.822 Contact with and (suspected) exposure to COVID-19
CPT/HCPCS: 36415; 80048; 80053; 83690; 84145; 87635; 93005; 96361; 96365; 96375; 99214; 99225; 99285; 83735; 83880; 84484; 85025; 85610; 86140; 93010; 93225; 99217; 99219; G0378; J1170; J2405; J2543; J2765; J3490

== ENCOUNTER 2022-03-19 04:34 | Outpatient (RCR) | payer MEDICARE, SELFPAY ==
--- NOTE | 2022-03-19 13:00 | HOLTER_ITS ---
APPROVED REPORT Conclusion This is a 48-hour Holter monitor, ordered for palpitations Predominant rhythm was sinus. Average heart rate was 66. Minimum was 51, maximum 108 There were rare ventricular ectopic beats, 1 couplet, no ventricular tachycardia There were frequent atrial premature beats There was no atrial fibrillation, no high-grade AV block, no pauses greater than 3 seconds Patient symptoms were reported but could not be correlated to any dysrhythmia due to failure to provi de the time
--- NOTE | 2022-03-20 09:59 | CHAPLAIN ---
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 She is caring for her who has some memory loss, and so doesn't like to be away from home and leave him alone. Juli explained that becoming the caregiver for her , who has always been very strong and independent is a change in roles for her that she's adjusting to.
== END 2022-04-02 23:59 | disposition home or self-care (01) ==
LOC: RT 04:34
PROVIDERS: PCP Nurse Practitioner; Visit Provider Internal Medicine Cardiovascular Disease
DX: R00.2 Palpitations (principal); I49.3 Ventricular premature depolarization
CPT/HCPCS: 93227; 93225; 93226

== ENCOUNTER 2022-03-24 00:56 | Outpatient (CLI) | payer MEDICARE, SELFPAY ==
[2022-03-24 12:32] LABS: INR 1.2 (0.9-1.1); Prothrombin Time 11.6 sec (9.3-11.0)
== END 2022-03-24 00:57 | disposition home or self-care (01) ==
LOC: LOS 00:56
PROVIDERS: PCP Nurse Practitioner; Visit Provider Nurse Practitioner
DX: I48.91 Unspecified atrial fibrillation (principal); Z79.01 Long term (current) use of anticoagulants
CPT/HCPCS: 36415; 93227; 85610

== ENCOUNTER → 2022-03-26 09:40 | Outpatient (BNVA) | payer MEDICARE, SELFPAY | PROVIDERS: PCP Nurse Practitioner; Referring Provider Nurse Practitioner; Visit Provider Internal Medicine Cardiovascular Disease | DX: I48.11 Longstanding persistent atrial fibrillation (principal); I25.10 Atherosclerotic heart disease of native coronary artery without angina pectoris | CPT/HCPCS: 99214; 99213 ==

== ENCOUNTER 2022-03-30 12:15 | Emergency (ER) | payer MEDICARE, SELFPAY ==
[2022-03-30 12:27] VITALS: BP 159/96; PULSE 72; RESP 17; TEMP 36.8; O2SAT 98
--- NOTE | 2022-03-30 12:30 | DI.US_ITS ---
Exam(s) US LOWER EXTREMITY VENOUS LT EXAM: US LOWER EXTREMITY VENOUS LT CLINICAL HISTORY: swelling/pain TECHNIQUE: Grayscale, color, and doppler imaging of the deep venous system of the left lower extremi ty was performed. COMPARISON: US US BREAST LT LIMITED from 11/01/2020 FINDINGS: There is no evidence of intraluminal thrombus and there is normal compression and augmentation demons trated within the common femoral vein, femoral vein, and popliteal vein. In the ipsilateral calf the interrogated veins also exhibit normal compression/ augmentation properti es. The ipsilateral saphenofemoral junction is patent. IMPRESSION: 1. No evidence of DVT in the left lower extremity. DATA REPOSITORY:
[2022-03-30 12:36] VITALS: RESP 17
--- NOTE | 2022-03-30 12:42 | W.ED.GENAD ---
Discharge Plan Disposition Patient Disposition: HOME Condition: Stable Discharge Details Clinical Impression: Left leg swelling, Closed fracture of phalanx of right little finger, Supratherapeutic INR Primary Care Provider: Sari Balbuena ED Provider: Arpan Ochoa Home Meds and New Rx's Prescriptions: Continued cholecalciferol (vitamin D3) 25 mcg (1,000 unit) capsule 25 mcg PO DAILY calcium carbonate-vitamin D3 [Caltrate with Vitamin D3] 1 EACH tablet 1 tab PO DAILY lisinopril 40 mg tablet 40 mg PO DAILY Qty: 90 4RF carvedilol 6.25 mg tablet 12.5 mg PO BID Qty: 180 3RF Label Comments: Pt states she is currently only taking Daily not BID. Pt will verify with provider what she should be doing. 03/17/22 Rx Instructions: must administer with a meal/food rx by [facility] . [facility] hydrochlorothiazide 12.5 mg tablet 12.5 mg PO DAILY Qty: 90 3RF aspirin 81 mg Tablet,Delayed Release (Dr/Ec) 81 mg PO DAILY atorvastatin 40 mg tablet 40 mg PO HS gabapentin 600 mg tablet 300 mg PO BID PRN Label Comments: Takes for permanent pain in face/eye from shingles only uses for when uncomfortable. 03/17/22 levothyroxine [Synthroid] 88 mcg tablet 88 mcg PO DAILY Label Comments: Pt takes with other AM meds consistently ay 1000 warfarin 5 mg tablet 5 mg PO HS Protocol: Dose Management Condition: Wednesday Dose/Route: 5 mg Instruction: 1 x 5 mg tablet Condition: Wednesday Dose/Route: 5 mg Instruction: 1 x 5 mg tablet Condition: Wednesday Dose/Route: 5 mg Instruction: 1 x 5 mg tablet Condition: Wednesday Dose/Route: 5 mg Instruction: 1 x 5 mg tablet Condition: Dose/Route: 7.5 mg Instruction: 1.5 x 5 mg tablets Condition: Wednesday Dose/Route: 5 mg Instruction: 1 x 5 mg tablet Condition: Wednesday Dose/Route: 5 mg Instruction: 1 x 5 mg tablet Protocol Text: Adjustment Start Date: Wednesday03/30/22 INR Value: 1.7 INR Date: 03/30/22 Recheck Date: 04/06/22 famotidine 20 mg Tablet 20 mg PO Q48H Qty: 0 0RF L. Acidophilus,Casei,Rhamnosus [Bio-K Plus] 1 cap PO DAILY Qty: 0 0RF Discharge Instructions Instructions: Finger Fracture (ED), Leg Edema (ED) Additional Instructions: Your ultrasound does not reveal any blood clot. Be mindful of both your fluid and sodium intake. Rest, elevate, cool and/or warm compresses every 2 hours for 20 minutes, and she may want to wear vyiv-nig-srhwlel compression stockings to help with the edema. Your INR is slightly low, take a full 10 mg tonight and then tomorrow go back to normal 5 mg, this should be rechecked again in the next few days. I spoke with Dr. Aviles who is aware of your ER visit and will follow you in the office sometime next week. 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 Please wear the splint until reevaluation with orthopedics. Watch for new or worsening symptoms and return to the ER for any concerns. Lastly, please contact your primary care provider to discuss your ER visit and need for outpatient reevaluation. Referrals: Adan Harrison MD [ [facility] STAFF PHYSICIAN] - Medical Decision Making 81-year-old female with recent hospitalization, on chronic anticoagulation, presents for DVT rule out of the left lower extremity. Left lower extremity without erythema or warmth, there is 2+ pitting edema, 1+ of the right lower extremity. Clinically no signs of obvious CHF. Denies chest pain or shortness of breath. Will obtain routine screening laboratory values as well as an INR level as she held Coumadin for her recent hospitalization. We will also obtain x-ray of her right hand X-ray of right hand does reveal an avulsion fracture at the base of the middle phalanx of the fifth digit. Ultrasound negative Laboratory values reveal INR of 1.7. Finger splinted appropriately. We discussed x-ray and ultrasound as well as her laboratory values. Patient will take an extra dose of her Coumadin this evening, take normal dose tomorrow and then have it rechecked later in the week. I did discuss these findings with Dr. Aviles who originally sent the patient to the ER for DVT rule out. She is happy to follow the patient in her office next week and will continue to pursue the MRI of her abdomen for further evaluation of her recent hospitalization. Standard discharge and return precautions were provided. Patient understands, is agreeable to this plan, and has no additional questions or concerns upon discharge. This documentation was generated using [employer] system, please disregard any oddities of phrase or misspellings. Medical Records Medical records reviewed: Yes I reviewed the patient's medical records. Imaging Data Radiologic Study: Attestation: I personally reviewed and interpreted this imaging study as follows: Imaging: X-Ray Radiologist's impression: Exam(s) XR HAND RT COMPLETE EXAM: XR HAND RT COMPLETE CLINICAL HISTORY: R 5th finger injury. TECHNIQUE: 2D digital imaging was performed. COMPARISON: CR LEFT HAND COMPLETE from 06/20/2014 FINDINGS: 3 views On the lateral view there is an avulsion fracture fragment off the dorsal aspect of the base of the middle phalanx of the 5th finger. No other fractures. There are more advanced degenerative changes are noted in the DIP joint as well as the DIP joint of the other fingers. Metacarpophalangeal joints appear age-appropriate as do the wrist bones which appear unremarkable. IMPRESSION: Avulsion fracture off the dorsal aspect of the base of the middle phalanx of the 5th finger. Fracture fragment measures approximately 3 x 2 millimeters. Radiologic Study #2: Attestation: I personally reviewed and interpreted this imaging study as follows: Imaging: Ultrasound Radiologist's impression: Exam(s) US LOWER EXTREMITY VENOUS LT EXAM: US LOWER EXTREMITY VENOUS LT CLINICAL HISTORY: swelling/pain TECHNIQUE: Grayscale, color, and doppler imaging of the deep venous system of the left lower extremity was performed. COMPARISON: US US BREAST LT LIMITED from 11/01/2020 FINDINGS: There is no evidence of intraluminal thrombus and there is normal compression and augmentation demonstrated within the common femoral vein, femoral vein, and popliteal vein. In the ipsilateral calf the interrogated veins also exhibit normal compression/ augmentation properties. The ipsilateral saphenofemoral junction is patent. IMPRESSION: 1. No evidence of DVT in the left lower extremity. Lab Data Lab results reviewed: Yes I reviewed the patient's lab results. Labs: Laboratory Tests Range/Units 03/30/22 03/30/22 03/30/22 13:35 13:35 13:35 WBC (4.4-10.8) 10^3/uL 5.25 RBC (3.93-5.22) 10^6/uL 4.32 Hgb (11.2-15.7) g/dL 12.1 Hct (36.0-46.0) % 37.2 MCV (80-95) fL 86 MCH (27.0-33.0) pg 28.0 MCHC (32.0-36.0) % 32.5 RDW (11.7-14.6) % 12.8 Plt Count (130-400) 10^3/uL 197 MPV (8.0-11.0) fL 10.2 Immature Gran % 0.2 Neutrophils % 72.6 Lymphocytes % 16.4 Monocytes % 7.0 Eosinophils % 3.2 Basophils % 0.6 Nucleated RBC % (0.0-0.3) % 0.0 Absolute Neutrophils (1.2-6.7) 10^3/uL 3.81 Absolute Lymphocytes (1.2-3.4) 10^3/uL 0.86 L Absolute Monocytes (0.1-0.8) 10^3/uL 0.37 Absolute Eosinophils (0.0-0.7) 10^3/uL 0.17 Absolute Basophils (0.0-0.2) 10^3/uL 0.03 PT (9.3-11.0) sec 16.5 H INR (0.9-1.1) 1.7 H APTT (21.0-27.5) sec 31.2 H Sodium (136-145) mmol/L 135 L Potassium (3.5-5.1) mmol/L 4.6 Chloride (98-107) mmol/L 100 Carbon Dioxide (21.0-32.0) mmol/L 28.2 Anion Gap (3-11) mmol/L 6.8 BUN (7-18) mg/dL 15 Creatinine (0.55-1.02) mg/dL 1.2 H Estimated GFR/1.73 m2 (mL/min/1.73m2) 42.90 Glucose (74-106) mg/dL 105 Calcium (8.5-10.1) mg/dL 8.7 Total Bilirubin (0.2-1.0) mg/dL 0.6 AST (15-37) U/L 25 ALT (14-59) U/L 20 Alkaline Phosphatase (46-116) U/L 112 Total Protein (6.4-8.2) g/dL 6.7 Albumin (3.4-5.0) g/dL 3.4 HPI General Mode of arrival: ambulatory. Date/Time Provider Initiated Documentation: 03/30/22 12:36. Limitations to Documentation: no limitations. Information obtained by: patient. HPI Narrative: 81-year-old female, past medical history of hypertension, CAD, A. fib, anticoagulation, recent hospitalization secondary to ileitis, presenting to the ER for evaluation of left-swelling, concern for DVT. Patient reports that she was seen as an outpatient today by her surgical team for outpatient follow-up discussed her left leg swelling over the past several days and sent for a DVT evaluation. She denies any fever, chest pain, shortness of breath, numbness, tingling, weakness or extremities. Patient also reports that a few days ago she slipped and fell of a stair injuring her right fifth finger, has use it at home splint for this. She reports that her recent ileitis is much improving. Patient denies history of DVT or PE. Related Data Home Medications Medication Instructions Recorded Confirmed calcium carbonate 600 mg-vitamin 1 tab PO DAILY 01/31/13 03/30/22 D3 20 mcg (800 unit) tablet (Caltrate with Vitamin D3) lisinopril 40 mg tablet 40 mg PO DAILY #90 tabs 03/18/21 03/30/22 carvedilol 6.25 mg tablet 12.5 mg PO BID #180 tabs 04/22/21 03/30/22 hydrochlorothiazide 12.5 mg tablet 12.5 mg PO DAILY #90 tabs 01/05/22 03/30/22 cholecalciferol (vitamin D3) 25 25 mcg PO DAILY 01/23/22 03/30/22 mcg (1,000 unit) capsule aspirin 81 mg tablet,delayed 81 mg PO DAILY 03/17/22 03/30/22 release atorvastatin 40 mg tablet 40 mg PO HS 03/17/22 03/30/22 gabapentin 600 mg tablet 300 mg PO BID PRN 03/17/22 03/30/22 levothyroxine 88 mcg tablet 88 mcg PO DAILY 03/17/22 03/30/22 (Synthroid) warfarin 5 mg tablet 5 mg PO HS 03/17/22 03/30/22 L. Acidophilus,Casei,Rhamnosus 1 cap PO DAILY ##0 03/19/22 03/30/22 [Bio-K PLUS] famotidine 20 mg tablet 20 mg PO Q48H #0 tabs 03/19/22 03/30/22 Previous Rx's Medication Instructions Recorded lisinopril 40 mg tablet 40 mg PO DAILY #90 tabs 03/18/21 carvedilol 6.25 mg tablet 12.5 mg PO BID #180 tabs 04/22/21 hydrochlorothiazide 12.5 mg tablet 12.5 mg PO DAILY #90 tabs 01/05/22 L. Acidophilus,Casei,Rhamnosus 1 cap PO DAILY ##0 03/19/22 [Bio-K PLUS] famotidine 20 mg tablet 20 mg PO Q48H #0 tabs 03/19/22 Allergies Allergy/AdvReac Type Severity Reaction Status Date / Time amoxicillin AdvReac Severe nausea/hot Verified 03/30/22 11:02 feeling sertraline AdvReac Intermediate TREMOR, Verified 03/30/22 11:02 DIAPHORESIS codeine phosphate AdvReac GI Verified 03/30/22 11:02 [From Tylenol-Codeine] flagyl AdvReac Intermediate Nausea and Uncoded 03/30/22 11:02 vomiting General Stated Complaint: Vascular MATT: 3 Review of Systems Constitutional Constitutional: Denies fever(s), Denies headache(s) and Denies weakness ENT Ears, Nose, Mouth, and Throat: Denies headache(s) and Denies neck pain Cardiovascular Cardiovascular: Denies chest pain and Denies dyspnea Respiratory Respiratory: Denies dyspnea Gastrointestinal Gastrointestinal: Denies abdominal pain, Denies constipation, Reports diarrhea, Denies nausea and Denies vomiting Genitourinary Genitourinary: Denies dysuria Musculoskeletal Musculoskeletal: Denies back pain and Denies neck pain Integumentary/Breasts Skin/Breast: Denies rash Neurologic Neurologic: Denies headache(s) and Denies weakness [facility] All Active Problems (Updated 03/30/22 @ 15:54 by SHASHANK Salgado) Left leg swelling (Acute) Closed fracture of phalanx of right little finger (Acute) Supratherapeutic INR (Acute) Pain in finger joint on movement (Acute) Pain in finger of right hand (Acute) 5th digit Fall as cause of accidental injury at home as place of occurrence (Acute) Anticoagulant long-term use (Acute) Swelling of left lower extremity (Acute) Anemia (Chronic) Perforated diverticulum of ileum (Acute) Enteritis (Acute) Perforated small intestine (Acute) BPV (benign positional vertigo) (Acute) Pre-diabetes (Acute) Arthritis (Acute) Tinnitus, bilateral (Acute) Sensorineural hearing loss of both ears (Acute) Afib (Chronic) ablated x 2, ongoing, coumadin 2020- cardiology suggesting a watchman, she declined Coronary artery disease (Chronic) NSTEMI 01/2020 Proximal LAD, mid RCA Essential hypertension (Chronic 09/18/13) Hypothyroidism (Chronic 07/27/11) Medical History Arthritis of right hip Chronic congestive heart failure (07/27/11) Diverticula of colon Diverticular hemorrhage Elevated troponin Greater trochanteric bursitis of right hip Depo-Medrol injection: 08/30/2019 (80 mg); 07/05/2019 (40 mg) History of tobacco use Irritable colon NSTEMI (non-ST elevated myocardial infarction) Polyp of colon, adenomatous Postherpetic trigeminal neuralgia Raynauds disease Vaginal wall prolapse (07/27/11) 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 Son Asthma Daughter No problems noted. Social History Smoking/Tobacco Use Status: Former Tobacco Use Tobacco: How many years used: 30 Second Hand Exposure: Yes (as a child) Smoking risk assessment performed?: Yes Alcohol Intake: never Drug use: Never Substance use type: does not use Counseling given: No Counseling provided: none Caregiver/Support person: No Household members: spouse Housing: house Communication Needs: None Do you need help understanding health information?: Never Pets and animals: Yes Pets and animals: cat(s) Sexually active: No Do you think of yourself as: straight/heterosexual Current gender identity: female What is your relationship status?: How often do you talk on the phone with friends or family?: twice per week How often do you get together with friends or relatives?: never How often do you attend temple or muslim services?: 4 or more times per year Do you belong to any clubs or organized social groups?: yes Panel score (0-1 are the most socially isolated patients): 3 Ciara/Synagogue: No preference Seatbelt use: always Drive intox or ride w/intox driver material handler: No Do you feel safe at home: Yes Do you feel safe in your relationship?: Yes Exam Const General: cooperative, healthy appearing, comfortable and no acute distress Orientation: alert and awake HENMT Head: normal to inspection, normocephalic and atraumatic Face and sinus: normal facial exam Mouth: moist mucous membranes Eyes General: appearance normal, both eyes and all related structures Conjunctivae: conjunctivae normal Neck Neck: normal visual inspection, trachea midline and supple Resp Effort & Inspection: normal respiratory effort and able to speak in complete sentences Auscultation: clear to auscultation bilaterally Cardio Rate: regular rate Rhythm: abnormal rhythm irregularly irregular Skin General skin exam: no rashes or lesions noted Neuro General: patient alert, patient awake, patient oriented x3, moves all extremities and no focal motor deficits Cognition: normal cognition Speech: speech normal Gait: normal gait Motor: muscle tone normal throughout Sensory Exam: no sensory deficits noted Extrem General: full ROM, capillary refill normal, no calf tenderness and pedal edema bilaterally pitting, 1+ (right) and 2+ (left) Other: Right fifth finger mild abrasion, mild discomfort with swelling and ecchymosis. Neuro, vascular, tendon intact. Bilateral lower extremities without erythema, warmth, palpable cord. Negative Homans' sign bilaterally. Normal capillary refill and pedal pulses. Psych Appearance: grossly normal Mental Status: mental status grossly normal Course Vital Signs Vital signs: Vital Signs Temperature 36.8 C 03/30/22 12:27 Pulse 72 03/30/22 12:27 Respiratory Rate 17 03/30/22 12:27 Blood Pressure 159/96 H 03/30/22 12:27 Pulse Oximetry 98 03/30/22 12:27 Temperature 36.8 C 03/30/22 12:27 Temperature Source Temporal Artery Scan 03/30/22 12:27 Pulse 72 03/30/22 12:27 Respiratory Rate 17 03/30/22 12:36 Respiratory Effort Non-Labored 03/30/22 12:36 Respiratory Depth Normal 03/30/22 12:36 Blood Pressure 159/96 H 03/30/22 12:27 Blood Pressure Position Sitting 03/30/22 12:27 Pulse Oximetry 98 03/30/22 12:27 Oxygen Delivery Method Room Air 03/30/22 12:27 Oxygen Flow Rate 0 03/30/22 12:27 Pain Level 0 03/30/22 12:36
--- NOTE | 2022-03-30 13:00 | DI.RAD_ITS ---
Exam(s) XR HAND RT COMPLETE EXAM: XR HAND RT COMPLETE CLINICAL HISTORY: R 5th finger injury. TECHNIQUE: 2D digital imaging was performed. COMPARISON: CR LEFT HAND COMPLETE from 06/20/2014 FINDINGS: 3 views On the lateral view there is an avulsion fracture fragment off the dorsal aspect of the base of the m iddle phalanx of the 5th finger. No other fractures. There are more advanced degenerative changes are noted in the DIP joint as well as the DIP joint of t he other fingers. Metacarpophalangeal joints appear age-appropriate as do the wrist bones which appe ar unremarkable. IMPRESSION: Avulsion fracture off the dorsal aspect of the base of the middle phalanx of the 5th finger. Fractur e fragment measures approximately 3 x 2 millimeters. DATA REPOSITORY: RADIATION DOSE DELIVERED:
[2022-03-30 13:43] LABS: Abs Immature Grans 0.01 10^3/uL (0.0-0.06); Absolute Basophil Count 0.03 10^3/uL (0.0-0.2); Absolute Eosinophil Count 0.17 10^3/uL (0.0-0.7); Absolute Lymphocyte Count 0.86 10^3/uL (1.2-3.4); Absolute Monocyte Count 0.37 10^3/uL (0.1-0.8); Absolute Neutrophil Count 3.81 10^3/uL (1.2-6.7); Basophils % 0.6; Eosinophils % 3.2; HCT 37.2 % (36.0-46.0); HGB 12.1 g/dL (11.2-15.7); Immature Grans % 0.2; Lymphocytes % 16.4; MCHC 32.5 % (32.0-36.0); MCV 86 fL (80-95); MPV 10.2 fL (8.0-11.0); Neutrophils % 72.6; Platelet Count 197 10^3/uL (130-400); RBC 4.32 10^6/uL (3.93-5.22); RDW 12.8 % (11.7-14.6); RDW-SD 40.2 fL; WBC 5.25 10^3/uL (4.4-10.8)
[2022-03-30 13:58] LABS: ALT 20 U/L (14-59); AST 25 U/L (15-37); Albumin 3.4 g/dL (3.4-5.0); Alkaline Phosphatase 112 U/L (46-116); Anion Gap 6.8 mmol/L (3-11); BUN 15 mg/dL (7-18); Bilirubin, Total 0.6 mg/dL (0.2-1.0); CO2 28.2 mmol/L (21.0-32.0); CREATININE 1.2 mg/dL (0.55-1.02); Calcium 8.7 mg/dL (8.5-10.1); Chloride 100 mmol/L (98-107); Glucose 105 mg/dL (74-106); Potassium 4.6 mmol/L (3.5-5.1); Sodium 135 mmol/L (136-145); Total Protein 6.7 g/dL (6.4-8.2)
[2022-03-30 14:29] LABS: INR 1.7 (0.9-1.1); PTT Activated 31.2 sec (21.0-27.5); Prothrombin Time 16.5 sec (9.3-11.0)
== END 2022-03-30 15:45 | disposition home or self-care (01) ==
PROVIDERS: Emergency Provider Physician Assistant; PCP Nurse Practitioner
DX: R22.42 Localized swelling, mass and lump, left lower limb (principal); S62.626A Displaced fracture of middle phalanx of right little finger, initial encounter for closed fracture; W01.0XXA Fall on same level from slipping, tripping and stumbling without subsequent striking against object, initial encounter; R79.1 Abnormal coagulation profile; Z79.01 Long term (current) use of anticoagulants
CPT/HCPCS: 29130; 80053; 99213; 99284; 73130; 85025; 85610; 85730; 93971

== ENCOUNTER → 2022-04-08 10:20 | Outpatient (BNVA) | payer MEDICARE, SELFPAY | PROVIDERS: PCP Nurse Practitioner; Referring Provider Nurse Practitioner; Visit Provider Physician Assistant | DX: X58.XXXA Exposure to other specified factors, initial encounter (principal); S62.606A Fracture of unspecified phalanx of right little finger, initial encounter for closed fracture | CPT/HCPCS: 99213 ==

== ENCOUNTER 2022-04-13 15:45 | Outpatient (CLI) | payer MEDICARE, SELFPAY ==
[2022-04-13 12:28] LABS: Abs Immature Grans 0.01 10^3/uL (0.0-0.06); Absolute Basophil Count 0.02 10^3/uL (0.0-0.2); Absolute Eosinophil Count 0.17 10^3/uL (0.0-0.7); Absolute Lymphocyte Count 0.93 10^3/uL (1.2-3.4); Absolute Monocyte Count 0.43 10^3/uL (0.1-0.8); Absolute Neutrophil Count 3.47 10^3/uL (1.2-6.7); Basophils % 0.4; Eosinophils % 3.4; HCT 37.5 % (36.0-46.0); HGB 12.2 g/dL (11.2-15.7); Immature Grans % 0.2; Lymphocytes % 18.5; MCH 27.7 pg (27.0-33.0); MCHC 32.5 % (32.0-36.0); MCV 85 fL (80-95); MPV 10.3 fL (8.0-11.0); Monocytes % 8.5; Platelet Count 149 10^3/uL (130-400); RDW 12.2 % (11.7-14.6); RDW-SD 38.3 fL; WBC 5.03 10^3/uL (4.4-10.8)
[2022-04-13 12:57] LABS: C-Reactive Protein 0.56 mg/dL (0.0-0.3)
[2022-04-13 13:05] LABS: Iron 85 ug/dL (50-170); Total Iron Binding Capacity 252 ug/dL (250-450); Transferrin Sat 34 % (15-50)
[2022-04-13 13:06] LABS: INR 4.9 (0.9-1.1)
[2022-04-13 13:34] LABS: Ferritin 126 ng/mL (8-252)
== END 2022-04-13 15:46 | disposition home or self-care (01) ==
LOC: LBO 15:47
PROVIDERS: PCP Nurse Practitioner; Visit Provider Surgery
DX: D64.9 Anemia, unspecified (principal); K52.9 Noninfective gastroenteritis and colitis, unspecified; K57.00 Diverticulitis of small intestine with perforation and abscess without bleeding; I48.91 Unspecified atrial fibrillation; I25.10 Atherosclerotic heart disease of native coronary artery without angina pectoris; I10 Essential (primary) hypertension; Z79.01 Long term (current) use of anticoagulants
CPT/HCPCS: 36415; 82728; 83540; 83550; 85025; 85610; 86140

== ENCOUNTER 2022-04-15 03:08 | Outpatient (CLI) | payer MEDICARE, SELFPAY ==
[2022-04-15 12:31] LABS: INR 2.8 (0.9-1.1); Prothrombin Time 26.2 sec (9.3-11.0)
== END 2022-04-15 03:09 | disposition home or self-care (01) ==
LOC: LOS 03:08
PROVIDERS: PCP Nurse Practitioner; Visit Provider Nurse Practitioner
DX: I48.91 Unspecified atrial fibrillation (principal); Z79.01 Long term (current) use of anticoagulants
CPT/HCPCS: 36415; 85610

== ENCOUNTER 2022-04-22 01:14 | Outpatient (CLI) | payer MEDICARE, SELFPAY ==
[2022-04-22 13:12] LABS: Prothrombin Time 42.6 sec (9.3-11.0)
[2022-04-22 13:36] LABS: INR 4.7 (0.9-1.1)
== END 2022-04-22 01:15 | disposition home or self-care (01) ==
LOC: LOS 01:14
PROVIDERS: PCP Nurse Practitioner; Visit Provider Nurse Practitioner
DX: I48.91 Unspecified atrial fibrillation (principal); Z79.01 Long term (current) use of anticoagulants
CPT/HCPCS: 36415; 85610

== ENCOUNTER 2022-04-24 02:17 | Outpatient (CLI) | payer MEDICARE, SELFPAY ==
[2022-04-24 13:06] LABS: INR 2.3 (0.9-1.1)
== END 2022-04-24 02:18 | disposition home or self-care (01) ==
LOC: LOS 02:19
PROVIDERS: PCP Nurse Practitioner; Visit Provider Nurse Practitioner
DX: I48.91 Unspecified atrial fibrillation (principal); Z79.01 Long term (current) use of anticoagulants
CPT/HCPCS: 36415; 85610

== ENCOUNTER → 2022-05-21 11:27 | Outpatient (BNVA) | payer MEDICARE, SELFPAY | PROVIDERS: PCP Nurse Practitioner; Referring Provider Nurse Practitioner; Visit Provider Student in an Organized Health Care Education/Training Program | DX: X58.XXXA Exposure to other specified factors, initial encounter (principal); S62.606A Fracture of unspecified phalanx of right little finger, initial encounter for closed fracture | CPT/HCPCS: 99213 ==

== ENCOUNTER 2022-06-03 02:52 | Outpatient (CLI) | payer MEDICARE, SELFPAY ==
[2022-06-03 13:38] LABS: INR 4.8 (0.9-1.1)
== END 2022-06-03 02:53 | disposition home or self-care (01) ==
LOC: LOS 02:52
PROVIDERS: PCP Nurse Practitioner; Visit Provider Nurse Practitioner
DX: I48.91 Unspecified atrial fibrillation (principal)
CPT/HCPCS: 36415; 85610

== ENCOUNTER 2022-06-10 04:22 | Outpatient (CLI) | payer MEDICARE, SELFPAY ==
[2022-06-10 13:02] LABS: Prothrombin Time 37.7 sec (9.3-11.0)
[2022-06-10 13:21] LABS: INR 4.1 (0.9-1.1)
== END 2022-06-10 04:23 | disposition home or self-care (01) ==
LOC: LOS 04:24
PROVIDERS: Nurse Practitioner; Visit Provider Family Medicine
DX: I48.91 Unspecified atrial fibrillation (principal); Z79.01 Long term (current) use of anticoagulants
CPT/HCPCS: 36415; 85610

== ENCOUNTER 2022-06-12 01:15 | Outpatient (CLI) | payer MEDICARE, SELFPAY ==
[2022-06-12 12:35] LABS: INR 2.1 (0.9-1.1); Prothrombin Time 20.2 sec (9.3-11.0)
== END 2022-06-12 01:16 | disposition home or self-care (01) ==
LOC: LOS 01:16
PROVIDERS: Nurse Practitioner; Visit Provider Family Medicine
DX: I48.91 Unspecified atrial fibrillation (principal)
CPT/HCPCS: 36415; 85610

== ENCOUNTER 2022-06-22 03:25 | Outpatient (CLI) | payer MEDICARE, SELFPAY ==
[2022-06-22 12:24] LABS: INR 1.8 (0.9-1.1); Prothrombin Time 17.4 sec (9.3-11.0)
== END 2022-06-22 03:26 | disposition home or self-care (01) ==
LOC: LOS 03:25
PROVIDERS: Nurse Practitioner; Visit Provider Family Medicine
DX: I48.91 Unspecified atrial fibrillation (principal)
CPT/HCPCS: 36415; 85610

== ENCOUNTER 2022-06-30 09:39 | Outpatient (CLI) | payer MEDICARE, SELFPAY ==
[2022-06-30 12:48] LABS: INR 2.3 (0.9-1.1); Prothrombin Time 21.8 sec (9.3-11.0)
== END 2022-06-30 09:40 | disposition home or self-care (01) ==
LOC: LOS 09:40
PROVIDERS: Nurse Practitioner; Visit Provider Family Medicine
DX: I48.91 Unspecified atrial fibrillation (principal); Z79.01 Long term (current) use of anticoagulants
CPT/HCPCS: 36415; 85610

== ENCOUNTER 2022-07-20 03:41 | Outpatient (CLI) | payer MEDICARE, SELFPAY ==
[2022-07-20 12:33] LABS: TSH (W/Ref FT4) 0.58 uIU/mL (0.36-3.74)
== END 2022-07-20 03:42 | disposition home or self-care (01) ==
LOC: LOS 03:41
PROVIDERS: PCP Nurse Practitioner; Visit Provider Nurse Practitioner Family
DX: E03.9 Hypothyroidism, unspecified (principal)
CPT/HCPCS: 36415; 84443

== ENCOUNTER 2022-08-31 03:17 | Outpatient (CLI) | payer MEDICARE, SELFPAY ==
[2022-08-31 10:33] LABS: Calculated LDL 54 mg/dL (<100); Cholesterol 154 mg/dL (<200); HDL Cholesterol 78 mg/dL (40-60); Triglyceride 113 mg/dL (<150)
== END 2022-08-31 03:18 | disposition home or self-care (01) ==
LOC: LBO 03:17
PROVIDERS: PCP Nurse Practitioner; Visit Provider Nurse Practitioner
DX: E78.5 Hyperlipidemia, unspecified (principal); I25.10 Atherosclerotic heart disease of native coronary artery without angina pectoris
CPT/HCPCS: 36415; 80061

== ENCOUNTER → 2022-09-04 13:14 | Outpatient (BNVA) | payer MEDICARE, SELFPAY | PROVIDERS: PCP Nurse Practitioner; Visit Provider Internal Medicine Cardiovascular Disease | DX: I25.10 Atherosclerotic heart disease of native coronary artery without angina pectoris (principal); I48.91 Unspecified atrial fibrillation; Z79.01 Long term (current) use of anticoagulants; R00.2 Palpitations; I25.2 Old myocardial infarction; Z95.5 Presence of coronary angioplasty implant and graft | CPT/HCPCS: 99214 ==

== ENCOUNTER 2023-03-18 09:38 | Outpatient (CLI) | payer MEDICARE, SELFPAY ==
--- NOTE | 2023-03-18 09:30 | RT.EKG_ITS ---
APPROVED REPORT Exam: Resting ECG Reason for Exam: hdx afib, CAD Patient Location: O HR:68 bpm ECG Measurements Heart Rate 68 AXIS NJ 144 P -17 QRSd 110 QRS 21 QT 447 T 127 QTc 476 Conclusion Sinus rhythm...normal P axis, V-rate 50- [address]-T abnormalities
== END 2023-03-18 09:39 | disposition home or self-care (01) ==
LOC: DI.CARD 09:39
PROVIDERS: PCP Nurse Practitioner; Visit Provider Internal Medicine Cardiovascular Disease
DX: I25.10 Atherosclerotic heart disease of native coronary artery without angina pectoris (principal); I48.91 Unspecified atrial fibrillation
CPT/HCPCS: 93010

== ENCOUNTER → 2023-03-18 09:39 | Outpatient (BNVA) | payer MEDICARE, SELFPAY | PROVIDERS: PCP Nurse Practitioner; Visit Provider Internal Medicine Cardiovascular Disease | DX: I48.0 Paroxysmal atrial fibrillation (principal); Z79.01 Long term (current) use of anticoagulants; I10 Essential (primary) hypertension; I25.10 Atherosclerotic heart disease of native coronary artery without angina pectoris | CPT/HCPCS: 93005; 99214 ==

== ENCOUNTER 2023-04-04 15:08 | Emergency (ER) | payer MEDICARE, SELFPAY ==
--- NOTE | 2023-04-04 | DI.RAD_ITS ---
Exam(s) XR WRIST RT COMPLETE EXAM: XR WRIST RT COMPLETE CLINICAL HISTORY: pain, trauma. TECHNIQUE: 2D digital imaging was performed of the right wrist. Three views were obtained. PA, lat eral and oblique views were obtained. COMPARISON: CR XR HAND RT COMPLETE from 03/30/2022 FINDINGS: BONES: No acute fracture is present. No bony destructive lesion is seen. JOINTS: The carpal bones are normally aligned. Degenerative changes are seen in the wrist. SOFT TISSUE: Normal. IMPRESSION: No acute fracture or dislocation. DATA REPOSITORY: RADIATION DOSE DELIVERED:
[2023-04-04 15:15] VITALS: BP 151/91; PULSE 70; RESP 16; TEMP 36.8; O2SAT 97
--- NOTE | 2023-04-04 16:08 | DI.VRAD_ITS ---
PROCEDURE INFORMATION: Exam: XR Right Wrist Exam date and time: 04/04/2023 3:43 PM Age: 82 years old Clinical indication: Other: Pain, trauma TECHNIQUE: Imaging protocol: Radiologic exam of the right wrist. Views: 3 or more views. COMPARISON: CR XR HAND RT COMPLETE 30/03/2022 13:49 FINDINGS: Bones/joints: Stable degenerative changes of the 1st metacarpal phalangeal joint and the 1st metacarpal-carpal joint. No fracture or dislocation. Negative ulnar variance. Soft tissues: Unremarkable. IMPRESSION: No evidence for acute bony injury. If clinical symptoms persist recommend followup film in 7-10 days. Dictated and Authenticated by: Sarahy Malin MD. Ordering:DONNA Flores MD
--- NOTE | 2023-04-04 17:07 | ED.GENADUL_ITS ---
Discharge Plan Disposition Patient Disposition: Home Condition: Stable Discharge Details Clinical Impression: Contusion, Abrasion Primary Care Provider: Mervat Mercado ED Provider: Sandra Gavin Home Meds and New Rx's Prescriptions: Continued atorvastatin 40 mg tablet 40 mg PO HS Qty: 90 3RF hydrochlorothiazide 12.5 mg tablet 12.5 mg PO DAILY Qty: 90 3RF warfarin 5 mg tablet 5 mg PO HS Qty: 90 3RF Protocol: Dose Management Condition: Wednesday Dose/Route: 5 mg Instruction: 1 x 5 mg tablet Condition: Wednesday Dose/Route: 5 mg Instruction: 1 x 5 mg tablet Condition: Wednesday Dose/Route: 5 mg Instruction: 1 x 5 mg tablet Condition: Wednesday Dose/Route: 2.5 mg Instruction: 0.5 x 5 mg tablets Condition: Dose/Route: 5 mg Instruction: 1 x 5 mg tablet Condition: Wednesday Dose/Route: 2.5 mg Instruction: 0.5 x 5 mg tablets Condition: Wednesday Dose/Route: 5 mg Instruction: 1 x 5 mg tablet Protocol Text: Adjustment Start Date: 05/20/23 INR Value: 2.0 INR Date: 05/20/23 Recheck Date: 06/17/23 sertraline 50 mg tablet 50 mg PO DAILY Qty: 90 1RF cholecalciferol (vitamin D3) 25 mcg (1,000 unit) capsule 25 mcg PO DAILY Patient Comments: only take in the winter time calcium carbonate-vitamin D3 [Caltrate with Vitamin D3] 1 EACH tablet 1 tab PO DAILY lisinopril 40 mg tablet 40 mg PO DAILY Qty: 90 3RF levothyroxine [Synthroid] 88 mcg tablet 88 mcg PO DAILY Qty: 90 3RF carvedilol 6.25 mg tablet 12.5 mg PO DAILY Patient Comments: Pt states she is currently only taking Daily not BID. Pt will verify with provider what she should be doing. 03/17/22 Rx Instructions: must administer with a meal/food rx by [facility] . jeanne aspirin 81 mg Tablet,Delayed Release (Dr/Ec) 81 mg PO DAILY Patient Comments: havent taken in a while No Action gabapentin 600 mg tablet 300 mg PO BID PRN (Reason: nerve pain) Qty: 180 1RF Discharge Instructions Instructions: Contusion in Adults (ED), Abrasion (ED) Additional Instructions: Wear splint for comfort Elevate above level of heart to help reduce swelling and throbbing Routine wound care including washing with warm soapy water daily rinse completely pat dry can apply Band-Aid to protect Continue to use ice for the next 24 hours then can use heat or ice Referrals: Mervat Mercado NP [Primary Care Provider] - Discharge Data Discharge Date/Time-TO BE ENTERED AT DEPARTURE: 04/04/23 17:21 Medical Decision Making <Sandra Gavin NP - Last Filed: 04/04/23 17:14> X-ray obtained and shows no acute fracture or dislocation will apply wrist splint for comfort advise supportive care with ice therapy elevation APAP and ibuprofen as directed Abrasion is healing her tetanus is up-to-date no further intervention needed will advise routine skin/wound care and monitoring for signs of infection <Sam Garcia MD - Last Filed: 05/31/23 09:00> Note: I did not evaluate this patient. I did not participate in the care of this patient. This medical record was inappropriately assigned to me. I notified [facility] and medical records and chart could not be unassigned. HPI <Sandra Gavin NP - Last Filed: 04/04/23 17:14> General Mode of arrival: ambulatory . Date/Time Provider Initiated Documentation: 04/04/23 15:30 . Limitations to Documentation: no limitations . Information obtained by: patient . HPI Narrative: 82-year-old female patient in her usual state of health reports that she had an injury to her dorsal aspect of her right wrist last night trying to stop her from falling. She hit her wrist on the edge of a counter. She has had pain and swelling superficial laceration that is already starting to scab over. She reports her tetanus is up-to-date. Related Data Home Medications Medication Instructions Recorded Confirmed calcium carbonate 600 mg-vitamin 1 tab PO DAILY 01/31/13 03/18/23 D3 20 mcg (800 unit) tablet (Caltrate with Vitamin D3) cholecalciferol (vitamin D3) 25 25 mcg PO DAILY 01/23/22 03/18/23 mcg (1,000 unit) capsule aspirin 81 mg tablet,delayed 81 mg PO DAILY 03/17/22 03/18/23 release lisinopril 40 mg tablet 40 mg PO DAILY #90 tabs 06/22/22 04/04/23 levothyroxine 88 mcg tablet 88 mcg PO DAILY #90 tabs 07/17/22 03/18/23 (Synthroid) atorvastatin 40 mg tablet 40 mg PO HS #90 tabs 08/17/22 03/18/23 hydrochlorothiazide 12.5 mg tablet 12.5 mg PO DAILY #90 tabs 08/17/22 04/04/23 warfarin 5 mg tablet 5 mg PO HS #90 tabs 08/17/22 03/18/23 sertraline 50 mg tablet 50 mg PO DAILY #90 tabs 11/24/22 04/04/23 carvedilol 6.25 mg tablet 12.5 mg PO DAILY 04/04/23 gabapentin 600 mg tablet 300 mg PO BID PRN nerve pain #180 05/03/23 tabs Previous Rx's Medication Instructions Recorded lisinopril 40 mg tablet 40 mg PO DAILY #90 tabs 06/22/22 levothyroxine 88 mcg tablet 88 mcg PO DAILY #90 tabs 07/17/22 (Synthroid) atorvastatin 40 mg tablet 40 mg PO HS #90 tabs 08/17/22 hydrochlorothiazide 12.5 mg tablet 12.5 mg PO DAILY #90 tabs 08/17/22 warfarin 5 mg tablet 5 mg PO HS #90 tabs 08/17/22 sertraline 50 mg tablet 50 mg PO DAILY #90 tabs 11/24/22 gabapentin 600 mg tablet 300 mg PO BID PRN nerve pain #180 05/03/23 tabs Allergies Allergy/AdvReac Type Severity Reaction Status Date / Time amoxicillin AdvReac Severe nausea/hot Verified 04/04/23 15:22 feeling sertraline AdvReac Intermediate TREMOR, Verified 04/04/23 15:22 DIAPHORESIS codeine phosphate AdvReac GI Verified 04/04/23 15:22 [From Tylenol-Codeine] flagyl AdvReac Intermediate Nausea and Uncoded 04/04/23 15:22 vomiting General Stated Complaint: Orthopedic MATT: 4 Review of Systems <Sandra Gavin NP - Last Filed: 04/04/23 17:14> All systems reviewed & are unremarkable except as noted in HPI and below PFSH <Sandra Gavin NP - Last Filed: 04/04/23 17:14> All Active Problems (Updated 05/05/23 @ 00:19 by CHARLES GARZON) Depression (Chronic) Atrial fibrillation (Chronic) Hyperlipidemia (Acute) Fracture of phalanx of right little finger (Acute) Anticoagulant long-term use (Acute) Swelling of left lower extremity (Acute) Anemia (Chronic) BPV (benign positional vertigo) (Acute) Pre-diabetes (Acute) Arthritis (Acute) Tinnitus, bilateral (Acute) Sensorineural hearing loss of both ears (Acute) Afib (Chronic) ablated x 2, ongoing, coumadin 2020- cardiology suggesting a watchman, she declined- requires chronic anticoagulation Coronary artery disease (Chronic) NSTEMI 01/2020 Proximal LAD, mid RCA Essential hypertension (Chronic 09/18/13) Hypothyroidism (Chronic 07/27/11) Medical History Arthritis of right hip Chronic congestive heart failure (07/27/11) Diverticula of colon Diverticular hemorrhage Elevated troponin Greater trochanteric bursitis of right hip Depo-Medrol injection: 08/30/2019 (80 mg); 07/05/2019 (40 mg) History of tobacco use Irritable colon NSTEMI (non-ST elevated myocardial infarction) Perforated diverticulum of ileum Polyp of colon, adenomatous Postherpetic trigeminal neuralgia Raynauds disease Vaginal wall prolapse (07/27/11) 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 History of esophagogastroduodenoscopy History of partial thyroidectomy Status post abdominal hysterectomy Family History Mother , age 68 Rheumatoid arthritis Osteoporosis Father , age 83 Stroke Maternal Grandfather , age 53 Cancer Paternal Grandfather , in his 70s Stroke Maternal Grandmother , age 93 Stroke Paternal Grandmother No problems noted. Son Asthma Daughter No problems noted. Social History Smoking/Tobacco Use Status: Former Tobacco Use Quit Date: 10/04/92 Tobacco: How many years used: 30 Second Hand Exposure: Yes (as a child) Smoking risk assessment performed?: Yes Alcohol Intake: never Drug use: Never Substance use type: does not use Counseling given: No Counseling provided: none Caregiver/Support person: No Household members: spouse Housing: house Number of Children: 2 number of grandchildren: 7 Communication Needs: Corrective Lenses Do you need help understanding health information?: Never Pets and animals: Yes Pets and animals: cat(s) Sexually active: No Do you think of yourself as: straight/heterosexual Current gender identity: female What is your relationship status?: How often do you talk on the phone with friends or family?: twice per week How often do you get together with friends or relatives?: never How often do you attend latter-day or mormon services?: 4 or more times per year Do you belong to any clubs or organized social groups?: yes Panel score (0-1 are the most socially isolated patients): 3 What type of physical activity do you participate in: other Details: very active at home, gardens Frequency: 3-4 times per week Ciara/Pentecostal: No preference Special ciara needs: No Seatbelt use: always Drive 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: No Working smoke detector in home: Yes Carbon monox detector in home: Yes Do you feel safe at home: Yes Do you feel safe in your relationship?: Yes Exam <Sandra Gavin NP - Last Filed: 04/04/23 17:14> Const General: cooperative, comfortable and no acute distress Nutritional Appearance: average body habitus Orientation: alert, awake and oriented x3 HENMT Head: normal to inspection, normocephalic and atraumatic Mouth: oral mucosae normal Cardio Rate: regular rate Rhythm: regular rhythm and other (Good strong radial pulse) Skin Rashes: no rashes Trauma: abrasion (Approximately 3 cm dorsal aspect right wrist approximated healing) Extrem General: normal to inspection and full ROM Right upper extremity: normal capillary refill, edema and wrist Details: tenderness, swelling and abrasion Course <Sandra Gavin NP - Last Filed: 04/04/23 17:14> Vital Signs Vital signs: Vital Signs Temperature 36.8 C 04/04/23 15:15 Pulse 70 04/04/23 15:15 Respiratory Rate 16 04/04/23 15:15 Blood Pressure 151/91 H 04/04/23 15:15 Pulse Oximetry 97 04/04/23 15:15 Temperature 36.8 C 04/04/23 15:15 Temperature Source Tympanic 04/04/23 15:15 Pulse 70 04/04/23 15:15 Respiratory Rate 16 04/04/23 15:15 Respiratory Effort Normal, Non-Labored 04/04/23 15:19 Blood Pressure 151/91 H 04/04/23 15:15 Pulse Oximetry 97 04/04/23 15:15 Oxygen Delivery Method Room Air 04/04/23 15:15 Oxygen Flow Rate 0 04/04/23 15:15 Pain Level 6 04/04/23 15:15 PAWSS <Sandra Gavin NP - Last Filed: 04/04/23 17:14> Have you Been Recently Intoxicated or Drunk Within the Last 30 days?: No Have you Ever Experienced Previous Episodes of Alcohol Withdrawal?: No Have you ever Experienced Withdrawal Seizures?: No Have you ever Experienced Delirium Tremens(DT)s?: No Have you ever undergone Alcohol Rehabilitation Treatment (i.e, inpt ot outpatient treatment programs)?: No Have you ever Experienced Blackouts?: No Have you ever Combined Alcohol with other Downers within the last 90 days?: No Have you ever Combined Alcohol with any other Substance of Abuse during the last 90 days?: No Result: 0 <Sam Garcia MD - Last Filed: 05/31/23 09:00> Result: 0
== END 2023-04-04 17:21 | disposition home or self-care (01) ==
PROVIDERS: Emergency Provider Nurse Practitioner Acute Care; PCP Nurse Practitioner
DX: S60.211A Contusion of right wrist, initial encounter (principal); W22.8XXA Striking against or struck by other objects, initial encounter
CPT/HCPCS: 29125; 99283; 73110

== ENCOUNTER 2023-08-19 17:22 | Inpatient (IN) | payer MEDICARE, SELFPAY ==
[2023-08-19] VITALS (26 sets, daily range): BP systolic 90–111; BP diastolic 30–63; PULSE 52–98; RESP 11–22; TEMP 36.4–36.5; O2SAT 78–100
--- NOTE | 2023-08-19 | DI.CT_ITS ---
Exam(s) CT CHEST/ABD/PEL WO EXAM: CT CHEST/ABD/PEL WO CLINICAL HISTORY: abd pain, weight loss, cough,. TECHNIQUE: Imaging Protocol: Axial computed tomography images with coronal and sagittal reformatted images were created and reviewed CONTRAST MATERIAL: Intravenous: none Oral: None COMPARISON: CT CT ABDOMEN PELVIS W from 05/19/[address] ABDOMEN PELVIS WO from 03/16/2022 FINDINGS: CHEST: LUNGS: There are mild increased markings in the medial segment of the right middle lobe and in the li ngular segment of the left lung. No infiltrates in the lower lobes. There are no pleural effusions. No significant focal findings in the trachea and mainstem bronchi. Incidentally noted is an access ory azygos lobe on the right. MEDIASTINUM: No obvious hilar nor mediastinal adenopathy. Visualized thyroid unremarkable. CARDIAC: Heart size is normal. There is no pericardial effusion.Caliber of the thoracic aorta is wit hin normal limits. Moderate coronary artery calcification OSSEOUS: No significant osseous lesions.. ABDOMEN: There is no ascites. GI: Mildly distended stomach. Prominent gas bubble in the lateral wall of the duodenum measuring 3 x 3.5 cm. Very mild surrounding fat streaking. Probable diverticulum cannot exclude ulcer in the pro ximal duodenum at this level. This finding is unchanged from CT scans dating back to at least 2019. Remainder of the duodenum appears unremarkable. There is diverticulosis in the colon, most prominen t in the sigmoid but no evidence of acute diverticulitis. No evidence of appendicitis. No evidence of distal small bowel enteritis, as was present in 2019. LIVER: There are no obvious focal hepatic lesions evident of this noninfused study. GALLBLADDER/BILIARY: No obvious gallbladder pathology. CBD is not dilated. PANCREAS: Mild streaking in the fat surrounding the pancreatic head. No pancreatic mass evident. No calcifications at this level. The pancreatic duct is not dilated. No peripancreatic fluid collecti ons. SPLEEN: Spleen is not enlarged. No obvious intrasplenic lesions. ADRENALS: There are no significant adrenal masses. KIDNEYS: No calculi nor hydronephrosis. No obvious solid renal masses. No cysts evident. ABDOMINAL AORTA: Abdominal aorta is not enlarged. LYMPH NODES: There is no retroperitoneal nor para-aortic adenopathy. ABDOMINAL WALL/GI: No evidence of significant anterior abdominal wall nor inguinal hernia. No evidence of bowel obstruction. PELVIS: LYMPH NODES: There is no intrapelvic nor inguinal adenopathy. GI: No evidence of appendicitis.Extensive sigmoid diverticulosis without evidence of acute diverticul itis. URINARY BLADDER: No calculi nor obvious masses evident REPRODUCTIVE: Uterus is surgically absent. No abnormal right adnexal findings. The left ovary is la rge for this age group, measuring 2.9 by 2.2 cm. This measurement is unchanged from CT images of Mar also exhibits minimal change from CT scan of May 2019. No surrounding fluid in the adnexal region nor in the dependent aspect of the pelvis. OSSEOUS: No significant osseous lesions. Fractures but there is an element of degenerative anterolis thesis of L4 upon L5 related to facet arthropathy. There is chronic disc space narrowing at L1-2 and L2-3 levels. IMPRESSION: 1. Mild increased markings in the right middle lobe and lingular segment of the left lung no prominen t infiltrates and no pleural effusions nor intrathoracic adenopathy. 2. There is a prominent air-filled structure coming off the lateral wall of the proximal duodenum frances suring 3 x 3.5 cm. This has been present on prior CT scans dating back to at least May 2019. Nikki pect that this may be a prominent atypical diverticulum but cannot exclude penetrating ulcer in this patient is apparently experiencing weight loss. 3. No evidence of obvious pancreatic mass nor dilatation of the pancreatic duct. 4. Stomach is moderately distended. There is no evidence of bowel obstruction and no enteritis napoleon toy. I note that a severe enteritis pattern was evident in the ilium on prior CT scan of May 2019 . 5. There is diverticulosis throughout the colon, most prominent in the sigmoid. There is no evidenc e of acute diverticulitis. No appendicitis. 6. Uterus surgically absent. Right ovary not seen. Prominent left ovary for this age group with me asurements as above but basically unchanged from prior CT scans dating back to 2019 and therefore mos t probably benign. In addition, there is no abnormal free fluid in the pelvis and abdomen. RADIATION DOSE DELIVERED: Total DLP DATA REPOSITORY: All CT scans at this facility are submitted to the National Radiology Data Registry (NRDR) Dose Index Registry (DIR) with the [employer] (A[employer]). RADIATION OPTIMIZATION: All CT scans at this facility use at least one of these dose optimization te chniques: automated exposure control; mA and/or kV adjustment per patient size (includes targeted exa ms where dose is matched to clinical indication); or iterative reconstruction.
--- NOTE | 2023-08-19 17:28 | W.ED.GENAD ---
Discharge Plan Disposition Patient Disposition: Admit to [facility] Specific Acute Inpt Facility: [facility] Condition: Improving Discharge Details Chief Complaint: Nausea/Vomit/Diar Clinical Impression: Acute renal failure (ARF), Gastroenteritis Admit Date/Time: 08/19/23 21:08 Admit Provider: Phillip Metzger Attending Provider: Phillip Metzger Primary Care Provider: Mervat Mercado ED Provider: Sandra Gavin Discharge Data Discharge Date/Time-TO BE ENTERED AT DEPARTURE: 08/19/23 21:46 Medical Decision Making 83-year-old female presents after 2-week history of nausea vomiting diarrhea reported decreased oral intake and urine output. Concern for severe dehydration with systolic blood pressure 90 and significantly dry oral mucosa. She is not tachycardic but does take a beta-janet. IV established she will be given 1 L of normal saline while labs pending. Initial labs returned show acute kidney injury with a creatinine of 5.7 elevated from her last creatinine of 1.2. She still has not voided a second liter of normal saline has been initiated. Vital signs remain with a systolic blood pressure in the 90s to low 100s with a pulse in the 70s 80s. CAT scan of her chest abdomen and pelvis is unremarkable with no etiology identified to explain her symptoms. Does not have an elevated white count and labs otherwise unremarkable. Repeat basic metabolic panel shows improvement in creatinine from 5.7-4.9 she is able to produce urine voiding 200 cc of a medium yellow urine. Her case is discussed with hospitalist services who will admit her for acute on chronic renal failure in the setting of gastroenteritis Medical Records Medical records reviewed: Yes I reviewed the patient's medical records. Imaging Data Radiologic Study: Radiologist's impression: OSSEOUS: No significant osseous lesions. Fractures but there is an element of degenerative anterolisthesis of L4 upon L5 related to facet arthropathy. There is chronic disc space narrowing at L1-2 and L2-3 levels. IMPRESSION: Exam(s) PROCEDURE INFORMATION: Exam: CT Chest Without Contrast; Diagnostic Exam date and time: 08/19/2023 7:10 PM Age: 83 years old Clinical indication: Nausea and other: Cough; Abdominal pain; Generalized; Other: Abd pain; Additional info: Abd pain, weight loss, cough TECHNIQUE: Imaging protocol: Diagnostic computed tomography of the chest without contrast. COMPARISON: CT ABDOMEN PELVIS WO 03/16/2022 12:01 PM FINDINGS: Lungs: [id number] bronchiectasis consistent with COPD. No acute lung infiltrates or suspicious consolidation. Medial segment right middle lobe with mild scarring. Similar features were present in 2021. Incidental note of an azygous fissure in the right upper lobe. Pleural spaces: No pleural effusion. Heart: Normal heart size. No pericardial effusion. Multiple coronary artery endovascular stents. Lymph nodes: No lymphadenopathy. Vasculature: Thoracic aorta is normal in course and caliber. Mild atherosclerotic calcium. Bones/joints: Thoracic spine with mild degenerative features. No acute skeletal change. Soft tissues: Chest wall soft tissues are unremarkable. IMPRESSION: 1. COPD. 2. No acute infiltrates or edema. 3. No pleural effusion. 4. Coronary artery endovascular stents. PROCEDURE INFORMATION: Exam: CT Abdomen And Pelvis Without Contrast Exam date and time: 08/19/2023 7:10 PM Age: 83 years old Clinical indication: Nausea and other: Cough; Abdominal pain; Generalized; Other: Abd pain; Additional info: Abd pain, weight loss, cough TECHNIQUE: Imaging protocol: Computed tomography of the abdomen and pelvis without contrast. COMPARISON: CT ABDOMEN PELVIS WO 03/16/2022 12:01 PM FINDINGS: Liver: The liver is normal in size, contour and attenuation. Gallbladder and bile ducts: The gallbladder is normal in size and shape. No stones or inflammatory changes. Pancreas: The pancreas is normal in contour and attenuation. Spleen: The spleen is normal in size, contour and attenuation. Adrenal glands: The adrenal glands are normal in size and contour bilaterally. Kidneys and ureters: The kidneys bilaterally are unremarkable. Normal attenutation. No hydronephrosis. No calculi. Stomach and bowel: Gastric morphology is unremarkable. No edema. No gastric outlet obstruction. Small sliding hiatal hernia without acute change. Small bowel loops are normal in course and caliber. There is no mucosal edema or bowel wall thickening. No obstructive features. The colon contains formed fecal material. There is no bowel wall thickening. No inflammatory features. No obstruction. Appendix: No evidence of appendicitis. Intraperitoneal space: No free fluid. No free air. Vasculature: Unremarkable. No abdominal aortic aneurysm. Lymph nodes: Unremarkable. No enlarged lymph nodes. Urinary bladder: Urinary bladder is unremarkable in appearance. No wall thickening. No intravesicular calculi. No intravesicular gas. Reproductive: Previous hysterectomy. Nonspecific left adnexal cyst measuring 3.0 x 2.2 cm. Stable since 03/16/2022. Bones/joints: Unremarkable. No acute fracture. Soft tissues: Unremarkable. IMPRESSION: 1. No acute findings within the abdomen or pelvis. 2. Colonic diverticulosis without acute diverticulitis. 3. Previous hysterectomy with stable left adnexal cyst measuring 3.0 x 2.2 cm. No change 03/16/2022. Dictated and Authenticated by: Rolf Adams MD. Ordering:DONNA Flores MD Lab Data Lab results reviewed: Yes I reviewed the patient's lab results. Labs: Glucose 108 BUN 96 creatinine 5.7 calcium 9.0 sodium 133 potassium 4.1 chloride 106 chloride 11.2 AST 10 ALT 11 magnesium 1.8 cardiac troponin 50 Lactic acid after receiving 2 L of normal saline 0.9 White count 9.0 hemoglobin 10.6 hematocrit 33 platelet count 191 INR 4.1 COVID PCR negative HPI General Mode of arrival: ambulatory. Date/Time Provider Initiated Documentation: 08/19/23 17:27. Limitations to Documentation: no limitations. Information obtained by: patient. HPI Narrative: This is an 83-year-old female patient who presents to the emergency department after a 2-week history of having nausea vomiting diarrhea poor oral intake states her symptoms were leading up over the last 2 days but she feels extremely fatigued and unwell has been unable to take any meaningful oral intake and states her urine output has been greatly diminished. She denies any fever chest pain cough shortness of breath. She does have some epigastric abdominal pain. There is been no blood in her vomit or diarrhea or she has not felt symptoms like this previously there are no sick contacts with similar symptoms lives with her for whom she is the primary caregiver he has not had any of the symptoms she denies any recent antibiotic use Related Data Home Medications Medication Instructions Recorded Confirmed calcium carbonate 600 mg-vitamin 1 tab PO DAILY 01/31/13 08/19/23 D3 20 mcg (800 unit) tablet (Caltrate with Vitamin D3) cholecalciferol (vitamin D3) 25 25 mcg PO DAILY 01/23/22 08/19/23 mcg (1,000 unit) capsule levothyroxine 88 mcg tablet 88 mcg PO DAILY #90 tabs 07/17/22 08/19/23 (Synthroid) atorvastatin 40 mg tablet 40 mg PO HS #90 tabs 08/17/22 08/19/23 hydrochlorothiazide 12.5 mg tablet 12.5 mg PO DAILY #90 tabs 08/17/22 08/19/23 warfarin 5 mg tablet 5 mg PO HS #90 tabs 08/17/22 08/19/23 carvedilol 6.25 mg tablet 12.5 mg PO DAILY 04/04/23 08/19/23 gabapentin 600 mg tablet 300 mg (1/2 x 600 mg) PO BID PRN 05/03/23 08/19/23 nerve pain #180 tabs sertraline 50 mg tablet See Rx Instructions .Route 07/28/23 08/19/23 .COMPLEX #90 tabs lisinopril 40 mg tablet See Rx Instructions .Route 08/09/23 08/19/23 .COMPLEX #90 tabs Previous Rx's Medication Instructions Recorded levothyroxine 88 mcg tablet 88 mcg PO DAILY #90 tabs 07/17/22 (Synthroid) atorvastatin 40 mg tablet 40 mg PO HS #90 tabs 08/17/22 hydrochlorothiazide 12.5 mg tablet 12.5 mg PO DAILY #90 tabs 08/17/22 warfarin 5 mg tablet 5 mg PO HS #90 tabs 08/17/22 gabapentin 600 mg tablet 300 mg (1/2 x 600 mg) PO BID PRN 05/03/23 nerve pain #180 tabs sertraline 50 mg tablet See Rx Instructions .Route 07/28/23 .COMPLEX #90 tabs lisinopril 40 mg tablet See Rx Instructions .Route 08/09/23 .COMPLEX #90 tabs Allergies Allergy/AdvReac Type Severity Reaction Status Date / Time amoxicillin AdvReac Severe nausea/hot Verified 08/19/23 17:28 feeling sertraline AdvReac Intermediate TREMOR, Verified 04/04/23 15:22 DIAPHORESIS codeine phosphate AdvReac GI Verified 08/19/23 17:28 [From Tylenol-Codeine] flagyl AdvReac Intermediate Nausea and Uncoded 08/19/23 17:28 vomiting General Stated Complaint: Nausea/Vomit/Diar MATT: 3 Review of Systems All systems reviewed & are unremarkable except as noted in HPI and below PFSH All Active Problems (Updated 08/20/23 @ 19:07 by Sandra Gavin NP) Discharge planning issues (Acute) Acute dehydration (Acute) Gastroenteritis (Acute) Acute renal failure (ARF) (Acute) Depression (Chronic) Atrial fibrillation (Chronic) Hyperlipidemia (Acute) Fracture of phalanx of right little finger (Acute) Anticoagulant long-term use (Acute) Swelling of left lower extremity (Acute) Anemia (Chronic) BPV (benign positional vertigo) (Acute) Pre-diabetes (Acute) Arthritis (Acute) Tinnitus, bilateral (Acute) Sensorineural hearing loss of both ears (Acute) Afib (Chronic) ablated x 2, ongoing, coumadin 2020- cardiology suggesting a watchman, she declined- requires chronic anticoagulation Coronary artery disease (Chronic) NSTEMI 01/2020 Proximal LAD, mid RCA Essential hypertension (Chronic 09/18/13) Hypothyroidism (Chronic 07/27/11) Medical History MANUELITO (acute kidney injury) Perforated diverticulum of ileum Diverticular hemorrhage Diverticula of colon Elevated troponin NSTEMI (non-ST elevated myocardial infarction) Greater trochanteric bursitis of right hip Depo-Medrol injection: 08/30/2019 (80 mg); 07/05/2019 (40 mg) Arthritis of right hip History of tobacco use Polyp of colon, adenomatous 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) Vaginal wall prolapse (07/27/11) Raynauds disease Irritable colon Chronic congestive heart failure (07/27/11) Postherpetic trigeminal neuralgia Surgical History History of colonoscopy with polypectomy (~07/03/19) [facility] History of cardiac radiofrequency ablation History of appendectomy History of bilateral oophorectomy History of esophagogastroduodenoscopy History of partial thyroidectomy Status post abdominal hysterectomy Cardiac ablations x 2 2011 Family History Mother , age 68 Rheumatoid arthritis Osteoporosis Father , age 83 Stroke Maternal Grandfather , age 53 Cancer Paternal Grandfather , in his 70s Stroke Maternal Grandmother , age 93 Stroke Paternal Grandmother No problems noted. Son Asthma Daughter No problems noted. Social History Smoking/Tobacco Use Status: Former Tobacco Use Quit Date: 10/04/92 Tobacco: How many years used: 30 Second Hand Exposure: Yes (as a child) Smoking risk assessment performed?: Yes Alcohol Intake: never Drug use: Never Substance use type: does not use Counseling given: No Counseling provided: none Caregiver/Support person: No Household members: spouse Housing: house Number of Children: 2 number of grandchildren: 7 Communication Needs: Corrective Lenses Do you need help understanding health information?: Never Pets and animals: Yes Pets and animals: cat(s) Sexually active: No Do you think of yourself as: straight/heterosexual Current gender identity: female What is your relationship status?: How often do you talk on the phone with friends or family?: twice per week How often do you get together with friends or relatives?: never How often do you attend islam or muslim services?: 4 or more times per year Do you belong to any clubs or organized social groups?: yes Panel score (0-1 are the most socially isolated patients): 3 What type of physical activity do you participate in: other Details: very active at home, gardens Frequency: 3-4 times per week Ciara/Pentecostalism: No preference Special ciara needs: No Seatbelt use: always Drive intox or ride w/intox ambulance driver paramedic: No Working smoke detector in home: Yes Carbon monox detector in home: Yes Do you feel safe at home: Yes Do you feel safe in your relationship?: Yes Exam Narrative Exam Narrative: Elderly female of stated age in no acute distress mildly acutely ill appearing but nontoxic, skin is pale and dry with some tenting. Head is atraumatic oral mucosa dry, no exudate neck is supple with no JVD Cardiovascular regular rate and rhythm, well-perfused with good pulses Respirations are even and unlabored breath sounds are clear bilaterally Abdomen is soft tender over the epigastrium otherwise unremarkable Her extremities are without edema moves all extremities equally Skin with no rashes or lesions Course Vital Signs Vital signs: Vital Signs Temperature 36.4 C 08/19/23 17:23 Pulse 98 H 08/19/23 17:23 Respiratory Rate 18 08/19/23 17:23 Blood Pressure 111/54 L 08/19/23 17:23 Pulse Oximetry 99 08/19/23 17:23 Temperature 36.4 C 08/19/23 17:23 Temperature Source Oral 08/19/23 17:23 Pulse 98 H 08/19/23 17:23 Respiratory Rate 18 08/19/23 17:23 Blood Pressure 111/54 L 08/19/23 17:23 Blood Pressure Position Sitting 08/19/23 17:23 Pulse Oximetry 99 08/19/23 17:23 Oxygen Delivery Method Room Air 08/19/23 17:23 Oxygen Flow Rate 0 08/19/23 17:23
[2023-08-19 17:44] LABS: Abs Immature Grans 0.03 10^3/uL (0.0-0.06); Absolute Basophil Count 0.03 10^3/uL (0.0-0.2); Absolute Eosinophil Count 0.07 10^3/uL (0.0-0.7); Absolute Lymphocyte Count 0.69 10^3/uL (1.2-3.4); Absolute Monocyte Count 0.64 10^3/uL (0.1-0.8); Absolute Neutrophil Count 7.54 10^3/uL (1.2-6.7); Basophils % 0.3; Eosinophils % 0.8; HGB 10.6 g/dL (11.2-15.7); Immature Grans % 0.3; Lymphocytes % 7.7; MCH 27.6 pg (27.0-33.0); MCHC 32.1 % (32.0-36.0); MCV 86 fL (80-95); MPV 10.5 fL (8.0-11.0); Monocytes % 7.1; Neutrophils % 83.8; Platelet Count 191 10^3/uL (130-400); RBC 3.84 10^6/uL (3.93-5.22); RDW 13.6 % (11.7-14.6); RDW-SD 42.6 fL
[2023-08-19] MEDS: Normal Saline 1,000 ML 1000 ML IV ×2 (18:04→19:39)
[2023-08-19] MEDS: Ondansetron 4 MG/2 ML VIAL IVP (18:06)
[2023-08-19] MEDS: Pantoprazole 40 MG VIAL IVP (18:06)
[2023-08-19 18:07] LABS: ALT 11 U/L (14-59); AST 10 U/L (15-37); Albumin 3.3 g/dL (3.4-5.0); Alkaline Phosphatase 125 U/L (46-116); Anion Gap 15.8 mmol/L (3-11); Bilirubin, Total 0.3 mg/dL (0.2-1.0); CO2 11.2 mmol/L (21.0-32.0); Chloride 106 mmol/L (98-107); Estimated GFR 6.84 (mL/min/1.73m2); Glucose 108 mg/dL (74-106); Magnesium 1.8 mg/dL (1.8-2.4); Potassium 5.1 mmol/L (3.5-5.1); Sodium 133 mmol/L (136-145); Troponin I 51 ng/L (<or=60)
[2023-08-19 18:16] LABS: BUN 96 mg/dL (7-18)
[2023-08-19 18:17] LABS: CREATININE 5.7 mg/dL (0.55-1.02)
--- NOTE | 2023-08-19 18:20 | NUR.NOTE ---
Nursing Note: RN took critical lab report of BUN 96 and Creatine 5.7 Provider aware.
--- NOTE | 2023-08-19 20:00 | DI.VRAD_ITS ---
PROCEDURE INFORMATION: Exam: CT Chest Without Contrast; Diagnostic Exam date and time: 08/19/2023 7:10 PM Age: 83 years old Clinical indication: Nausea and other: Cough; Abdominal pain; Generalized; Other: Abd pain; Additional info: Abd pain, weight loss, cough TECHNIQUE: Imaging protocol: Diagnostic computed tomography of the chest without contrast. COMPARISON: CT ABDOMEN PELVIS WO 03/16/2022 12:01 PM FINDINGS: Lungs: [id number] bronchiectasis consistent with COPD. No acute lung infiltrates or suspicious consolidation. Medial segment right middle lobe with mild scarring. Similar features were present in 2021. Incidental note of an azygous fissure in the right upper lobe. Pleural spaces: No pleural effusion. Heart: Normal heart size. No pericardial effusion. Multiple coronary artery endovascular stents. Lymph nodes: No lymphadenopathy. Vasculature: Thoracic aorta is normal in course and caliber. Mild atherosclerotic calcium. Bones/joints: Thoracic spine with mild degenerative features. No acute skeletal change. Soft tissues: Chest wall soft tissues are unremarkable. IMPRESSION: 1. COPD. 2. No acute infiltrates or edema. 3. No pleural effusion. 4. Coronary artery endovascular stents. PROCEDURE INFORMATION: Exam: CT Abdomen And Pelvis Without Contrast Exam date and time: 08/19/2023 7:10 PM Age: 83 years old Clinical indication: Nausea and other: Cough; Abdominal pain; Generalized; Other: Abd pain; Additional info: Abd pain, weight loss, cough TECHNIQUE: Imaging protocol: Computed tomography of the abdomen and pelvis without contrast. COMPARISON: CT ABDOMEN PELVIS WO 03/16/2022 12:01 PM FINDINGS: Liver: The liver is normal in size, contour and attenuation. Gallbladder and bile ducts: The gallbladder is normal in size and shape. No stones or inflammatory changes. Pancreas: The pancreas is normal in contour and attenuation. Spleen: The spleen is normal in size, contour and attenuation. Adrenal glands: The adrenal glands are normal in size and contour bilaterally. Kidneys and ureters: The kidneys bilaterally are unremarkable. Normal attenutation. No hydronephrosis. No calculi. Stomach and bowel: Gastric morphology is unremarkable. No edema. No gastric outlet obstruction. Small sliding hiatal hernia without acute change. Small bowel loops are normal in course and caliber. There is no mucosal edema or bowel wall thickening. No obstructive features. The colon contains formed fecal material. There is no bowel wall thickening. No inflammatory features. No obstruction. Appendix: No evidence of appendicitis. Intraperitoneal space: No free fluid. No free air. Vasculature: Unremarkable. No abdominal aortic aneurysm. Lymph nodes: Unremarkable. No enlarged lymph nodes. Urinary bladder: Urinary bladder is unremarkable in appearance. No wall thickening. No intravesicular calculi. No intravesicular gas. Reproductive: Previous hysterectomy. Nonspecific left adnexal cyst measuring 3.0 x 2.2 cm. Stable since 03/16/2022. Bones/joints: Unremarkable. No acute fracture. Soft tissues: Unremarkable. IMPRESSION: 1. No acute findings within the abdomen or pelvis. 2. Colonic diverticulosis without acute diverticulitis. 3. Previous hysterectomy with stable left adnexal cyst measuring 3.0 x 2.2 cm. No change 03/16/2022. Dictated and Authenticated by: Rolf Adams MD. Ordering:DONNA Flores MD
[2023-08-19 21:03] LABS: Source Nasopharynx
[2023-08-19 21:13] LABS: Bilirubin Negative (Negative); Blood Small (Negative); Clarity Sl Cloudy (Clear); Glucose Negative (Negative); Ketones Negative (Negative); Leukocyte Esterase Small (Negative); Nitrite Negative (Negative); Specific Gravity 1.015 (1.005-1.025); Urobilinogen 0.2 mg/dL (Up to 0.2); pH 5.5 (5-8)
[2023-08-19 21:16] LABS: Prothrombin Time 36.8 sec (9.1-11.1)
[2023-08-19 21:20] LABS: Lactate 0.9 mmol/L (0.6-1.4)
[2023-08-19 21:21] LABS: Anion Gap 14.4 mmol/L (3-11); CO2 10.6 mmol/L (21.0-32.0); Calcium 8.5 mg/dL (8.5-10.1); Chloride 111 mmol/L (98-107); Glucose 96 mg/dL (74-106); Potassium 5.2 mmol/L (3.5-5.1); Sodium 136 mmol/L (136-145)
[2023-08-19 21:21] LABS: Bacteria Few HPF (Negative); C & S Indicated? No/Sq. Contamination; Casts Negative LPF (Negative); Crystals Negative HPF (Negative); Epithelial Cells Moderate HPF (Negative); Mucus Negative (Negative)
[2023-08-19 21:28] LABS: BUN 90 mg/dL (7-18)
[2023-08-19 21:29] LABS: CREATININE 4.9 mg/dL (0.55-1.02); INR 4.1 (0.9-1.1)
[2023-08-19 21:34] LABS: COVID-19 PCR Negative (Negative)
[2023-08-19 21:45] LABS: Procalcitonin < 0.1 ng/mL
[2023-08-19] MEDS: Normal Saline 1,000 ML 150 ML IV (22:04)
[2023-08-19] MEDS: Atorvastatin 40 MG TAB PO (22:38)
[2023-08-19] MEDS: Heparin 5,000 UNITS/ML VIAL 5000 UNITS SC (22:38)
--- NOTE | 2023-08-19 22:51 | HPE_ITS ---
Date of service: 08/19/23 Time of Service: 22:51 Assessment and Plan Assessment and plan (1) MANUELITO (acute kidney injury): Start date: 08/19/23 Assessment and plan: This is an 83-year-old lady with a 2-week history of fluid loss with nausea and vomiting as well as diarrhea which was beginning to decrease the last 2 days but presents with acute kidney injury and creatinine markedly elevated secondary to fluid loss. She is able to eat and drink at this time. She has responded to IV fluid resuscitation with labs to be trended. This should be a reversible issue without sequela. Patient does have a history of diuretic use with treatment of her hypertension as well as an GIL inhibitor which may be exacerbating her renal function and she does have slight hyperkalemia upon admission. This should correct with IV fluid resuscitation. Her usual medication will be held for now. Metabolic acidosis from her acute renal dysfunction should correct with IV fluids as well. Patient is a full code. (2) Acute dehydration: Start date: 08/19/23 Status: Acute Assessment and plan: Patient has had this problem in the past and this is a result of volume loss with continue medical therapy. IV hydration and trend labs. (3) Gastroenteritis: Start date: 08/19/23 Status: Acute Assessment and plan: This appears to be decreasing and no further testing for now but if diarrhea returns should check for C. difficile. Symptomatic care and IV hydration. Trend labs. She does have diverticulosis on her CT scan of the abdomen without sequela. (4) Essential hypertension: Status: Chronic Assessment and plan: Patient blood pressure is low with acute dehydration and usual outpatient medical Treatment will be held for now. Reinstitute medical therapy once patient is rehydrated. Trend labs. (5) Atrial fibrillation: Status: Chronic Assessment and plan: Patient is presently in sinus rhythm and has paroxysmal atrial fibrillation on Coumadin therapy chronically. INR slightly elevated and Coumadin will be held for now. Daily PT/INR should be performed while patient is hospitalized and adjust Coumadin accordingly. Qualifiers: Atrial fibrillation type: paroxysmal Qualified Code(s): I48.0 - Paroxysmal atrial fibrillation (6) Hypothyroidism: Status: Chronic Assessment and plan: Continue outpatient supplement and follow-up TSH. Qualifiers: Hypothyroidism type: acquired Qualified Code(s): E03.9 - Hypothyroidism, unspecified History of Present Illness History of Present Illness Chief Complaint: Extreme weakness with nausea, vomiting and diarrhea for 2 weeks Narrative: This is a 83-year-old lady who takes care of her demented at home and was hesitant to come to the hospital for evaluation though she was having 2 to 3 weeks of nausea and vomiting especially at night and diarrhea most of the day. The symptoms began to decrease over the last 1 to 2 days the patient was becoming extremely weak from her fluid loss and finally came to the ED for evaluation. Was not having any fever but did have some reflux symptoms with a cough at night which she thinks prompted more nausea with vomiting. She generally is healthy with a past medical history of hyperlipidemia, atrial fibrillation on Coumadin, hypertension and depression. She denies seeing any blood in her vomitus or stools during these episodes. No one was ill around the patient and she states she rarely gets out of her house. Patient was admitted for IV hydration with acute renal decompensation after days of fluid loss. She did feel slightly better with IV fluid resuscitation in the ED but was still weak at the time I saw her. She is a full code. Review of Systems Narrative: 13 point review of systems otherwise unrevealing or stable. [facility] All Active Problems (Updated 08/20/23 @ 05:49 by Phillip Metzger) Acute dehydration (Acute) Gastroenteritis (Acute) Acute renal failure (ARF) (Acute) Depression (Chronic) Atrial fibrillation (Chronic) Hyperlipidemia (Acute) Fracture of phalanx of right little finger (Acute) Anticoagulant long-term use (Acute) Swelling of left lower extremity (Acute) Anemia (Chronic) BPV (benign positional vertigo) (Acute) Pre-diabetes (Acute) Arthritis (Acute) Tinnitus, bilateral (Acute) Sensorineural hearing loss of both ears (Acute) Afib (Chronic) ablated x 2, ongoing, coumadin 2020- cardiology suggesting a watchman, she declined- requires chronic anticoagulation Coronary artery disease (Chronic) NSTEMI 01/2020 Proximal LAD, mid RCA Essential hypertension (Chronic 09/18/13) Hypothyroidism (Chronic 07/27/11) Medical History MANUELITO (acute kidney injury) Perforated diverticulum of ileum Diverticular hemorrhage Diverticula of colon Elevated troponin NSTEMI (non-ST elevated myocardial infarction) Greater trochanteric bursitis of right hip Depo-Medrol injection: 08/30/2019 (80 mg); 07/05/2019 (40 mg) Arthritis of right hip History of tobacco use Polyp of colon, adenomatous 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) Vaginal wall prolapse (07/27/11) Raynauds disease Irritable colon Chronic congestive heart failure (07/27/11) Postherpetic trigeminal neuralgia Surgical History History of colonoscopy with polypectomy (~07/03/19) [facility] History of cardiac radiofrequency ablation History of appendectomy History of bilateral oophorectomy History of esophagogastroduodenoscopy History of partial thyroidectomy Status post abdominal hysterectomy Cardiac ablations x 2 2011 Family History Mother , age 68 Rheumatoid arthritis Osteoporosis Father , age 83 Stroke Maternal Grandfather , age 53 Cancer Paternal Grandfather , in his 70s Stroke Maternal Grandmother , age 93 Stroke Paternal Grandmother No problems noted. Son Asthma Daughter No problems noted. Social History Smoking/Tobacco Use Status: Former Tobacco Use Quit Date: 10/04/92 Tobacco: How many years used: 30 Second Hand Exposure: Yes (as a child) Smoking risk assessment performed?: Yes Alcohol Intake: never Drug use: Never Substance use type: does not use Counseling given: No Counseling provided: none Caregiver/Support person: No Household members: spouse Housing: house Number of Children: 2 number of grandchildren: 7 Communication Needs: Corrective Lenses Do you need help understanding health information?: Never Pets and animals: Yes Pets and animals: cat(s) Sexually active: No Do you think of yourself as: straight/heterosexual Current gender identity: female What is your relationship status?: How often do you talk on the phone with friends or family?: twice per week How often do you get together with friends or relatives?: never How often do you attend baptism or samaritan services?: 4 or more times per year Do you belong to any clubs or organized social groups?: yes Panel score (0-1 are the most socially isolated patients): 3 What type of physical activity do you participate in: other Details: very active at home, gardens Frequency: 3-4 times per week Ciara/Christian: No preference Special ciara needs: No Seatbelt use: always Drive intox or ride w/intox 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: No Working smoke detector in home: Yes Carbon monox detector in home: Yes Do you feel safe at home: Yes Do you feel safe in your relationship?: Yes Meds Allergies and Home Medications Allergies Allergy/AdvReac Type Severity Reaction Status Date / Time amoxicillin AdvReac Severe nausea/hot Verified 08/19/23 17:28 feeling sertraline AdvReac Intermediate TREMOR, Verified 04/04/23 15:22 DIAPHORESIS codeine phosphate AdvReac GI Verified 08/19/23 17:28 [From Tylenol-Codeine] flagyl AdvReac Intermediate Nausea and Uncoded 08/19/23 17:28 vomiting Home Medications Medication Instructions Recorded Confirmed Type calcium carbonate 600 mg-vitamin 1 tab PO DAILY 01/31/13 08/19/23 History D3 20 mcg (800 unit) tablet (Caltrate with Vitamin D3) cholecalciferol (vitamin D3) 25 25 mcg PO DAILY 01/23/22 08/19/23 History mcg (1,000 unit) capsule levothyroxine 88 mcg tablet 88 mcg PO DAILY #90 tabs 07/17/22 08/19/23 Rx (Synthroid) atorvastatin 40 mg tablet 40 mg PO HS #90 tabs 08/17/22 08/19/23 Rx hydrochlorothiazide 12.5 mg tablet 12.5 mg PO DAILY #90 tabs 08/17/22 08/19/23 Rx warfarin 5 mg tablet 5 mg PO HS #90 tabs 08/17/22 08/19/23 Rx carvedilol 6.25 mg tablet 12.5 mg PO DAILY 04/04/23 08/19/23 History gabapentin 600 mg tablet 300 mg (1/2 x 600 mg) PO BID PRN 05/03/23 08/19/23 Rx nerve pain #180 tabs sertraline 50 mg tablet See Rx Instructions .Route 07/28/23 08/19/23 Rx .COMPLEX #90 tabs lisinopril 40 mg tablet See Rx Instructions .Route 08/09/23 08/19/23 Rx .COMPLEX #90 tabs Exam Narrative Exam Narrative: General: Patient appears appropriate for age, alert and oriented x3 and in moderate distress from her weakness and fluid loss. She appears acutely ill. HEENT: Normocephalic, eyes with pupils equal react light symmetrically, extraocular move intact and sclera anicteric. Oropharynx with slightly dry oral mucosa and fair dentition. Neck: Supple without JVD. Back: Stooped posture without CVA tenderness. Lungs: Clear to auscultation and percussion. There is occasional rhonchi but no focalizing rales or rhonchi. Normal aeration. Heart: Regular rate and rhythm with no murmurs gallops appreciated. Breast: Exam deferred. Abdomen: Obese contour, soft and nontender to palpation with no palpable hepatosplenomegaly. Bowel sounds positive in all quadrants. No guarding or rebound. No tympany. Genitalia/rectal: Exam deferred. Extremities: Without clubbing, cyanosis or pitting edema. Good capillary refill. Skin: Pale, warm and slightly moist. Neuro: Cranial nerves II through XII grossly intact, no focalizing motor deficits. No tremor. Psych: Normal affect and mood with normal normal thought processes. Remote and recent memory grossly intact. Results Imaging Imaging Studies: Exam: CT Chest Without Contrast; Diagnostic Exam date and time: 08/19/2023 7:10 PM Age: 83 years old Clinical indication: Nausea and other: Cough; Abdominal pain; Generalized; Other: Abd pain; Additional info: Abd pain, weight loss, cough TECHNIQUE: Imaging protocol: Diagnostic computed tomography of the chest without contrast. COMPARISON: CT ABDOMEN PELVIS WO 03/16/2022 12:01 PM FINDINGS: Lungs: Ntaa-cf-chmejaro bronchiectasis consistent with COPD. No acute lung infiltrates or suspicious consolidation. Medial segment right middle lobe with mild scarring. Similar features were present in 2021. Incidental note of an azygous fissure in the right upper lobe. Pleural spaces: No pleural effusion. Heart: Normal heart size. No pericardial effusion. Multiple coronary artery endovascular stents. Lymph nodes: No lymphadenopathy. Vasculature: Thoracic aorta is normal in course and caliber. Mild atherosclerotic calcium. Bones/joints: Thoracic spine with mild degenerative features. No acute skeletal change. Soft tissues: Chest wall soft tissues are unremarkable. IMPRESSION: 1. COPD. 2. No acute infiltrates or edema. 3. No pleural effusion. 4. Coronary artery endovascular stents. PROCEDURE INFORMATION: Exam: CT Abdomen And Pelvis Without Contrast Exam date and time: 08/19/2023 7:10 PM Age: 83 years old Clinical indication: Nausea and other: Cough; Abdominal pain; Generalized; Other: Abd pain; Additional info: Abd pain, weight loss, cough TECHNIQUE: Imaging protocol: Computed tomography of the abdomen and pelvis without contrast. COMPARISON: CT ABDOMEN PELVIS WO 03/16/2022 12:01 PM FINDINGS: Liver: The liver is normal in size, contour and attenuation. Gallbladder and bile ducts: The gallbladder is normal in size and shape. No stones or inflammatory changes. Pancreas: The pancreas is normal in contour and attenuation. Spleen: The spleen is normal in size, contour and attenuation. Adrenal glands: The adrenal glands are normal in size and contour bilaterally. Kidneys and ureters: The kidneys bilaterally are unremarkable. Normal attenutation. No hydronephrosis. No calculi. Stomach and bowel: Gastric morphology is unremarkable. No edema. No gastric outlet obstruction. Small sliding hiatal hernia without acute change. Small bowel loops are normal in course and caliber. There is no mucosal edema or bowel wall thickening. No obstructive features. The colon contains formed fecal material. There is no bowel wall thickening. No inflammatory features. No obstruction. Appendix: No evidence of appendicitis. Intraperitoneal space: No free fluid. No free air. Vasculature: Unremarkable. No abdominal aortic aneurysm. Lymph nodes: Unremarkable. No enlarged lymph nodes. Urinary bladder: Urinary bladder is unremarkable in appearance. No wall thickening. No intravesicular calculi. No intravesicular gas. Reproductive: Previous hysterectomy. Nonspecific left adnexal cyst measuring 3.0 x 2.2 cm. Stable since 03/16/2022. Bones/joints: Unremarkable. No acute fracture. Soft tissues: Unremarkable. IMPRESSION: 1. No acute findings within the abdomen or pelvis. 2. Colonic diverticulosis without acute diverticulitis. 3. Previous hysterectomy with stable left adnexal cyst measuring 3.0 x 2.2 cm. No change 03/16/2022. Labs 08/19/23 17:34 08/19/23 20:57 Labs: Laboratory Results - last 24 hr 08/19/23 08/19/23 08/19/23 17:34 20:57 20:59 WBC 9.00 RBC 3.84 L Hgb 10.6 L Hct 33.0 L MCV 86 MCH 27.6 MCHC 32.1 RDW 13.6 Plt Count 191 MPV 10.5 Immature Gran % 0.3 Neutrophils % 83.8 Lymphocytes % 7.7 Monocytes % 7.1 Eosinophils % 0.8 Basophils % 0.3 Nucleated RBC % 0.0 Absolute Neutrophils 7.54 H Absolute Lymphocytes 0.69 L Absolute Monocytes 0.64 Absolute Eosinophils 0.07 Absolute Basophils 0.03 PT 36.8 H INR 4.1 H VBG Lactate Sodium 133 L 136 Potassium 5.1 5.2 H Chloride 106 111 H Carbon Dioxide 11.2 L 10.6 L Anion Gap 15.8 H 14.4 H BUN 96 H* 90 H* Creatinine 5.7 H* 4.9 H* Est GFR (CKD-EPI 2020) 6.84 8.20 Glucose 108 H 96 Calcium 9.0 8.5 Magnesium 1.8 Total Bilirubin 0.3 AST 10 L ALT 11 L Alkaline Phosphatase 125 H Troponin I 51 Total Protein 7.0 Albumin 3.3 L Procalcitonin < 0.1 Urine Color Urine Clarity Urine pH Ur Specific Union Urine Protein Urine Ketones Urine Blood Urine Nitrite Urine Bilirubin Urine Urobilinogen Ur Leukocyte Esterase Urine RBC Urine WBC Ur Epithelial Cells Urine Crystals Urine Bacteria Urine Casts Urine Mucus Ur Culture Indicated? Urine Glucose COVID-19 Source Nasopharynx SARS-CoV-2 (PCR) Negative 08/19/23 08/19/23 21:00 21:11 WBC RBC Hgb Hct MCV MCH MCHC RDW Plt Count MPV Immature Gran % Neutrophils % Lymphocytes % Monocytes % Eosinophils % Basophils % Nucleated RBC % Absolute Neutrophils Absolute Lymphocytes Absolute Monocytes Absolute Eosinophils Absolute Basophils PT INR VBG Lactate 0.9 Sodium Potassium Chloride Carbon Dioxide Anion Gap BUN Creatinine Est GFR (CKD-EPI 2020) Glucose Calcium Magnesium Total Bilirubin AST ALT Alkaline Phosphatase Troponin I Total Protein Albumin Procalcitonin Urine Color Yellow Urine Clarity Sl Cloudy Urine pH 5.5 Ur Specific Union 1.015 Urine Protein 30 H Urine Ketones Negative Urine Blood Small H Urine Nitrite Negative Urine Bilirubin Negative Urine Urobilinogen 0.2 Ur Leukocyte Esterase Small H Urine RBC 5-10 H Urine WBC 5-10 Ur Epithelial Cells Moderate Urine Crystals Negative Urine Bacteria Few Urine Casts Negative Urine Mucus Negative Ur Culture Indicated? No/Sq. Contamination Urine Glucose Negative COVID-19 Source SARS-CoV-2 (PCR) Last Vital Signs Temp 36.5 C 08/19/23 22:08 Pulse 52 L 08/19/23 22:08 Resp 19 08/19/23 22:08 BP 110/63 08/19/23 22:08 Pulse Ox 98 08/19/23 22:08 Time Spent Time spent with Patient: >75 minutes Time was spent: preparing to see the patient(eg.review tests), obtaining and/or reviewing separately otained hiistory, ordering medications,tests, procedures, indepentently interpreting results and counseling the patient
[2023-08-20 03:18] VITALS: BP 96/60; PULSE 85; RESP 18; TEMP 36.5; O2SAT 99
[2023-08-20] MEDS: Levothyroxine 88 MCG TAB PO (05:18)
[2023-08-20 06:47] LABS: Abs Immature Grans 0.04 10^3/uL (0.0-0.06); Absolute Basophil Count 0.03 10^3/uL (0.0-0.2); Absolute Eosinophil Count 0.09 10^3/uL (0.0-0.7); Absolute Lymphocyte Count 0.89 10^3/uL (1.2-3.4); Absolute Monocyte Count 0.52 10^3/uL (0.1-0.8); Absolute Neutrophil Count 4.57 10^3/uL (1.2-6.7); Basophils % 0.5; Eosinophils % 1.5; HCT 28.8 % (36.0-46.0); HGB 9.1 g/dL (11.2-15.7); Immature Grans % 0.7; Lymphocytes % 14.5; MCHC 31.6 % (32.0-36.0); MCV 89 fL (80-95); MPV 11.2 fL (8.0-11.0); Monocytes % 8.5; Neutrophils % 74.3; Platelet Count 147 10^3/uL (130-400); RBC 3.25 10^6/uL (3.93-5.22); RDW 13.6 % (11.7-14.6); RDW-SD 44.6 fL; WBC 6.14 10^3/uL (4.4-10.8)
[2023-08-20 06:56] LABS: INR 3.8 (0.9-1.1); Prothrombin Time 33.8 sec (9.1-11.1)
[2023-08-20 07:08] LABS: Magnesium 1.8 mg/dL (1.8-2.4)
[2023-08-20 07:14] LABS: Anion Gap 12.8 mmol/L (3-11); CO2 11.2 mmol/L (21.0-32.0); Calcium 8.6 mg/dL (8.5-10.1); Chloride 115 mmol/L (98-107); Estimated GFR 8.62 (mL/min/1.73m2); Glucose 102 mg/dL (74-106); Potassium 5.1 mmol/L (3.5-5.1); Sodium 139 mmol/L (136-145)
[2023-08-20 07:19] LABS: BUN 82 mg/dL (7-18); CREATININE 4.7 mg/dL (0.55-1.02)
[2023-08-20 07:22] LABS: TSH (W/Ref FT4) 3.91 uIU/mL (0.36-3.74)
[2023-08-20 07:39] VITALS: BP 86/51; PULSE 78; RESP 18; TEMP 36.8; O2SAT 100
[2023-08-20 08:04] LABS: FREE T4 0.65 ng/dL (0.76-1.46)
[2023-08-20] MEDS: Sertraline 50 MG TAB PO (09:23)
[2023-08-20] MEDS: Normal Saline 1,000 ML 150 ML IV ×2 (09:25→18:00)
--- NOTE | 2023-08-20 10:35 | PDOC.CMIN ---
Date of service: 08/20/23 Time of Service: 10:35 Care Management Initial Assmt Initial Assessment REASON FOR HOSPITALIZATION:: MANUELITO with dehydration, gastroenteritis PREVIOUS FUNCTIONAL STATUS/SOCIAL/FAMILY SUPPORTS:: Juli lives in [place] with her Neda who has dementia, Juli provides his care. She was hesitant to come to the hospital for evaluation though she was having 2 to 3 weeks of nausea and vomiting especially at night and diarrhea most of the day, because she did not want to leave Neda. 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 She is independent at baseline and drives. She has 2 adult children that live out of the area. CURRENT FUNCTIONAL STATUS:: Lying in bed, exhausted. Closes eyes often during engagement, though fully engaged and expresses wanting to review options. Patient education central to senior living care presented. ADVANCE DIRECTIVES:: On file, [facility] is Kavita Lindquist Has patient been provided with info about the portal/API?: Yes Did the patient sign up for the portal?: Yes CODE STATUS:: Full Code INSURANCE COVERAGE / FINANCIAL ISSUES:: AARP. Medicare CURRENT HOME/COMMUNITY SERVICES/EQUIPMENT:: None PRIMARY CARE PHYSICIAN:: LUIS Shelby POTENTIAL DISCHARGE NEEDS:: Follow up appointment, review of intermodal truck driver care navigation; LTM application. PATIENT/FAMILY EDUCATION NEEDS:: Review discharge instructions, limitations, medications and plan to follow up with community providers. ask me three. ANTICIPATED BARRIERS TO DISCHARGE:: None identified. TRANSPORTATION:: Via private vehicle with family. PLAN:: Anticipate, Juli will discharge home via private vehicle with family when medically ready. She will follow up with community providers and discharge plan of care as prescribed. CM continues to follow. PFSH All Active Problems (Updated 08/20/23 @ 14:05 by Sandra Gavin NP) Discharge planning issues (Acute) Acute dehydration (Acute) Gastroenteritis (Acute) Acute renal failure (ARF) (Acute) Depression (Chronic) Atrial fibrillation (Chronic) Hyperlipidemia (Acute) Fracture of phalanx of right little finger (Acute) Anticoagulant long-term use (Acute) Swelling of left lower extremity (Acute) Anemia (Chronic) BPV (benign positional vertigo) (Acute) Pre-diabetes (Acute) Arthritis (Acute) Tinnitus, bilateral (Acute) Sensorineural hearing loss of both ears (Acute) Afib (Chronic) ablated x 2, ongoing, coumadin 2020- cardiology suggesting a watchman, she declined- requires chronic anticoagulation Coronary artery disease (Chronic) NSTEMI 01/2020 Proximal LAD, mid RCA Essential hypertension (Chronic 09/18/13) Hypothyroidism (Chronic 07/27/11) Medical History MANUELITO (acute kidney injury) Perforated diverticulum of ileum Diverticular hemorrhage Diverticula of colon Elevated troponin NSTEMI (non-ST elevated myocardial infarction) Greater trochanteric bursitis of right hip Depo-Medrol injection: 08/30/2019 (80 mg); 07/05/2019 (40 mg) Arthritis of right hip History of tobacco use Polyp of colon, adenomatous 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) Vaginal wall prolapse (07/27/11) Raynauds disease Irritable colon Chronic congestive heart failure (07/27/11) Postherpetic trigeminal neuralgia Surgical History History of colonoscopy with polypectomy (~07/03/19) [facility] History of cardiac radiofrequency ablation History of appendectomy History of bilateral oophorectomy History of esophagogastroduodenoscopy History of partial thyroidectomy Status post abdominal hysterectomy Cardiac ablations x 2 2011 Family History Mother , age 68 Rheumatoid arthritis Osteoporosis Father , age 83 Stroke Maternal Grandfather , age 53 Cancer Paternal Grandfather , in his 70s Stroke Maternal Grandmother , age 93 Stroke Paternal Grandmother No problems noted. Son Asthma Daughter No problems noted. Social History Smoking/Tobacco Use Status: Former Tobacco Use Quit Date: 10/04/92 Tobacco: How many years used: 30 Second Hand Exposure: Yes (as a child) Smoking risk assessment performed?: Yes Alcohol Intake: never Drug use: Never Substance use type: does not use Counseling given: No Counseling provided: none Caregiver/Support person: No Household members: spouse Housing: house Number of Children: 2 number of grandchildren: 7 Communication Needs: Corrective Lenses Do you need help understanding health information?: Never Pets and animals: Yes Pets and animals: cat(s) Sexually active: No Do you think of yourself as: straight/heterosexual Current gender identity: female What is your relationship status?: How often do you talk on the phone with friends or family?: twice per week How often do you get together with friends or relatives?: never How often do you attend adventism or sikhism services?: 4 or more times per year Do you belong to any clubs or organized social groups?: yes Panel score (0-1 are the most socially isolated patients): 3 What type of physical activity do you participate in: other Details: very active at home, gardens Frequency: 3-4 times per week Ciara/Buddhist: No preference Special ciara needs: No Seatbelt use: always Drive intox or ride w/intox bobtail driver: No Working smoke detector in home: Yes Carbon monox detector in home: Yes Do you feel safe at home: Yes Do you feel safe in your relationship?: Yes
[2023-08-20] MEDS: Heparin 5,000 UNITS/ML VIAL 5000 UNITS SC ×2 (11:43→21:25)
[2023-08-20 11:57] VITALS: BP 92/57; PULSE 72; RESP 18; TEMP 36.4; O2SAT 86
[2023-08-20 12:41] LABS: C Diff PCR Negative (Negative)
--- NOTE | 2023-08-20 13:53 | PGE_ITS ---
Date of Service Date of service: 08/20/23 Time of Service: 13:53 Assessment and Plan Assessment and plan (1) MANUELITO (acute kidney injury): Assessment and plan: Insetting of acute GI losses x2 weeks. BUN and creatinine improving Continue IV hydration, renal dose medications and avoid nephrotoxic agents. CT scan without contrast shows no obstructive uropathy, no calculi no hydronephrosis no solid renal masses no cysts evident. (2) Gastroenteritis: Status: Acute Assessment and plan: Continue IV hydration and symptom management for now. Will send stool when collected (3) Essential hypertension: Status: Chronic Assessment and plan: Patient has been hypotensive in the setting of acute dehydration. Her lisinopril was placed on hold due to MANUELITO. She continues to receive IV hydration. Carvedilol now also placed on hold today due to persistent systolic in the high 90s low 100s. (4) Atrial fibrillation: Status: Chronic Assessment and plan: History of paroxysmal atrial fibrillation anticoagulated on Coumadin found to have supratherapeutic INR yesterday at 4.1. Her Coumadin was placed on hold today it is down to 3.8. Will continue to hold Coumadin while monitoring daily INR resume for INR goal of 2-3 when appropriate Qualifiers: Atrial fibrillation type: paroxysmal Qualified Code(s): I48.0 - Paroxysmal atrial fibrillation (5) Hypothyroidism: Status: Chronic Assessment and plan: Continue outpatient supplement TSH 3.91. Qualifiers: Hypothyroidism type: acquired Qualified Code(s): E03.9 - Hypothyroidism, unspecified (6) Discharge planning issues: Status: Acute Assessment and plan: DVT prophylaxis: patient is fully anticoagulated on Coumadin CODE STATUS discussed with patient, wishes to be a full code on this admission Anticipated discharge to home with no services once medically stable plan discussed with Dr Sood Subjective Subjective Patient reports: tolerating liquids well, diarrhea, nausea and afebrile; denies tolerating a regular diet (Intermittent nausea), blood in stool or shortness of breath Interval history since last seen: Overnight was initially feeling better but this morning started having loose stooling/diarrhea again. No fever she has not vomited but is having some nausea. She was able to tolerate a clear liquid breakfast. Voiding without difficulty Exam Narrative Exam Narrative: Elderly female of stated age in no acute distress mildly acutely ill appearing but nontoxic, skin is pale and dry with some tenting. Head is atraumatic oral mucosa dry, no exudate neck is supple with no JVD Cardiovascular regular rate and rhythm, well-perfused with good pulses Respirations are even and unlabored breath sounds are clear bilaterally Abdomen is soft tender over the epigastrium otherwise unremarkable Her extremities are without edema moves all extremities equally Skin with no rashes or lesions Objective Last Vital Signs Temp 36.4 C L 08/20/23 11:57 Pulse 72 08/20/23 11:57 Resp 18 08/20/23 11:57 BP 92/57 L 08/20/23 11:57 Pulse Ox 86 L 08/20/23 11:57 Laboratory Results - last 24 hr 08/19/23 08/19/23 08/19/23 17:34 20:57 20:59 WBC 9.00 RBC 3.84 L Hgb 10.6 L Hct 33.0 L MCV 86 MCH 27.6 MCHC 32.1 RDW 13.6 Plt Count 191 MPV 10.5 Immature Gran % 0.3 Neutrophils % 83.8 Lymphocytes % 7.7 Monocytes % 7.1 Eosinophils % 0.8 Basophils % 0.3 Nucleated RBC % 0.0 Absolute Neutrophils 7.54 H Absolute Lymphocytes 0.69 L Absolute Monocytes 0.64 Absolute Eosinophils 0.07 Absolute Basophils 0.03 PT 36.8 H INR 4.1 H VBG Lactate Sodium 133 L 136 Potassium 5.1 5.2 H Chloride 106 111 H Carbon Dioxide 11.2 L 10.6 L Anion Gap 15.8 H 14.4 H BUN 96 H* 90 H* Creatinine 5.7 H* 4.9 H* Est GFR (CKD-EPI 2020) 6.84 8.20 Glucose 108 H 96 Calcium 9.0 8.5 Magnesium 1.8 Total Bilirubin 0.3 AST 10 L ALT 11 L Alkaline Phosphatase 125 H Troponin I 51 Total Protein 7.0 Albumin 3.3 L Procalcitonin < 0.1 TSH Free T4 Urine Color Urine Clarity Urine pH Ur Specific [place] Urine Protein Urine Ketones Urine Blood Urine Nitrite Urine Bilirubin Urine Urobilinogen Ur Leukocyte Esterase Urine RBC Urine WBC Ur Epithelial Cells Urine Crystals Urine Bacteria Urine Casts Urine Mucus Ur Culture Indicated? Urine Glucose Stl C.difficile Tox PCR COVID-19 Source Nasopharynx SARS-CoV-2 (PCR) Negative 11/16/23 11/16/23 11/17/23 21:00 21:11 06:22 WBC 6.14 RBC 3.25 L Hgb 9.1 L Hct 28.8 L MCV 89 MCH 28.0 MCHC 31.6 L RDW 13.6 Plt Count 147 MPV 11.2 H Immature Gran % 0.7 Neutrophils % 74.3 Lymphocytes % 14.5 Monocytes % 8.5 Eosinophils % 1.5 Basophils % 0.5 Nucleated RBC % 0.0 Absolute Neutrophils 4.57 Absolute Lymphocytes 0.89 L Absolute Monocytes 0.52 Absolute Eosinophils 0.09 Absolute Basophils 0.03 PT 33.8 H INR 3.8 H VBG Lactate 0.9 Sodium 139 Potassium 5.1 Chloride 115 H Carbon Dioxide 11.2 L Anion Gap 12.8 H BUN 82 H* Creatinine 4.7 H* Est GFR (CKD-EPI 2020) 8.62 Glucose 102 Calcium 8.6 Magnesium 1.8 Total Bilirubin AST ALT Alkaline Phosphatase Troponin I Total Protein Albumin Procalcitonin TSH 3.91 H Free T4 0.65 L Urine Color Yellow Urine Clarity Sl Cloudy Urine pH 5.5 Ur Specific [place] 1.015 Urine Protein 30 H Urine Ketones Negative Urine Blood Small H Urine Nitrite Negative Urine Bilirubin Negative Urine Urobilinogen 0.2 Ur Leukocyte Esterase Small H Urine RBC 5-10 H Urine WBC 5-10 Ur Epithelial Cells Moderate Urine Crystals Negative Urine Bacteria Few Urine Casts Negative Urine Mucus Negative Ur Culture Indicated? No/Sq. Contamination Urine Glucose Negative Stl C.difficile Tox PCR COVID-19 Source SARS-CoV-2 (PCR) 08/20/23 11:41 WBC RBC Hgb Hct MCV MCH MCHC RDW Plt Count MPV Immature Gran % Neutrophils % Lymphocytes % Monocytes % Eosinophils % Basophils % Nucleated RBC % Absolute Neutrophils Absolute Lymphocytes Absolute Monocytes Absolute Eosinophils Absolute Basophils PT INR VBG Lactate Sodium Potassium Chloride Carbon Dioxide Anion Gap BUN Creatinine Est GFR (CKD-EPI 2020) Glucose Calcium Magnesium Total Bilirubin AST ALT Alkaline Phosphatase Troponin I Total Protein Albumin Procalcitonin TSH Free T4 Urine Color Urine Clarity Urine pH Ur Specific [place] Urine Protein Urine Ketones Urine Blood Urine Nitrite Urine Bilirubin Urine Urobilinogen Ur Leukocyte Esterase Urine RBC Urine WBC Ur Epithelial Cells Urine Crystals Urine Bacteria Urine Casts Urine Mucus Ur Culture Indicated? Urine Glucose Stl C.difficile Tox PCR Negative COVID-19 Source SARS-CoV-2 (PCR) Time Spent with Patient Time Spent with Patient: 35-49 minutes Time was spent: preparing to see the patient(eg.review tests), obtaining and/or reviewing separately otained hiistory, ordering medications,tests, procedures, indepentently interpreting results and counseling the patient
[2023-08-20 16:32] VITALS: BP 103/57; PULSE 75; RESP 17; TEMP 36.4; O2SAT 95
[2023-08-20] MEDS: Gabapentin 300 MG CAP PO (20:52)
[2023-08-20 20:59] VITALS: BP 113/69; PULSE 80; RESP 18; TEMP 36.4; O2SAT 98
[2023-08-20] MEDS: Atorvastatin 40 MG TAB PO (21:25)
[2023-08-20 23:37] VITALS: BP 107/68; PULSE 77; RESP 16; TEMP 36.4; O2SAT 95
[2023-08-21] VITALS (16 sets, daily range): BP systolic 80–123; BP diastolic 36–62; PULSE 67–80; RESP 12–31; TEMP 35.8–36.9; O2SAT 93–100
[2023-08-21] MEDS: Normal Saline 1,000 ML 150 ML IV ×2 (00:15→07:03)
[2023-08-21] MEDS: Levothyroxine 88 MCG TAB PO (05:22)
[2023-08-21 07:39] LABS: Prothrombin Time 38.6 sec (9.1-11.1)
[2023-08-21 07:46] LABS: INR 4.4 (0.9-1.1)
[2023-08-21 07:57] LABS: Abs Immature Grans 0.02 10^3/uL (0.0-0.06); Absolute Basophil Count 0.02 10^3/uL (0.0-0.2); Absolute Eosinophil Count 0.18 10^3/uL (0.0-0.7); Absolute Lymphocyte Count 0.93 10^3/uL (1.2-3.4); Absolute Monocyte Count 0.57 10^3/uL (0.1-0.8); Absolute Neutrophil Count 4.57 10^3/uL (1.2-6.7); Basophils % 0.3; Eosinophils % 2.9; HCT 28.6 % (36.0-46.0); Immature Grans % 0.3; Lymphocytes % 14.8; MCH 28.6 pg (27.0-33.0); MCHC 31.5 % (32.0-36.0); MCV 91 fL (80-95); MPV 11.7 fL (8.0-11.0); Monocytes % 9.1; Neutrophils % 72.6; Platelet Count 125 10^3/uL (130-400); RBC 3.15 10^6/uL (3.93-5.22); RDW 14.2 % (11.7-14.6); RDW-SD 47.2 fL; WBC 6.29 10^3/uL (4.4-10.8)
[2023-08-21 08:09] LABS: BUN 65 mg/dL (7-18); Calcium 8.2 mg/dL (8.5-10.1); Chloride 120 mmol/L (98-107); Estimated GFR 11.12 (mL/min/1.73m2); Glucose 88 mg/dL (74-106); Magnesium 1.5 mg/dL (1.8-2.4); Potassium 5.1 mmol/L (3.5-5.1); Sodium 139 mmol/L (136-145)
[2023-08-21 08:12] LABS: CREATININE 3.8 mg/dL (0.55-1.02)
[2023-08-21] MEDS: Sertraline 50 MG TAB PO (08:22)
[2023-08-21] MEDS: Pantoprazole 40 MG VIAL IVP (10:21)
[2023-08-21] MEDS: MAGNESIUM SULFATE 2 GM/50 ML BAG IVPB (10:22)
[2023-08-21] MEDS: Normal Saline Flush 10 ML SYR IVP ×2 (10:22→12:30)
[2023-08-21 10:57] LABS: Lab Add On Test DONE
[2023-08-21 11:12] LABS: Iron 98 ug/dL (50-170); PHOSPHORUS 3.6 mg/dL (2.6-4.7); Total Iron Binding Capacity 150 ug/dL (250-450); Transferrin Sat 65 % (15-50)
[2023-08-21 11:39] LABS: Ferritin 214 ng/mL (8-252); Folate 13.7 ng/mL (8.6-20.0); Vitamin B12 404 pg/mL (193-986)
[2023-08-21 12:20] LABS: BE (Venous) -23 mmol/L (-2-3); HCO3 (Venous) 7 mmol/L (23-28); O2 Sat (Venous) 97 %; TCO2 (Venous) 7 mmol/L (24-29); pCO2 (Venous) 22 mmHg (41-51); pO2 (Venous) 92 mmHg
[2023-08-21] MEDS: SODIUM BICARBONATE 150 MEQ in DEXTROSE 5%-WATER 850 ML 250 MEQ IV (12:29)
[2023-08-21 12:41] LABS: Creatine Kinase 105 U/L (26-192)
--- NOTE | 2023-08-21 12:58 | W.PM.PROGNOT ---
Date of Service Date of service: 08/21/23 Time of Service: 12:58 Assessment and Plan Assessment and plan (1) Acute kidney injury superimposed on chronic kidney disease: Status: Acute Assessment and plan: Transfer to the ICU. Continue bicarbonate drip with serial chemistries and VBG. Place a lucia catheter for careful monitoring of I/O's. Rehydrate and attempt to control diarrhea - order loperamide. Check FENa. Repeat UA. (2) Acute metabolic acidosis: Status: Acute Assessment and plan: Severe. pH of 7.10. In setting of MANUELITO on CKD. The patient is not appearing to have symptomatic respiratory compensation at this time. Continue bicarbonate drip with serial monitoring of chemistries and VBG. Monitor in the ICU. Control diarrhea. (3) Diarrhea: Status: Acute Assessment and plan: C. Diff negative. Await stool studies. prn loperamide ordered. (4) Hypotension: Status: Acute Assessment and plan: Suspect that this is due to dehydration. Continue aggressive IVF. (5) Hypomagnesemia: Status: Acute Assessment and plan: Replete Recheck in am (6) Acute dehydration: Status: Acute Assessment and plan: In setting of diarrhea. Hydrate orally and intravenously. Control diarrhea. (7) Atrial fibrillation: Status: Chronic Assessment and plan: Rates controlled. Hold anticoagulation in setting of supratherapeutic INR. Hold BB. Qualifiers: Atrial fibrillation type: paroxysmal Qualified Code(s): I48.0 - Paroxysmal atrial fibrillation (8) Supratherapeutic INR: Status: Acute Assessment and plan: As above. HOld coumadin today. (9) DVT prophylaxis: Status: Acute Assessment and plan: Supratherapeutic INR - hold chemical DVT ppx. (10) Discharge planning issues: Status: Acute Assessment and plan: Full code Transfer to the ICU. Total Critical Care Time 45 minutes. Subjective Subjective Interval history since last seen: Ms Lindquist states Oh, I am alert, when I remark that I imagine she is not feeling very well looking at her numbers this morning. She states she is still having a lot of diarrhea. She denies dizziness, CP, SOB, n/v. SHe did have lower abdominal pain when she first presented, but this has resolved. She states she does urinate. I didn't always and I didn't even notice. She states she had had diarrhea for a couple of weeks at home and had not even noticed that she was not urinating then. She agrees to transfer to the ICU (her VBG shows a pH of 7.1 today despite being on bicarbonate drip). Exam Narrative Exam Narrative: General: A very pleasant dehydrated-appearing female who is A&Ox3, appears comfortable sitting up in bed HEENT: EOMI, dry MM Heart: RRR, ? PHILLIP Lungs: CTAB (diminished at B bases) Abdomen: soft, nontender, nondistended Extremities: wearing TEDs, no edema BLEs. Objective Last Vital Signs Temp 35.8 C L 08/21/23 11:12 Pulse 77 08/21/23 11:12 Resp 22 08/21/23 11:12 BP 86/47 L 08/21/23 11:12 Pulse Ox 97 08/21/23 11:12 Laboratory Results - last 24 hr 08/21/23 08/21/23 08/21/23 06:20 07:05 10:16 WBC 6.29 RBC 3.15 L Hgb 9.0 L Hct 28.6 L MCV 91 MCH 28.6 MCHC 31.5 L RDW 14.2 Plt Count 125 L MPV 11.7 H Immature Gran % 0.3 Neutrophils % 72.6 Lymphocytes % 14.8 Monocytes % 9.1 Eosinophils % 2.9 Basophils % 0.3 Nucleated RBC % 0.0 Absolute Neutrophils 4.57 Absolute Lymphocytes 0.93 L Absolute Monocytes 0.57 Absolute Eosinophils 0.18 Absolute Basophils 0.02 PT Cancelled 38.6 H INR Cancelled 4.4 H* VBG pH VBG pCO2 VBG pO2 VBG HCO3 VBG Total CO2 VBG O2 Saturation VBG Base Excess Sodium 139 Potassium 5.1 Chloride 120 H Carbon Dioxide 10.0 L Anion Gap 9.0 BUN 65 H Creatinine 3.8 H* Est GFR (CKD-EPI 2020) 11.12 Glucose 88 Calcium 8.2 L Phosphorus 3.6 Magnesium 1.5 L Iron 98 TIBC 150 L Transferrin % Sat 65 H Ferritin 214 Creatine Kinase Vitamin B12 404 Folate Add-On Test Request 08/21/23 08/21/23 08/21/23 10:16 10:16 12:14 WBC RBC Hgb Hct MCV MCH MCHC RDW Plt Count MPV Immature Gran % Neutrophils % Lymphocytes % Monocytes % Eosinophils % Basophils % Nucleated RBC % Absolute Neutrophils Absolute Lymphocytes Absolute Monocytes Absolute Eosinophils Absolute Basophils PT INR VBG pH 7.10 L* VBG pCO2 22 L VBG pO2 92 VBG HCO3 7 L VBG Total CO2 7 L VBG O2 Saturation 97 VBG Base Excess -23 L Sodium Potassium Chloride Carbon Dioxide Anion Gap BUN Creatinine Est GFR (CKD-EPI 2020) Glucose Calcium Phosphorus Magnesium Iron TIBC Transferrin % Sat Ferritin Creatine Kinase 105 Vitamin B12 Cancelled Folate 13.7 Cancelled Add-On Test Request DONE Objective Narrative Objective Narrative: CT Chest/abdomen/pelvis 08/19/23: CHEST: LUNGS: There are mild increased markings in the medial segment of the right middle lobe and in the lingular segment of the left lung. No infiltrates in the lower lobes. There are no pleural effusions. No significant focal findings in the trachea and mainstem bronchi. Incidentally noted is an accessory azygos lobe on the right. MEDIASTINUM: No obvious hilar nor mediastinal adenopathy. Visualized thyroid unremarkable. CARDIAC: Heart size is normal. There is no pericardial effusion.Caliber of the thoracic aorta is within normal limits. Moderate coronary artery calcification OSSEOUS: No significant osseous lesions.. ABDOMEN: There is no ascites. GI: Mildly distended stomach. Prominent gas bubble in the lateral wall of the duodenum measuring 3 x 3.5 cm. Very mild surrounding fat streaking. Probable diverticulum cannot exclude ulcer in the proximal duodenum at this level. This finding is unchanged from CT scans dating back to at least 2019. Remainder of the duodenum appears unremarkable. There is diverticulosis in the colon, most prominent in the sigmoid but no evidence of acute diverticulitis. No evidence of appendicitis. No evidence of distal small bowel enteritis, as was present in 2019. LIVER: There are no obvious focal hepatic lesions evident of this noninfused study. GALLBLADDER/BILIARY: No obvious gallbladder pathology. CBD is not dilated. PANCREAS: Mild streaking in the fat surrounding the pancreatic head. No pancreatic mass evident. No calcifications at this level. The pancreatic duct is not dilated. No peripancreatic fluid collections. SPLEEN: Spleen is not enlarged. No obvious intrasplenic lesions. ADRENALS: There are no significant adrenal masses. KIDNEYS: No calculi nor hydronephrosis. No obvious solid renal masses. No cysts evident. ABDOMINAL AORTA: Abdominal aorta is not enlarged. LYMPH NODES: There is no retroperitoneal nor para-aortic adenopathy. ABDOMINAL WALL/GI: No evidence of significant anterior abdominal wall nor inguinal hernia. No evidence of bowel obstruction. PELVIS: LYMPH NODES: There is no intrapelvic nor inguinal adenopathy. GI: No evidence of appendicitis.Extensive sigmoid diverticulosis without evidence of acute diverticulitis. URINARY BLADDER: No calculi nor obvious masses evident REPRODUCTIVE: Uterus is surgically absent. No abnormal right adnexal findings. The left ovary is large for this age group, measuring 2.9 by 2.2 cm. This measurement is unchanged from CT images of March 2022 also exhibits minimal change from CT scan of May 2019. No surrounding fluid in the adnexal region nor in the dependent aspect of the pelvis. OSSEOUS: No significant osseous lesions. Fractures but there is an element of degenerative anterolisthesis of L4 upon L5 related to facet arthropathy. There is chronic disc space narrowing at L1-2 and L2-3 levels. IMPRESSION: 1. Mild increased markings in the right middle lobe and lingular segment of the left lung no prominent infiltrates and no pleural effusions nor intrathoracic adenopathy. 2. There is a prominent air-filled structure coming off the lateral wall of the proximal duodenum measuring 3 x 3.5 cm. This has been present on prior CT scans dating back to at least May 2019. Suspect that this may be a prominent atypical diverticulum but cannot exclude penetrating ulcer in this patient is apparently experiencing weight loss. 3. No evidence of obvious pancreatic mass nor dilatation of the pancreatic duct. 4. Stomach is moderately distended. There is no evidence of bowel obstruction and no enteritis pattern. I note that a severe enteritis pattern was evident in the ilium on prior CT scan of May 2019. 5. There is diverticulosis throughout the colon, most prominent in the sigmoid. There is no evidence of acute diverticulitis. No appendicitis. 6. Uterus surgically absent. Right ovary not seen. Prominent left ovary for this age group with measurements as above but basically unchanged from prior CT scans dating back to 2019 and therefore most probably benign. In addition, there is no abnormal free fluid in the pelvis and abdomen. Time Spent with Patient Time Spent with Patient: 35-49 minutes Time was spent: preparing to see the patient(eg.review tests), obtaining and/or reviewing separately otained hiistory, ordering medications,tests, procedures, referring, communicating with other health care services manager, indepentently interpreting results, counseling the patient and care coordination
[2023-08-21] MEDS: Loperamide 2 MG CAP 4 MG PO (13:23)
[2023-08-21 13:27] LABS: Anion Gap 11.9 mmol/L (3-11); BUN 59 mg/dL (7-18); CO2 11.1 mmol/L (21.0-32.0); Calcium 8.2 mg/dL (8.5-10.1); Chloride 117 mmol/L (98-107); Estimated GFR 11.49 (mL/min/1.73m2); Glucose 128 mg/dL (74-106); Potassium 4.8 mmol/L (3.5-5.1); Sodium 140 mmol/L (136-145)
[2023-08-21 13:29] LABS: CREATININE 3.7 mg/dL (0.55-1.02)
[2023-08-21 15:38] LABS: Bilirubin Negative (Negative); Blood Negative (Negative); Clarity Clear (Clear); Glucose Negative (Negative); Ketones Negative (Negative); Leukocyte Esterase Negative (Negative); Nitrite Negative (Negative); Specific Gravity 1.015 (1.005-1.025); Urobilinogen 0.2 mg/dL (Up to 0.2)
[2023-08-21 15:45] LABS: Bacteria Negative HPF (Negative); C & S Indicated? No; Casts 0-2 Fine Granular LPF (Negative); Crystals Negative HPF (Negative); Epithelial Cells Rare HPF (Negative); Mucus Trace (Negative); RBC Negative HPF (0-2); WBC 0-2 HPF (0-5)
--- NOTE | 2023-08-21 15:57 | NUR.NOTE ---
Nursing Note: Pt transferred top ICu at this time; all personal belongings returned and report willard to ULISES Harper
[2023-08-21 17:46] LABS: BE (Venous) -16 mmol/L (-2-3); HCO3 (Venous) 13 mmol/L (23-28); O2 Sat (Venous) 40 %; TCO2 (Venous) 13 mmol/L (24-29); pCO2 (Venous) 36 mmHg (41-51); pO2 (Venous) 22 mmHg
[2023-08-21 17:52] LABS: pH (Venous) 7.16 (7.31-7.41)
[2023-08-21 18:00] LABS: Anion Gap 11.3 mmol/L (3-11); BUN 57 mg/dL (7-18); CO2 14.7 mmol/L (21.0-32.0); Chloride 114 mmol/L (98-107); Estimated GFR 11.87 (mL/min/1.73m2); Glucose 114 mg/dL (74-106); Potassium 4.2 mmol/L (3.5-5.1); Sodium 140 mmol/L (136-145)
[2023-08-21 18:19] LABS: CREATININE 3.6 mg/dL (0.55-1.02)
[2023-08-21] MEDS: SODIUM BICARBONATE 150 MEQ in DEXTROSE 5%-WATER 850 ML IV (18:24)
[2023-08-21 21:16] LABS: BE (Venous) -14 mmol/L (-2-3); HCO3 (Venous) 11 mmol/L (23-28); pCO2 (Venous) 20 mmHg (41-51); pH (Venous) 7.36 (7.31-7.41); pO2 (Venous) 117 mmHg
[2023-08-21 21:52] LABS: Anion Gap 9.9 mmol/L (3-11); BUN 55 mg/dL (7-18); CO2 17.1 mmol/L (21.0-32.0); CREATININE 3.4 mg/dL (0.55-1.02); Calcium 7.8 mg/dL (8.5-10.1); Chloride 113 mmol/L (98-107); Estimated GFR 12.71 (mL/min/1.73m2); Glucose 112 mg/dL (74-106); Potassium 3.9 mmol/L (3.5-5.1); Sodium 140 mmol/L (136-145)
[2023-08-21 22:14] LABS: Sodium, Urine 38 mmol/L
[2023-08-21 22:15] LABS: Creatinine,Urine 64.91 mg/dL
[2023-08-22] VITALS (80 sets, daily range): BP systolic 92–128; BP diastolic 42–70; PULSE 74–96; RESP 11–27; TEMP 36.4–37.8; O2SAT 89–98
[2023-08-22 01:15] LABS: BE (Venous) -9 mmol/L (-2-3); HCO3 (Venous) 18 mmol/L (23-28); O2 Sat (Venous) 63 %; TCO2 (Venous) 18 mmol/L (24-29); pCO2 (Venous) 37 mmHg (41-51); pH (Venous) 7.29 (7.31-7.41); pO2 (Venous) 32 mmHg
[2023-08-22 01:28] LABS: Anion Gap 7.7 mmol/L (3-11); BUN 54 mg/dL (7-18); CO2 19.3 mmol/L (21.0-32.0); CREATININE 3.3 mg/dL (0.55-1.02); Calcium 7.6 mg/dL (8.5-10.1); Chloride 113 mmol/L (98-107); Estimated GFR 13.18 (mL/min/1.73m2); Glucose 114 mg/dL (74-106); Potassium 3.8 mmol/L (3.5-5.1); Sodium 140 mmol/L (136-145)
[2023-08-22] MEDS: SODIUM BICARBONATE 150 MEQ in DEXTROSE 5%-WATER 850 ML IV (01:45)
[2023-08-22] MEDS: Normal Saline Flush 10 ML SYR IVP ×2 (01:47→09:02)
[2023-08-22] MEDS: Levothyroxine 88 MCG TAB PO (05:59)
[2023-08-22 06:34] LABS: BE (Venous) -6 mmol/L (-2-3); HCO3 (Venous) 20 mmol/L (23-28); O2 Sat (Venous) 88 %; TCO2 (Venous) 20 mmol/L (24-29); pCO2 (Venous) 39 mmHg (41-51); pH (Venous) 7.32 (7.31-7.41); pO2 (Venous) 53 mmHg
[2023-08-22 06:56] LABS: Anion Gap 8.2 mmol/L (3-11); BUN 49 mg/dL (7-18); CO2 20.8 mmol/L (21.0-32.0); CREATININE 3.1 mg/dL (0.55-1.02); Calcium 7.6 mg/dL (8.5-10.1); Chloride 112 mmol/L (98-107); Glucose 124 mg/dL (74-106); Magnesium 1.3 mg/dL (1.8-2.4); Potassium 3.6 mmol/L (3.5-5.1); Sodium 141 mmol/L (136-145)
[2023-08-22] MEDS: Sertraline 50 MG TAB PO (09:02)
[2023-08-22] MEDS: Cyanocobalamin 500 MCG TAB PO (09:02)
[2023-08-22] MEDS: Calcium Carbonate 1.5 GM TAB PO ×2 (09:02→19:49)
[2023-08-22] MEDS: MAGNESIUM SULFATE 4 GM/100 ML BAG IVPB (09:02)
[2023-08-22] MEDS: Magnesium Oxide 400 MG TAB PO ×2 (09:02→19:48)
[2023-08-22] MEDS: Pantoprazole 40 MG VIAL IVP (09:03)
[2023-08-22] MEDS: Lactated Ringers 1,000 ML 125 ML IV ×2 (09:19→18:04)
--- NOTE | 2023-08-22 09:36 | DI.RAD_ITS ---
Exam(s) XR PORTABLE CHEST AP EXAM: XR PORTABLE CHEST AP CLINICAL HISTORY: hypoxia, ?CHF TECHNIQUE: 2D digital imaging was performed. COMPARISON: CR,XR XR PORTABLE CHEST AP from 11/23/[address] CHEST/ABD/PEL WO from 08/19/2023 FINDINGS: Exam limited by multiple leads overlying the chest, respiratory motion and under penetration, as wel l as poor inspiratory effort.. LUNGS: Small left pleural effusion. The pulmonary vascular prominence and increased interstitial mar kings at the lung bases suspicious for CHF. HEART: Cardiac silhouette somewhat obscured. AORTA: Normal diameter. BONES: Unremarkable for age. Soft tissues: Unremarkable. IMPRESSION: Limited exam. Findings suggestive of CHF. DATA REPOSITORY: RADIATION DOSE DELIVERED:
--- NOTE | 2023-08-22 09:45 | DI.VRAD_ITS ---
PROCEDURE INFORMATION: Exam: XR Chest Exam date and time: 08/22/2023 9:31 AM Age: 83 years old Clinical indication: Other: Hypoxia TECHNIQUE: Imaging protocol: Radiologic exam of the chest. Views: 1 view. COMPARISON: CT CHEST/ABD/PEL WO 08/19/2023 7:10 PM FINDINGS: Lungs: Bilateral lower lobe infiltrates. Pleural spaces: Unremarkable. No pleural effusion. No pneumothorax. Heart/Mediastinum: Unremarkable. No cardiomegaly. Bones/joints: Unremarkable. IMPRESSION: Bilateral lower lobe infiltrates suggestive of pneumonia. Dictated and Authenticated by: Latasha Spaulding MD. Ordering:LETI Weiss MD
[2023-08-22 12:13] LABS: BE (Venous) -6 mmol/L (-2-3); HCO3 (Venous) 20 mmol/L (23-28); O2 Sat (Venous) 81 %; TCO2 (Venous) 20 mmol/L (24-29); pCO2 (Venous) 41 mmHg (41-51); pH (Venous) 7.31 (7.31-7.41); pO2 (Venous) 48 mmHg
[2023-08-22 12:27] LABS: Anion Gap 7.8 mmol/L (3-11); BUN 46 mg/dL (7-18); CO2 22.2 mmol/L (21.0-32.0); Chloride 111 mmol/L (98-107); Estimated GFR 14.77 (mL/min/1.73m2); Glucose 108 mg/dL (74-106); Potassium 3.8 mmol/L (3.5-5.1); Sodium 141 mmol/L (136-145)
[2023-08-22 12:37] LABS: INR 3.1 (0.9-1.1); Prothrombin Time 28.3 sec (9.1-11.1)
--- NOTE | 2023-08-22 13:17 | W.PM.PROGNOT ---
Date of Service Date of service: 08/22/23 Time of Service: 13:17 Assessment and Plan Assessment and plan (1) Acute kidney injury superimposed on chronic kidney disease: Status: Acute Assessment and plan: Metabolic acidosis has corrected and bicarbonate drip has been turned off. Cr is improving. Continue lucia for UOP monitoring. Continue IVF (LR). Continue prn loperamide for diarrhea (which has now stopped). Await FENa. (2) Acute metabolic acidosis: Status: Resolved Assessment and plan: Severe. pH up to 7.31 and bicrab is 22.2 on the latest lab. Bicarbonate drip d/c'ed, and the acidosis is continuing to improve anyway. Continue to monitor chemistries. Ok to transfer out of the ICU. (3) Bilateral pulmonary infiltrates: Status: Acute Assessment and plan: Atelectasis vs infiltrate such as from aspiration pneumonia vs some degree of pulmonary edema. Check procalcitonin and NT-proBNP. No antibiotics yet. Encourage pulmonary toilet and ambulation. (4) Diarrhea: Status: Resolved Assessment and plan: C. Diff negative. Await remaining stool studies. prn loperamide ordered. (5) Hypotension: Status: Resolved Assessment and plan: Suspect that this is due to dehydration. Coreg on hold. Continue aggressive IVF. (6) Hypomagnesemia: Status: Acute Assessment and plan: Replete Recheck in am (7) Acute dehydration: Status: Acute Assessment and plan: In setting of diarrhea. Hydrate orally and intravenously. Control diarrhea. (8) Atrial fibrillation: Status: Chronic Assessment and plan: Rates controlled. Hold anticoagulation in setting of supratherapeutic INR. Hold BB. Check echo. Qualifiers: Atrial fibrillation type: paroxysmal Qualified Code(s): I48.0 - Paroxysmal atrial fibrillation (9) Supratherapeutic INR: Status: Acute Assessment and plan: As above. INR is still supratherapeutic. (3.1 today). Hold coumadin today. (10) DVT prophylaxis: Status: Acute Assessment and plan: Supratherapeutic INR - hold chemical DVT ppx. (11) Discharge planning issues: Status: Acute Assessment and plan: Full code Transfer out of the ICU. PT c/s. 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 Subjective Subjective Interval history since last seen: Ms Lindquist states she is feeling better. No dizziness, CP, SOB (does have some chest tightness). NO n/v. Evidently she did not have a diet order after her transfer to the ICU and was hungry. No diarrhea since she got loperamide yesterday. Got off of bicarbonate drip this morning. UOP 100 cc/hr overnight. Exam Narrative Exam Narrative: General: A very pleasant dehydrated-appearing female who is A&Ox3, appears comfortable sitting up in bed, no dyspnea, tachypnea, or cyanosis on RA HEENT: EOMI, MMM, no JVD Heart: RRR, ? PHILLIP Lungs: CTAB (diminished at B bases) Abdomen: soft, nontender, nondistended Extremities: no edema BLEs. Objective Last Vital Signs Temp 37.3 C 08/22/23 11:47 Pulse 76 08/22/23 03:43 Resp 23 08/22/23 03:43 BP 116/46 L 08/22/23 02:46 Pulse Ox 91 L 08/22/23 03:43 Laboratory Results - last 24 hr 08/21/23 08/21/23 08/21/23 13:05 15:18 17:35 PT INR VBG pH 7.16 L* VBG pCO2 36 L VBG pO2 22 VBG HCO3 13 L VBG Total CO2 13 L VBG O2 Saturation 40 VBG Base Excess -16 L Sodium 140 140 Potassium 4.8 4.2 Chloride 117 H 114 H Carbon Dioxide 11.1 L 14.7 L Anion Gap 11.9 H 11.3 H BUN 59 H 57 H Creatinine 3.7 H* 3.6 H* Est GFR (CKD-EPI 2020) 11.49 11.87 Glucose 128 H 114 H Calcium 8.2 L 8.0 L Magnesium Urine Color Yellow Urine Clarity Clear Urine pH 5.0 Ur Specific [place] 1.015 Urine Protein Trace H Urine Ketones Negative Urine Blood Negative Urine Nitrite Negative Urine Bilirubin Negative Urine Urobilinogen 0.2 Ur Leukocyte Esterase Negative Urine RBC Negative Urine WBC 0-2 Ur Epithelial Cells Rare Urine Crystals Negative Urine Bacteria Negative Urine Casts 0-2 Fine Granular Urine Mucus Trace Ur Culture Indicated? No Ur Random Creatinine Ur Random Sodium Urine Glucose Negative 08/21/23 08/21/23 08/21/23 21:12 21:20 22:00 PT INR VBG pH 7.36 VBG pCO2 20 L VBG pO2 117 VBG HCO3 11 L VBG Total CO2 VBG O2 Saturation VBG Base Excess -14 L Sodium 140 Potassium 3.9 Chloride 113 H Carbon Dioxide 17.1 L Anion Gap 9.9 BUN 55 H Creatinine 3.4 H Est GFR (CKD-EPI 2020) 12.71 Glucose 112 H Calcium 7.8 L Magnesium Urine Color Urine Clarity Urine pH Ur Specific [place] Urine Protein Urine Ketones Urine Blood Urine Nitrite Urine Bilirubin Urine Urobilinogen Ur Leukocyte Esterase Urine RBC Urine WBC Ur Epithelial Cells Urine Crystals Urine Bacteria Urine Casts Urine Mucus Ur Culture Indicated? Ur Random Creatinine 64.91 Ur Random Sodium 38 Urine Glucose 08/22/23 08/22/23 08/22/23 01:05 06:26 12:06 PT 28.3 H INR 3.1 H VBG pH 7.29 L 7.32 7.31 VBG pCO2 37 L 39 L 41 VBG pO2 32 53 48 VBG HCO3 18 L 20 L 20 L VBG Total CO2 18 L 20 L 20 L VBG O2 Saturation 63 88 81 VBG Base Excess -9 L -6 L -6 L Sodium 140 141 141 Potassium 3.8 3.6 3.8 Chloride 113 H 112 H 111 H Carbon Dioxide 19.3 L 20.8 L 22.2 Anion Gap 7.7 8.2 7.8 BUN 54 H 49 H 46 H Creatinine 3.3 H 3.1 H 3.0 H Est GFR (CKD-EPI 2020) 13.18 14.20 14.77 Glucose 114 H 124 H 108 H Calcium 7.6 L 7.6 L 8.0 L Magnesium 1.3 L Urine Color Urine Clarity Urine pH Ur Specific [place] Urine Protein Urine Ketones Urine Blood Urine Nitrite Urine Bilirubin Urine Urobilinogen Ur Leukocyte Esterase Urine RBC Urine WBC Ur Epithelial Cells Urine Crystals Urine Bacteria Urine Casts Urine Mucus Ur Culture Indicated? Ur Random Creatinine Ur Random Sodium Urine Glucose Objective Narrative Objective Narrative: CXR: Bilateral lower lobe infiltrates suggestive of pneumonia. Time Spent with Patient Time Spent with Patient: 35-49 minutes Time was spent: preparing to see the patient(eg.review tests), obtaining and/or reviewing separately otained hiistory, ordering medications,tests, procedures, referring, communicating with other health human services care specialist, indepentently interpreting results, counseling the patient and care coordination
[2023-08-22 14:08] LABS: NT-proBNP 3608 pg/mL (<300)
[2023-08-22 14:25] LABS: Procalcitonin < 0.1 ng/mL
[2023-08-22 18:02] LABS: Lab Add On Test DONE
[2023-08-22 18:53] LABS: Abs Immature Grans 0.03 10^3/uL (0.0-0.06); Absolute Basophil Count 0.03 10^3/uL (0.0-0.2); Absolute Eosinophil Count 0.15 10^3/uL (0.0-0.7); Absolute Lymphocyte Count 0.59 10^3/uL (1.2-3.4); Absolute Monocyte Count 0.67 10^3/uL (0.1-0.8); Basophils % 0.4; Eosinophils % 1.8; HCT 30.3 % (36.0-46.0); HGB 9.8 g/dL (11.2-15.7); Immature Grans % 0.4; Lymphocytes % 7.1; MCH 27.7 pg (27.0-33.0); MCHC 32.3 % (32.0-36.0); MCV 86 fL (80-95); Monocytes % 8.1; Neutrophils % 82.2; Platelet Count 146 10^3/uL (130-400); RBC 3.54 10^6/uL (3.93-5.22); RDW 13.6 % (11.7-14.6); RDW-SD 42.7 fL; WBC 8.27 10^3/uL (4.4-10.8)
[2023-08-22] MEDS: Gabapentin 300 MG CAP PO (22:34)
[2023-08-23] VITALS (9 sets, daily range): BP systolic 119–139; BP diastolic 59–75; PULSE 78–94; RESP 18–20; TEMP 35.4–37.6; O2SAT 93–98
[2023-08-23] MEDS: Lactated Ringers 1,000 ML 125 ML IV (02:17)
[2023-08-23 05:35] LABS: BE (Venous) -1 mmol/L (-2-3); HCO3 (Venous) 24 mmol/L (23-28); O2 Sat (Venous) 56 %; TCO2 (Venous) 23 mmol/L (24-29); pCO2 (Venous) 41 mmHg (41-51); pH (Venous) 7.37 (7.31-7.41); pO2 (Venous) 30 mmHg
[2023-08-23] MEDS: Acetaminophen 325 MG TAB 650 MG PO (05:38)
[2023-08-23] MEDS: Levothyroxine 88 MCG TAB PO (05:40)
[2023-08-23] MEDS: Normal Saline Flush 10 ML SYR IVP ×2 (05:40→18:47)
[2023-08-23 05:43] LABS: Abs Immature Grans 0.04 10^3/uL (0.0-0.06); Absolute Basophil Count 0.03 10^3/uL (0.0-0.2); Absolute Eosinophil Count 0.12 10^3/uL (0.0-0.7); Absolute Lymphocyte Count 0.72 10^3/uL (1.2-3.4); Absolute Monocyte Count 0.68 10^3/uL (0.1-0.8); Absolute Neutrophil Count 5.08 10^3/uL (1.2-6.7); Basophils % 0.4; Eosinophils % 1.8; HCT 22.5 % (36.0-46.0); HGB 7.5 g/dL (11.2-15.7); Immature Grans % 0.6; Lymphocytes % 10.8; MCHC 33.3 % (32.0-36.0); MCV 84 fL (80-95); Monocytes % 10.2; Neutrophils % 76.2; Platelet Count 130 10^3/uL (130-400); RBC 2.68 10^6/uL (3.93-5.22); RDW 13.4 % (11.7-14.6); RDW-SD 41.4 fL; WBC 6.67 10^3/uL (4.4-10.8)
[2023-08-23 05:51] LABS: BUN 39 mg/dL (7-18); CREATININE 2.6 mg/dL (0.55-1.02); Calcium 7.8 mg/dL (8.5-10.1); Chloride 108 mmol/L (98-107); Estimated GFR 17.54 (mL/min/1.73m2); Glucose 106 mg/dL (74-106); Sodium 138 mmol/L (136-145)
[2023-08-23 06:02] LABS: ALT 9 U/L (14-59); AST 8 U/L (15-37); Alkaline Phosphatase 82 U/L (46-116); Bilirubin, Direct 0.1 mg/dL (0.0-0.2); Bilirubin, Total 0.6 mg/dL (0.2-1.0); Total Protein 4.7 g/dL (6.4-8.2)
[2023-08-23 06:05] LABS: INR 1.9 (0.9-1.1); Prothrombin Time 18.1 sec (9.1-11.1)
--- NOTE | 2023-08-23 08:00 | DI.US_ITS ---
APPROVED REPORT EXAM: Comprehensive 2D, Doppler, and color-flow Echocardiogram Patient Location: In-Patient Room/Bed: 208 Director Of Student Affairs: Skip Krause RDCS (AE) Indications: ? CHF. history of afib Other Information Study Quality: Good Conclusion Normal left ventricular wall thickness and chamber size. Ejection fraction is 63%. There is stage I diastolic dysfunction which is normal for age. There are no segmental wall motion abnormalities Normal right ventricular size and systolic function Both atria are normal in size Aortic valve is mildly sclerotic and trileaflet with trace regurgitation Mildly dilated ascending aorta and aortic root Wall motion Left Ventricle The left ventricle is normal size. The left ventricular systolic function is normal. The left ventric ular ejection fraction is within the normal range. There is normal left ventricular wall thickness. T here is normal LV segmental wall motion. There is no ventricular septal defect visualized. LVEF is 63 %. Right Ventricle The right ventricle is normal size. The right ventricular systolic function is normal. The RVSP is 27 .5 mmHg. Atria The left atrium size is normal. The right atrium size is normal. The interatrial septum is intact wit h no evidence for an atrial septal defect. Aortic Valve The aortic valve is mildly sclerotic Aortic valve is trileaflet. There is no aortic valvular stenosis . Trivial aortic regurgitation. Mitral Valve The mitral valve is normal in structure. No evidence of mitral valve stenosis. Trace mitral regurgita tion. Tricuspid Valve The tricuspid valve is normal in structure. There is no tricuspid valve stenosis. Trace tricuspid reg urgitation. Pulmonic Valve The pulmonary valve is normal in structure. There is no pulmonic valvular stenosis. Trivial pulmonic regurgitation. Great Vessels Aortic root is mildly dilated. The ascending aorta is mildly dilated. Aortic arch is not well visual ized. IVC is normal in size and collapses >50% with inspiration. Pericardium There is no pericardial effusion. 2D Dimensions IVSD d PLAX 0.81 cm F: 0.6-1.0 Ao Root d 3.46 cm F: 2.7 - 3.3 LVPW d PLAX 0.84 cm F: 0.6 - 1.0 Ao Asc Diam d 3.42 cm F: 2.3 - 3.1 LVID d PLAX 4.72 cm F: 3.8 - 5.2 LVDs 3.10 cm F: 2.2 - 3.5 LV EF Teichholz 63.2 % FS 34.26 % LV EDV (Teich) 103.4 mL LV ESV (Teich) 38.0 mL Stroke Vol Index (Teich) 36.12 M-Mode TAPSE 1.77 cm (M/F) >1.7 Auto EF LV EDV A4C 80.3 mL LV EDV A2C 94.7 mL LV EDV BP 88.8 mL LV ESV A4C 30.1 mL LV ESV A2C 34.1 mL LV ESV BP 32.7 mL LVEF(%) A4C 62.5 % LVEF(%) A2C 64.0 % LVEF(%) BP 63.2 % LV SV A4C 50.2 ml LV SV A2C 60.6 ml LV SV BP 56.1 ml LV CO A4C 3.4 L/min LV CO A2C 4.4 L/min LV CO BP 3.9 L/min HR A4C 67.67 BPM HR A2C 72.73 BPM LV EDV Index (BP) LA Volume LA Length A4C 5.2 cm LA Length A2C LA Area A4C s 12.45 cm2 LA Area A2C s LA Vol A4C A-L 25.28 mL LA Vol A2C A-L LA Vol Biplane A-L LA Vol A4C MOD 25.0 mL LA Vol A2C MOD LA Vol BP MOD RA Volume RA Area A4C 6.2 cm2 RA ESV A4C (A-L) 7.2mL RA Vol/BSA A4C A-L RA Length A4C 4.6 cm RA ESV A4C (MOD) 7.3mL LV Diastology MV E' medial 0.090 (>0.07 m/s) MV E Vmax 0.97 (0.4-1.3 m/s) MV E/E' MED 10.83 (<14) MV A Vmax 0.95 (0.4-1.3 m/s) MV E' lateral 0.098 (>0.1 m/s) E/A Ratio 1.0 MV E/E' LAT 9.97 (<14) MV E' Average 0.094 m/s MV E/E'(average) 10.38 Aortic Valve AoV Vmax 1.47 m/s LVOT Vmax 1.39 m/s AoV Peak Grad 8.7 mmHg LVOT Peak Grad 7.8 mmHg AoV Area (Vmax) 2.68 cm2 LVOT VTI 0.314 m AoV VTI 0.329 m LVOT Mean Grad 4.4 mmHg AoV Mean Andrew. 1.03 m/s LVOT SV 88.69 mL AoV Mean Grad 4.8 mmHg LVOT Diam s 1.85 cm AoV Area (VTI) 2.69 cm2 Velocity Ratio 0.95 Mitral Valve MV DT 189 (160-240 msec) Pulmonary Valve PV Vmax 1.00 (0.5-1.5 m/s) RVOT Vmax 0.70 m/s PV Peak Grad 4.0 mmHg RVOT Peak Gr. 2.0 mmHg PV Mean Andrew 0.68 m/s RVOT VTI 0.128 m PV Mean Grad 2.1 mmHg RVOT Mean Gr. 1.1 mmHg Tricuspid Valve RA Pressure 3.00 mmHg TR Vmax 2.47 m/s TR Peak Grad 24.4 mmHg RVSP (TR) 27.5 mmHg
--- NOTE | 2023-08-23 11:09 | IN_ITS ---
PT Notes Visit Reasons: MANUELITO with Dehydration, Gastroenteritis Physical Therapy Inpatient Initial Evaluation Date: 08/23/23 Referring Doctor: Isela Ashley MD PT Orders: PT CONSULT: Limited ability Precautions: Fall. Standard. Activity as tolerated. Patient Profile/Admitting Diagnosis: Juli is an 83-year-old female admitted to the ED on 08/19/2023 due to nausea, vomiting, and diarrhea, decreased oral intake, and decreased urine output. Patient was admitted for management of acute on chronic kidney injury, acute metabolic acidosis, bilateral pulmonary infiltrates, diarrhea, hypotension, hypomagnesemia, and atrial fibrillation. PMHX: All Active Problems (Updated 08/20/23 @ 05:49 by Phillip Metzger) Acute dehydration (Acute) Gastroenteritis (Acute) Acute renal failure (ARF) (Acute) Depression (Chronic) Atrial fibrillation (Chronic) Hyperlipidemia (Acute) Fracture of phalanx of right little finger (Acute) Anticoagulant long-term use (Acute) Swelling of left lower extremity (Acute) Anemia (Chronic) BPPV (benign positional vertigo) (Acute) Pre-diabetes (Acute) Arthritis (Acute) Tinnitus, bilateral (Acute) Sensorineural hearing loss of both ears (Acute) Afib (Chronic) ablated x 2, ongoing, coumadin 2020- cardiology suggesting a watchman, she declined- requires chronic anticoagulation Coronary artery disease (Chronic) NSTEMI 01/2020 Proximal LAD, mid RCA Essential hypertension (Chronic 09/18/13) Hypothyroidism (Chronic 07/27/11) Medical History MANUELITO (acute kidney injury) Perforated diverticulum of ileum Diverticular hemorrhage Diverticula of colon Elevated troponin NSTEMI (non-ST elevated myocardial infarction) Greater trochanteric bursitis of right hip Depo-Medrol injection: 08/30/2019 (80 mg); 07/05/2019 (40 mg) Arthritis of right hip History of tobacco use Polyp of colon, adenomatous 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 independent with all aspects of ADLs prior to surgery. Son is taking after his dad at the moment. Daughter is arriving from [place] on to help out too. Equipment Owned/DME: FWW Subjective: Feels so weak, needed to use walker for today's walk. Still feels swollen in the legs. L forearm, hand, and fingers now mildly swollen. Nurse Lelo aware and verbalized MD just cancelled further IV hydration. Echocardiography monogram technician just got done working with patient when PT came in. Objective: General Observation: Supine in bed. Don catheter in place. L forearm, hand and fingers mildly swollen. B LE swelling noted. Mental Status: Alert and oriented as to person, place, time, and purpose. Able to pay attention, focus, and respond appropriately. Pain: denies Vital Signs: taken by MONOGRAM TECHNICIAN right before PT walking: BP 131/75 mmHg, SD 83 bpm, RR 20 cpm, temp 37.2 deg C, oxygen sat 92% on RA ROM: Right Upper Extremity: Shoulder Flexion WFL. Shoulder abduction WFL. Elbow flexion WFL. Wrist flexion WFL. Functional opening and closing of hand WFL. Left Upper Extremity: Shoulder Flexion WFL. Shoulder abduction WFL. Elbow flexion WFL. Wrist flexion WFL. Functional opening and closing of hand WFL. Right Lower Extremity: Hip flexion WFL. Hip abduction WFL. Knee flexion WFL. Ankle dorsiflexion WFL. Ankle plantarflexion WFL. Left Lower Extremity: Hip flexion WFL. Hip abduction WFL. Knee flexion WFL. Ankle dorsiflexion WFL. Ankle plantarflexion WFL. Strength: Right Upper Extremity: Shoulder flexors 4/5. Shoulder abductors 4/5. Elbow flexors 4/5. Elbow extensors 4/5. Ground[employer] Consultant strong. Left Upper Extremity: Shoulder flexors 4/5. Shoulder abductors 4/5. Elbow flexors 4/5. Elbow extensors 4/5. Groundwater Consultant strong. Right Lower Extremity: Shoulder flexors 4/5. Shoulder abductors 4/5. Elbow flexors 4/5. Elbow extensors 4/5. Groundwater Consultant strong. Left Lower Extremity: Shoulder flexors 4/5. Shoulder abductors 4/5. Elbow f lexors 4/5. Elbow extensors 4/5. Groundwater Consultant strong. Bed Mobility/Transfers: Minimal cues given for hand palcement and movement sequence Rolling independent Supine to sit independent with HOB flat Sit to stand stand by assist Stand to sit stand by assist Bed to reclining chair stand by assist Gait: Facilitated safe and correct performance of level surface ambulation using front wheeled walker with standby assist provided and minimal verbal cueing for AD management, and overall safety. Denies headache, chest pain, nausea, and lightheadedness throughout session. Minimal SOB Swing through gait pattern. Balance: Static Sitting: Normal Dynamic Sitting: Normal Static Standing: Fair Dynamic Standing: Fair Special Tests: Mobility Limitations Standardized Measure [facility] AM-PAC 6 clicks Basic Mobility Inpatient Short Form: Raw Score: 23 CMS Score: 11% deficit Informed Consent/Education: Patient was instructed in purpose of PT consult and plan of care. Agreeable to proceed with established PT POC to achieve personal goals. Assessment: Patient presents with clinical signs and symptoms consistent with current/admitting diagnoses that have resulted to mobility limitations, gait instability, generalized weakness, and overall ADL decline as demonstrated by the following impairment level findings: 1. Decreased strength to B UE/LE major muscle groups 2. Impaired sitting/standing balance 3. Impaired activity tolerance 4. Shortness of breath 5. Swelling: B legs, L forearm, hand and fingers Impairments are contributing to the following functional limitations: 1. Decline in bed mobility skills 2. Decline in transfer skills 3. Difficulty with ambulation without assistive device 4. Increased completion time for mobility ADL performance 5. Increased risk for falls 6. Difficulty with managing steps alone safely Patient is assessed as a 47269 moderate complexity based on the following: History: 83-year-old female with past medical history as indicated above Examination: Demonstrable impairment in strength, balance, and mobility level with underlying impairments and functional limitations as exhibited above as well as deficit score of 11% utilizing the [facility] Mobility Inpatient Short Form Presentation: Evolving Decision Makin moderate complexity Goals: Goals X1 week 3. Sit-Stand independent 4. Stand-Sit independent with no AD 5. Bed-Chair independent with no AD 6. Chair-Bed independent with no AD 7. Independent gait on level surface with use of FWW for at least 300 feet without report of pain nor dyspnea 8. Independent stair negotiation while holding onto B rails for at least 4 steps without report of pain nor dyspnea 9. Independent with home exercise program 10. Good static and dynamic standing balance/tolerance Plan of Care/Treatment Plan: 1-2x/day, 7 days/week x 1 week. Plan of care has been reviewed with the GENERAL MACHINE OPERATOR providing the service under Physical Therapy direction. Initiate Physical Therapy intervention for pain management as needed, strengthening, bed mobility, transfers, gait, stairs, balance training, and use of assistive device. DISCHARGE RECOMMENDATIONS: [] Home with no services [] [X] Home with services. Patient will benefit from home health PT services in order to progress mobility level using least restrictive assistive ambulatory device, assess home safety, identify additional equipment needs, and establish a functional maintenance program that will increase ability of patient to remain at home. [] Home with outpatient PT [] [] SNF for continued rehabilitation [] [] Desk Attendant Care [] [] SNF versus LTC based on ability to participate and progress [] TREATMENT CODE/TIME: 11499 x 29 minutes for 1 unit beginning at 11:00 AM. Thank you for the opportunity to participate in the care of this patient. Lilo Esparza PT, DPT, CLT [facility] [place], [place]
[2023-08-23] MEDS: Gabapentin 300 MG CAP PO ×2 (11:17→20:52)
[2023-08-23] MEDS: Magnesium Oxide 400 MG TAB PO ×2 (11:17→20:52)
[2023-08-23] MEDS: Sertraline 50 MG TAB PO (11:17)
[2023-08-23] MEDS: Cyanocobalamin 500 MCG TAB PO (11:17)
[2023-08-23] MEDS: Pantoprazole 40 MG TABCR PO (11:17)
[2023-08-23] MEDS: Calcium Carbonate 1.5 GM TAB PO ×2 (11:18→20:52)
--- NOTE | 2023-08-23 14:55 | PDOC.CMPRO ---
Date of service: 08/23/23 Time of Service: 14:55 Care Management Progress Note Progress Note Text Progress Note Text: S/O: Juli remains inpatient, she was downgraded to M/S level of care today and moved to the M/S floor. CM provided LTM application for completion and continues to follow. A: 83 year old female admitted to [facility] 08/19/23 for MANUELITO with Dehydration, gastroenteritis P: Juli will return home with no additional services anticipated when ready. She will follow up with her PCP and plan of care as prescribed. CM provided LTM application for , Neda and prefilled known information. Juli will transport via private vehicle with family.
--- NOTE | 2023-08-23 15:58 | PT.INTREAT ---
Date of service: 08/23/23 Time of Service: 15:40 PT Notes Visit Reasons: MANUELITO with Dehydration, Gastroenteritis Inpatient Physical Therapy Treatment Note [facility] Date: 08/23/23 PRECAUTIONS: Fall, standard, activity as tolerated. SUBJECTIVE: Patient reports feeling weak and tired. Reports legs are like spaghetti. States that she needs the walker for ambulation right now due to weakness. OBJECTIVE: Sitting up in recliner, agreeable to therapy. Blankets, Don catheter, and call hernández in place. ? PAIN: None reported. VITALS: monitored by nursing staff. ? ? BED MOBILITY/TRANSFERS? Rolling L/R: not assessed Supine-sit: not assessed ? Sit-supine: not assessed ? Sit-stand: SBA ? Stand-sit: SBA ? Bed-Chair: SBA? Chair-bed: SBA Gait Training ([id number]): Direct one-on-one instruction and skilled instruction in: [] employing an assistive device [] modified weight-bearing status [x] movement sequencing [] turning and movement with proper form [x] Provided verbal cues for equipment management and technique [x] Provided instruction in gait pattern [] Patient education regarding pacing and breathing techniques to maximize activity tolerance? GAIT? Assistive Device: FWW vs no AD? Weight bearing: full Assist: CGA? Distance:? 150 feet, seated rest, 200 feet with FWW, then 50 feet x2 without AD. ? Deviation: Very slight path deviation, reduced step height easily corrected with verbal cue x1, adequate step length, no LOB with walker. LOB noted x2 without AD but patient was able to recover without assistance. ? STAIRS: ascends and descends four 6 stairs with CGA, bilateral railings. At home patient only has single railing. ? ASSESSMENT:? Patient tolerates therapy well without c/o pain or dyspnea. Returns to recliner, blankets in place, call hernández within easy reach. PLAN: Continue global strengthening per plan of care until patient is medically cleared for discharge. Trial SPC tomorrow instead of FWW as patient feels that she still requires some support. TREATMENT CODE/TIME: 15 minutes beginning at 15:40
[2023-08-23 17:06] LABS: CREATININE 2.5 mg/dL (0.55-1.02); Estimated GFR 18.39 (mL/min/1.73m2)
--- NOTE | 2023-08-23 17:44 | PGE_ITS ---
Date of Service Date of service: 08/23/23 Time of Service: 17:44 Assessment and Plan Assessment and plan (1) Acute kidney injury superimposed on chronic kidney disease: Status: Acute Assessment and plan: Metabolic acidosis has corrected and bicarbonate drip has been turned off. Cr is improving. I am resuming IVF for tonight (they were off all day today). Continue lucia for UOP monitoring. Continue prn loperamide for diarrhea (which has now stopped). FENa is 1.4%, c/w intrinsic renal failure. (2) Acute metabolic acidosis: Status: Resolved Assessment and plan: Now resolved and remains stable with bicarbonate gtt turned off. (3) Bilateral pulmonary infiltrates: Status: Acute Assessment and plan: Atelectasis vs infiltrate such as from aspiration pneumonia vs some degree of pulmonary edema. Given productive cough today, I am inclined to this that this is PNA and am starting antibiotics. Encourage pulmonary toilet and ambulation. (4) Diarrhea: Status: Resolved Assessment and plan: C. Diff negative. Remainder of stool studies is pending. Stopped with prn loperamide. (5) Hypotension: Status: Resolved Assessment and plan: Suspect that this is due to dehydration. Coreg on hold. Continue IVF. (6) Hypomagnesemia: Status: Resolved Assessment and plan: Recheck in am (7) Acute dehydration: Status: Acute Assessment and plan: In setting of diarrhea. Hydrate orally and intravenously. Control diarrhea. (8) Atrial fibrillation: Status: Chronic Assessment and plan: Rates controlled. Resume anticoagulation. Hold BB. Echo as above Qualifiers: Atrial fibrillation type: paroxysmal Qualified Code(s): I48.0 - Paroxysmal atrial fibrillation (9) Supratherapeutic INR: Status: Resolved Assessment and plan: Resolved - ok to resume anticoagulation. (10) DVT prophylaxis: Status: Acute Assessment and plan: INR 1.9 - resuming coumadin. (11) Discharge planning issues: Status: Acute Assessment and plan: Full code Continues to require hospitalization. 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 PT recommends discharge home with home health physical therapy. Subjective Subjective Interval history since last seen: Ms Lindquist reports a cough productive of yellow sputum today. Denies dizziness, CP, n/v, endorses some shortness of breath. Has noticed her hands have gotten puffy. Exam Narrative Exam Narrative: General: A very pleasant dehydrated-appearing female who is A&Ox3, appears comfortable sitting up in bed, no dyspnea, tachypnea, or cyanosis on RA HEENT: EOMI, MMM, no JVD Heart: RRR, ? PHILLIP Lungs: wheezing on expiration on L Abdomen: soft, nontender, nondistended Extremities: no edema BLEs. Objective Last Vital Signs Temp 35.4 C L 08/23/23 15:49 Pulse 83 08/23/23 15:49 Resp 18 08/23/23 15:49 BP 133/73 08/23/23 15:49 Pulse Ox 96 08/23/23 15:49 Laboratory Results - last 24 hr 08/22/23 08/22/23 08/23/23 01:05 18:39 05:25 WBC 8.27 6.67 RBC 3.54 L 2.68 L Hgb 9.8 L 7.5 L D Hct 30.3 L 22.5 L MCV 86 D 84 MCH 27.7 28.0 MCHC 32.3 33.3 RDW 13.6 13.4 Plt Count 146 130 MPV 11.0 11.0 Immature Gran % 0.4 0.6 Neutrophils % 82.2 76.2 Lymphocytes % 7.1 10.8 Monocytes % 8.1 10.2 Eosinophils % 1.8 1.8 Basophils % 0.4 0.4 Nucleated RBC % 0.0 0.0 Absolute Neutrophils 6.80 H 5.08 Absolute Lymphocytes 0.59 L 0.72 L Absolute Monocytes 0.67 0.68 Absolute Eosinophils 0.15 0.12 Absolute Basophils 0.03 0.03 PT 18.1 H INR 1.9 H VBG pH 7.37 VBG pCO2 41 VBG pO2 30 VBG HCO3 24 VBG Total CO2 23 L VBG O2 Saturation 56 VBG Base Excess -1 Sodium 138 Potassium 4.0 Chloride 108 H Carbon Dioxide 25.0 Anion Gap 5.0 BUN 39 H Creatinine 2.6 H Est GFR (CKD-EPI 2020) 17.54 Glucose 106 Calcium 7.8 L Magnesium 2.0 Total Bilirubin 0.6 Conjugated Bilirubin 0.1 AST 8 L ALT 9 L Alkaline Phosphatase 82 Total Protein 4.7 L Albumin 2.0 L Add-On Test Request DONE 08/23/23 16:51 WBC RBC Hgb Hct MCV MCH MCHC RDW Plt Count MPV Immature Gran % Neutrophils % Lymphocytes % Monocytes % Eosinophils % Basophils % Nucleated RBC % Absolute Neutrophils Absolute Lymphocytes Absolute Monocytes Absolute Eosinophils Absolute Basophils PT INR VBG pH VBG pCO2 VBG pO2 VBG HCO3 VBG Total CO2 VBG O2 Saturation VBG Base Excess Sodium Potassium Chloride Carbon Dioxide Anion Gap BUN Creatinine 2.5 H Est GFR (CKD-EPI 2020) 18.39 Glucose Calcium Magnesium Total Bilirubin Conjugated Bilirubin AST ALT Alkaline Phosphatase Total Protein Albumin Add-On Test Request Objective Narrative Objective Narrative: Echo: Normal left ventricular wall thickness and chamber size. Ejection fractio n is 63%. There is stage I diastolic dysfunction which is normal for age. There are no segmental wall motion abnormalities Normal right ventricular size and systolic function Both atria are normal in size Aortic valve is mildly sclerotic and trileaflet with trace regurgitation Mildly dilated ascending aorta and aortic root Time Spent with Patient Time Spent with Patient: 35-49 minutes Time was spent: preparing to see the patient(eg.review tests), obtaining and/or reviewing separately otained hiistory, ordering medications,tests, procedures, referring, communicating with other health critical care educator, indepentently interpreting results, counseling the patient and care coordination
[2023-08-23] MEDS: cefTRIAXone 1 GM/50 ML BAG IVPB (18:47)
[2023-08-23] MEDS: DOXYCYCLINE 100 MG in Normal Saline 100 ML IVPB (20:52)
[2023-08-23] MEDS: Warfarin 5 MG TAB PO (20:53)
[2023-08-24] VITALS (7 sets, daily range): BP systolic 98–146; BP diastolic 58–79; PULSE 73–84; RESP 17–20; TEMP 35.9–37; O2SAT 93–99
[2023-08-24] MEDS: Acetaminophen 325 MG TAB 650 MG PO ×2 (00:09→15:17)
[2023-08-24] MEDS: Lactated Ringers 1,000 ML 125 ML IV ×2 (04:19→11:51)
[2023-08-24] MEDS: Levothyroxine 88 MCG TAB PO (05:58)
[2023-08-24 06:58] LABS: Abs Immature Grans 0.02 10^3/uL (0.0-0.06); Absolute Basophil Count 0.01 10^3/uL (0.0-0.2); Absolute Lymphocyte Count 0.83 10^3/uL (1.2-3.4); Absolute Monocyte Count 0.57 10^3/uL (0.1-0.8); Basophils % 0.2; Eosinophils % 3.4; Immature Grans % 0.3; Lymphocytes % 14.2; MCH 28.3 pg (27.0-33.0); MCHC 33.3 % (32.0-36.0); MCV 85 fL (80-95); MPV 11.3 fL (8.0-11.0); Monocytes % 9.8; Neutrophils % 72.1; Platelet Count 121 10^3/uL (130-400); RBC 2.47 10^6/uL (3.93-5.22); RDW 13.6 % (11.7-14.6); RDW-SD 42.5 fL; WBC 5.83 10^3/uL (4.4-10.8)
[2023-08-24 07:05] LABS: Anion Gap 5.4 mmol/L (3-11); BUN 34 mg/dL (7-18); CO2 24.6 mmol/L (21.0-32.0); CREATININE 2.3 mg/dL (0.55-1.02); Calcium 7.9 mg/dL (8.5-10.1); Chloride 109 mmol/L (98-107); Estimated GFR 20.32 (mL/min/1.73m2); Glucose 95 mg/dL (74-106); INR 1.4 (0.9-1.1); Magnesium 1.7 mg/dL (1.8-2.4); Prothrombin Time 13.6 sec (9.1-11.1); Sodium 139 mmol/L (136-145)
[2023-08-24] MEDS: Pantoprazole 40 MG TABCR PO (07:39)
[2023-08-24] MEDS: Sertraline 50 MG TAB PO (07:39)
[2023-08-24] MEDS: Gabapentin 300 MG CAP PO ×2 (07:40→19:46)
[2023-08-24] MEDS: Cyanocobalamin 500 MCG TAB PO (07:40)
[2023-08-24] MEDS: Magnesium Oxide 400 MG TAB PO ×2 (07:40→19:46)
[2023-08-24] MEDS: Calcium Carbonate 1.5 GM TAB PO ×2 (07:40→19:46)
[2023-08-24] MEDS: Normal Saline Flush 10 ML SYR IVP ×2 (07:41→18:00)
[2023-08-24] MEDS: MAGNESIUM SULFATE 2 GM/50 ML BAG IVPB (08:16)
--- NOTE | 2023-08-24 09:02 | PDOC.CMDIS ---
Date of service: 08/24/23 Time of Service: 09:03 LACE Index Scoring Tool Questions: Length of Stay (in days): 4 - 6 Was the patient admitted via the E.D.?: Yes Comorbidities: Liver or Renal Disease E.D. Visits: 2 Answers: Total Score: 14 Risk of Readmission: High Risk Care Management Discharge Plan Reason for Hospitalization: MANUELITO with dehydration, gastroenteritis Discharge Plan: Juli will return home with new orders for home health PT, CM supported Juli with applying for LTM for her . She will follow up with her PCP and plan of care as prescribed and transport via private vehicle with family. Patient/Family Education Needs: Review discharge instructions, discuss Ask Me Three.
[2023-08-24] MEDS: DOXYCYCLINE 100 MG in Normal Saline 100 ML IVPB ×2 (10:11→21:09)
[2023-08-24 12:19] LABS: HCT 23.7 % (36.0-46.0); HGB 7.8 g/dL (11.2-15.7)
--- NOTE | 2023-08-24 13:28 | PTTR_ITS ---
Date of service: 08/24/23 Time of Service: 13:02 PT Notes Visit Reasons: MANUELITO with Dehydration, Gastroenteritis Inpatient Physical Therapy Treatment Note [facility] Date: 08/24/23 PRECAUTIONS: Fall, standard, activity as tolerated. SUBJECTIVE: Patient reports still feeling weak and tired. OBJECTIVE: Sitting up in recliner, IV connected to each arm. Don catheter in place. Agreeable to therapy. AFTERNOON: IV access only in left arm. ?Don still present. ? PAIN: None reported initially, but quickly reported pain in right arm at IV site when it was noted that the IV appeared to be leaking. RN notified. VITALS: monitored by nursing staff. ? BED MOBILITY/TRANSFERS? Rolling L/R: independent Supine-sit: independent ? Sit-supine: independent ? Sit-stand: independent ? Stand-sit: independent ? Bed-Chair: independent ? Chair-bed: independent Gait Training ([id number]): Direct one-on-one instruction and skilled instruction in: [x] employing an assistive device [] modified weight-bearing status [] movement sequencing [x] turning and movement with proper form [] Provided verbal cues for equipment management and technique [x] Provided instruction in gait pattern [] Patient education regarding pacing and breathing techniques to maximize activity tolerance? GAIT? Assistive Device: FWW, no AD ? Weight bearing: full Assist: SBA with FWW, CGA with no AD? Distance:? 300 feet with FWW, 50 feet with no AD? Deviation: Slightly kyphotic posture, adequate toe off, step height, step length and katherine with FWW. Without AD, patient's step length and katherine are dramatically reduced and a tremor is noted in her right hand. ? STAIRS: Ascends and descends 4 six inch stairs with bilateral railings and CGA. Demonstrates reciprocal gait pattern. ? Therapeutic Exercises ([id number]): Direct one-on-one instruction in therapeutic exercises to develop strength, endurance, range of motion and flexibility. ? Exercises: * LAQ's 2x10 * seated marching 2x10 * heel / toe raises 2x10 * LE over-unders 2x10 * sit to stands x5 Provided skilled instruction in proper exercise performance Provided skilled manual cues to facilitate proper muscle recruitment and/or form. ASSESSMENT:? Patient tolerates therapy well. RN comes in to assess the leaking IV, determines that it should be removed. PLAN: Continue global strengthening per plan of care until patient is medically cleared for discharge. TREATMENT CODE/TIME: 15 minutes beginning at 10:33 and 21 minutes beginning at 13:02
--- NOTE | 2023-08-24 14:39 | CHAPLAIN ---
Juli was up in the chair reading a book. She shared some personal history, telling me about moving to [facility] with her , Neda, many years ago. 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 He now had dementia and Juli is caring for him. This has been stressful. She put off coming to the ED with her own symptoms because she was caring for Neda. Their son, a music living in [place], has arrived to be Neda while Juli is here, and their daughter from [place] will be arriving later in the week. I explained my role and offered support.
[2023-08-24] MEDS: cefTRIAXone 1 GM/50 ML BAG IVPB (17:40)
[2023-08-24] MEDS: Furosemide 20 MG/2 ML VIAL IVP (18:00)
[2023-08-24] MEDS: Warfarin 5 MG TAB PO (19:46)
--- NOTE | 2023-08-24 19:50 | W.PM.PROGNOT ---
Date of Service Date of service: 08/24/23 Time of Service: 17:45 Assessment and Plan Assessment and plan (1) Acute kidney injury superimposed on chronic kidney disease: Status: Acute Assessment and plan: Metabolic acidosis has corrected and bicarbonate drip has been turned off. Cr is improving. is clinically fluid overloaded today. D/c IVF and give a dose of furosemide 20 mg IV. Continue lucia for UOP monitoring. Continue prn loperamide for diarrhea (which has now stopped). FENa is 1.4%, c/w intrinsic renal failure. (2) Acute metabolic acidosis: Status: Resolved Assessment and plan: Now resolved and remains stable with bicarbonate gtt turned off. (3) Bilateral pulmonary infiltrates: Status: Acute Assessment and plan: Atelectasis vs infiltrate such as from aspiration pneumonia vs some degree of pulmonary edema. Continue Abx. For the pulmonary edema component: d/c IVF and give a dose of furosemide. Encourage pulmonary toilet and ambulation. (4) Diarrhea: Status: Resolved Assessment and plan: C. Diff negative. Remainder of stool studies is pending. Stopped with prn loperamide. (5) Hypotension: Status: Resolved Assessment and plan: Suspect that this is due to dehydration. Coreg on hold. D/c IVF. (6) Hypomagnesemia: Status: Acute Assessment and plan: Repleted Recheck in am (7) Acute dehydration: Status: Resolved Assessment and plan: In setting of diarrhea. Is now fluid overloaded, so IVF stopped. Control diarrhea. (8) Atrial fibrillation: Status: Chronic Assessment and plan: Rates controlled. Continue coumadin. Hold BB. Echo as above Qualifiers: Atrial fibrillation type: paroxysmal Qualified Code(s): I48.0 - Paroxysmal atrial fibrillation (9) Supratherapeutic INR: Status: Resolved Assessment and plan: Resolved (10) DVT prophylaxis: Status: Acute Assessment and plan: INR 1.4 - continue coumadin, bridge wiht SC heparin (11) Discharge planning issues: Status: Acute Assessment and plan: Full code Continues to require hospitalization, but nearing d/c. 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 PT recommends discharge home with home health physical therapy. Subjective Subjective Interval history since last seen: Ms Lindquist states she feels short of breath today. Denies dizziness, CP, n/v. Appetite is improving. She has noticed some swelling in her legs. Exam Narrative Exam Narrative: General: A very pleasant female who is A&Ox3, looks overall better, no dyspnea/tachypnea/cyanosis on RA HEENT: EOMI, MMM, no JVD Heart: RRR, ? PHILLIP Lungs: diminished breath sounds at B bases Abdomen: soft, nontender, nondistended Extremities: +1 edema BLEs despite TEDs, symmetric Objective Last Vital Signs Temp 36.9 C 08/24/23 15:07 Pulse 84 08/24/23 15:07 Resp 17 08/24/23 15:07 BP 134/77 08/24/23 15:07 Pulse Ox 98 08/24/23 15:07 Laboratory Results - last 24 hr 08/24/23 08/24/23 06:22 12:03 WBC 5.83 RBC 2.47 L Hgb 7.0 L* 7.8 L Hct 21.0 L 23.7 L MCV 85 MCH 28.3 MCHC 33.3 RDW 13.6 Plt Count 121 L MPV 11.3 H Immature Gran % 0.3 Neutrophils % 72.1 Lymphocytes % 14.2 Monocytes % 9.8 Eosinophils % 3.4 Basophils % 0.2 Nucleated RBC % 0.0 Absolute Neutrophils 4.20 Absolute Lymphocytes 0.83 L Absolute Monocytes 0.57 Absolute Eosinophils 0.20 Absolute Basophils 0.01 PT 13.6 H INR 1.4 H Sodium 139 Potassium 4.0 Chloride 109 H Carbon Dioxide 24.6 Anion Gap 5.4 BUN 34 H Creatinine 2.3 H Est GFR (CKD-EPI 2020) 20.32 Glucose 95 Calcium 7.9 L Magnesium 1.7 L Time Spent with Patient Time Spent with Patient: 35-49 minutes Time was spent: preparing to see the patient(eg.review tests), obtaining and/or reviewing separately otained hiistory, ordering medications,tests, procedures, referring, communicating with other health home care chaplain, indepentently interpreting results, counseling the patient and care coordination
[2023-08-24] MEDS: Albuterol HFA 8 GM 60 PUFF INH IH (20:51)
[2023-08-24] MEDS: Heparin 5,000 UNITS/ML VIAL 5000 UNITS SC (21:09)
[2023-08-25] VITALS (7 sets, daily range): BP systolic 114–146; BP diastolic 66–79; PULSE 80–87; RESP 16–18; TEMP 36.1–37.7; O2SAT 93–99
[2023-08-25] MEDS: Acetaminophen 325 MG TAB 650 MG PO ×2 (03:09→21:10)
[2023-08-25] MEDS: Levothyroxine 88 MCG TAB PO (05:32)
[2023-08-25 06:55] LABS: Abs Immature Grans 0.02 10^3/uL (0.0-0.06); Absolute Basophil Count 0.01 10^3/uL (0.0-0.2); Absolute Eosinophil Count 0.25 10^3/uL (0.0-0.7); Absolute Lymphocyte Count 0.51 10^3/uL (1.2-3.4); Absolute Monocyte Count 0.52 10^3/uL (0.1-0.8); Absolute Neutrophil Count 5.28 10^3/uL (1.2-6.7); Basophils % 0.2; Eosinophils % 3.8; HCT 22.2 % (36.0-46.0); HGB 7.4 g/dL (11.2-15.7); Immature Grans % 0.3; Lymphocytes % 7.7; MCH 28.4 pg (27.0-33.0); MCHC 33.3 % (32.0-36.0); MCV 85 fL (80-95); MPV 11.5 fL (8.0-11.0); Monocytes % 7.9; Neutrophils % 80.1; Platelet Count 138 10^3/uL (130-400); RBC 2.61 10^6/uL (3.93-5.22); RDW 13.8 % (11.7-14.6); RDW-SD 43.3 fL; WBC 6.59 10^3/uL (4.4-10.8)
[2023-08-25 07:06] LABS: Anion Gap 6.3 mmol/L (3-11); BUN 28 mg/dL (7-18); CO2 25.7 mmol/L (21.0-32.0); CREATININE 2.1 mg/dL (0.55-1.02); Calcium 8.4 mg/dL (8.5-10.1); Chloride 107 mmol/L (98-107); Estimated GFR 22.66 (mL/min/1.73m2); Glucose 118 mg/dL (74-106); Magnesium 1.9 mg/dL (1.8-2.4); Sodium 139 mmol/L (136-145)
[2023-08-25 07:08] LABS: INR 1.4 (0.9-1.1); Prothrombin Time 13.5 sec (9.1-11.1)
[2023-08-25] MEDS: Heparin 5,000 UNITS/ML VIAL 5000 UNITS SC ×2 (09:04→20:41)
[2023-08-25] MEDS: Cyanocobalamin 500 MCG TAB PO (09:06)
[2023-08-25] MEDS: Pantoprazole 40 MG TABCR PO (09:06)
[2023-08-25] MEDS: Gabapentin 300 MG CAP PO ×2 (09:06→20:17)
[2023-08-25] MEDS: Magnesium Oxide 400 MG TAB PO ×2 (09:06→20:17)
[2023-08-25] MEDS: Sertraline 50 MG TAB PO (09:06)
[2023-08-25] MEDS: Calcium Carbonate 1.5 GM TAB PO ×2 (09:06→20:17)
[2023-08-25] MEDS: Loperamide 2 MG CAP PO ×2 (09:39→14:49)
--- NOTE | 2023-08-25 09:41 | PT.INTREAT ---
PT Notes Visit Reasons: MANUELITO with Dehydration, Gastroenteritis Date: 08/23/23 PRECAUTIONS: Fall, standard, activity as tolerated. SUBJECTIVE: Patient reports feeling weak and tired. Reports legs are like spaghetti. States that she needs the walker for ambulation right now due to weakness. OBJECTIVE: Sitting up in recliner, agreeable to therapy. Blankets, Don catheter, and call hernández in place. ? PAIN: None reported. VITALS: monitored by nursing staff. ? ? BED MOBILITY/TRANSFERS? Rolling L/R: independent Supine-sit: independent ? Sit-supine: indepedent? Sit-stand: SBA ? Stand-sit: SBA ? Bed-Chair: SBA? Chair-bed: SBA Gait Training 39842: Direct one-on-one instruction and skilled instruction in: [x] employing an assistive device [] modified weight-bearing status [x] movement sequencing [x] turning and movement with proper form [x] Provided verbal cues for equipment management and technique [x] Provided instruction in gait pattern [x] Patient education regarding pacing and breathing techniques to maximize activity tolerance? GAIT? Assistive Device:SPC? Weight bearing: full Assist: CGA? Distance:? 300 feet with SPC, ? Deviation: Very slight path deviation, reduced step height easily corrected with verbal cue x1, adequate step length, no LOB with SPC ? ASSESSMENT:? Pt had no complaints post session, tolerated activity well, no SOB or STUART. PLAN: Continue global strengthening per plan of care until patient is medically cleared for discharge. TREATMENT CODE/TIME: 92223 15 mins (8:45-9:00am)
[2023-08-25] MEDS: DOXYCYCLINE 100 MG in Normal Saline 100 ML IVPB ×2 (11:00→21:03)
--- NOTE | 2023-08-25 12:29 | PDOC.CMPRO ---
Date of service: 08/25/23 Time of Service: 12:29 Care Management Progress Note Progress Note Text Progress Note Text: S/O: Juli was sitting up in her chair when CM met with her. She stated that she is doing well, but still feels very weak, especially in her legs when she walks. Per report, she is on lasiks, and is receiving antibiotics for pneumonia. Her lucia catheter will be removed today, which will help her to be more independent with ambulation, and she is glad to have it removed. Juli stated that her son is caring for her currently, and that starting this weekend, her daughter will be staying with them to help support them both at home. Juli has agreed to HH PT upon discharge for a short period of time to help with the transition home. CM will continue to follow. A: 83 year old female admitted to [facility] 08/19/23 for MANUELITO with Dehydration, gastroenteritis P: Juli will return home with new orders for HH PT when ready. She will follow up with her PCP and plan of care as prescribed. CM provided LTM application for Neda and prefilled known information. Juli will transport via private vehicle with family.
--- NOTE | 2023-08-25 16:59 | PTTR_ITS ---
Date of service: 08/25/23 Time of Service: 16:32 PT Notes Visit Reasons: MANUELITO with Dehydration, Gastroenteritis Inpatient Physical Therapy Treatment Note [facility] Date: 08/25/23 PRECAUTIONS: Fall, standard, activity as tolerated SUBJECTIVE: Patient reports being glad to have her Don catheter removed. Hoping to go home tomorrow in time for the holiday. Still feels weak, feels as though her legs are fat and full of fluid. OBJECTIVE: Sitting up in chair, agreeable to therapy? PAIN: none reported VITALS: monitored by nursing staff ? BED MOBILITY/TRANSFERS? Rolling L/R: independent Supine-sit: independent ? Sit-supine: independent ? Sit-stand: independent ? Stand-sit: independent ? Bed-Chair: SBA ? Chair-bed: SBA Provided skilled cues and instruction on performance and technique throughout. Gait Training ([id number]): Direct one-on-one instruction and skilled instruction in: [x] employing an assistive device - correct arm swing with unilateral cane. [] modified weight-bearing status [x] movement sequencing - advancing cane with opposite leg [] turning and movement with proper form [x] Provided verbal cues for equipment management and technique [x] Provided instruction in gait pattern [] Patient education regarding pacing and breathing techniques to maximize activity tolerance? GAIT? Assistive Device: SPC? Weight bearing: full Assist: SBA, verbal cues, visual cues ? Distance:? 350 feet ? Deviation: Patient declares that moving cane with opposite foot is hard. Takes several stops and starts to get the hang of it. After ~100 feet, gait becomes much more natural and patient reports feeling more supported by cane than before. ? Therapeutic Exercises ([id number]): Direct one-on-one instruction in therapeutic exercises to develop strength, endurance, range of motion and flexibility. ? Exercises: * Ankle pumps * Quad sets * Glute sets * instructed patient to elevate legs several times a day for at least 20-30 minutes, perform ankle pumps, quad sets, glute sets, and stroking gently upwards from as far down as she can comfortably reach up towards heart to get fluid moving. Patient states that no one told her to elevate her legs to minimize the swelling. Provided skilled instruction in proper exercise performance Provided skilled manual cues to facilitate proper muscle recruitment and/or form: tactile cues, tapping to facilitate quad activation during quad sets. ASSESSMENT:? Patient tolerates therapy well, no report of pain or dyspnea PLAN: Continue treatment per plan of care until patient is medically cleared for discharge. TREATMENT CODE/TIME: 25 minutes beginning at 16:32.
[2023-08-25] MEDS: cefTRIAXone 1 GM/50 ML BAG IVPB (17:56)
[2023-08-25] MEDS: Normal Saline Flush 10 ML SYR IVP (19:08)
[2023-08-25] MEDS: Warfarin 5 MG TAB PO (20:17)
[2023-08-25 21:49] LABS: MRSA PCR Negative (Negative)
[2023-08-25 22:27] LABS: Campylobacter PCR Negative (Negative); Salmonella PCR Negative (Negative); Shiga Toxin PCR Negative (Negative); Shigella/Enteroinvasive Ecoli Negative (Negative)
[2023-08-26] MEDS: Levothyroxine 88 MCG TAB PO (06:37)
[2023-08-26] MEDS: Pantoprazole 40 MG TABCR PO (06:38)
[2023-08-26 06:59] LABS: Abs Immature Grans 0.02 10^3/uL (0.0-0.06); Absolute Basophil Count 0.01 10^3/uL (0.0-0.2); Absolute Eosinophil Count 0.26 10^3/uL (0.0-0.7); Absolute Lymphocyte Count 0.65 10^3/uL (1.2-3.4); Absolute Monocyte Count 0.53 10^3/uL (0.1-0.8); Absolute Neutrophil Count 3.91 10^3/uL (1.2-6.7); Basophils % 0.2; Eosinophils % 4.8; HCT 23.7 % (36.0-46.0); HGB 7.6 g/dL (11.2-15.7); Immature Grans % 0.4; Lymphocytes % 12.1; MCH 27.7 pg (27.0-33.0); MCHC 32.1 % (32.0-36.0); MCV 87 fL (80-95); MPV 10.6 fL (8.0-11.0); Monocytes % 9.9; Neutrophils % 72.6; Platelet Count 154 10^3/uL (130-400); RBC 2.74 10^6/uL (3.93-5.22); WBC 5.38 10^3/uL (4.4-10.8)
[2023-08-26 07:11] LABS: Anion Gap 7.4 mmol/L (3-11); BUN 21 mg/dL (7-18); CO2 25.6 mmol/L (21.0-32.0); CREATININE 2.1 mg/dL (0.55-1.02); Calcium 8.6 mg/dL (8.5-10.1); Chloride 107 mmol/L (98-107); Estimated GFR 22.66 (mL/min/1.73m2); Glucose 106 mg/dL (74-106); Magnesium 1.5 mg/dL (1.8-2.4); Sodium 140 mmol/L (136-145)
[2023-08-26 07:12] LABS: INR 1.6 (0.9-1.1); Prothrombin Time 15.4 sec (9.1-11.1)
[2023-08-26 07:22] VITALS: BP 144/69; PULSE 82; RESP 17; TEMP 37.1; O2SAT 95
[2023-08-26] MEDS: Gabapentin 300 MG CAP PO ×2 (07:42→19:27)
[2023-08-26] MEDS: Cyanocobalamin 500 MCG TAB PO (07:42)
[2023-08-26] MEDS: Magnesium Oxide 400 MG TAB PO ×2 (07:43→19:27)
[2023-08-26] MEDS: Calcium Carbonate 1.5 GM TAB PO ×2 (07:43→19:27)
[2023-08-26] MEDS: Sertraline 50 MG TAB PO (07:44)
[2023-08-26] MEDS: Heparin 5,000 UNITS/ML VIAL 5000 UNITS SC ×2 (07:44→19:26)
[2023-08-26 07:54] VITALS: O2SAT 97
[2023-08-26] MEDS: Albuterol HFA 8 GM 60 PUFF INH IH (07:54)
--- NOTE | 2023-08-26 09:02 | PGE_ITS ---
Date of Service Date of service: 08/26/23 Time of Service: 09:02 Assessment and Plan Assessment and plan (1) Acute kidney injury superimposed on chronic kidney disease: Status: Acute Assessment and plan: Metabolic acidosis: resolved and bicarbonate drip has been turned off. Cr stable 2.1 Remains clinically fluid overloaded today, furosemide 20 mg IV X 1 . Continue lucia for UOP monitoring. Continue prn loperamide for diarrhea (which has now stopped). FENa was 1.4%, c/w intrinsic renal failure. (2) Acute metabolic acidosis: Status: Resolved Assessment and plan: Resolved on 08/25 and remains stable with bicarbonate gtt discontinued. (3) Bilateral pulmonary infiltrates: Status: Acute Assessment and plan: Atelectasis vs infiltrate such as from aspiration pneumonia vs some degree of pulmonary edema. Continue Ceftriaxone and doxycycline. furosemide 20 mg IV Will continue to encourage pulmonary toilet with vibrapep and ambulation. (4) Diarrhea: Status: Resolved Assessment and plan: C. Diff negative. Remainder of stool studies is pending. prn loperamide . (5) Hypotension: Status: Resolved Assessment and plan: Suspect that this is due to dehydration. Coreg on hold, considering reintegrating to regimen with stable BP's. (6) Hypomagnesemia: Status: Acute Assessment and plan: Replete, Mg level in AM (7) Acute dehydration: Status: Resolved Assessment and plan: In setting of diarrhea. Is now fluid overloaded, so IVF stopped 08/25, Cr is stable Control diarrhea, with PRN loperamide (8) Atrial fibrillation: Status: Chronic Assessment and plan: Rates controlled. Continue coumadin. Hold BB, considering restarting with stable BP Echo as above Qualifiers: Atrial fibrillation type: paroxysmal Qualified Code(s): I48.0 - Paroxysmal atrial fibrillation (9) Supratherapeutic INR: Status: Resolved Assessment and plan: INR 1.6 adjusting dose of warfarin, INR in AM (10) DVT prophylaxis: Status: Acute Assessment and plan: INR 1.6 - continue coumadin, bridge wiht SC heparin (11) Discharge planning issues: Status: Acute Assessment and plan: Full code Continues to require hospitalization, but nearing d/c. 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 PT recommends discharge home with home health physical therapy and OT. Discussed with Dr. Willams Subjective Subjective Interval history since last seen: Ms Lindquist states she feels less short of breath but had an episode of wheezing today. The aptient denies dizziness, CP, n/v. Appetite is improving. she is reporting fewer liquid stools. She reported ongoing swelling in her legs. Reports that she will need help upon discharge, PT and OT considered Exam Narrative Exam Narrative: General: A very pleasant female who is A&Ox3, looks overall better, no acute respiratory distress at the time of the exam, on RA, peaking in completed sentences HEENT: atraumatic, no lympthadenopathy, no JVD, ROM is normal Heart: regular rate and rhythm Lungs: diminished breath sounds at B bases, scattered ronchi, no wheezzing Abdomen: soft, nontender, nondistended Extremities: +1 edema BLEs despite TEDs, Psych: anxious about going home Objective Last Vital Signs Temp 37.1 C 08/26/23 07:22 Pulse 82 08/26/23 07:22 Resp 17 08/26/23 07:22 BP 144/69 H 08/26/23 07:22 Pulse Ox 97 08/26/23 07:54 Laboratory Results - last 24 hr 08/22/23 08/25/23 08/26/23 05:41 20:26 06:35 WBC 5.38 RBC 2.74 L Hgb 7.6 L Hct 23.7 L MCV 87 MCH 27.7 MCHC 32.1 RDW 14.0 Plt Count 154 MPV 10.6 Immature Gran % 0.4 Neutrophils % 72.6 Lymphocytes % 12.1 Monocytes % 9.9 Eosinophils % 4.8 Basophils % 0.2 Nucleated RBC % 0.0 Absolute Neutrophils 3.91 Absolute Lymphocytes 0.65 L Absolute Monocytes 0.53 Absolute Eosinophils 0.26 Absolute Basophils 0.01 PT 15.4 H INR 1.6 H Sodium 140 Potassium 4.0 Chloride 107 Carbon Dioxide 25.6 Anion Gap 7.4 BUN 21 H Creatinine 2.1 H Est GFR (CKD-EPI 2020) 22.66 Glucose 106 Calcium 8.6 Magnesium 1.5 L Stool Description Cancelled Stool Campylobacter PCR Cancelled Stool Salmonella PCR Cancelled Stool Shigella PCR Cancelled Stool Ova & Parasites Cancelled Shiga Toxin (PCR) Cancelled MRSA (TEM-PCR) Negative Time Spent with Patient Time Spent with Patient: >50 minutes Time was spent: preparing to see the patient(eg.review tests), ordering medications,tests, procedures, referring, communicating with other health healthcare network pricing consultant, indepentently interpreting results, counseling the patient and care coordination
[2023-08-26] MEDS: DOXYCYCLINE 100 MG in Normal Saline 100 ML IVPB ×2 (09:08→21:50)
[2023-08-26] MEDS: Loperamide 2 MG CAP PO (09:08)
[2023-08-26] MEDS: MAGNESIUM SULFATE 2 GM/50 ML BAG IVPB (10:42)
[2023-08-26 10:57] VITALS: BP 115/92; PULSE 81; RESP 19; TEMP 37.2; O2SAT 93
[2023-08-26] MEDS: Normal Saline Flush 10 ML SYR IVP (11:07)
[2023-08-26] MEDS: Furosemide 20 MG/2 ML VIAL IVP (11:07)
[2023-08-26 15:37] VITALS: BP 110/60; RESP 18; TEMP 37.3; O2SAT 95
[2023-08-26] MEDS: cefTRIAXone 1 GM/50 ML BAG IVPB (17:21)
[2023-08-26] MEDS: Warfarin 1 MG TAB PO (19:27)
[2023-08-26] MEDS: Warfarin 5 MG TAB PO (19:27)
[2023-08-26 19:34] VITALS: BP 152/70; PULSE 85; RESP 18; TEMP 35.9; O2SAT 97
[2023-08-27] VITALS (7 sets, daily range): BP systolic 121–131; BP diastolic 66–80; PULSE 78–92; RESP 18–20; TEMP 37.1–37.4; O2SAT 91–96
[2023-08-27] MEDS: Levothyroxine 88 MCG TAB PO (04:39)
[2023-08-27 07:03] LABS: Abs Immature Grans 0.01 10^3/uL (0.0-0.06); Absolute Basophil Count 0.02 10^3/uL (0.0-0.2); Absolute Lymphocyte Count 0.69 10^3/uL (1.2-3.4); Absolute Monocyte Count 0.63 10^3/uL (0.1-0.8); Absolute Neutrophil Count 3.86 10^3/uL (1.2-6.7); Basophils % 0.4; Eosinophils % 5.4; HCT 23.5 % (36.0-46.0); HGB 7.4 g/dL (11.2-15.7); Immature Grans % 0.2; Lymphocytes % 12.5; MCH 27.4 pg (27.0-33.0); MCHC 31.5 % (32.0-36.0); MCV 87 fL (80-95); MPV 10.4 fL (8.0-11.0); Monocytes % 11.4; Neutrophils % 70.1; Platelet Count 165 10^3/uL (130-400); RDW 14.1 % (11.7-14.6); RDW-SD 44.9 fL; WBC 5.51 10^3/uL (4.4-10.8)
[2023-08-27 07:12] LABS: INR 1.9 (0.9-1.1)
[2023-08-27 07:26] LABS: Anion Gap 4.7 mmol/L (3-11); BUN 21 mg/dL (7-18); CO2 29.3 mmol/L (21.0-32.0); CREATININE 2.1 mg/dL (0.55-1.02); Calcium 8.5 mg/dL (8.5-10.1); Chloride 105 mmol/L (98-107); Estimated GFR 22.66 (mL/min/1.73m2); Glucose 97 mg/dL (74-106); Magnesium 1.7 mg/dL (1.8-2.4); Potassium 4.4 mmol/L (3.5-5.1); Sodium 139 mmol/L (136-145)
[2023-08-27] MEDS: Pantoprazole 40 MG TABCR PO (07:36)
[2023-08-27] MEDS: Heparin 5,000 UNITS/ML VIAL 5000 UNITS SC ×2 (07:39→22:12)
[2023-08-27] MEDS: Gabapentin 300 MG CAP PO ×2 (07:58→22:10)
[2023-08-27] MEDS: Sertraline 50 MG TAB PO (07:58)
[2023-08-27] MEDS: Magnesium Oxide 400 MG TAB PO ×2 (07:58→22:11)
[2023-08-27] MEDS: Cyanocobalamin 500 MCG TAB PO (07:58)
--- NOTE | 2023-08-27 08:40 | PGE_ITS ---
Date of Service Date of service: 08/27/23 Time of Service: 08:42 Assessment and Plan Assessment and plan (1) Acute kidney injury superimposed on chronic kidney disease: Status: Acute Assessment and plan: Metabolic acidosis: resolved and bicarbonate drip has been turned off. Cr stable 2.1 today again Remains clinically fluid overloaded today, furosemide 40 mg IV X 1; considering BID dosing with stable BP .Daily weights ordered.BNP 4246 today from 3608 on 08/22 Continue lucia for UOP monitoring; positive fluid balance. Continue prn loperamide if diarrhea FENa was 1.4%, c/w intrinsic renal failure. (2) Acute metabolic acidosis: Status: Resolved Assessment and plan: As prevously Resolved on 08/25 and remains stable with bicarbonate gtt discontinued. (3) Bilateral pulmonary infiltrates: Status: Acute Assessment and plan: Atelectasis vs infiltrate such as from aspiration pneumonia vs some degree of pulmonary edema. Continue Ceftriaxone and doxycycline. furosemide 20 mg IV Will continue to encourage pulmonary toilet with vibrapep and ambulation. (4) Diarrhea: Status: Resolved Assessment and plan: C. Diff negative. Remainder of stool studies is pending. prn loperamide . (5) Hypotension: Status: Resolved Assessment and plan: Suspect that this is due to dehydration. Coreg on hold, considering reintegrating to regimen with stable BP's on 08/28 AM (6) Hypomagnesemia: Status: Acute Assessment and plan: Replete, Mg level in AM (7) Acute dehydration: Status: Resolved Assessment and plan: In setting of diarrhea. Is now fluid overloaded, so IVF stopped 08/25, Cr is stable Controlled diarrhea, with PRN loperamide (8) Atrial fibrillation: Status: Chronic Assessment and plan: Rates controlled. Continue coumadin. Hold BB, considering restarting in AM with stable BP Echo as above Qualifiers: Atrial fibrillation type: paroxysmal Qualified Code(s): I48.0 - P aroxysmal atrial fibrillation (9) Supratherapeutic INR: Status: Resolved Assessment and plan: INR 1.9 adjusting dose of warfarin, INR in AM (10) DVT prophylaxis: Status: Acute Assessment and plan: INR 1.6 - continue coumadin, bridge with SC heparin (11) Discharge planning issues: Status: Acute Assessment and plan: Full code Continues to require hospitalization, but nearing d/c. 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 PT recommends discharge home with home health physical therapy and OT. Discussed with Dr. Willams Subjective Subjective Interval history since last seen: Ms Lindquist states she feels less short of breath but had an episode of wheezing with coughing today, with minimal expectorations The patient denies dizziness, CP, n/v. Appetite is improving. She is still reporting fewer liquid stools. She reported ongoing swelling in her upper legs. Reports that she will need help upon discharge, PT and OT considered; concerned about been discharged in AM on 08/28 d/t taking care of her SO. Exam Narrative Exam Narrative: General: Pleasant female who is A&Ox3, looks overall better but pale, congested cough and laryngeal wheezing noticed on position change during exam today,remains on RA, still speaking in completed sentences HEENT: atraumatic, no lympthadenopathy, positive JVD, ROM is normal Heart: regular rate and rhythm, no murmur heard Lungs: diminished breath sounds at the bases of her lung patterson, minimal wheezing to right upper lobe Abdomen: soft, nontender, nondistended Extremities: +1 edema BLEs , less than on 08/26, despite TEDs, Psych: anxious about going home Objective Last Vital Signs Temp 37.1 C 08/27/23 07:33 Pulse 86 08/27/23 07:33 Resp 20 08/27/23 07:33 BP 127/70 08/27/23 07:33 Pulse Ox 91 L 08/27/23 07:33 Laboratory Results - last 24 hr 08/27/23 06:06 WBC 5.51 RBC 2.70 L Hgb 7.4 L Hct 23.5 L MCV 87 MCH 27.4 MCHC 31.5 L RDW 14.1 Plt Count 165 MPV 10.4 Immature Gran % 0.2 Neutrophils % 70.1 Lymphocytes % 12.5 Monocytes % 11.4 Eosinophils % 5.4 Basophils % 0.4 Nucleated RBC % 0.0 Absolute Neutrophils 3.86 Absolute Lymphocytes 0.69 L Absolute Monocytes 0.63 Absolute Eosinophils 0.30 Absolute Basophils 0.02 PT 18.0 H INR 1.9 H Sodium 139 Potassium 4.4 Chloride 105 Carbon Dioxide 29.3 Anion Gap 4.7 BUN 21 H Creatinine 2.1 H Est GFR (CKD-EPI 2020) 22.66 Glucose 97 Calcium 8.5 Magnesium 1.7 L Time Spent with Patient Time Spent with Patient: >50 minutes Time was spent: preparing to see the patient(eg.review tests), ordering medications,tests, procedures, referring, communicating with other health laboratory animal care veterinarian, indepentently interpreting results, counseling the patient and care coordination
[2023-08-27 08:56] LABS: Lab Add On Test DONE
[2023-08-27 09:18] LABS: NT-proBNP 4246 pg/mL (<300)
[2023-08-27] MEDS: Furosemide 40 MG/4 ML VIAL IVP ×2 (10:29→16:05)
[2023-08-27] MEDS: DOXYCYCLINE 100 MG in Normal Saline 100 ML IVPB ×2 (10:29→22:07)
[2023-08-27] MEDS: MAGNESIUM SULFATE 2 GM/50 ML BAG IVPB (10:30)
[2023-08-27 13:04] LABS: Lab Add On Test DONE
[2023-08-27 13:14] LABS: Iron 23 ug/dL (50-170)
--- NOTE | 2023-08-27 14:18 | PT.INTREAT ---
Date of service: 08/27/23 Time of Service: 10:39 PT Notes Visit Reasons: MANUELITO with Dehydration, Gastroenteritis Inpatient Physical Therapy Treatment Note [facility] Date: 08/27/23 PRECAUTIONS: Fall, standard, activity as tolerated. SUBJECTIVE: Patient reports that she still feels tired and weak. Feet are less swollen, but knees and thighs are quite swollen. Legs still feel heavy and weak. OBJECTIVE: Patient sitting in chair with legs elevated, FREYA stockings in place, IV access left arm. Agreeable to therapy. ? PAIN: none reported initially, however during ambulation patient c/o bilateral leg pain L>R. Describes it as feeling tight, tired, as though I've been running a long distance, primarily in the lower legs below the knee. VITALS: monitored by nursing staff.? ? ? BED MOBILITY/TRANSFERS? Rolling L/R: independent Supine-sit: independent ? Sit-supine: independent ? Sit-stand: independent ? Stand-sit: independent ? Bed-Chair: independent ? Chair-bed: independent ? Therapeutic Exercises (01786b1): Direct one-on-one instruction in therapeutic exercises to develop strength, endurance, range of motion and flexibility. Ambulation ? Assistive Device: FWW. Patient reports that she has several walkers at home, so going home at walker level would be acceptable. ? Weight bearing: full Assist: SBA ? Distance:? 900 feet? Deviation: gait unremarkable, adequate step height and length, good katherine, no LOB. Patient reports feeling slightly short of breath at the end of treatment session, was able to maintain conversation without great effort throughout ambulation. ? Provided skilled instruction in proper exercise performance Provided skilled manual cues to facilitate proper muscle recruitment and/or form. ASSESSMENT:? Patient tolerates therapy well, demonstrates good awareness of her limitations. PLAN: Continue treatment per plan of care until patient is medically cleared for discharge. TREATMENT CODE/TIME: 25 minutes beginning at 10:34
[2023-08-27 15:03] LABS: Source Nasal/Nares
[2023-08-27 15:36] LABS: COVID-19 PCR Negative (Negative)
[2023-08-27] MEDS: cefTRIAXone 1 GM/50 ML BAG IVPB (18:36)
[2023-08-27] MEDS: Loperamide 2 MG CAP PO ×2 (18:45→22:18)
[2023-08-27] MEDS: Warfarin 5 MG TAB PO (22:11)
[2023-08-27] MEDS: Warfarin 1 MG TAB 0.5 MG PO (22:11)
[2023-08-27] MEDS: Normal Saline Flush 10 ML SYR IVP (23:53)
[2023-08-28] MEDS: Levothyroxine 88 MCG TAB PO (06:06)
[2023-08-28 06:57] LABS: Abs Immature Grans 0.02 10^3/uL (0.0-0.06); Absolute Basophil Count 0.02 10^3/uL (0.0-0.2); Absolute Eosinophil Count 0.37 10^3/uL (0.0-0.7); Absolute Lymphocyte Count 1.21 10^3/uL (1.2-3.4); Absolute Monocyte Count 0.69 10^3/uL (0.1-0.8); Basophils % 0.3; Eosinophils % 5.8; HCT 25.7 % (36.0-46.0); HGB 8.4 g/dL (11.2-15.7); Immature Grans % 0.3; Lymphocytes % 18.9; MCH 28.6 pg (27.0-33.0); MCHC 32.7 % (32.0-36.0); MCV 87 fL (80-95); MPV 10.5 fL (8.0-11.0); Monocytes % 10.8; Neutrophils % 63.9; Platelet Count 175 10^3/uL (130-400); RBC 2.94 10^6/uL (3.93-5.22); RDW-SD 44.9 fL; WBC 6.41 10^3/uL (4.4-10.8)
[2023-08-28 07:02] LABS: Anion Gap 3.7 mmol/L (3-11); BUN 22 mg/dL (7-18); CO2 31.3 mmol/L (21.0-32.0); CREATININE 2.2 mg/dL (0.55-1.02); Calcium 8.5 mg/dL (8.5-10.1); Chloride 102 mmol/L (98-107); Estimated GFR 21.43 (mL/min/1.73m2); Glucose 96 mg/dL (74-106); Magnesium 1.8 mg/dL (1.8-2.4); Potassium 4.5 mmol/L (3.5-5.1); Sodium 137 mmol/L (136-145)
[2023-08-28 07:04] LABS: INR 2.1 (0.9-1.1); Prothrombin Time 19.7 sec (9.1-11.1)
[2023-08-28 07:59] VITALS: BP 103/68; PULSE 86; RESP 18; TEMP 37; O2SAT 92
--- NOTE | 2023-08-28 07:59 | SCONE_ITS ---
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 There is evidence of it dating back to as early as 2014. Generally, it has been stable through number of CAT scans. I do not see any inflammation around the duodenum at this time that would suggest perforation or significant inflammation of the diverticulum. In that regard, and without symptoms, I do not think there is anything else needed at this time. It would be reasonable to keep her on a proton pump inhibitor moving forward, although the data to support that as a means of reducing duodenal diverticular complications is quite poor. Although her anemia could be secondary to gastritis, or other forms of peptic ulcer disease, the diverticula in other parts of her GI tract would also be likely culprits. Especially in the setting of chronic therapeutic anticoagulation. I am happy to see her as an outpatient and reassess her symptoms moving forward. History of Present Illness History of Present Illness Chief Complaint: anemia Narrative: Juli is 83 years old. She was admitted to the hospital several days ago after approximately 2 weeks of diarrhea with some mild associated nausea and vomiting. She had acute on chronic kidney injury at that time. She did undergo a CAT scan of the abdomen and pelvis as part of the workup that suggested duodenal diverticulum. Since her admission, she tells me she is feeling much better. Her diarrhea has resolved, and she has been tolerating food without any difficulty. With regards to her upper GI symptoms, she did state that she had some nausea and vomiting associated with this bout of diarrhea. Otherwise, she does not experience much in the way of upper gastrointestinal symptoms such as dyspepsia, early satiety, or any mid epigastric postprandial abdominal pain. Review of Systems Constitutional Constitutional: Reports fatigue, Reports poor appetite (Currently resolved) and Denies weight loss Eyes Eyes: Reports system reviewed and no additional complaints, except as documented ENT Ears, Nose, Mouth, and Throat: Reports system reviewed and no additional complaints, except as documented Cardiovascular Cardiovascular: Denies chest pain and Denies dyspnea Respiratory Respiratory: Reports chest congestion, Reports cough and Denies dyspnea Gastrointestinal Gastrointestinal: Denies abdominal pain, Denies belching, Denies bloating, Denies hematochezia, Denies dyspepsia, Denies heartburn, Reports diarrhea (Resolved) and Reports nausea (Resolved) Genitourinary Comments: Decreased urination prior to hospitalization Musculoskeletal Musculoskeletal: Reports back pain, Denies arthralgias, Denies muscle weakness and Denies numbness Neurologic Neurologic: Reports system reviewed and no additional complaints, except as documented and Denies numbness Psychiatric Psychiatric: Reports anxiety (Secondary to caring for her with dementia) Endocrine Endocrine: Reports fatigue Hematologic/Lymphatic Hematologic/Lymphatic: Reports easy bleeding and Reports easy bruising PFSH All Active Problems (Updated 08/28/23 @ 09:11 by Terrance Srivastava MD) Duodenal diverticulum (Acute) Bilateral pulmonary infiltrates (Acute) Discharge planning issues (Acute) DVT prophylaxis (Acute) Hypomagnesemia (Acute) Acute kidney injury superimposed on chronic kidney disease (Acute) Gastroenteritis (Acute) Acute renal failure (ARF) (Acute) Depression (Chronic) Atrial fibrillation (Chronic) Hyperlipidemia (Acute) Fracture of phalanx of right little finger (Acute) Anticoagulant long-term use (Acute) Swelling of left lower extremity (Acute) Anemia (Chronic) BPV (benign positional vertigo) (Acute) Pre-diabetes (Acute) Arthritis (Acute) Tinnitus, bilateral (Acute) Sensorineural hearing loss of both ears (Acute) Afib (Chronic) ablated x 2, ongoing, coumadin 2020- cardiology suggesting a watchman, she declined- requires chronic anticoagulation Coronary artery disease (Chronic) NSTEMI 01/2020 Proximal LAD, mid RCA Essential hypertension (Chronic 09/18/13) Hypothyroidism (Chronic 07/27/11) Medical History (Updated 08/28/23 @ 09:11 by Terrance Srivastava MD) MANUELITO (acute kidney injury) Perforated diverticulum of ileum Diverticular hemorrhage Diverticula of colon Elevated troponin NSTEMI (non-ST elevated myocardial infarction) Greater trochanteric bursitis of right hip Depo-Medrol injection: 08/30/2019 (80 mg); 07/05/2019 (40 mg) Arthritis of right hip History of tobacco use Polyp of colon, adenomatous 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) Vaginal wall prolapse (07/27/11) Raynauds disease Irritable colon Chronic congestive heart failure (07/27/11) Postherpetic trigeminal neuralgia Surgical History History of colonoscopy with polypectomy (~07/03/19) [facility] History of cardiac radiofrequency ablation History of appendectomy History of bilateral oophorectomy History of esophagogastroduodenoscopy History of partial thyroidectomy Status post abdominal hysterectomy Cardiac ablations x 2 2011 Family History Mother , age 68 Rheumatoid arthritis Osteoporosis Father , age 83 Stroke Maternal Grandfather , age 53 Cancer Paternal Grandfather , in his 70s Stroke Maternal Grandmother , age 93 Stroke Paternal Grandmother No problems noted. Son Asthma Daughter No problems noted. Social History Smoking/Tobacco Use Status: Former Tobacco Use Quit Date: 10/04/92 Tobacco: How many years used: 30 Second Hand Exposure: Yes (as a child) Smoking risk assessment performed?: Yes Alcohol Intake: never Drug use: Never Substance use type: does not use Counseling given: No Counseling provided: none Caregiver/Support person: No Household members: spouse Housing: house Number of Children: 2 number of grandchildren: 7 Communication Needs: Corrective Lenses Do you need help understanding health information?: Never Pets and animals: Yes Pets and animals: cat(s) Sexually active: No Do you think of yourself as: straight/heterosexual Current gender identity: female What is your relationship status?: How often do you talk on the phone with friends or family?: twice per week How often do you get together with friends or relatives?: never How often do you attend anabaptist or jain services?: 4 or more times per year Do you belong to any clubs or organized social groups?: yes Panel score (0-1 are the most socially isolated patients): 3 What type of physical activity do you participate in: other Details: very active at home, gardens Frequency: 3-4 times per week Ciara/Christian: No preference Special ciara needs: No Seatbelt use: always Drive intox or ride w/intox delivery driver: No Working smoke detector in home: Yes Carbon monox detector in home: Yes Do you feel safe at home: Yes Do you feel safe in your relationship?: Yes Exam Const General: cooperative and comfortable Nutritional Appearance: average body habitus Orientation: alert, awake and oriented x3 GI Inspection: normal to inspection and non-distended Palpation: soft, no guarding, no hernias, no masses and nontender Percussion: normal to percussion Auscultation: normal bowel sounds Results Last Vital Signs Temp 98.8 F 08/27/23 23:05 Pulse 87 08/27/23 23:05 Resp 18 08/27/23 23:05 BP 128/73 08/27/23 23:05 Pulse Ox 95 08/27/23 23:05 Labs 08/28/23 06:24 08/28/23 06:24 Labs: Laboratory Results - last 24 hr 08/27/23 08/27/23 08/27/23 06:06 14:55 Unknown WBC RBC Hgb Hct MCV MCH MCHC RDW Plt Count MPV Immature Gran % Neutrophils % Lymphocytes % Monocytes % Eosinophils % Basophils % Nucleated RBC % Absolute Neutrophils Absolute Lymphocytes Absolute Monocytes Absolute Eosinophils Absolute Basophils PT INR Sodium Potassium Chloride Carbon Dioxide Anion Gap BUN Creatinine Est GFR (CKD-EPI 2020) Glucose Calcium Magnesium Iron 23 L NT-Pro-B Natriuret Pep 4246 H COVID-19 Source Nasal/Nares SARS-CoV-2 (PCR) Negative Add-On Test Request DONE 08/27/23 08/28/23 Unknown 06:24 WBC 6.41 RBC 2.94 L Hgb 8.4 L Hct 25.7 L MCV 87 MCH 28.6 MCHC 32.7 RDW 14.0 Plt Count 175 MPV 10.5 Immature Gran % 0.3 Neutrophils % 63.9 Lymphocytes % 18.9 Monocytes % 10.8 Eosinophils % 5.8 Basophils % 0.3 Nucleated RBC % 0.0 Absolute Neutrophils 4.10 Absolute Lymphocytes 1.21 Absolute Monocytes 0.69 Absolute Eosinophils 0.37 Absolute Basophils 0.02 PT 19.7 H INR 2.1 H Sodium 137 Potassium 4.5 Chloride 102 Carbon Dioxide 31.3 Anion Gap 3.7 BUN 22 H Creatinine 2.2 H Est GFR (CKD-EPI 2020) 21.43 Glucose 96 Calcium 8.5 Magnesium 1.8 Iron NT-Pro-B Natriuret Pep COVID-19 Source SARS-CoV-2 (PCR) Add-On Test Request DONE
[2023-08-28 08:04] LABS: Lab Add On Test DONE
[2023-08-28] MEDS: Magnesium Oxide 400 MG TAB PO (08:13)
[2023-08-28] MEDS: Carvedilol 12.5 MG TAB PO (08:14)
[2023-08-28] MEDS: Cyanocobalamin 500 MCG TAB PO (08:15)
[2023-08-28] MEDS: Pantoprazole 40 MG TABCR PO (08:15)
[2023-08-28] MEDS: Gabapentin 300 MG CAP PO (08:15)
[2023-08-28] MEDS: Furosemide 40 MG/4 ML VIAL IVP (08:16)
[2023-08-28 09:08] LABS: Procalcitonin 0.2 ng/mL
--- NOTE | 2023-08-28 09:14 | DSE_ITS ---
Date of service: 08/28/23 Time of Service: 09:14 DS: Diagnosis Discharge Diagnosis (1) Duodenal diverticulum: Status: Acute Discharge Plan Disposition Patient Disposition: Home W/Home Health Services Condition: Improving Discharge Details Reason For Visit: MANUELITO with Dehydration, Gastroenteritis Admit Date/Time: 08/19/23 21:08 Admit Provider: Phillip Metzger Attending Provider: Phillip Metzger Primary Care Provider: Meravt Mercado Hospital Course Hospital Course: This 83 y.o. female patient with history of atrial fibrillation on beta-janet and past ablation, cardiac stent on warfarin, heart failure with preserved ejection fraction and stage I diastolic dysfunction presented to the ED at [facility] on 08/19/23 for evaluation after 2-week history of nausea vomiting diarrhea reporting decreased oral intake and urine output. In the ED, systolic blood pressure was in the 90?s without tachycardia; 1 liter of normal saline administered while awaiting for labs. Remarkable labs in the ED were Creatinine 5.7. A second liter of normal saline was given. Urine output remained at 200 cc , Creatinine down to 4.9, systolic blood pressure? remained 90-100?s. The abdominal CT was unremarkable except for duodenal diverticulum. The hospitalist was contacted and the patient was admitted for evaluation and management of acute kidney injury. During the stay, the patient received further fluid resuscitation and creatinine reached 2.1. The patient developed bilateral pleural effusions and was treated with furosemide IV; Lisinopril and Coreg 12.5 daily were held due to low blood pressures. The patient was treated for pneumonia with ceftriaxone IV and doxycycline IV, and then transitioned to oral doxycycline and Cefpodoxime. The patient will be discharged on furosemide 20 mg oral twice a day, the remaining course of oral antibiotics, and a lower dose of Coreg to be adjusted by her primary care provider. The patient's home dose of hydrochlorothiazide was part of her drug regimen and continued upon discharge. INR was sub-therapeutic; we ordered SC heparin bridge and adjusted warfarin; INR 2.1 on discharge day. As per surgical consultation for duodenal diverticulum, the patient will continue pantoprazole 40 mg oral daily. The patient agreed to be discharged on home health for nursing, physical therapy to continue strengthening, occupational therapy for ADLs, and ?medical consultant. The patient will need blood draws on 09/01/23 for INR, CBC, BMP prior to her follow-up with her provider, as well as daily blood pressure monitoring per home health nursing.Mervat Mercado HOSPICE CLINICAL MARKETER, the patient's primary care to follow up on above mentioned blood work and medicine adjustment. Home Meds and New Rx's Prescriptions: New cefpodoxime 200 mg Tablet 200 mg PO Q12H Qty: 3 0RF cyanocobalamin (vitamin B-12) [Vitamin B-12] 500 mcg Tablet 500 mcg PO DAILY Qty: 30 0RF furosemide 40 mg Tablet 20 mg PO BID@0830,1600 Qty: 7 0RF doxycycline hyclate 100 mg Capsule 100 mg PO Q12H Qty: 7 0RF pantoprazole 40 mg Tablet,Delayed Release (Dr/Ec) 40 mg PO DAILY@0730 Qty: 30 0RF Continued atorvastatin 40 mg tablet 40 mg PO HS Qty: 90 3RF hydrochlorothiazide 12.5 mg tablet 12.5 mg PO DAILY Qty: 90 3RF warfarin 5 mg tablet 5 mg PO HS Qty: 90 3RF Protocol: Dose Management Condition: Wednesday Dose/Route: 5 mg Instruction: 1 x 5 mg tablet Condition: Wednesday Dose/Route: 5 mg Instruction: 1 x 5 mg tablet Condition: Wednesday Dose/Route: 5 mg Instruction: 1 x 5 mg tablet Condition: Wednesday Dose/Route: 2.5 mg Instruction: 0.5 x 5 mg tablets Condition: Dose/Route: 5 mg Instruction: 1 x 5 mg tablet Condition: Wednesday Dose/Route: 2.5 mg Instruction: 0.5 x 5 mg tablets Condition: Wednesday Dose/Route: 5 mg Instruction: 1 x 5 mg tablet Protocol Text: Adjustment Start Date: Wednesday07/19/23 INR Value: 2.7 INR Date: 07/19/23 Recheck Date: 08/16/23 cholecalciferol (vitamin D3) 25 mcg (1,000 unit) capsule 25 mcg PO DAILY Patient Comments: only take in the winter time calcium carbonate-vitamin D3 [Caltrate with Vitamin D3] 1 EACH tablet 1 tab PO DAILY levothyroxine [Synthroid] 88 mcg tablet 88 mcg PO DAILY Qty: 90 3RF gabapentin 600 mg tablet 300 mg PO BID PRN (Reason: nerve pain) Qty: 180 1RF sertraline 50 mg tablet See Rx Instructions .ROUTE .COMPLEX Qty: 90 3RF Dose Instruction: TAKE ONE TABLET BY MOUTH EVERY DAY Rx Instructions: TAKE ONE TABLET BY MOUTH EVERY DAY Changed carvedilol 6.25 mg tablet 6.25 mg PO DAILY Qty: 0 0RF Patient Comments: Pt states she is currently only taking Daily not BID. Pt will verify with provider what she should be doing. 03/17/22 Rx Instructions: must administer with a meal/food rx by [facility] Held lisinopril 40 mg tablet See Rx Instructions .ROUTE .COMPLEX Qty: 90 3RF Hold Instructions: Resume on 09/02/23. resume as per [facility] Dose Instruction: TAKE ONE TABLET BY MOUTH EVERY DAY Rx Instructions: TAKE ONE TABLET BY MOUTH EVERY DAY Discharge Instructions Referrals: Mervat Mercado, HOSPICE CLINICAL MARKETER [Primary Care Provider] - 09/01/23 (Mrs Lindquist was admitted for MANUELITO and Dehydration after 2 weeks of gastroenteritis on 08/19 then developed pleural effusions, pneumonia, and a subtherapeutic INR on warfarin.The patient has a duodenal diverticulum that is stable and is on PPI. She was treated with furosemide, antibiotics and will be discharge on a short course oral furosemide, doxycycline and cefpodoxime. She will need f/u on the continuation of the furosemide, BMP, CBC, magnesium and INR while on warfarin. Lab draws with home health on the 09/01.) Activity:: Activity as Tolerated Equipment/Supplies:: Walker Diet:: Renal diet Discharge Orders Discharge Orders: Discharge Order (Routine); Ordered 08/28/23 Ordered By: Marisol Peres Other Ambulatory Orders: Basic Metabolic Panel (Routine) Location: None Selected Ordered By: Marisol Peres Complete Blood Count w/Diff (Routine) Location: None Selected Ordered By: Marisol Peres Prothrombin Time (Routine) Timeframe: [id number] Location: None Selected Ordered By: Marisol Peres DS: Summary Time Spent with Patient providing and/or coordinating discharge services: Greater than 30 minutes Status at Discharge Functional status at discharge: uses cane/walker Overall status at discharge: patient is progressing back to baseline Mental Status: mental status grossly normal Speech and Movement: speech and movement normal Mood: congruent mood Affect: normal affect and elated Exam Narrative Exam Narrative: General: Pleasant female who is A&Ox3, looks overall better but pale, congested cough and laryngeal wheezing noticed on position change during exam today,remains on RA, still speaking in completed sentences HEENT: atraumatic, no lympthadenopathy, positive JVD, ROM is normal Heart: regular rate and rhythm, no murmur heard Lungs: diminished breath sounds at the bases of her lung patterson, minimal wheezing to right upper lobe Abdomen: soft, nontender, nondistended Extremities: +1 edema BLEs , less than on 08/26, despite TEDs, Psych: anxious about going home Psych Mental Status: mental status grossly normal Speech and Movement: speech and movement normal Mood: congruent mood Affect: normal affect and elated DS: Data Vitals/I&O Vitals and I&O: Vital Signs Temperature 37.0 C 08/28/23 07:59 Temperature Source Tympanic 08/28/23 07:59 Pulse 86 08/28/23 07:59 Pulse Rhythm Regular 08/28/23 01:26 Pulse 85 08/23/23 05:44 Respiratory Rate 18 08/28/23 07:59 Respiratory Effort Normal, Non-Labored 08/28/23 01:26 Respiratory Depth Normal 08/28/23 01:26 Respiratory Pattern Normal 08/28/23 01:26 Blood Pressure 103/68 08/28/23 07:59 Blood Pressure Mean 83 08/23/23 05:44 Blood Pressure Position Supine 08/22/23 03:43 Pulse Oximetry 92 08/28/23 07:59 Oxygen Delivery Method Room Air 08/28/23 07:59 Oxygen Flow Rate 0 08/28/23 07:59 Pain Level 0 08/28/23 07:59 Comment Low SPO2 reported to primary RN 08/27/23 07:33 Intake & Output 08/27/23 08/27/23 08/28/23 11:59 23:59 11:59 Intake Total 200 / 200 Output Total 900 / 2400 1500 / 2400 500 / 500 Balance -900 / -2200 -1300 / -2200 -500 / -500 Weight 73.89 kg 73.8 kg Intake: IV 200 / 200 Output: Urine 900 / 2400 1500 / 2400 500 / 500 Other: Urine Color Yellow Pale Pale Urine Appearance Clear Clear Clear Urine Odor None None Comment pt voided independently in toilet. volume was not obtained pt went to bathroom independently to void. ml was not obtained Stool Characteristics Brown Emesis Description None Voiding Methods Bedside Commode Bedside Commode Data Completed and Pending Labs on day of discharge: Labs from last 24 hours 08/28/23 08/27/23 08/27/23 06:24 Unknown 14:55 WBC 6.41 RBC 2.94 L Hgb 8.4 L Hct 25.7 L MCV 87 MCH 28.6 MCHC 32.7 RDW 14.0 Plt Count 175 MPV 10.5 Immature Gran % 0.3 Neutrophils % 63.9 Lymphocytes % 18.9 Monocytes % 10.8 Eosinophils % 5.8 Basophils % 0.3 Nucleated RBC % 0.0 Absolute Neutrophils 4.10 Absolute Lymphocytes 1.21 Absolute Monocytes 0.69 Absolute Eosinophils 0.37 Absolute Basophils 0.02 PT 19.7 H INR 2.1 H Sodium 137 Potassium 4.5 Chloride 102 Carbon Dioxide 31.3 Anion Gap 3.7 BUN 22 H Creatinine 2.2 H Est GFR (CKD-EPI 2020) 21.43 Glucose 96 Calcium 8.5 Magnesium 1.8 Iron C-Reactive Protein 4.50 H NT-Pro-B Natriuret Pep Procalcitonin 0.2 COVID-19 Source Nasal/Nares SARS-CoV-2 (PCR) Negative Add-On Test Request DONE DONE 08/27/23 06:06 WBC RBC Hgb Hct MCV MCH MCHC RDW Plt Count MPV Immature Gran % Neutrophils % Lymphocytes % Monocytes % Eosinophils % Basophils % Nucleated RBC % Absolute Neutrophils Absolute Lymphocytes Absolute Monocytes Absolute Eosinophils Absolute Basophils PT INR Sodium Potassium Chloride Carbon Dioxide Anion Gap BUN Creatinine Est GFR (CKD-EPI 2020) Glucose Calcium Magnesium Iron 23 L C-Reactive Protein NT-Pro-B Natriuret Pep 4246 H Procalcitonin COVID-19 Source SARS-CoV-2 (PCR) Add-On Test Request PFSH All Active Problems (Updated 08/28/23 @ 09:11 by Terrance Srivastava MD) Duodenal diverticulum (Acute) Bilateral pulmonary infiltrates (Acute) Discharge planning issues (Acute) DVT prophylaxis (Acute) Hypomagnesemia (Acute) Acute kidney injury superimposed on chronic kidney disease (Acute) Gastroenteritis (Acute) Acute renal failure (ARF) (Acute) Depression (Chronic) Atrial fibrillation (Chronic) Hyperlipidemia (Acute) Fracture of phalanx of right little finger (Acute) Anticoagulant long-term use (Acute) Swelling of left lower extremity (Acute) Anemia (Chronic) BPV (benign positional vertigo) (Acute) Pre-diabetes (Acute) Arthritis (Acute) Tinnitus, bilateral (Acute) Sensorineural hearing loss of both ears (Acute) Afib (Chronic) ablated x 2, ongoing, coumadin 2020- cardiology suggesting a watchman, she declined- requires chronic anticoagulation Coronary artery disease (Chronic) NSTEMI 01/2020 Proximal LAD, mid RCA Essential hypertension (Chronic 09/18/13) Hypothyroidism (Chronic 07/27/11) Medical History (Updated 08/28/23 @ 09:11 by Terrance Srivastava MD) MANUELITO (acute kidney injury) Perforated diverticulum of ileum Diverticular hemorrhage Diverticula of colon Elevated troponin NSTEMI (non-ST elevated myocardial infarction) Greater trochanteric bursitis of right hip Depo-Medrol injection: 08/30/2019 (80 mg); 07/05/2019 (40 mg) Arthritis of right hip History of tobacco use Polyp of colon, adenomatous 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) Vaginal wall prolapse (07/27/11) Raynauds disease Irritable colon Chronic congestive heart failure (07/27/11) Postherpetic trigeminal neuralgia Surgical History History of colonoscopy with polypectomy (~07/03/19) [facility] History of cardiac radiofrequency ablation History of appendectomy History of bilateral oophorectomy History of esophagogastroduodenoscopy History of partial thyroidectomy Status post abdominal hysterectomy Cardiac ablations x 2 2011 Family History Mother , age 68 Rheumatoid arthritis Osteoporosis Father , age 83 Stroke Maternal Grandfather , age 53 Cancer Paternal Grandfather , in his 70s Stroke Maternal Grandmother , age 93 Stroke Paternal Grandmother No problems noted. Son Asthma Daughter No problems noted. Social History Smoking/Tobacco Use Status: Former Tobacco Use Quit Date: 10/04/92 Tobacco: How many years used: 30 Second Hand Exposure: Yes (as a child) Smoking risk assessment performed?: Yes Alcohol Intake: never Drug use: Never Substance use type: does not use Counseling given: No Counseling provided: none Caregiver/Support person: No Household members: spouse Housing: house Number of Children: 2 number of grandchildren: 7 Communication Needs: Corrective Lenses Do you need help understanding health information?: Never Pets and animals: Yes Pets and animals: cat(s) Sexually active: No Do you think of yourself as: straight/heterosexual Current gender identity: female What is your relationship status?: How often do you talk on the phone with friends or family?: twice per week How often do you get together with friends or relatives?: never How often do you attend hoahaoism or religion services?: 4 or more times per year Do you belong to any clubs or organized social groups?: yes Panel score (0-1 are the most socially isolated patients): 3 What type of physical activity do you participate in: other Details: very active at home, gardens Frequency: 3-4 times per week Ciara/Mandaen: No preference Special ciara needs: No Seatbelt use: always Drive intox or ride w/intox pole truck 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
[2023-08-28] MEDS: Sertraline 50 MG TAB PO (09:15)
--- NOTE | 2023-08-28 09:15 | PDOC.HHF2F ---
Home Health Referral Home Health Orders Clinical synopsis of why skilled professionals are needed: Mrs Lindquist has a history of cardiac stents placement, atrial fibrillation with ablations and was admitted on the 08/19/2023 to [facility] for MANUELITO , dehydration following a 2-week course of gastroenteritis. The patient developped pneumonia and pleural effusions and was treated with antibiotics and diuretics , on which she will be discharged. The drugs to manage her cardiac conditons were stopped and then reintegrated into her regimen. The patient will need daily blood pressure monitoring to f/u. She was also weak and expressed the need for assistance with ADL, and hygiene care as she remains somewhat weakened. INR was subtherapeutic The patient will need blood draw on 09/01 for BMP, magnesium, INR level to be forwarded to her primary care provider. Medical diagnosis necessitation home health referral: Acute Kidney injury, dehydration, pleural effusion, pneumonia, subtherapeutic INR on Warfarin. Registered Nurse: Check all that apply Instruct on new or changed medication(s)/assess compliance: Ordered Assess for exacerbation of medical condition, instruct patient/caregivers on signs and symptoms to report for early detection: Ordered Other: Blood pressures, HR Physical Therapist: Check all that apply Increase strength & endurance for safe mobility at home: Ordered Better Breathing Program: Ordered Occupational Therapist: Evaluate and treat for patient unable to perform ADL/IADL/self-care: Ordered Safety Tech: Assist with community resources: Ordered Assist with assistant terminal manager care planning: Ordered Home Bound Status Requires the aid of supportive device (check all that apply): Walker Describe why leaving home would require a considerable and taxing effort: Safety Concerns: describe (low blood pressures) Encounter Date and Reason: I certify that a FTF encounter for this patient was performed on August 28, 2023 and that such encounter was related to the primary reason the patient requires home health services. The encounter was conducted in the following manner: By me as the certifying physician, TARGETING ACQUISITION OFFICER, PA or By an inpatient physician, TARGETING ACQUISITION OFFICER or PA during an inpatient stay who communicated findings to me, Certification And Authentication I certify that I composed the above information based on my clinical judgment relating to this patient's medical condition and, if applicable, clinical findings communicated to me by the NPP or inpatient physician who performed the FTF encounter. Name of Provider that will be monitoring home health services: PCP
[2023-08-28] MEDS: Heparin 5,000 UNITS/ML VIAL 5000 UNITS SC (09:16)
[2023-08-28] MEDS: Doxycycline Hyclate 100 MG CAP PO (09:41)
[2023-08-28] MEDS: Cefpodoxime 200 MG TAB PO (09:41)
--- NOTE | 2023-08-28 09:44 | PT.INTREAT ---
PT Notes Visit Reasons: MANUELITO with Dehydration, Gastroenteritis Inpatient Physical Therapy Treatment Note [facility] Date: 08/28/23 OBJECTIVE: ? Therapeutic Activities (92121m[1]): Direct one-on-one instruction in dynamic activities to improve functional performance. ? BED MOBILITY/TRANSFERS? Supine-sit: SBA? Sit-stand: SBA? Stand-sit: SBA ? GAIT? Assistive Device: FWW? Weight bearing: Full Assist: SBA ? Distance:? Approx 500ft ? Therapeutic Exercises ([id number][]): Direct one-on-one instruction in therapeutic exercises to develop strength, endurance, range of motion and flexibility. ? Exercises ? Seated hip abd x 10 Seated heel slides x 10 Seated SLR x 10 Rowing x 10 Shoulder horz abd x 10 Shoulder flexion x 10 ? ASSESSMENT:? Pt tolerated today's session well. Pt did have some slight dizziness when she stood up from bed but this did resolve quickly. PLAN: Cont as per PT POC. TREATMENT CODE/TIME: 9:15-9:30 (15) TA
--- NOTE | 2023-08-28 09:49 | PDOC.CMDIS ---
Date of service: 08/28/23 Time of Service: 09:51 LACE Index Scoring Tool Questions: Length of Stay (in days): 7 - 13 Was the patient admitted via the E.D.?: Yes Comorbidities: Diabetes w/o Complication and Liver or Renal Disease E.D. Visits: 1 Answers: Total Score: 14 Risk of Readmission: High Risk Care Management Discharge Plan Reason for Hospitalization: MANUELITO with dehydration, gastroenteritis Discharge Plan: Juli will return home with new orders for HH RN, PT, OT. Her son will drive her home via private vehicle. She will follow up with her PCP and discharge plan of care. She is happy to be returning home, and states that her daughter will be staying with her and her post discharge to help support them both. Patient/Family Education Needs: Review discharge instructions and limitations, discussion of self care needs including ask me three. Services Needed at Discharge: Home Health Care Services (new HH RN, PT, OT)
[2023-08-28 11:11] VITALS: BP 91/52; BP 97/54; BP 97/61; PULSE 72; PULSE 73; PULSE 75
== END 2023-08-28 16:31 | disposition home health service (06) | DRG 682 ==
LOC: ER 20:31 → MS 21:46 → ICU 08-22 10:17 → MS 08-23 08:00
PROVIDERS: Internal Medicine; Nurse Practitioner Acute Care; Admitting Provider Family Medicine; Emergency Provider Nurse Practitioner Acute Care; PCP Nurse Practitioner; Visit Provider Family Medicine
DX: N17.9 Acute kidney failure, unspecified (principal); J18.9 Pneumonia, unspecified organism; E87.21 Acute metabolic acidosis; I13.0 Hypertensive heart and chronic kidney disease with heart failure and stage 1 through stage 4 chronic kidney disease, or unspecified chronic kidney disease; I50.30 Unspecified diastolic (congestive) heart failure; E86.0 Dehydration; I48.0 Paroxysmal atrial fibrillation; N18.9 Chronic kidney disease, unspecified; I95.9 Hypotension, unspecified; E83.42 Hypomagnesemia; R79.1 Abnormal coagulation profile; R91.8 Other nonspecific abnormal finding of lung field; K57.10 Diverticulosis of small intestine without perforation or abscess without bleeding; D64.9 Anemia, unspecified; F32.9 Major depressive disorder, single episode, unspecified; E78.5 Hyperlipidemia, unspecified; Z79.01 Long term (current) use of anticoagulants; R73.03 Prediabetes; I25.10 Atherosclerotic heart disease of native coronary artery without angina pectoris; I25.2 Old myocardial infarction; I12.9 Hypertensive chronic kidney disease with stage 1 through stage 4 chronic kidney disease, or unspecified chronic kidney disease; H90.3 Sensorineural hearing loss, bilateral; R60.0 Localized edema; K52.9 Noninfective gastroenteritis and colitis, unspecified; M16.11 Unilateral primary osteoarthritis, right hip; I73.00 Raynaud's syndrome without gangrene; Z87.891 Personal history of nicotine dependence; E87.5 Hyperkalemia; E89.0 Postprocedural hypothyroidism; E87.79 Other fluid overload; Z95.5 Presence of coronary angioplasty implant and graft
CPT/HCPCS: 00123; 36410; 36415; 36592; 71250; 80048; 80053; 80076; 82550; 82805; 84145; 87426; 87493; 87505; 87635; 87641; 93306; 94640; 96361; 96374; 96375; 97110; 97112; 97116; 97162; 97530; 99222; 99285; 71045; 74176; 81003; 81015; 82565; 82607; 82728; 82746; 83540; 83550; 83605; 83630; 83735; 83880; 84100; 84300; 84439; 84443; 84484; 85014; 85018; 85025; 85610; 86140; 87070; 87177; 87205; 94664; 94667; 94668; 94760; 99223; 99232; 99233; 99239; 99291; J0696; J1644; J1940; J1941; J2405; J3475; J7060

== ENCOUNTER 2023-09-03 15:03 | Outpatient (REF) | payer MEDICARE, SELFPAY ==
[2023-09-03 14:08] LABS: Abs Immature Grans 0.03 10^3/uL (0.0-0.06); Absolute Basophil Count 0.05 10^3/uL (0.0-0.2); Absolute Eosinophil Count 0.32 10^3/uL (0.0-0.7); Absolute Lymphocyte Count 0.87 10^3/uL (1.2-3.4); Basophils % 0.7; Eosinophils % 4.4; HCT 30.3 % (36.0-46.0); HGB 9.3 g/dL (11.2-15.7); Immature Grans % 0.4; MCH 27.8 pg (27.0-33.0); MCHC 30.7 % (32.0-36.0); MCV 90 fL (80-95); MPV 10.1 fL (8.0-11.0); Monocytes % 8.3; Neutrophils % 74.2; Platelet Count 286 10^3/uL (130-400); RBC 3.35 10^6/uL (3.93-5.22); RDW 14.2 % (11.7-14.6); RDW-SD 45.7 fL; WBC 7.27 10^3/uL (4.4-10.8)
[2023-09-03 14:13] LABS: Anion Gap 10.7 mmol/L (3-11); BUN 30 mg/dL (7-18); CO2 31.3 mmol/L (21.0-32.0); CREATININE 2.5 mg/dL (0.55-1.02); Calcium 8.3 mg/dL (8.5-10.1); Chloride 102 mmol/L (98-107); Estimated GFR 18.39 (mL/min/1.73m2); Glucose 104 mg/dL (74-106); Potassium 3.6 mmol/L (3.5-5.1); Sodium 144 mmol/L (136-145)
== END 2023-09-03 15:04 | disposition home or self-care (01) ==
LOC: LBN 15:03
PROVIDERS: PCP Nurse Practitioner; Visit Provider Nurse Practitioner
DX: K52.89 Other specified noninfective gastroenteritis and colitis (principal)
CPT/HCPCS: 80048; 85025

== ENCOUNTER 2023-09-07 16:04 | Outpatient (REF) | payer MEDICARE, SELFPAY ==
[2023-09-07 19:23] LABS: HCT 29.3 % (36.0-46.0); MCH 28.1 pg (27.0-33.0); MCHC 30.7 % (32.0-36.0); MCV 92 fL (80-95); MPV 11.1 fL (8.0-11.0); Platelet Count 295 10^3/uL (130-400); RDW 14.2 % (11.7-14.6); RDW-SD 47.7 fL; WBC 6.07 10^3/uL (4.4-10.8)
[2023-09-07 19:26] LABS: Anion Gap 6.5 mmol/L (3-11); BUN 23 mg/dL (7-18); CO2 30.5 mmol/L (21.0-32.0); CREATININE 2.1 mg/dL (0.55-1.02); Calcium 8.8 mg/dL (8.5-10.1); Chloride 105 mmol/L (98-107); Estimated GFR 22.66 (mL/min/1.73m2); Glucose 112 mg/dL (74-106); Sodium 142 mmol/L (136-145)
== END 2023-09-07 16:05 | disposition home or self-care (01) ==
LOC: LBN 16:04
PROVIDERS: PCP Nurse Practitioner; Visit Provider Nurse Practitioner
DX: D64.9 Anemia, unspecified (principal); N17.9 Acute kidney failure, unspecified; N18.9 Chronic kidney disease, unspecified
CPT/HCPCS: 80048; 85027

== ENCOUNTER → 2023-09-09 10:09 | Outpatient (BNVA) | payer MEDICARE, SELFPAY | PROVIDERS: PCP Nurse Practitioner; Visit Provider Internal Medicine Cardiovascular Disease | DX: I48.0 Paroxysmal atrial fibrillation (principal); Z79.01 Long term (current) use of anticoagulants; N18.4 Chronic kidney disease, stage 4 (severe); I25.10 Atherosclerotic heart disease of native coronary artery without angina pectoris | CPT/HCPCS: 99214 ==

== ENCOUNTER 2023-09-28 17:07 | Outpatient (REF) | payer MEDICARE, SELFPAY ==
[2023-09-28 19:18] LABS: Abs Immature Grans 0.02 10^3/uL (0.0-0.06); Absolute Basophil Count 0.04 10^3/uL (0.0-0.2); Absolute Eosinophil Count 0.26 10^3/uL (0.0-0.7); Absolute Lymphocyte Count 0.84 10^3/uL (1.2-3.4); Absolute Monocyte Count 0.33 10^3/uL (0.1-0.8); Absolute Neutrophil Count 4.08 10^3/uL (1.2-6.7); Basophils % 0.7; Eosinophils % 4.7; HCT 35.8 % (36.0-46.0); HGB 10.9 g/dL (11.2-15.7); Immature Grans % 0.4; Lymphocytes % 15.1; MCH 28.2 pg (27.0-33.0); MCHC 30.4 % (32.0-36.0); MCV 93 fL (80-95); MPV 10.9 fL (8.0-11.0); Monocytes % 5.9; Neutrophils % 73.2; Platelet Count 164 10^3/uL (130-400); RBC 3.86 10^6/uL (3.93-5.22); RDW 13.4 % (11.7-14.6); RDW-SD 45.3 fL; WBC 5.57 10^3/uL (4.4-10.8)
[2023-09-28 19:20] LABS: Anion Gap 7.3 mmol/L (3-11); BUN 26 mg/dL (7-18); CO2 22.7 mmol/L (21.0-32.0); CREATININE 1.7 mg/dL (0.55-1.02); Calcium 8.7 mg/dL (8.5-10.1); Chloride 111 mmol/L (98-107); Estimated GFR 29.21 (mL/min/1.73m2); Glucose 93 mg/dL (74-106); Potassium 4.6 mmol/L (3.5-5.1); Sodium 141 mmol/L (136-145)
== END 2023-09-28 17:08 | disposition home or self-care (01) ==
LOC: LBN 17:07
PROVIDERS: PCP Nurse Practitioner; Referring Provider Nurse Practitioner; Visit Provider Nurse Practitioner
DX: N18.9 Chronic kidney disease, unspecified (principal); D64.9 Anemia, unspecified
CPT/HCPCS: 80048; 85025

== ENCOUNTER 2023-12-01 03:16 | Outpatient (CLI) | payer MEDICARE, SELFPAY ==
[2023-12-01 13:31] LABS: Abs Immature Grans 0.01 10^3/uL (0.0-0.06); Absolute Basophil Count 0.03 10^3/uL (0.0-0.2); Absolute Eosinophil Count 0.19 10^3/uL (0.0-0.7); Absolute Lymphocyte Count 0.95 10^3/uL (1.2-3.4); Absolute Monocyte Count 0.36 10^3/uL (0.1-0.8); Absolute Neutrophil Count 3.46 10^3/uL (1.2-6.7); Basophils % 0.6; Eosinophils % 3.8; HCT 34.7 % (36.0-46.0); Immature Grans % 0.2; MCH 27.4 pg (27.0-33.0); MCHC 31.7 % (32.0-36.0); MCV 87 fL (80-95); Monocytes % 7.2; Neutrophils % 69.2; Platelet Count 164 10^3/uL (130-400); RBC 4.01 10^6/uL (3.93-5.22); RDW 12.8 % (11.7-14.6); RDW-SD 40.3 fL
[2023-12-01 14:37] LABS: Anion Gap 11.5 mmol/L (3-11); BUN 26 mg/dL (7-18); CO2 23.5 mmol/L (21.0-32.0); CREATININE 1.7 mg/dL (0.55-1.02); Calcium 8.4 mg/dL (8.5-10.1); Chloride 111 mmol/L (98-107); Estimated GFR 29.21 (mL/min/1.73m2); Glucose 96 mg/dL (74-106); Potassium 4.1 mmol/L (3.5-5.1); Sodium 146 mmol/L (136-145); TSH (W/Ref FT4) 0.31 uIU/mL (0.36-3.74)
[2023-12-01 15:05] LABS: FREE T4 1.18 ng/dL (0.76-1.46)
== END 2023-12-01 03:17 | disposition home or self-care (01) ==
LOC: LBO 03:16
PROVIDERS: Absent Provider Nurse Practitioner; PCP Nurse Practitioner; Referring Provider Nurse Practitioner; Visit Provider Nurse Practitioner
DX: I10 Essential (primary) hypertension (principal); E03.9 Hypothyroidism, unspecified; N18.4 Chronic kidney disease, stage 4 (severe)
CPT/HCPCS: 36415; 80048; 84439; 84443; 85025

== ENCOUNTER → 2024-03-10 10:35 | Outpatient (BNVA) | payer MEDICARE, SELFPAY | PROVIDERS: PCP Nurse Practitioner; Visit Provider Internal Medicine Cardiovascular Disease | DX: I48.0 Paroxysmal atrial fibrillation (principal); I25.10 Atherosclerotic heart disease of native coronary artery without angina pectoris | CPT/HCPCS: 99213 ==

== ENCOUNTER 2024-04-07 17:42 | Outpatient (REF) | payer MEDICARE, SELFPAY ==
[2024-04-07 18:37] LABS: Abs Immature Grans 0.01 10^3/uL (0.0-0.06); Absolute Basophil Count 0.04 10^3/uL (0.0-0.2); Absolute Eosinophil Count 0.15 10^3/uL (0.0-0.7); Absolute Lymphocyte Count 0.96 10^3/uL (1.2-3.4); Absolute Monocyte Count 0.35 10^3/uL (0.1-0.8); Absolute Neutrophil Count 3.57 10^3/uL (1.2-6.7); Basophils % 0.8 %; HCT 36.7 % (36.0-46.0); HGB 11.4 g/dL (11.2-15.7); Immature Grans % 0.2 %; Lymphocytes % 18.9 %; MCH 27.3 pg (27.0-33.0); MCHC 31.1 % (32.0-36.0); MCV 88 fL (80-95); MPV 10.8 fL (8.0-11.0); Monocytes % 6.9 %; Neutrophils % 70.2 %; Platelet Count 153 10^3/uL (130-400); RBC 4.18 10^6/uL (3.93-5.22); RDW 13.8 % (11.7-14.6); RDW-SD 44.5 fL; WBC 5.08 10^3/uL (4.4-10.8)
[2024-04-07 18:47] LABS: Anion Gap 9.3 mmol/L (3-11); BUN 20 mg/dL (7-18); C-Reactive Protein < 0.50 mg/dL (<or=0.5); CO2 21.7 mmol/L (21.0-32.0); CREATININE 1.9 mg/dL (0.55-1.02); Calcium 8.8 mg/dL (8.5-10.1); Chloride 108 mmol/L (98-107); Estimated GFR 25.56 (mL/min/1.73m2); Glucose 94 mg/dL (74-106); Sodium 139 mmol/L (136-145)
== END 2024-04-07 17:43 | disposition home or self-care (01) ==
LOC: LBN 17:42
PROVIDERS: PCP Nurse Practitioner; Visit Provider Nurse Practitioner Family
DX: R10.9 Unspecified abdominal pain (principal); R79.89 Other specified abnormal findings of blood chemistry; R79.82 Elevated C-reactive protein (CRP)
CPT/HCPCS: 80048; 85025; 86140

== ENCOUNTER 2024-04-11 11:57 | Outpatient (REF) | payer MEDICARE, SELFPAY ==
[2024-04-11 13:13] LABS: C Diff PCR Positive (Negative)
== END 2024-04-11 11:58 | disposition home or self-care (01) ==
LOC: NCHCN 11:57
PROVIDERS: PCP Nurse Practitioner; Visit Provider Nurse Practitioner Family
DX: R19.7 Diarrhea, unspecified (principal); R10.9 Unspecified abdominal pain
CPT/HCPCS: 87329; 87493; 82272; 87177

== ENCOUNTER 2024-08-23 02:27 | Outpatient (CLI) | payer MEDICARE, SELFPAY ==
[2024-08-23 11:38] LABS: Abs Immature Grans 0.03 10^3/uL (0.0-0.06); Absolute Basophil Count 0.03 10^3/uL (0.0-0.2); Absolute Lymphocyte Count 0.97 10^3/uL (1.2-3.4); Absolute Monocyte Count 0.44 10^3/uL (0.1-0.8); Absolute Neutrophil Count 3.62 10^3/uL (1.2-6.7); Basophils % 0.6 %; Eosinophils % 3.8 %; HCT 37.6 % (36.0-46.0); HGB 11.6 g/dL (11.2-15.7); Immature Grans % 0.6 %; Lymphocytes % 18.3 %; MCH 27.9 pg (27.0-33.0); MCHC 30.9 % (32.0-36.0); MCV 90 fL (80-95); MPV 9.7 fL (8.0-11.0); Monocytes % 8.3 %; Neutrophils % 68.4 %; Platelet Count 155 10^3/uL (130-400); RBC 4.16 10^6/uL (3.93-5.22); RDW 13.4 % (11.7-14.6); RDW-SD 44.3 fL; WBC 5.29 10^3/uL (4.4-10.8)
[2024-08-23 12:17] LABS: Hemoglobin A1C 5.2 % (<5.7)
[2024-08-23 12:25] LABS: ALT 10 U/L (14-59); AST 18 U/L (15-37); Albumin 3.1 g/dL (3.4-5.0); Alkaline Phosphatase 115 U/L (46-116); Anion Gap 4.4 mmol/L (3-11); BUN 22 mg/dL (7-18); Bilirubin, Total 0.33 mg/dL (0.2-1.0); CO2 25.6 mmol/L (21.0-32.0); CREATININE 1.6 mg/dL (0.55-1.02); Calcium 8.4 mg/dL (8.5-10.1); Chloride 114 mmol/L (98-107); Estimated GFR 31.21 (mL/min/1.73m2); Glucose 92 mg/dL (74-106); Potassium 4.4 mmol/L (3.5-5.1); Sodium 144 mmol/L (136-145); TSH (W/Ref FT4) 2.87 uIU/mL (0.36-3.74); Total Protein 6.6 g/dL (6.4-8.2)
== END 2024-08-23 02:28 | disposition home or self-care (01) ==
PROVIDERS: PCP Nurse Practitioner; Visit Provider Nurse Practitioner
DX: E03.9 Hypothyroidism, unspecified (principal); I10 Essential (primary) hypertension; R53.83 Other fatigue; R73.01 Impaired fasting glucose
CPT/HCPCS: 36415; 80053; 83036; 84443; 85025

== ENCOUNTER 2025-03-09 10:48 | Outpatient (CLI) | payer MEDICARE, SELFPAY ==
--- NOTE | 2025-03-09 10:45 | RT.EKG_ITS ---
APPROVED REPORT Exam: Resting ECG Reason for Exam: afib Patient Location: O HR:61 bpm ECG Measurements Heart Rate 61 AXIS IL 149 P 10 QRSd 133 QRS 36 QT 465 T 126 QTc 469 Conclusion Sinus rhythm...normal P axis, V-rate 50- 99 IVCD, consider atypical RBBB...QRSd>120mS, terminal axis(90,270) Diffuse nondiagnostic T abnormalities
== END 2025-03-09 10:49 | disposition home or self-care (01) ==
LOC: DI.CARD 10:58
PROVIDERS: PCP Nurse Practitioner; Visit Provider Internal Medicine Cardiovascular Disease
DX: I48.0 Paroxysmal atrial fibrillation (principal); I25.10 Atherosclerotic heart disease of native coronary artery without angina pectoris
CPT/HCPCS: 93010

== ENCOUNTER → 2025-03-09 10:48 | Outpatient (BNVA) | payer MEDICARE, SELFPAY | PROVIDERS: PCP Nurse Practitioner; Referring Provider Nurse Practitioner; Visit Provider Internal Medicine Cardiovascular Disease | DX: I48.0 Paroxysmal atrial fibrillation (principal); I25.10 Atherosclerotic heart disease of native coronary artery without angina pectoris; Z79.01 Long term (current) use of anticoagulants | CPT/HCPCS: 99214; 93005 ==

== ENCOUNTER 2025-03-15 01:55 | Outpatient (CLI) | payer MEDICARE, SELFPAY ==
[2025-03-15 08:24] LABS: Abs Immature Grans 0.01 10^3/uL (0.0-0.06); Absolute Basophil Count 0.03 10^3/uL (0.0-0.2); Absolute Eosinophil Count 0.26 10^3/uL (0.0-0.7); Absolute Lymphocyte Count 0.67 10^3/uL (1.2-3.4); Absolute Monocyte Count 0.47 10^3/uL (0.1-0.8); Absolute Neutrophil Count 4.25 10^3/uL (1.2-6.7); Basophils % 0.5 %; Eosinophils % 4.6 %; HCT 38.5 % (36.0-46.0); Immature Grans % 0.2 %; Lymphocytes % 11.8 %; MCH 27.2 pg (27.0-33.0); MCHC 31.2 % (32.0-36.0); MCV 87 fL (80-95); MPV 11.1 fL (8.0-11.0); Monocytes % 8.3 %; Neutrophils % 74.6 %; Platelet Count 166 10^3/uL (130-400); RBC 4.41 10^6/uL (3.93-5.22); RDW 13.2 % (11.7-14.6); RDW-SD 42.3 fL; WBC 5.69 10^3/uL (4.4-10.8)
[2025-03-15 08:40] LABS: ALT 17 U/L (14-59); AST 15 U/L (15-37); Albumin 3.4 g/dL (3.4-5.0); Alkaline Phosphatase 147 U/L (46-116); Anion Gap 8.4 mmol/L (3-11); BUN 23 mg/dL (7-18); Bilirubin, Total 0.6 mg/dL (0.2-1.0); CO2 23.6 mmol/L (21.0-32.0); CREATININE 1.9 mg/dL (0.55-1.02); Calcium 8.7 mg/dL (8.5-10.1); Chloride 111 mmol/L (98-107); Glucose 93 mg/dL (74-106); Potassium 4.3 mmol/L (3.5-5.1); Sodium 143 mmol/L (136-145); TSH 0.43 uIU/mL (0.36-3.74); Total Protein 6.8 g/dL (6.4-8.2)
[2025-03-15 08:46] LABS: Hemoglobin A1C 5.6 % (<5.7)
[2025-03-15 10:15] LABS: Calculated LDL 62 mg/dL (<100); Cholesterol 163 mg/dL (<200); HDL Cholesterol 82 mg/dL (>or=50); Triglyceride 96 mg/dL (<150)
== END 2025-03-15 01:56 | disposition home or self-care (01) ==
LOC: LBO 01:55
PROVIDERS: Absent Provider Family Medicine; PCP Nurse Practitioner; Referring Provider Family Medicine; Visit Provider Family Medicine
DX: N18.4 Chronic kidney disease, stage 4 (severe) (principal); Z13.9 Encounter for screening, unspecified; Z98.890 Other specified postprocedural states; I12.9 Hypertensive chronic kidney disease with stage 1 through stage 4 chronic kidney disease, or unspecified chronic kidney disease; N18.32 Chronic kidney disease, stage 3b
CPT/HCPCS: 36415; 80053; 80061; 83036; 84443; 85025